=== PATIENT | male | born 1930 | race Caucasian/White ===

== ENCOUNTER 2016-05-29 10:39 | Inpatient (IN) | payer MEDICARE, OTHER ==
[~2016-05-29] VITALS: Ht 167.6 cm; Wt 44.0 kg
[2016-05-29] MEDS ORDERED: SOD CHLORIDE 0.9% 1,000 ML IV STA ×2 (10:52→10:55)
[2016-05-29] MEDS ORDERED: CEFEPIME 2GM/50 ML (PMX) 50 ML IVPB STA (10:52)
[2016-05-29] MEDS ORDERED: VANCOMYCIN 1 GM (PMX) 250 ML IVPB ONE (11:00)
[2016-05-29] MEDS ORDERED: ADV25050 INHALATION (11:04)
[2016-05-29] MEDS ORDERED: AMAN100C65 PO (11:08)
--- NOTE | 2016-05-29 11:25 | RADRPT ---
PROCEDURE: Chest x-ray CLINICAL INDICATION: Sepsis TECHNIQUE: Chest single view COMPARISON: None FINDINGS: There is moderate cardiomegaly and an sclerotic aortic calcification. The pulmonary vessels are nor mal in caliber. There is increased reticular/interstitial markings in the left lower lobe. This ma y represent atelectasis versus developing pneumonia. Continued follow-up is recommended. Lungs oth erwise clear. Costophrenic angles sharp. Bones are osteopenic IMPRESSION: 1. Increased reticular markings left lower lobe may represent atelectasis versus developing pneumon ia. Continued follow-up is recommended. 2. Cardiomegaly and atherosclerotic aortic calcification RPTAT: HH .Luke Bobby MD, Date Time Electronically viewed and signed by .Luke Bobby MD, on 05/29/2016 11:24 .W/
[2016-05-29] MEDS ORDERED: CARAS PO (11:28)
[2016-05-29] MEDS ORDERED: CALC-143 PO (11:28)
[2016-05-29] MEDS ORDERED: SIN25100 PO (11:29)
[2016-05-29] MEDS ORDERED: DILT120C10 PO (11:31)
[2016-05-29 11:32] LABS: ADD SCAN DIFF NO
[2016-05-29] MEDS ORDERED: DOCU-144 PO (11:32)
[2016-05-29] MEDS ORDERED: CRAN425C PO (11:32)
[2016-05-29] MEDS ORDERED: BISA10SU55 RC (11:33)
[2016-05-29] MEDS ORDERED: NA P135E RC (11:34)
[2016-05-29] MEDS ORDERED: [UNRECOGNIZED DRUG - CODE] SL (11:35)
[2016-05-29] MEDS ORDERED: ESCI10TA PO (11:35)
[2016-05-29 11:36] LABS: BASOPHILS % 0.1 % (0.0-2.0); EOSINOPHILS % 0.1 % (0.0-7.0); HEMATOCRIT 35.4 % (42.0-52.0); HEMOGLOBIN 11.5 g/dl (14.0-18.0); LYMPHOCYTES # 0.6 10^3/ul (0.8-2.9); LYMPHOCYTES % 5.3 % (15.0-51.0); MEAN CORPUSCULAR HEMOGLOBIN 30.2 pg (29.0-33.0); MEAN CORPUSCULAR HGB CONC 32.5 g/dl (32.0-37.0); MEAN CORPUSCULAR VOLUME 92.9 fl (82.0-101.0); MEAN PLATELET VOLUME 10.2 fl (7.4-10.4); MONOCYTE # 0.9 10^3/ul (0.3-0.9); MONOCYTES % 7.6 % (0.0-11.0); NEUTROPHIL # 10.2 10^3/ul (1.6-7.5); NEUTROPHILS % 86.1 % (39.0-77.0); PLATELET COUNT 195 10^3/UL (140-415); RED BLOOD COUNT 3.81 10^6/ul (4.70-6.10); RED CELL DISTRIBUTION WIDTH 15.2 % (11.5-14.5); WHITE BLOOD COUNT 11.8 10^3/ul (4.8-10.8)
[2016-05-29] MEDS ORDERED: OMEP40CA6 PO (11:36)
[2016-05-29] MEDS ORDERED: HYDR-906 PO ×2 (11:36→11:37)
[2016-05-29] MEDS ORDERED: MULTI PO (11:37)
[2016-05-29] MEDS ORDERED: MAGN400O4 PO (11:38)
[2016-05-29 11:45] LABS: ALBUMIN 2.8 g/dl (3.3-4.9); CHLORIDE 98 mmol/L (97-110)
[2016-05-29 11:46] LABS: POTASSIUM 4.1 mmol/L (3.5-5.1); SODIUM 135 mmol/L (135-144)
[2016-05-29 11:48] LABS: ALBUMIN/GLOBULIN RATIO 0.93; ANION GAP 13 (8-16); ASPARTATE AMINO TRANSFERASE 18 IU/L (15-46); BILIRUBIN,INDIRECT 0.3 mg/dl (0-1.1); BILIRUBIN,TOTAL 0.3 mg/dl (0.2-1.3); CARBON DIOXIDE 28 mmol/L (21-31); CREATININE 0.73 mg/dl (0.61-1.24); TOTAL PROTEIN 5.8 g/dl (6.1-8.1)
[2016-05-29 11:49] LABS: ALANINE AMINOTRANSFERASE 15 IU/L (13-69); ALKALINE PHOSPHATASE 69 IU/L (42-121); BLOOD UREA NITROGEN 19 mg/dl (7-20); CALCIUM 8.3 mg/dl (8.4-10.2); GLUCOSE 206 mg/dl (70-220)
[2016-05-29 11:58] LABS: INR 1.14; PROTIME 14.6 Sec (12.2-14.2); PT RATIO 1.1
[2016-05-29 12:01] LABS: TROPONIN-I < 0.012 ng/ml (0.00-0.12)
[2016-05-29 12:03] LABS: PARTIAL THROMBOPLASTIN TIME 25.2 Sec (25.0-35.0)
[2016-05-29] MEDS ORDERED: TIOT18CA INHALATION (12:20)
[2016-05-29] MEDS ORDERED: METO25TA7 PO (12:20)
[2016-05-29] MEDS ORDERED: MONT10TA21 PO (12:20)
[2016-05-29] MEDS ORDERED: TRAZ100T15 PO (12:21)
[2016-05-29] MEDS ORDERED: ACET-2047 PO (12:22)
[2016-05-29] MEDS ORDERED: ASCO500C7 PO (12:22)
[2016-05-29] MEDS ORDERED: DICL100G37 TOP (12:24)
[2016-05-29] MEDS ORDERED: GABA100C PO (12:25)
[2016-05-29] MEDS ORDERED: PRED10TA PO (12:26)
--- NOTE | 2016-05-29 12:41 | RADRPT ---
PROCEDURE: CT Abdomen and Pelvis without contrast. CLINICAL INDICATION: Abdominal pain. Evaluate for source of sepsis. TECHNIQUE: Multiple contiguous axial CT images of the abdomen and pelvis were obtained without the administration of intravenous contrast. Coronal and sagittal reconstructions were also performed. CTDIvol (mGy): 6.67; Total Exam DLP (mGy-cm): 324.22. One or more of the following dose reduction techniques were utilized: - Automated exposure control. - Adjustment of the mA and/or kV according to patient size. - Use of iterative reconstruction technique. COMPARISON: 01/21/2016. FINDINGS: Limited imaging of the lower thorax demonstrates scattered few residual clusters of tree in bud nodu les within the lung bases compatible with chronic bronchiolitis. This is slightly improved from jed or examination. The diaphragm is flattened suggesting the presence of hyperinflation. A fat-contai hira hernia of the central portion of the left hemidiaphragm is present. The liver and spleen are homogeneous in density. The gallbladder and right adrenal gland are unrema rkable. The left adrenal gland is not well visualized. Fatty infiltration of the pancreas is presen t. The kidneys are symmetric in size. There are no nephroureteral stones. There is no hydronephrosis o r abnormal perinephric inflammation. The abdominal aorta is normal in caliber. Atherosclerotic calcification is present. There is no per iaortic / retroperitoneal lymphadenopathy. A small moderate hiatal hernia is present and unchanged. The small intestines are unremarkable. Si gmoid diverticulosis is present. The appendix is normal. There are no focal inflammatory changes of the mesentery. There is no mesenteric lymphadenopathy. There is no ascites. There is a small fat containing hernia of the midline upper ventral abdominal wall. The bladder is partially distended and normal in contour. Mild concentric bladder wall thickening i s present. The prostate gland is within the upper limits of normal in size to mildly enlarged. Ther e is no free pelvic fluid. There is no pelvic sidewall or inguinal lymphadenopathy. Bony mineralization is decreased. There is a severe old L1 compression fracture. Body wall soft ti ssues are unremarkable. IMPRESSION: No evidence of abdominopelvic mass, lymphadenopathy or acute inflammatory pathology. Sigmoid diverticulosis. No evidence of diverticulitis. Small fat-containing hernia of the left hemidiaphragm. Small fat-containing hernia of the midline upper ventral abdominal wall, unchanged. Decreased bone density with severe chronic L1 compression fracture. RPTAT: [facility]ST .Chani Barraza MD, Date Time Electronically viewed and signed by .Chani Barraza MD, on 05/29/2016 12:41 .T/
[2016-05-29 14:00] VITALS: TEMP 98.3
[2016-05-29] MEDS ORDERED: ACETAMINOPHEN 325 MG TAB PO PRN ×2 (14:00→15:30)
[2016-05-29] MEDS ORDERED: ONDANSETRON 4 MG INJ IV PRN (14:00)
--- NOTE | 2016-05-29 14:16 | ERA ---
ER Documentation Chief Complaint Date/Time DATE: 05/29/16 TIME: 14:15 Chief Complaint FEVER AND VOMITED 1 TIME FOR 1 DAY, NO DISTRESS. NO COUGH OR CONGESTION HPI Patient is a 85-year-old male with COPD, hypertension, and previous pneumonia with respiratory failure presents with fever. Please note the history and physical exam is limited secondary to the patient's confusion at this time. The patient was brought in by ambulance. He had abdominal pain and fever at the nursing facility. He had a cough as well. He had a fever which started this morning as high as 101. He was given 3 tablets of Tylenol and the temperature came down to 98.8 per the nursing notes. He had one episode of vomiting. He is usually awake alert and oriented 3 but today is only awake alert and oriented 1. Upon review of old medical records the patient one previous visit in 2016. ROS All systems reviewed and are negative except as per history of present illness. Medications Home Meds Reported Medications Prednisone* (Prednisone*) 10 Mg Tab, 15 MG PO DAILY, TAB STARTED 05-22-16 05/29/16 Gabapentin* (Neurontin*) 100 Mg Capsule, 100 MG PO QHS, #90 CAP 05/29/16 Diclofenac Sodium* (Voltaren* Gel) 1% -100 Gm Gel, 2 GM TOP DAILY Y for PAIN, # 1 TUB TO RIGHT LOWER BACK NEED FOR PAIN MGT 05/29/16 Ascorbic Acid* (Vitamin C*) 500 Mg Capsule.sa, 500 MG PO BID, CAP 05/29/16 Acetaminophen* (Acetaminophen*) 650 Mg Tablet, 650 MG PO Q4 Y for MODERATE PAIN LEVEL 4-6, #30 TAB 05/29/16 Trazodone Hcl* (Trazodone Hcl*) 100 Mg Tablet, 100 MG PO QHS, #30 TAB 05/29/16 Metoprolol Succinate* (Toprol XL*) 25 Mg Tab.sr.24h, 25 MG PO DAILY, #30 TAB 05/29/16 Tiotropium [place]* (Spiriva*) 18 Mcg Cap.w.dev, 1 CAP INHALATION DAILY, #30 CAP 05/29/16 Montelukast Sodium* (Singulair*) 10 Mg Tablet, 10 MG PO QHS, #30 TAB 05/29/16 Magnesium Hydroxide* (Milk Of Magnesia*) 400 Mg/5 Ml Oral.susp, 30 ML PO QHS Y for CONSTIPATION, ML 05/29/16 Multivitamins* (Theragran*) 1 Tab Tab, 1 TAB PO DAILY, TAB 05/29/16 Hydrocodone/Acetaminophen (Tamiment 5-325 Tablet) 1 Each Tablet, 1 EACH PO Q6 Y for MODERATE PAIN LEVEL 4-6, TAB 05/29/16 Hydrocodone/Acetaminophen (Tamiment 5-325 Tablet) 1 Each Tablet, 2 EACH PO Q6 Y for SEVERE PAIN LEVEL 7-10, TAB 05/29/16 Omeprazole* (Omeprazole*) 40 Mg Capsule.dr, 40 MG PO DAILY, #30 CAP 05/29/16 Escitalopram Oxalate* (Lexapro*) 10 Mg Tablet, 10 MG PO DAILY, #30 TAB 05/29/16 Hyoscyamine Sulfate* (Levsin* SL) 0.125 Mg Subl, 0.125 MG SL Q6 Y for ABDOMINAL PAIN, TAB 05/29/16 Na Phos,M-B/Na Phos,Di-Ba (ENEMA READY TO USE) 135 Ml Enema, 135 ML RC EVERY 2 DAYS Y for CONSTIPATION, ENEMA 05/29/16 Bisacodyl (Dulcolax) 10 Mg Supp.rect, 10 MG RC DAILY Y for CONSTIPATION, SUPP.RECT 05/29/16 Cranberry Extract (Cranberry) 425 Mg Capsule, 425 MG PO DAILY, CAP 05/29/16 Docusate Sodium* (Colace*) 100 Mg Capsule, 200 MG PO QHS, #60 CAP 05/29/16 Diltiazem Hcl* (Cardizem SR*) 120 Mg Cap.sr.12h, 120 MG PO TID, CAP 05/29/16 Carbidopa-Levodopa* (Sinemet*) 25-100 Mg Tab, 1 TAB PO TID, TAB 05/29/16 Sucralfate* (Carafate*) 1 Gm/10 Ml Susp, 1 GM PO AC MEALS, EA 05/29/16 Calcium Citrate/Vitamin D (Citracal-Vitamin D 200 MG-250) 1 Each Tablet, 1 EACH PO DAILY, TAB 05/29/16 Amantadine Hcl* (Amantadine Hcl*) 100 Mg Capsule, 100 MG PO BID, #60 CAP 05/29/16 Salmeterol Xinaf/Fluticasone* (Advair*) 250-50 Diskus Inhaler, 1 INH INHALATION BID, #1 INHALER 05/29/16 Allergies Allergies: Coded Allergies: No Known Allergy (Unverified , 05/29/16) PMhx/Soc Positive for COPD, hypertension, pneumonia, and respiratory failure History of Surgery: No Anesthesia Reaction: No Hx Neurological Disorder: No Hx Respiratory Disorders: No Hx Cardiac Disorders: No Hx Psychiatric Problems: No Hx Miscellaneous Medical Probl: No Hx Alcohol Use: No Hx Substance Use: No Hx Tobacco Use: No Smoking Status: Never smoker FmHx Unable to obtain Physical Exam Vitals Vital Signs Date Time Temp Pulse Resp B/P Pulse Ox O2 Delivery O2 Flow Rate FiO2 05/29/16 11:56 Nasal Cannula 05/29/16 10:42 98.9 104 18 109/70 98 Physical Exam Const: Mild distress Head: Atraumatic Eyes: Normal Conjunctiva ENT: Normal External Ears, Nose and Mouth. Neck: Full range of motion..~ No meningismus. Resp: Decreased breath sounds bilaterally Cardio: Regular rate and rhythm, no murmurs Abd: Soft, non tender, non distended. Normal bowel sounds Skin: No petechiae or rashes Back: No midline or flank tenderness Ext: No cyanosis, or edema Neur: Awake but confused Result Diagram: 05/29/16 1100 05/29/16 1100 Results 24 hrs Laboratory Tests Test 05/29/16 11:00 White Blood Count 11.810^3/ul Red Blood Count 3.8110^6/ul Hemoglobin 11.5g/dl Hematocrit 35.4% Mean Corpuscular Volume 92.9fl Mean Corpuscular Hemoglobin 30.2pg Mean Corpuscular Hemoglobin Concent 32.5g/dl Red Cell Distribution Width 15.2% Platelet Count 07140^3/UL Mean Platelet Volume 10.2fl Neutrophils % 86.1% Lymphocytes % 5.3% Monocytes % 7.6% Eosinophils % 0.1% Basophils % 0.1% Nucleated Red Blood Cells % 0.0/100WBC Neutrophils # 10.210^3/ul Lymphocytes # 0.610^3/ul Monocytes # 0.910^3/ul Eosinophils # 0.010^3/ul Basophils # 0.010^3/ul Nucleated Red Blood Cells # 0.010^3/ul Prothrombin Time 14.6Sec Prothrombin Time Ratio 1.1 INR International Normalized Ratio 1.14 Activated Partial Thromboplast Time 25.2Sec Sodium Level 135mmol/L Potassium Level 4.1mmol/L Chloride Level 98mmol/L Carbon Dioxide Level 28mmol/L Anion Gap 13 Blood Urea Nitrogen 19mg/dl Creatinine 0.73mg/dl Glucose Level 206mg/dl Lactic Acid Level 1.4mmol/L Calcium Level 8.3mg/dl Total Bilirubin 0.3mg/dl Direct Bilirubin 0.00mg/dl Indirect Bilirubin 0.3mg/dl Aspartate Amino Transf (AST/SGOT) 18IU/L Alanine Aminotransferase (ALT/SGPT) 15IU/L Alkaline Phosphatase 69IU/L Troponin I < 0.012ng/ml Total Protein 5.8g/dl Albumin 2.8g/dl Globulin 3.00g/dl Albumin/Globulin Ratio 0.93 Current Medications Medications (Trade) Dose Ordered Sig/Mundo Route PRN Reason Start Time Stop Time Status Last Admin Dose Admin Cefepime HCl 50 ml @ 100 mls/hr ONCE STAT IVPB 05/29/16 10:52 05/29/16 11:21 DC 05/29/16 12:29 Vancomycin HCl 250 ml @ 125 mls/hr ONCE ONCE IVPB 05/29/16 11:00 05/29/16 12:59 DC 05/29/16 11:00 Sodium Chloride 1,000 ml @ 1,000 mls/hr Q1H STAT IV 05/29/16 10:52 05/29/16 11:51 DC 05/29/16 10:52 Sodium Chloride (NS) 1,000 ml @ 1,000 mls/hr Q1H STAT IV 05/29/16 10:55 05/29/16 11:54 DC 05/29/16 12:30 Ondansetron HCl (Zofran Inj) 4 mg BRIDGE ORDER PRN IV NAUSEA AND/OR VOMITING 05/29/16 14:00 05/30/16 13:59 Acetaminophen (Tylenol Tab) 650 mg ER BRIDGE PRN PO MILD PAIN/FEVER 05/29/16 14:00 05/30/16 13:59 Procedures/MDM EKG read by me: Rate/Rhythm: Regular rate and rhythm at a rate of 92 Intervals: Normal Impression: No evidence of ischemia or arrhythmia Chest x-ray shows pneumonia per radiology. Patient is an 85-year-old male with multiple comorbidities who presents with pneumonia and fever. The patient does not appear to have true sepsis at this time. The patient has anemia with a hemoglobin of 11.4. He does not require transfusion. His primary doctor is Dr. Trotter and the patient will be admitted to the care of Dr. Trotter to a medical surgical bed. He has confusion as well as pneumonia and I do believe that inpatient admission is appropriate. The patient was given broad-spectrum antibiotics with vancomycin and cefepime. Departure Diagnosis: Primary Impression: Altered level of consciousness Additional Impressions: Fever Qualified Code: R50.9 - Fever, unspecified fever cause Pneumonia Qualified Code: J18.9 - Pneumonia due to infectious organism, unspecified laterality, unspecified part of lung Condition: JANET Nathan MD May 29, 2016 14:16
[2016-05-29 14:47] VITALS: BP 112/57; RESP 18
[2016-05-29 14:55] LABS: ADD UMIC YES; URINE BILIRUBIN (Dip) NEGATIVE (NEGATIVE); URINE BLOOD (Dip) NEGATIVE (NEGATIVE); URINE COLOR LT. YELLOW (YELLOW); URINE GLUCOSE (Dip) NEGATIVE (NEGATIVE); URINE KETONES (Dip) TRACE (NEGATIVE); URINE LEUKOCYTE ESTERASE (Dip) TRACE (NEGATIVE); URINE NITRITE (Dip) NEGATIVE (NEGATIVE); URINE TOTAL PROTEIN (Dip) NEGATIVE (NEGATIVE); URINE UROBILINOGEN (Dip) 0.2 E.U./dL (0.1-1.0)
[2016-05-29 15:17] LABS: BACTERIA,URINE FEW; URINE RBCS 0-2 /HPF (0)
[2016-05-29] MEDS ORDERED: BISACODYL 10 MG SUPP PR PRN (15:30)
[2016-05-29] MEDS ORDERED: NA PHOSPHATE/BIPHOS 133 ML ENEMA PR PRN (15:30)
[2016-05-29] MEDS ORDERED: HYOSCYAMINE 0.125 MG SUBL TAB SL PRN (15:30)
[2016-05-29] MEDS ORDERED: DICLOFENAC SODIUM 1% GEL 100 GM TUBE TP PRN (15:30)
[2016-05-29] MEDS ORDERED: HYDROCODONE/APAP (5/325) TAB PO PRN (15:30)
[2016-05-29] MEDS ORDERED: MAGNESIUM HYDROXIDE 30ML CUP PO PRN (15:30)
[2016-05-29 15:45] VITALS: Ht 167.6 cm; Wt 44.0 kg
--- NOTE | 2016-05-29 17:43 | HP ---
DATE OF ADMISSION: 05/29/2016 CHIEF COMPLAINT: Fever, cough. HISTORY OF PRESENT ILLNESS: This is an 85-year-old male with a past medical history of COPD, histor y of asthma, a history of hypertension, history of cognitive decline, dementia, history of AFib, his tory of GERD, history of osteoarthritis, history of gastric cancer status post surgical resection wh o presents to [facility] from skilled nurse facility due to fever and vomiting x1 day. The patient was noted this morning of being febrile with a temperature of greater than 101. H e was also coughing and had 1 episode of emesis. The patient was only alert and oriented x1. As a result, he was brought into [facility] for evaluation. Upon arrival, the patient had a chest x-ray which showed increasing left lower lobe atelectasis versus developing pneumonia. The patient also noted to have abdominal pain on admission. He had a CT scan of the abdomen which s howed no acute pathology, diverticulosis; a small fat-containing hernia; and a chronic L1 compressio n fracture. The patient in the emergency room was diagnosed with sepsis secondary to pneumonia, was started on antibiotic therapy. There were no reports of hemoptysis, hematemesis or hematochezia. PAST MEDICAL HISTORY: History of COPD/asthma, history of cognitive decline, history of depression, history of AFib, history of gastric cancer status post resection, history of hypertension, history o f chronic back pain, previous history of sepsis and pneumonia. PAST SURGICAL HISTORY: Status post gastric surgery, status post EGD. FAMILY HISTORY: Noncontributory. SOCIAL HISTORY: Does not drink, smoke or do drugs. Lives at a skilled nurse facility. MEDICATIONS: Reviewed and reconciled. REVIEW OF SYSTEMS: A 14-point review of systems was conducted. Pertinent positives stated in HPI, otherwise negative. PHYSICAL EXAMINATION: VITAL SIGNS: Blood pressure 112/57, respirations 18, pulse 110, temperature 97.3. HEENT: Head is normocephalic. Pupils are reactive to light. NECK: Supple. HEART: Irregularly irregular. LUNGS: Diminished breath sounds at base. Positive rhonchi. ABDOMEN: Soft. Positive tenderness to palpation. No rebound, guarding. EXTREMITIES: Negative for clubbing, cyanosis. No edema. DERMATOLOGIC: No rashes. MUSCULOSKELETAL: No joint effusion. NEUROLOGIC: No obvious focal deficits. LABORATORY DATA: Sodium 135, potassium 4.1, BUN 19, creatinine 1.73. White count 11.8, hemoglobin 11.5, hematocrit 35.4, platelet count 195. IMAGING STUDIES: Stated in HPI. ASSESSMENT AND PLAN: This is an 85-year-old male who presents with: 1. Sepsis secondary to healthcare-associated pneumonia. The patient's chest x-ray shows evidence o f infiltrate. The patient was noted to be febrile and has leukocytosis on exam. Plan at this point is to continue the patient on antibiotic therapy. Will check blood cultures, urine cultures, check sputum culture. Will check procalcitonin level. Will place ID consult for evaluation, monitor rosy sely. 2. Acute encephalopathy on top of dementia. Etiology is likely toxic metabolic. Will continue cur rent antibiotic regimen, monitor closely. Consider CT scan of the head. 3. Paroxysmal atrial fibrillation. The patient currently in sinus rhythm. Will continue current m edical management. 4. History of chronic obstructive pulmonary disease/asthma. Will continue current medical manageme nt with Spiriva, Advair, prednisone, nebulizers. Monitor closely. 5. Parkinson disease. Will continue Sinemet. 6. Depression. Continue Lexapro. 7. Anemia of chronic disease. Continue to monitor H and H levels. 8. Osteoarthritis with compression fracture. Continue [place]. Continue Voltaren gel. 9. Gastroesophageal reflux disease and gastritis. Continue PPI. 10. History of constipation. Continue current bowel regimen. 11. Previous history of gastric cancer. Dictated By: JEFF GAMEZ/NTS Conf#: [id number] DID#: [id number]
[2016-05-29] MEDS: SUCRALFATE (100 MG/ML) 10ML CUP PO SCH (18:20)
--- NOTE | 2016-05-29 19:46 | CONS ---
DATE OF ADMISSION: 05/29/2016 DATE OF CONSULTATION: 05/29/2016 TYPE OF CONSULTATION: Infectious disease. REASON FOR CONSULTATION: Antibiotic management. HISTORY OF PRESENT ILLNESS: Crow Herbert is an 85-year-old [place] male who comes in with fever an d vomiting of 1 day's duration. His past problems include: 1. COPD. 2. Hypertension. 3. Previous pneumonia with respiratory failure. He was brought in by ambulance. He had abdominal pain and fever at the nursing facility. He has a cough as well. His fever started this morning and mora to 101. He was given 3 Tylenol and had one episode of nausea and vomiting. His past problems include: 1. COPD. 2. Hypertension. 3. Pneumonia. 4. Respiratory failure. The patient is on prednisone 10 mg. He is on gabapentin. He is on a number of different inhalers. On admission, his white count 11.8, H and H 11.5 and 35.4, platelet count of 195,000. BUN and crea tinine 19/0.73. PAST MEDICAL HISTORY: OPERATIONS: None outlined. FAMILY HISTORY: Noncontributory. SOCIAL HISTORY: He does not smoke, drink or abuse drugs, although he may have smoked in the past. We have a history of never having smoked. ALLERGIES: NONE TO PENICILLIN, SULFA OR FOODS. MEDICATIONS: Per chart. REVIEW OF SYSTEMS: As per HPI. PHYSICAL EXAMINATION: GENERAL: The patient is a well-developed, well-nourished elderly male who is alert, responsive, in no acute distress. VITAL SIGNS: Stable. He is afebrile. SKIN: Without generalized rash. HEENT: Within normal limits. NECK: Supple. LYMPH NODES: None palpable. CHEST: Decreased breath sounds at the bases. HEART: Without murmur or gallop. ABDOMEN: Soft, nontender, nondistended, without organosplenomegaly or masses. EXTREMITIES: Without cyanosis, clubbing, or edema. RECTAL AND GENITAL: Deferred. NEUROLOGIC: No focal neurological abnormalities. Chest x-ray shows pneumonia. Patient has multiple comorbidities who presents with pneumonia and fever. He was started on vancomy rizwan and cefepime. He had a CT scan of the abdomen and pelvis, no evidence of abdominopelvic mass, l ymphadenopathy or acute inflammatory process, sigmoid diverticulosis, not diverticulitis and a small fat containing hernia to the left of the diaphragm. He has decreased bone density with severe L1 c ompression fracture. IMAGING: His chest x-ray showed increased reticular markings, left lower lobe, may represent atelec tasis versus developing pneumonia, cardiomegaly and atherosclerotic aortic calcifications were prese nt. HOSPITAL COURSE: The patient comes in with fever, comes in with shortness of breath and leukocytosi s and is being treated for COPD and pneumonitis with vancomycin and cefepime. We will await his cul ture reports. We will make sure that he has sputum for culture. I will dictate my findings to Dr. Trotter. Dictated By: MILADY VERGARA MD, JD/DANIELA Conf#: [id number] DID#: [id number]
[2016-05-29 20:34] VITALS: BP 128/66; RESP 18
[2016-05-29] MEDS: DOCUSATE SODIUM 100 MG CAP PO SCH (21:35)
[2016-05-29] MEDS: SALMETEROL/FLUTICASONE 250/50 INHA INH SCH (21:35)
[2016-05-29] MEDS: ASCORBIC ACID 500 MG TAB PO SCH (21:35)
[2016-05-29] MEDS: MONTELUKAST 10 MG TAB PO SCH (21:35)
[2016-05-29] MEDS: GABAPENTIN 100 MG CAP PO SCH (21:36)
[2016-05-29] MEDS: AMANTADINE 100 MG CAP PO SCH (21:36)
[2016-05-29] MEDS: traZODone 100 MG TAB PO SCH (21:36)
[2016-05-29] MEDS: HYDROCODONE/APAP (5/325) TAB PO PRN (21:47)
[2016-05-29] MEDS: CARBIDOPA/LEVODOPA (25/100) TAB PO SCH (21:48)
[2016-05-29] MEDS: DILTIAZEM (SR) 60 MG CAP PO SCH (21:48)
[2016-05-29] MEDS: SOD CHLORIDE 0.9% 1,000 ML IV SCH (22:48)
[2016-05-30 05:40] LABS: ADD SCAN DIFF NO
[2016-05-30 05:51] LABS: BASOPHILS % 0.2 % (0.0-2.0); EOSINOPHILS # 0.1 10^3/ul (0.0-0.5); HEMATOCRIT 32.7 % (42.0-52.0); HEMOGLOBIN 10.3 g/dl (14.0-18.0); LYMPHOCYTES # 1.5 10^3/ul (0.8-2.9); LYMPHOCYTES % 17.6 % (15.0-51.0); MEAN CORPUSCULAR HEMOGLOBIN 29.3 pg (29.0-33.0); MEAN CORPUSCULAR HGB CONC 31.5 g/dl (32.0-37.0); MEAN CORPUSCULAR VOLUME 92.9 fl (82.0-101.0); MEAN PLATELET VOLUME 10.3 fl (7.4-10.4); MONOCYTE # 0.6 10^3/ul (0.3-0.9); MONOCYTES % 7.8 % (0.0-11.0); NEUTROPHILS % 72.8 % (39.0-77.0); PLATELET COUNT 167 10^3/UL (140-415); RED BLOOD COUNT 3.52 10^6/ul (4.70-6.10); RED CELL DISTRIBUTION WIDTH 15.5 % (11.5-14.5); WHITE BLOOD COUNT 8.2 10^3/ul (4.8-10.8)
[2016-05-30] MEDS ORDERED: PANTOPRAZOLE (EC) 40 MG TAB PO SCH (06:00)
[2016-05-30 06:07] LABS: POTASSIUM 3.9 mmol/L (3.5-5.1)
[2016-05-30 06:09] LABS: CREATININE 0.64 mg/dl (0.61-1.24)
[2016-05-30 06:10] LABS: CALCIUM 7.8 mg/dl (8.4-10.2); MAGNESIUM 1.8 mg/dl (1.7-2.5); PHOSPHORUS 3.6 mg/dl (2.5-4.9)
[2016-05-30] MEDS: SOD CHLORIDE 0.9% 1,000 ML IV SCH (06:38)
[2016-05-30 07:59] VITALS: BP 156/69; RESP 18
[2016-05-30] MEDS: DILTIAZEM (SR) 60 MG CAP PO SCH ×3 (08:35→21:19)
[2016-05-30] MEDS: ASCORBIC ACID 500 MG TAB PO SCH ×2 (08:36→21:18)
[2016-05-30] MEDS: METOPROLOL (XL) 25 MG TAB PO SCH (08:36)
[2016-05-30] MEDS: CARBIDOPA/LEVODOPA (25/100) TAB PO SCH ×3 (08:36→21:19)
[2016-05-30] MEDS: CALCIUM/VITAMIN D (500/200) TAB PO SCH (08:37)
[2016-05-30] MEDS: MULTIVITAMINS THERAPEUTIC TAB PO SCH (08:37)
[2016-05-30] MEDS: ESCITALOPRAM 10 MG TAB PO SCH (08:37)
[2016-05-30] MEDS: TIOTROPIUM 18 MCG CAPSULE INHA DEV INH SCH (08:37)
[2016-05-30] MEDS: predniSONE 5 MG TAB PO SCH (08:37)
[2016-05-30] MEDS: SUCRALFATE (100 MG/ML) 10ML CUP PO SCH ×3 (08:37→16:51)
[2016-05-30] MEDS: AMANTADINE 100 MG CAP PO SCH ×2 (08:37→21:18)
[2016-05-30] MEDS: SALMETEROL/FLUTICASONE 250/50 INHA INH SCH ×2 (08:38→21:18)
[2016-05-30] MEDS: ENOXAPARIN 30 MG/0.3 ML SYG SC SCH (08:43)
[2016-05-30] MEDS: HYDROCODONE/APAP (5/325) TAB PO PRN (08:44)
[2016-05-30] MEDS ORDERED: NON-FORMULARY/PATIENT OWN MED (Cranberry Extract (Cranberry) 425 MG) PO SCH (09:00)
--- NOTE | 2016-05-30 09:19 | PN ---
DATE: 05/30/2016 SUBJECTIVE: The patient is stable. He is complaining about pain in his right upper quadrant and hi s lower back which are chronic, and has been ongoing for an extended period of time. No other acute events noted. No hemoptysis, hematemesis, hematochezia. The patient overnight was noted to be mil dly hypotensive, was placed on IV fluids. OBJECTIVE: VITAL SIGNS: Blood pressure is 156/69, respiration 18, pulse 119, temperature 98.2. HEENT: Head is normocephalic. NECK: Supple. HEART: Tachycardic. LUNGS: Show diminished breath sounds at base. ABDOMEN: Soft, positive tenderness to palpation in right upper quadrant. No rebound or guarding. EXTREMITIES: Negative for clubbing, cyanosis. No edema. DERMATOLOGIC: No rashes. MUSCULOSKELETAL: Positive tenderness to palpation in the lower thoracic region around T12/T11. No spinal tenderness. NEUROLOGIC: No focal deficits. LABORATORY DATA: Shows sodium 137, potassium 3.9, chloride 102, BUN 13, creatinine 0.64, white coun t of 9.2, hemoglobin 10.2, hematocrit 32.7, platelet count 167,000. IMAGING STUDIES: Have been reviewed. ASSESSMENT AND PLAN: 1. Sepsis secondary to healthcare-associated pneumonia. The patient's chest x-ray shows questionab le infiltrate. Blood cultures show gram-positive cocci. Patient also noted to have elevated lactic acid. At this point, continue current treatment plan. Continue IV fluids, continue antibiotic the rapy. We will follow up with Infectious Disease for further recommendations. Check procalcitonin l evel. 2. Abdominal pain. Patient has right upper quadrant pain. The etiology is unclear. CT scan of e abdomen and pelvis does not show any acute findings. We will place an a General Surgery consult w [facility] Dr. Ezekiel Salcido for evaluation. 3. Lower back pain. Underlying etiology is unclear, possible arthritis versus compression fracture . The patient's recent CT scan of the abdomen and pelvis showed an L1 compression fracture. Plan a t this point is to get a CT scan of the T spine and L-spine. Would consider Orthopedic evaluation. Continue pain control, monitor closely. 4. Acute encephalopathy and dementia. Etiology is toxic metabolic. Mental status is improved. We will continue to monitor. 5. Paroxysmal atrial fibrillation, currently in sinus rhythm. Continue medical management. Follow up with Cardiology. 6. History of chronic obstructive pulmonary disease and asthma. The patient is currently stable. Continue medical management, Spiriva, Advair, prednisone, nebulizers. 7. Parkinson disease. Continue Sinemet. 8. Depression. Continue Lexapro. 9. Anemia of chronic disease. Monitor hemoglobin and hematocrit levels. 10. History of severe gastritis/gastroesophageal reflux disease. Continue proton pump inhibitor 40 mg, Protonix b.i.d. 11. History of constipation. Continue current bowel regimen. 12. History of gastric cancer. Please note, I spoke with the patient's daughter up to 25 minutes, discussed code status. The patie nt is FULL CODE. Dictated By: JEFF HAUSER DO NR/NTS Conf#: [id number] DID#: [id number]
[2016-05-30] MEDS ORDERED: VANCOMYCIN IV PER PHARMACY XX SCH (13:00)
--- NOTE | 2016-05-30 13:26 | PN ---
DATE: 05/30/2016 SUBJECTIVE: No acute changes. The patient is lying comfortably in bed. He is awake, in no distres s, still has right upper quadrant abdominal discomfort. VITAL SIGNS: Temperature 98.2. LABORATORY: WBC today 8.2, H and H 10.3 and 32.7, platelets 167, no shift, no bands. BUN 13, creat inine 0.64. Lactic acid 2.9. MICROBIOLOGY: Blood culture growing gram-positive cocci in chains. DIAGNOSTICS: CT of the abdomen revealed no evidence of inflammatory pathology. No evidence of dive rticulitis, chronic compression fracture at L1. Chest x-ray on admission revealed atelectasis versu s pneumonia. ANTIMICROBIALS: Patient is on vancomycin. ALLERGIES: NONE. PHYSICAL EXAMINATION: GENERAL: This is a fragile, elderly man who is awake, in no distress. HEENT: Head atraumatic, normocephalic. Sclerae anicteric. Buccal mucosa dry. NECK: Supple, trachea midline. CHEST: Rise symmetrical. Breath sounds diminished at the bases. HEART: S1, S2. ABDOMEN: Soft, bowel tones present. EXTREMITIES: Without cyanosis. ASSESSMENT: 1. Bacteremia with blood culture growing gram-positive cocci in chains, possibly strep. 2. Acute pneumonia likely strep. 3. COPD exacerbation. 4. Hypertension. 5. Parkinson's disease. PLAN: We are going to continue vancomycin and start him on Rocephin. Repeat blood cultures. Try to obtain sputum cultures, follow on chest x-ray and get 2D echo. Dictated By: JOSEPH PRADO FLIGHT ENGINEER INSPECTOR for MILADY PARK/DANIELA Conf#: [id number] DID#: [id number]
--- NOTE | 2016-05-30 15:08 | CONS ---
DATE OF ADMISSION: 05/29/2016 DATE OF CONSULTATION: 05/30/2016 TYPE OF CONSULTATION: Cardiology REFERRING PHYSICIAN: Jeff Trotter MD REASON FOR CONSULTATION: Arrhythmias. CHIEF COMPLAINT: Fever, cough, not feeling well. HISTORY OF PRESENT ILLNESS: Thank you for this referral. History is obtained from the patient, ext ensive review of the old chart. The patient also known to me from outpatient workup. Discussion wi th Dr. Trotter and staff. This is a pleasant 85-year-old [place] gentleman with history of COPD, asthma, hypertension, cognitive decline, history of paroxysmal atrial fibrillation, who has h ad increasing cough and shortness of breath. The patient admitted with sepsis and pneumonia, also was brought in from [facility] where he was having fever and vomiting there. He denies a ny chest pain or pressure to me. He does have back pain. He does have shortness of breath and coug h. He denies any palpitations to me at this point, although has had intermittently before. PAST MEDICAL HISTORY: History of COPD, asthma, history of cognitive decline, history of depression, paroxysmal atrial fibrillation, gastric ulcer, status post resection, hypertension, chronic back pa in, sepsis, pneumonia. SURGICAL HISTORY: Status post gastric surgery, EGD. SOCIAL HISTORY: Does not smoke or drink at this point. Lives in a [place] [facility]. MEDICATIONS: As per medication reconciliation, personally reviewed. FAMILY HISTORY: No reported coronary artery disease. REVIEW OF SYSTEMS: As above mentioned. PHYSICAL EXAMINATION: VITAL SIGNS: Temperature 98.2, heart rate of 110, blood pressure 156/69, respiratory rate of 18, sa turating 94%. HEENT: Normocephalic, atraumatic. Thin gentleman. Pupils are equal. CARDIOVASCULAR: Tachycardic. Systolic murmur. PULMONARY: With no wheezes anteriorly at this point, with mild rhonchi. GASTROINTESTINAL: Soft, nontender. EXTREMITIES: With no significant lower extremity edema. NEUROLOGIC: Awake, responds appropriately. PSYCHIATRIC: Appears to be calm and pleasant. LABORATORY DATA: Microbiology shows blood culture with gram-positive cocci in chains and clusters, 1 out of 2. Sodium 137, potassium 3.9, BUN of 13, creatinine 0.6, glucose 114. Lactic acid was hig h at 5.1, it has come down to 2.9. Magnesium is 1.9. WBC of 8.2, hemoglobin 10.3, platelets 165. Chest x-ray shows increased reticular markings left lower lobe, may be atelectasis versus deve loping pneumonia. EKG was personally reviewed, which shows sinus rhythm with frequent PACs/atrial t achycardia. ASSESSMENT AND PLAN: 1. History of atrial arrhythmias, currently is stable. 2. Pneumonia. 3. Possible sepsis. 4. Chronic obstructive pulmonary disease. 5. Parkinson's disease. 6. Depression. 7. History of fall risk. 8. History of gastrointestinal bleed as well as gastrointestinal cancer. 9. Anemia. RECOMMENDATIONS: Antibiotic as per ID's recommendations. We will continue with Toprol for now. Th e patient is not anticoagulated due to concern about the bleeding. Pulmonary care will be continued . We will check the echocardiogram as well. Dictated By: CHAVA LOZANO MD AV/DANIELA Conf#: [id number] DID#: [id number] CC: JEFF TROTTER DO;*EndCC*
--- NOTE | 2016-05-30 16:48 | RADRPT ---
Echocardiogram Report Patient Name: MAGALIE HAWLEY Gender: Male Date: 1930 Study Date: 30-May-2016 Billing Checker: Malina Londono AQUILINO Location: 629 Ref. Physician: JOSEPH PRADO Quality: Technically Difficult Study Procedures: Transthoracic echocardiogram with complete 2D, M-Mode, and doppler examination. Indications: r/o vegetations. 2D/M Mode Doppler Measurement Value Normal Ranges Measurement Value Normal Ranges LVIDd 2D 4.2 3.5 - 5.6 cm DALILA Vmax 1.0 cm2 LVIDs 2D 2.2 2.1 - 4.1 cm DALILA VTI 1.0 cm2 LVPWd 2D 1.0 0.6 - 1.1 cm AV Mean Stuart 1.9 m/sec IVSd 2D 1.0 0.6 - 1.1 cm AV Mean PG 17.2 mmHg AoR Diam 2D 2.7 2.0 - 3.7 cm AV Peak Stuart 2.9 m/sec EDV 2D 78.3 cm3 AV Peak PG 34.0 mmHg ESV 2D 10.3 cm3 AV VTI 52.7 cm LA Dimen 2D 3.9 2.3 - 4.0 cm LVOT Mean Stuart 0.8 m/sec LVOT Diam 1.8 cm LVOT Mean PG 2.9 mmHg LVOT Peak Stuart 1.2 m/sec LVOT Peak PG 5.7 mmHg LVOT VTI 22.7 cm TR Peak Stuart 1.9 m/sec TR Peak PG 14.8 mmHg RVSP 18.0 mmHg Findings Left Ventricle: Normal left ventricular systolic function. Normal left ventricular cavity size. Normal left ventricular wall thickness. Ejection fraction is visually estimated at 65 %. Right Ventricle: Normal right ventricular size. Normal right ventricular systolic function. Left Atrium: The left atrium is normal in size. Right Atrium: The right atrium is normal in size. Mitral Valve: Mild mitral leaflet calcification. Moderate mitral annular calcification. No mitral valve regurgitation is seen. Aortic Valve: Aortic valve not well visualized. Mild aortic stenosis. Aortic valve Max velocity 2.92 m/sec. Max PG 34.00 mmHg. Mean PG 17.20 mmHg. Aortic cusps appear moderately calcified. Tricuspid Valve: Normal appearance of the tricuspid valve. Estimated peak PA systolic pressure 18 mmHg. There is trace tricuspid regurgitation. Pulmonic Valve: Normal pulmonic valve appearance. Pericardium: Normal pericardium with no significant pericardial effusion. Aorta: Normal aortic root. IVC: Normal size and normal respiratory collapse consistent with normal right atrial pressure. Conclusions 1.Normal left ventricular systolic function. Normal left ventricular cavity size. Normal left ventricular wall thickness. Ejection fraction is visually estimated at 65 %. 2.Mild mitral leaflet calcification. Moderate mitral annular calcification. No mitral valve regurgitation is seen. 3.Aortic valve not well visualized. Mild aortic stenosis. Aortic valve Max velocity 2.92 m/sec. Max PG 34.00 mmHg. Mean PG 17.20 mmHg. Aortic cusps appear moderately calcified. 4.Normal appearance of the tricuspid valve. Estimated peak PA systolic pressure 18 mmHg. There is trace tricuspid regurgitation. 5.Normal size and normal respiratory collapse consistent with normal right atrial pressure. Electronically Signed By: Jeff Raymundo 30-May-2016 16:47:59 -0700 Patient Name: MAGALIE HAWLEY Study Date: 30-May-2016 [id number]
[2016-05-30] MEDS: CEFTRIAXONE 1 GM/50 ML (PMX) 50 ML IVPB SCH (16:51)
[2016-05-30] MEDS: VANCOMYCIN 500MG/NS (PMX) 100 ML IVPB SCH (16:52)
[2016-05-30] MEDS: PANTOPRAZOLE (EC) 40 MG TAB PO SCH (17:06)
[2016-05-30 21:12] VITALS: BP 136/71; RESP 18
[2016-05-30] MEDS: MONTELUKAST 10 MG TAB PO SCH (21:18)
[2016-05-30] MEDS: GABAPENTIN 100 MG CAP PO SCH (21:18)
[2016-05-30] MEDS: traZODone 100 MG TAB PO SCH (21:18)
[2016-05-30] MEDS: DOCUSATE SODIUM 100 MG CAP PO SCH (21:18)
--- NOTE | 2016-05-31 00:17 | RADRPT ---
PROCEDURE: CT thoracic Spine without contrast. CLINICAL INDICATION: Back pain TECHNIQUE: Multiple axial images through the thoracic spine with coronal and sagittal reformats we re obtained without contrast. The calculated radiation dose measures 348 mGy centimeters. The CTDI m easures 8 mGy COMPARISON: No prior studies are available for comparison. FINDINGS: There is anatomic alignment of the thoracic vertebral bodies. There is a compression deformity at T 8, with 55% height loss. There is compression deformities at T11 and L1, with 50% and near complete height loss respectively. There is retropulsion at the L1 level measuring up to 6 mm, with mild as sociated central canal stenosis. There is minimal retropulsion at T11, less than 2 mm. There is dif fuse bony demineralization. There is mild facet hypertrophy through the mid and lower thoracic spine. There is no significant d isk protrusion or extrusion identified. There is no bony central canal stenosis. There is mild to moderate bilateral bony foraminal stenosis at T10-T11 and L1-L2, related to adjacent vertebral body height loss.. . There is prominent aortic calcification. There is a moderate hiatal hernia. There is scarring in th e lung periphery and scattered emphysematous changes. IMPRESSION: 1. Bony demineralization. 2. Compression deformities at T8 and T11, with 55% and 50% height loss respectively. Compression de formity at L1, with near complete height loss. These findings are of uncertain age. 3. Mild retropulsion at L1, with mild associated central canal stenosis. 4. Mild to moderate bilateral bony foraminal stenosis at T10-T11 and L1-L2, related to adjacent hero tebral body height loss. 5. Prominent aortic calcification. Moderate hiatal hernia. Emphysematous changes. RPTAT: HBST .Odilon Hanson MD, MD Date Time Electronically viewed and signed by .Odilon Hanson MD, MD on 05/31/2016 00:16 .T/
--- NOTE | 2016-05-31 00:30 | RADRPT ---
PROCEDURE: CT Lumbar Spine. CLINICAL INDICATION: Back pain TECHNIQUE: Continuous axial CT images were obtained. Sagittal and coronal reformations were creat ed from the raw axial data. The images were reviewed on a PACS workstation. The calculated radiatio n dose measures 255 mGy centimeters. The CTDI measures 8 mGy COMPARISON: none FINDINGS: There is a normal lumbar lordosis. There is diffuse bony demineralization. There is a severe compr ession deformity of the L1 vertebral body with near complete height loss. There are compression def ormities involving the inferior L2 and L3 vertebral bodies, with 40% and 50% height loss respectivel y. There is retropulsion of the upper L1 vertebral body up to 6 mm into the anterior spinal canal, with associated mild central canal stenosis. There is no subluxation. T12-L1: There is L1 retropulsion and mild central canal stenosis as mentioned above. There is minim al bilateral facet hypertrophy. There is minimal bilateral foraminal stenosis.. L1-L2: There is mild L1 retropulsion. There is minimal bilateral facet hypertrophy. There is no si gnificant central canal stenosis. There is mild to moderate bilateral foraminal stenosis.. L2-L3: There is a minimal diffuse disk bulge. There is moderate bilateral facet hypertrophy. There is ligamentum flavum buckling. There is mild central canal stenosis. There is mild to moderate bi lateral foraminal stenosis. L3-L4: There is a minimal diffuse disk bulge. There is moderate bilateral facet hypertrophy. There is mild central canal stenosis. There is right greater than left lateral recess narrowing. There is mild to moderate bilateral foraminal stenosis.. L4-L5: There is a mild to moderate diffuse disk bulge, 5 mm. There is mild to moderate bilateral fa cet hypertrophy. There is ligamentum flavum buckling. There is moderate central canal stenosis wit h canal diameter measuring 9 x 11 mm. There is bilateral lateral recess stenosis. There is moderat e left and moderate to severe right foraminal stenosis.. L5-S1: There is a minimal diffuse disk bulge. There is mild moderate bilateral facet hypertrophy. There is no bony central canal stenosis. There is minimal bilateral bony foraminal stenosis.. There is no abnormal paravertebral soft tissue mass. There is a moderate hiatal hernia. There is a 2 mm left lower pole renal stone. There is colonic diverticulosis. IMPRESSION: 1. Compression deformity at L1 with near complete height loss. There is mild retropulsion, up to 6 mm, and mild associated central canal stenosis. 2. Inferior endplate compression deformities at L2 and L3, with 40% and 50% height loss respectivel y. 3. Bony demineralization. 4. At L4-5 there is mild to moderate disk bulge, and mild to moderate facet hypertrophy with ligame ntum flavum buckling. There is resulting moderate central canal stenosis and lateral recess narrowi ng. There is moderate left and moderate to severe right foraminal stenosis. 5. Moderate facet hypertrophy and ligamentum flavum buckling at L2-L3 and L3-L4, with minimal disk bulges. Mild associated central canal narrowing. 6. Left lower pole 2 mm renal collecting system stone. RPTAT: HBST .Odilon Hanson MD, Date Time Electronically viewed and signed by .Odilon Hanson MD, on 05/31/2016 00:30 .T/
[2016-05-31] MEDS: PANTOPRAZOLE (EC) 40 MG TAB PO SCH ×2 (06:08→17:27)
[2016-05-31 06:18] LABS: ADD SCAN DIFF NO
[2016-05-31 06:26] LABS: BASOPHILS % 0.1 % (0.0-2.0); EOSINOPHILS # 0.1 10^3/ul (0.0-0.5); EOSINOPHILS % 0.6 % (0.0-7.0); HEMATOCRIT 31.2 % (42.0-52.0); HEMOGLOBIN 9.8 g/dl (14.0-18.0); LYMPHOCYTES # 1.2 10^3/ul (0.8-2.9); MEAN CORPUSCULAR HEMOGLOBIN 29.3 pg (29.0-33.0); MEAN CORPUSCULAR HGB CONC 31.4 g/dl (32.0-37.0); MEAN CORPUSCULAR VOLUME 93.4 fl (82.0-101.0); MEAN PLATELET VOLUME 9.6 fl (7.4-10.4); MONOCYTE # 0.8 10^3/ul (0.3-0.9); MONOCYTES % 8.6 % (0.0-11.0); NEUTROPHIL # 6.9 10^3/ul (1.6-7.5); NEUTROPHILS % 76.8 % (39.0-77.0); PLATELET COUNT 187 10^3/UL (140-415); RED BLOOD COUNT 3.34 10^6/ul (4.70-6.10); RED CELL DISTRIBUTION WIDTH 15.5 % (11.5-14.5); WHITE BLOOD COUNT 8.9 10^3/ul (4.8-10.8)
[2016-05-31 08:03] VITALS: BP 124/71; RESP 18
[2016-05-31] MEDS: SUCRALFATE (100 MG/ML) 10ML CUP PO SCH ×3 (09:15→17:27)
[2016-05-31] MEDS: predniSONE 5 MG TAB PO SCH (09:16)
[2016-05-31] MEDS: CALCIUM/VITAMIN D (500/200) TAB PO SCH (09:16)
[2016-05-31] MEDS: MULTIVITAMINS THERAPEUTIC TAB PO SCH (09:16)
[2016-05-31] MEDS: ESCITALOPRAM 10 MG TAB PO SCH (09:17)
[2016-05-31] MEDS: METOPROLOL (XL) 25 MG TAB PO SCH (09:17)
[2016-05-31] MEDS: AMANTADINE 100 MG CAP PO SCH ×2 (09:18→21:19)
[2016-05-31] MEDS: ASCORBIC ACID 500 MG TAB PO SCH ×2 (09:18→21:14)
[2016-05-31] MEDS: DILTIAZEM (SR) 60 MG CAP PO SCH ×3 (09:18→21:14)
[2016-05-31] MEDS: CARBIDOPA/LEVODOPA (25/100) TAB PO SCH ×3 (09:18→21:13)
[2016-05-31] MEDS: SALMETEROL/FLUTICASONE 250/50 INHA INH SCH ×2 (09:18→21:13)
[2016-05-31] MEDS: TIOTROPIUM 18 MCG CAPSULE INHA DEV INH SCH (09:18)
[2016-05-31] MEDS: ENOXAPARIN 30 MG/0.3 ML SYG SC SCH (09:28)
--- NOTE | 2016-05-31 09:41 | PN ---
DATE: 05/31/2016 CARDIOLOGY FOLLOWUP SUBJECTIVE: The patient complained of back pain. No chest pain or pressure. Denies any palpitatio ns to me. MEDICATIONS: Reviewed. PHYSICAL EXAMINATION: VITAL SIGNS: Temperature 98.7, heart rate of 111, blood pressure 12 /71, respiration rate of 18 , saturating 93%. HEENT: Normocephalic, atraumatic. Pupils are equal. CARDIOVASCULAR: Tachycardic. PULMONARY: With no wheezes heard. GASTROINTESTINAL: Soft, nontender. EXTREMITIES: With trivial lower extremity edema. NEUROLOGIC: Awake, responds appropriately. PSYCHIATRIC: Appears to be calm and pleasant. LABORATORY: WBC of 8.9, hemoglobin 9.8, platelet 187. Sodium 137, potassium 3.9, BUN of 13, creati nine 0.64, glucose of 114. Lactic as of yesterday . ASSESSMENT AND PLAN: 1. History of paroxysmal atrial fibrillation, currently in sinus rhythm. 2. Pneumonia. 3. Possible sepsis. 4. Chronic obstructive pulmonary disease. 5. Parkinson's disease. 6. Back pain. 7. History of falls. 8. History of GI bleed and GI ulcers. 9. Anemia. 10. Hypertension. RECOMMENDATIONS: We will continue metoprolol and Cardizem. Antibiotic as per internal medicine. P ain management as per internal medicine. Dictated By: CHAVA THORNTON/DANIELA Conf#: [id number] DID#: [id number] CC: JEFF HAUSER DO;*EndCC*
--- NOTE | 2016-05-31 09:58 | PN ---
DATE: 05/31/2016 SUBJECTIVE: The patient is stable, continues to complain about pain in his back. No other events n oted. No hemoptysis, hematemesis or hematochezia. OBJECTIVE: VITAL SIGNS: Blood pressure is 124/71, respiration 18, pulse 111, temperature 98.7. HEENT: Head is normocephalic. NECK: Supple. HEART: Regular rate. LUNGS: Show diminished breath sounds at the base. ABDOMEN: Soft, nontender to palpation. No rebound or guarding. EXTREMITIES: Negative for clubbing, cyanosis, no edema. DERMATOLOGIC: No rashes. MUSCULOSKELETAL: Positive tenderness to palpation around the thoracic lumbar region. NEUROLOGIC: No change in exam. LABORATORY DATA: Shows white count 8.9, hemoglobin 9.8, hematocrit 31.2, platelet count is 187. IMAGING STUDIES: The patient's lumbar thoracic spine reviewed showed compression fractures of L1, c omplete endplate abnormalities at L2-L3, a disk bulge at L4-L5 as well as compression fracture of T1 0-T11. ASSESSMENT AND PLAN: 1. Sepsis secondary to healthcare-associated pneumonia. The patient's blood cultures were positive for Staph aureus. The patient is clinically responding to antibiotic therapy. We will continue. 2. Lower back pain. Etiology is secondary to compression fracture, osteoarthritis, possible stenos is and disk herniation. The patient's CT spine was reviewed. A neurosurgical consult was placed [facility] Dr. Stuart. We will order MRI of the thoracic, lumbar spine to see if the compression fractures ar e acute and chronic. We will continue pain control and we will wait for neurosurgery evaluation. 3. Abdominal pain. Etiology may be referred as CT scan shows no acute findings. Continue to monit or. 4. Acute encephalopathy and dementia. Etiology is toxic metabolic. Mental status has improved ret urned to baseline. Continue to monitor. 5. Paroxysmal atrial fibrillation, currently in sinus rhythm. Continue to monitor. Follow up with cardiology. 6. History of chronic obstructive pulmonary disease, asthma. The patient is currently stable. Con tinue medical management with Spiriva, Advair, prednisone. Continue nebulizers. 7. Parkinson's disease. Continue Sinemet. 8. Depression. Continue Lexapro. 9. Anemia, likely of chronic disease. Continue to monitor hemoglobin and hematocrit levels. 10. Constipation. We will continue current bowel regimen. 11. Severe gastritis, GERD. Continue Protonix b.i.d. 12. History of gastric cancer. Dictated By: JEFF GAMEZ/DANIELA Conf#: [id number] DID#: [id number]
[2016-05-31] MEDS: CEFTRIAXONE 1 GM/50 ML (PMX) 50 ML IVPB SCH (12:15)
[2016-05-31 12:20] VITALS: BP 108/68; PULSE 115
[2016-05-31] MEDS: VANCOMYCIN 500MG/NS (PMX) 100 ML IVPB SCH (14:24)
--- NOTE | 2016-05-31 15:07 | CONS ---
Date/Time of Note Date/Time of Note DATE: 05/31/16 TIME: 15:05 Assessment/Plan Assessment/Plan Chief Complaint/Hosp Course SUBJECTIVE: No acute changes. The patient is lying comfortably in bed. C/o acid reflux, no fevers MICROBIOLOGY: Blood culture growing gram-positive cocci in chains, urine c x+ yeast. DIAGNOSTICS: CT of the abdomen revealed no evidence of inflammatory pathology. No evidence of diverticulitis, chronic compression fracture at L1. Chest x- ray on admission revealed atelectasis versus pneumonia. ANTIMICROBIALS: Rocephin, Vancomycin. ALLERGIES: NONE. PHYSICAL EXAMINATION: GENERAL: This is a fragile, elderly man who is awake, in no distress. HEENT: Head atraumatic, normocephalic. Sclerae anicteric. Buccal mucosa dry. NECK: Supple, trachea midline. CHEST: Rise symmetrical. Breath sounds diminished at the bases. HEART: S1, S2. ABDOMEN: Soft, bowel tones present. EXTREMITIES: Without cyanosis. ASSESSMENT: 1. Bacteremia with blood culture growing gram-positive cocci in chains, possibly strep. 2. Acute pneumonia likely strep. 3. COPD exacerbation. 4. Hypertension. 5. Parkinson's disease. 6. UTI==> yeast PLAN: Dc Vanco, start Diflucan, continue Rocephin, f/u repeat bld cx and 2D ECHO. PPI's DW staff Problems: Consultation Date/Type/Reason Admit Date/Time May 29, 2016 at 14:38 Initial Consult Date Type of Consultation: ID Exam/Review of Systems Vital Signs Vitals Vital Signs Date Time Temp Pulse Resp B/P Pulse Ox O2 Delivery O2 Flow Rate FiO2 05/31/16 12:20 115 108/68 05/31/16 08:03 98.7 18 93 05/29/16 14:00 Room Air Intake and Output 05/30/16 05/30/16 05/31/16 14:59 22:59 06:59 Intake Total 1670 ml 720 ml Output Total 500 ml 700 ml Balance 1170 ml 20 ml Results Result Diagram: 05/31/16 0546 05/30/16 0505 Results 24 hrs Laboratory Tests Test 05/31/16 05:46 05/31/16 13:00 White Blood Count 8.9 Red Blood Count 3.34 L Hemoglobin 9.8 L Hematocrit 31.2 L Mean Corpuscular Volume 93.4 Mean Corpuscular Hemoglobin 29.3 Mean Corpuscular Hemoglobin Concent 31.4 L Red Cell Distribution Width 15.5 H Platelet Count 187 Mean Platelet Volume 9.6 Neutrophils % 76.8 Lymphocytes % 13.0 L Monocytes % 8.6 Eosinophils % 0.6 Basophils % 0.1 Nucleated Red Blood Cells % 0.0 Neutrophils # 6.9 Lymphocytes # 1.2 Monocytes # 0.8 Eosinophils # 0.1 Basophils # 0.0 Nucleated Red Blood Cells # 0.0 Lactic Acid Level 3.1 H Medications Medications Current Medications Acetaminophen (Tylenol Tab) 650 mg Q4H PRN PO MODERATE PAIN LEVEL 4-6; Start at 15:30 Amantadine HCl (Symmetrel) 100 mg BID PO Last administered on 05/31/16 09:18; Admin Dose 100 MG; Start 05/29/16 at 21:00 Ascorbic Acid (Vitamin C) 500 mg BID PO Last administered on 05/31/16 09:18; Admin Dose 500 MG; Start 05/29/16 at 21:00 Bisacodyl (Dulcolax Supp) 10 mg DAILY PRN IN CONSTIPATION; Start 05/29/16 at 15: 30 Carbidopa/Levodopa (Sinemet (25/ 100)) 1 tab TID PO Last administered on 12:15; Admin Dose 1 TAB; Start 05/29/16 at 21:00 Diclofenac Sodium (Voltaren 1% Gel) 2 gm DAILY PRN TP PAIN; Start 05/29/16 at 15 :30 Diltiazem HCl (Cardizem Sr) 120 mg TID PO Last administered on 05/31/16 12:15; Admin Dose 120 MG; Start 05/29/16 at 21:00 Docusate Sodium (Colace) 200 mg QHS PO Last administered on 05/30/16 21:18; Admin Dose 200 MG; Start 05/29/16 at 21:00 Escitalopram Oxalate (Lexapro) 10 mg DAILY PO Last administered on 05/31/16 09: 17; Admin Dose 10 MG; Start 05/30/16 at 09:00 Gabapentin (Neurontin) 100 mg QHS PO Last administered on 05/30/16 21:18; Admin Dose 100 MG; Start 05/29/16 at 21:00 Acetaminophen/ Hydrocodone Bitart ([place] (5/325)) 1 tab Q6H PRN PO MODERATE PAIN LEVEL 4-6 Last administered on 05/30/16 08:44; Admin Dose 1 TAB; Start 05/29 at 15:30 Acetaminophen/ Hydrocodone Bitart ([place] (5/325)) 1 tab Q6H PRN PO SEVERE PAIN LEVEL 7-10; Start 05/29/16 at 15:30 Hyoscyamine (Levsin (Sl)) 0.125 mg Q6H PRN SL ABDOMINAL PAIN Last administered on 05/30/16 08:33; Admin Dose 0.125 MG; Start 05/29/16 at 15:30 Magnesium Hydroxide (Milk Of Mag) 30 ml QHS PRN PO CONSTIPATION; Start 05/29/16 at 15:30 Metoprolol Succinate (Toprol Xl) 25 mg DAILY PO Last administered on 05/31/16 09:17; Admin Dose 25 MG; Start 05/30/16 at 09:00 Montelukast Sodium (Singulair) 10 mg QHS PO Last administered on 05/30/16 21:18 ; Admin Dose 10 MG; Start 05/29/16 at 21:00 Multivitamins Therapeutic (Theragran) 1 tab DAILY PO Last administered on 09:16; Admin Dose 1 TAB; Start 05/30/16 at 09:00 Sodium Biphosphate/ Sodium Phosphate (Fleet Enema) 135 ml DAILY PRN IN CONSTIPATION; Start 05/29/16 at 15:30 Prednisone (Prednisone) 15 mg DAILY PO Last administered on 05/31/16 09:16; Admin Dose 15 MG; Start 05/30/16 at 09:00 Salmeterol Xinafoate/ Fluticasone (Advair 250/50 Diskus) 1 inh BID INH Last administered on 05/31/16 09:18; Admin Dose 1 INH; Start 05/29/16 at 21:00 Trazodone HCl (Desyrel) 100 mg QHS PO Last administered on 05/30/16 21:18; Admin Dose 100 MG; Start 05/29/16 at 21:00 Calcium/Vitamin D (Oyster Shell/ Vit-D (500/200)) 1 tab DAILY PO Last administered on 05/31/16 09:16; Admin Dose 1 TAB; Start 05/30/16 at 09:00 Tiotropium [place] (Spiriva) 1 inh DAILY INH Last administered on 05/31/16 09: 18; Admin Dose 1 INH; Start 05/30/16 at 09:00 Enoxaparin Sodium (Lovenox) 30 mg DAILY SC Last administered on 05/31/16 09:28 ; Admin Dose 30 MG; Start 05/30/16 at 09:00 Pantoprazole 40 mg 40 mg BID@06,18 PO Last administered on 05/31/16 06:08; Admin Dose 40 MG; Start 05/30/16 at 18:00 Ceftriaxone Sodium 50 ml @ 100 mls/hr Q24H IVPB Last administered on 05/31/16 12:15; Admin Dose 100 MLS/HR; Start 05/30/16 at 13:00 Vancomycin HCl (Vancocin) 100 ml @ 100 mls/hr Q24H IVPB Last administered on 14:24; Admin Dose 100 MLS/HR; Start 05/30/16 at 14:30 JOSEPH PRADO NP May 31, 2016 15:07
--- NOTE | 2016-05-31 16:55 | CONS ---
DATE OF ADMISSION: 05/29/2016 DATE OF CONSULTATION: 05/31/2016 REASON FOR CONSULTATION: Shortness of breath. Thank you, Dr. Trotter, for this consultation. HISTORY OF PRESENT ILLNESS: This is a pleasant 85-year-old gentleman with multiple medical problems including COPD, hypertension, hyperlipidemia, dementia, admitted with several-day history of increa sing cough, congestion, and vomiting x1. On admission he was febrile 101, has a productive cough, b ut no hemoptysis, hematemesis. No nausea, no vomiting. PAST MEDICAL HISTORY: As above, mild dementia, COPD, hypertension, hyperlipidemia, atrial fibrillat ion, history of gastric cancer status post resection, hypertension, chronic back pain. MEDICATIONS: Per chart. ALLERGIES: NONE. SOCIAL HISTORY: Nonsmoker, no alcohol, no history of drug use. FAMILY HISTORY: Noncontributory. PHYSICAL EXAMINATION: GENERAL: Elderly-appearing gentleman, appears comfortable at rest, no acute distress. VITAL SIGNS: Currently afebrile, pulse is 115, blood pressure 124/71, O2 saturation 98% on 2 L nasa l cannula. NECK: Supple. No JVD or lymphadenopathy. CARDIAC: S1, S2, no added sounds or murmurs. CHEST: Diminished air entry bilaterally. ABDOMEN: Soft, nontender. No guarding or rebound. EXTREMITIES: No cyanosis, clubbing, 1+ edema. NEUROLOGIC: Generalized weakness. LABORATORY DATA: White count 8.9, hemoglobin 9.8, platelets 187, BUN 13, creatinine 0.56. Lactic acid initially 5.1 now 3.1. INR 1.14. Urinalysis unremarkable. Chest x-ray was reviewed, shows increased reticular markings left lower lobe. IMPRESSION AND PLAN: 1. Likely healthcare-associated pneumonia. 2. Mild hypoxemia. 3. Mild dementia. 4. History of gastric cancer. 5. Differential does include aspiration pneumonia, but this appears less likely upon my examination at bedside today. PLAN: 1. Aspiration precautions. 2. Continue current antibiotics. 3. Consider decreasing prednisone. 4. Bronchodilators. 5. DVT and GI prophylaxis. Dictated By: NICOLE KLEIN/DANIELA Conf#: [id number] DID#: [id number]
[2016-05-31] MEDS: FLUCONAZOLE 100 MG TAB PO SCH (17:27)
[2016-05-31 19:23] VITALS: BP 108/61; RESP 20
[2016-05-31] MEDS: GABAPENTIN 100 MG CAP PO SCH (21:13)
[2016-05-31] MEDS: DOCUSATE SODIUM 100 MG CAP PO SCH (21:13)
[2016-05-31] MEDS: traZODone 100 MG TAB PO SCH (21:14)
[2016-05-31] MEDS: MONTELUKAST 10 MG TAB PO SCH (21:19)
[2016-05-31] MEDS: HYDROCODONE/APAP (5/325) TAB PO PRN (21:28)
--- NOTE | 2016-05-31 23:56 | CONS ---
Date/Time of Note Date/Time of Note DATE: 05/31/16 TIME: 23:56 Assessment/Plan Assessment/Plan Chief Complaint/Hosp Course 1. Abdominal pain of unknown etiology. History of gastric cancer status post resection. No surgical issues identified as of yet. -Will monitor closely 2. Vomiting of unknown etiology -GI evaluation and workup. May need EGD 3. Sepsis secondary to healthcare-associated pneumonia -Antibiotic -Pulmonary toilet 4. Acute encephalopathy secondary to probably infectious disease plus Dementia. -Antibiotic -Correct lytes -Medical optimization 3. Paroxysmal atrial fibrillation. The patient currently in sinus rhythm. Will continue current medical management. 4. History of chronic obstructive pulmonary disease/asthma. -Medical management with Spiriva, Advair, prednisone, nebulizers. 5. Parkinson disease. -Continue Sinemet. 6. Depression. -Continue Lexapro. 7. Anemia of chronic disease. Stable -Monitor 8. Osteoarthritis with compression fracture. -Continue Voltaren gel and painkillers 9. Gastroesophageal reflux disease and gastritis. -PPI -Diet and lifestyle optimization -GI for EGD (inpatient versus outpatient) 10. Constipation. -Bowel regimen. Thank you very much for consulting me in this patient's care, Problems: Consultation Date/Type/Reason Admit Date/Time May 29, 2016 at 14:38 Date of Consultation: May 31, 2016 Type of Consultation: General surgical Reason for Consultation Abdominal pain History of gastric cancer Referring Provider: JEFF HAUSER DO Hx of Present Illness Crow Herbert is an 85yo male with significant comorbidities who presents to [facility] from skilled nurse facility due to fever and vomiting nonbloody nonbilious x1 day. He is also had episodes of coughing with confusion. On evaluation is found to have a possible pneumonia and abdominal pain. CT scan of the abdomen which showed no acute pathology, diverticulosis; a small fat-containing hernia; and a chronic L1 compression fracture. The patient in the emergency room was diagnosed with sepsis secondary to pneumonia, was started on antibiotic therapy. There were no reports of hemoptysis, hematemesis or hematochezia. He was admitted and surgical consult was obtained for further evaluation and treatment. Constitutional: febrile, No chills, No diaphoresis Eyes: No redness ENT: No bleeding, No dysphagia, No pain Respiratory: cough, No pleuritic pain, No shortness of breath Cardiovascular: No chest pain, No lightheadedness, No orthopenea Gastrointestinal: flatus, pain, passing stool, vomiting, No blood, No diarrhea Genitourinary: No dysuria, No flank pain, No hematuria Musculoskeletal: No back pain, No neck pain Skin: No bruising, No erythema, No pruritis Neurologic: confusion, No dizziness, No headache, No syncope Endocrine: No polydypsia, No polyuria Lymphatic: No adenopathy, No lymphadema, No tender nodes Psychological: anxiety Immunologic: No pruritis, No rhinitis Past Medical History COPD Asthma Cognitive decline Depression AFib Hx gastric cance Hypertension Chronic back pain History of sepsis Hx of PNA Small umbilical hernia L1 compression fracture Abdominal pain Constipation Parkinson's GERD Osteoarthritis Past Surgical History Partial gastrectomy EGD Family History Significant Family History: no pertinent family hx Social History Alcohol Use: none Smoking Status: Former smoker Drug Use: none Exam/Review of Systems Vital Signs Vitals Vital Signs Date Time Temp Pulse Resp B/P Pulse Ox O2 Delivery O2 Flow Rate FiO2 05/31/16 19:23 99.0 108 20 108/61 96 05/29/16 14:00 Room Air Intake and Output 05/30/16 05/30/16 05/31/16 15:00 23:00 07:00 Intake Total 1670 ml 720 ml Output Total 500 ml 700 ml Balance 1170 ml 20 ml Exam Constitutional: other (Awake and responsive), No distress Psych: anxiety, confusion Head: atraumatic, normocephalic, No hematomas, No lacerations Eyes: EOMI, PERRL, nl conjunctiva, nl sclera, No icteric ENMT: mucosa pink and moist, nl external ears & nose, nl lips & teeth Neck: non-tender, supple, No jvd Respiratory: normal air movement, No congested cough, No labored breathing Cardiovascular: regular rate and rhythm, No edema Gastrointestinal: non-tender, soft, No firm, No rebound or guarding Genitourinary - Male: nl penis Musculoskeletal: nl extremities to inspection, No joint tenderness Extremities: No calf tenderness, No cyanosis Neurological: nl speech, No nl mental status Skin: nl turgor, No diaphoresis, No rash or lesions Lymph: nl lymph nodes Results Result Diagram: 05/31/16 0546 05/30/16 0505 Results 24 hrs Laboratory Tests Test 05/31/16 05:46 05/31/16 13:00 White Blood Count 8.9 Red Blood Count 3.34 L Hemoglobin 9.8 L Hematocrit 31.2 L Mean Corpuscular Volume 93.4 Mean Corpuscular Hemoglobin 29.3 Mean Corpuscular Hemoglobin Concent 31.4 L Red Cell Distribution Width 15.5 H Platelet Count 187 Mean Platelet Volume 9.6 Neutrophils % 76.8 Lymphocytes % 13.0 L Monocytes % 8.6 Eosinophils % 0.6 Basophils % 0.1 Nucleated Red Blood Cells % 0.0 Neutrophils # 6.9 Lymphocytes # 1.2 Monocytes # 0.8 Eosinophils # 0.1 Basophils # 0.0 Nucleated Red Blood Cells # 0.0 Lactic Acid Level 3.1 H Medications Medications Current Medications Acetaminophen (Tylenol Tab) 650 mg Q4H PRN PO MODERATE PAIN LEVEL 4-6; Start at 15:30 Amantadine HCl (Symmetrel) 100 mg BID PO Last administered on 05/31/16 21:19; Admin Dose 100 MG; Start 05/29/16 at 21:00 Ascorbic Acid (Vitamin C) 500 mg BID PO Last administered on 05/31/16 21:14; Admin Dose 500 MG; Start 05/29/16 at 21:00 Bisacodyl (Dulcolax Supp) 10 mg DAILY PRN [place] CONSTIPATION; Start 05/29/16 at 15: 30 Carbidopa/Levodopa (Sinemet (25/ 100)) 1 tab TID PO Last administered on 21:13; Admin Dose 1 TAB; Start 05/29/16 at 21:00 Diclofenac Sodium (Voltaren 1% Gel) 2 gm DAILY PRN TP PAIN; Start 05/29/16 at 15 :30 Diltiazem HCl (Cardizem Sr) 120 mg TID PO Last administered on 05/31/16 21:14; Admin Dose 120 MG; Start 05/29/16 at 21:00 Docusate Sodium (Colace) 200 mg QHS PO Last administered on 05/31/16 21:13; Admin Dose 200 MG; Start 05/29/16 at 21:00 Escitalopram Oxalate (Lexapro) 10 mg DAILY PO Last administered on 05/31/16 09: 17; Admin Dose 10 MG; Start 05/30/16 at 09:00 Gabapentin (Neurontin) 100 mg QHS PO Last administered on 05/31/16 21:13; Admin Dose 100 MG; Start 05/29/16 at 21:00 Acetaminophen/ Hydrocodone Bitart ([place] (5/325)) 1 tab Q6H PRN PO MODERATE PAIN LEVEL 4-6 Last administered on 05/31/16 21:28; Admin Dose 1 TAB; Start 05/29 at 15:30 Acetaminophen/ Hydrocodone Bitart ([place] (5/325)) 1 tab Q6H PRN PO SEVERE PAIN LEVEL 7-10; Start 05/29/16 at 15:30 Hyoscyamine (Levsin (Sl)) 0.125 mg Q6H PRN SL ABDOMINAL PAIN Last administered on 05/30/16 08:33; Admin Dose 0.125 MG; Start 05/29/16 at 15:30 Magnesium Hydroxide (Milk Of Mag) 30 ml QHS PRN PO CONSTIPATION; Start 05/29/16 at 15:30 Metoprolol Succinate (Toprol Xl) 25 mg DAILY PO Last administered on 05/31/16 09:17; Admin Dose 25 MG; Start 05/30/16 at 09:00 Montelukast Sodium (Singulair) 10 mg QHS PO Last administered on 05/31/16 21:19 ; Admin Dose 10 MG; Start 05/29/16 at 21:00 Multivitamins Therapeutic (Theragran) 1 tab DAILY PO Last administered on 09:16; Admin Dose 1 TAB; Start 05/30/16 at 09:00 Sodium Biphosphate/ Sodium Phosphate (Fleet Enema) 135 ml DAILY PRN [place] CONSTIPATION; Start 05/29/16 at 15:30 Prednisone (Prednisone) 15 mg DAILY PO Last administered on 05/31/16 09:16; Admin Dose 15 MG; Start 05/30/16 at 09:00 Salmeterol Xinafoate/ Fluticasone (Advair 250/50 Diskus) 1 inh BID INH Last administered on 05/31/16 21:13; Admin Dose 1 INH; Start 05/29/16 at 21:00 Trazodone HCl (Desyrel) 100 mg QHS PO Last administered on 05/31/16 21:14; Admin Dose 100 MG; Start 05/29/16 at 21:00 Calcium/Vitamin D (Oyster Shell/ Vit-D (500/200)) 1 tab DAILY PO Last administered on 05/31/16 09:16; Admin Dose 1 TAB; Start 05/30/16 at 09:00 Tiotropium [place] (Spiriva) 1 inh DAILY INH Last administered on 05/31/16 09: 18; Admin Dose 1 INH; Start 05/30/16 at 09:00 Enoxaparin Sodium (Lovenox) 30 mg DAILY SC Last administered on 05/31/16 09:28 ; Admin Dose 30 MG; Start 05/30/16 at 09:00 Pantoprazole 40 mg 40 mg BID@06,18 PO Last administered on 05/31/16 17:27; Admin Dose 40 MG; Start 05/30/16 at 18:00 Ceftriaxone Sodium (Rocephin) 50 ml @ 100 mls/hr Q24H IVPB Last administered on 05/31/16 12:15; Admin Dose 100 MLS/HR; Start 05/30/16 at 13:00 Fluconazole (Diflucan) 100 mg DAILY PO Last administered on 05/31/16 17:27; Admin Dose 100 MG; Start 05/31/16 at 15:30 ALFONSO NORTH MD May 31, 2016 23:56
[2016-06-01 05:37] LABS: ADD SCAN DIFF NO
[2016-06-01 05:49] LABS: BASOPHILS % 0.1 % (0.0-2.0); EOSINOPHILS # 0.1 10^3/ul (0.0-0.5); EOSINOPHILS % 0.9 % (0.0-7.0); HEMATOCRIT 32.4 % (42.0-52.0); HEMOGLOBIN 10.3 g/dl (14.0-18.0); LYMPHOCYTES # 1.4 10^3/ul (0.8-2.9); LYMPHOCYTES % 17.6 % (15.0-51.0); MEAN CORPUSCULAR HEMOGLOBIN 29.6 pg (29.0-33.0); MEAN CORPUSCULAR HGB CONC 31.8 g/dl (32.0-37.0); MEAN CORPUSCULAR VOLUME 93.1 fl (82.0-101.0); MEAN PLATELET VOLUME 9.3 fl (7.4-10.4); MONOCYTE # 0.8 10^3/ul (0.3-0.9); MONOCYTES % 9.9 % (0.0-11.0); NEUTROPHIL # 5.5 10^3/ul (1.6-7.5); NEUTROPHILS % 70.5 % (39.0-77.0); PLATELET COUNT 192 10^3/UL (140-415); RED BLOOD COUNT 3.48 10^6/ul (4.70-6.10); RED CELL DISTRIBUTION WIDTH 15.6 % (11.5-14.5); WHITE BLOOD COUNT 7.8 10^3/ul (4.8-10.8)
[2016-06-01 05:59] LABS: POTASSIUM 3.7 mmol/L (3.5-5.1)
[2016-06-01] MEDS: PANTOPRAZOLE (EC) 40 MG TAB PO SCH ×2 (06:00→17:37)
[2016-06-01 06:02] LABS: CREATININE 0.73 mg/dl (0.61-1.24); PHOSPHORUS 3.9 mg/dl (2.5-4.9)
[2016-06-01 06:03] LABS: CALCIUM 8.2 mg/dl (8.4-10.2); MAGNESIUM 1.8 mg/dl (1.7-2.5)
--- NOTE | 2016-06-01 07:32 | RADRPT ---
PROCEDURE: MR Lumbar Spine without contrast. CLINICAL INDICATION: Back pain. TECHNIQUE: Multiplanar multisequence MRI of the lumbar spine was performed. COMPARISON: Noncontrast CT of the lumbar spine from May 30, 2016. FINDINGS: There is a normal lumbar lordosis. There is a chronic severe L1 vertebral body compression fracture with minimal retropulsion. There i s a chronic mild superior endplate infraction (fracture) with a large inferior L2 endplate Schmorl's node. There is chronic mild superior L3 endplate infraction (fracture) with a large inferior endpla te Schmorl's node. There is no destructive osseous lesion. There is no abnormal bone marrow edema. There is disk desiccation from L1-L2 to L5-S1. The conus medullaris is at the T12-L1 level. The cauda equina is unremarkable. T12-L1 : There is a 1 mm broad-based disk bulge with mild retropulsion causing mild spinal canal rosy nosis. There is mild bilateral facet arthropathy and ligamentum flavum infolding with mild to moder ate left and mild right foraminal stenosis. L1-L2 : There is a 1 mm broad-based disk bulge mildly effacing the left lateral recess with mild dianne ateral facet arthropathy without spinal canal stenosis. There is moderate bilateral foraminal steno sis. L2-L3 : There is a 3 mm left asymmetric broad-based disk bulge with moderate bilateral facet arthrop athy and ligamentum flavum infolding causing moderate spinal canal stenosis. There is mild to moder ate right with severe left foraminal stenosis impinging the exiting left L2 nerve root. L3-L4 : There is a 1 mm broad-based disk bulge with moderate bilateral facet arthropathy and ligamen jones flavum infolding causing mild spinal canal stenosis. There is moderate right with mild to moder ate left foraminal stenosis. L4-L5 : There is mild disk space narrowing. There is 1 mm retrolisthesis with a 3 mm circumferentia l disk bulge with moderate bilateral facet arthropathy and ligamentum flavum infolding causing moder ate spinal canal stenosis. There is severe right with moderate left foraminal stenosis impinging th e exiting right L4 nerve root. L5-S1 : There is a 2 mm circumferential disk bulge with moderate bilateral facet arthropathy without spinal canal stenosis. There is mild to moderate bilateral foraminal stenosis. The paraspinal musculature are within normal limits. IMPRESSION: 1. Chronic severe L1 vertebral body compression fracture with minimal retropulsion causing mild spi nal canal stenosis. There is a chronic mild superior endplate infraction (fracture) with a large in ferior L2 endplate Schmorl's node. There is chronic mild superior L3 endplate infraction (fracture) with a large inferior endplate Schmorl's node. 2. L2-L3 left asymmetric broad-based disk bulge with moderate spinal canal stenosis. There is bren re left foraminal stenosis impinging the exiting left L2 nerve root. 3. L4-L5 minimal retrolisthesis with a 3 mm circumferential disk bulge with moderate spinal canal s tenosis. There is severe right foraminal stenosis impinging the exiting right L4 nerve root. 4. No acute compression fracture or abnormal bone marrow edema. Further findings as detailed above. RPTAT: PP .Reggie Herr MD, MD Date Time Electronically viewed and signed by .Reggie Herr MD, on 06/01/2016 07:32 .F/
--- NOTE | 2016-06-01 07:51 | RADRPT ---
PROCEDURE: MR Thoracic Spine noncontrast. CLINICAL INDICATION: Back pain. TECHNIQUE: Multiplanar multisequence noncontrast MRI of the thoracic spine performed. COMPARISON: Noncontrast CT of the thoracic spine from May 30, 2016. FINDINGS: There is preservation of the normal thoracic kyphosis. There is a chronic moderate T8 vertebral body compression fracture. There is a chronic mild to mode rate T11 vertebral body compression fracture. There is no retropulsion. Otherwise vertebral body hei ghts are maintained. There is normal alignment. There is no destructive osseous lesion.There is no abnormal bone marrow edema. There is multilevel disk desiccation with mild disk space narrowing within the upper to mid-thoracic spine. The spinal cord is normal is signal. T1-T2: There is no disk herniation, spinal canal, or bilateral foraminal stenosis. T2-T3: There is no disk herniation, spinal canal, or bilateral foraminal stenosis. T3-T4: There is no disk herniation, spinal canal, or bilateral foraminal stenosis. T4-T5: There is no disk herniation, spinal canal, or bilateral foraminal stenosis. T5-T6: There is no disk herniation, spinal canal, or bilateral foraminal stenosis. T6-T7: There is no disk herniation, spinal canal, or bilateral foraminal stenosis. T7-T8: There is no disk herniation, spinal canal, or bilateral foraminal stenosis. T8-T9: There is a 1 mm broad-based disk bulge without spinal canal or bilateral foraminal stenosis. T9-T10: There is no disk herniation, spinal canal, or bilateral foraminal stenosis. T10-T11: There is a 1 mm broad-based disk bulge without spinal canal or bilateral foraminal stenosis . T11-T12: There is no disk herniation, spinal canal, or bilateral foraminal stenosis. There is mild b ilateral facet arthropathy and ligamentum flavum infolding. T12-L1: There is no disk herniation, spinal canal, or bilateral foraminal stenosis. There is mild bi lateral facet arthropathy and ligamentum flavum infolding. The paraspinal musculature are within normal limits. IMPRESSION: 1. Chronic moderate T8 and mild to moderate T11 vertebral body compression fractures. 2. No acute compression fracture or abnormal bone marrow edema. 3. Mild degenerative changes. Further findings as detailed above. RPTAT: PP .Reggie Herr MD, MD Date Time Electronically viewed and signed by .Reggie Herr MD, MD on 06/01/2016 07:50 .F/
[2016-06-01 08:42] VITALS: BP 139/70; RESP 18
[2016-06-01] MEDS: SUCRALFATE (100 MG/ML) 10ML CUP PO SCH ×3 (08:55→17:37)
[2016-06-01] MEDS: AMANTADINE 100 MG CAP PO SCH ×2 (08:56→20:59)
[2016-06-01] MEDS: CARBIDOPA/LEVODOPA (25/100) TAB PO SCH ×3 (08:56→20:59)
[2016-06-01] MEDS: MULTIVITAMINS THERAPEUTIC TAB PO SCH (08:56)
[2016-06-01] MEDS: TIOTROPIUM 18 MCG CAPSULE INHA DEV INH SCH (08:56)
[2016-06-01] MEDS: ASCORBIC ACID 500 MG TAB PO SCH ×2 (08:57→20:59)
[2016-06-01] MEDS: ESCITALOPRAM 10 MG TAB PO SCH (08:57)
[2016-06-01] MEDS: FLUCONAZOLE 100 MG TAB PO SCH (08:57)
[2016-06-01] MEDS: predniSONE 5 MG TAB PO SCH (08:57)
[2016-06-01] MEDS: METOPROLOL (XL) 25 MG TAB PO SCH (08:58)
[2016-06-01] MEDS: DILTIAZEM (SR) 60 MG CAP PO SCH ×3 (08:58→21:00)
[2016-06-01] MEDS: CALCIUM/VITAMIN D (500/200) TAB PO SCH (08:58)
[2016-06-01] MEDS: SALMETEROL/FLUTICASONE 250/50 INHA INH SCH ×2 (08:59→21:01)
[2016-06-01] MEDS: ENOXAPARIN 30 MG/0.3 ML SYG SC SCH (09:07)
--- NOTE | 2016-06-01 12:38 | CONS ---
Date/Time of Note Date/Time of Note DATE: 06/01/16 TIME: 12:36 Consult Date/Type/Reason Admit Date/Time May 29, 2016 at 14:38 Initial Consult Date Type of Consultation: pulmonary Subjective Comfortable as morning appears less confused Objective Vital Signs Date Time Temp Pulse Resp B/P Pulse Ox O2 Delivery O2 Flow Rate FiO2 06/01/16 08:42 98.4 107 18 139/70 95 05/29/16 14:00 Room Air Intake and Output 05/31/16 05/31/16 06/01/16 15:00 23:00 07:00 Intake Total 1250 ml 220 ml Balance 1250 ml 220 ml Exam GENERAL: Elderly gentleman comfortable at rest no acute distress VITAL SIGNS: per chart NECK: Supple. No JVD or lymphadenopathy. CARDIAC EXAM: S1, S2. No added sounds or murmurs. CHEST: clear bilaterally, No added sounds, rales or wheezes ABDOMEN: Soft, nontender. No guarding or rebound. EXTREMITIES: No cyanosis, clubbing or edema. NEUROLOGIC: Generalized weakness. No focal deficits. Results/Medications Result Diagram: 06/01/16 0515 06/01/16 0515 Results 24 hrs Laboratory Tests Test 05/31/16 13:00 06/01/16 05:15 Lactic Acid Level 3.1 H White Blood Count 7.8 Red Blood Count 3.48 L Hemoglobin 10.3 L Hematocrit 32.4 L Mean Corpuscular Volume 93.1 Mean Corpuscular Hemoglobin 29.6 Mean Corpuscular Hemoglobin Concent 31.8 L Red Cell Distribution Width 15.6 H Platelet Count 192 Mean Platelet Volume 9.3 Neutrophils % 70.5 Lymphocytes % 17.6 Monocytes % 9.9 Eosinophils % 0.9 Basophils % 0.1 Nucleated Red Blood Cells % 0.0 Neutrophils # 5.5 Lymphocytes # 1.4 Monocytes # 0.8 Eosinophils # 0.1 Basophils # 0.0 Nucleated Red Blood Cells # 0.0 Sodium Level 138 Potassium Level 3.7 Chloride Level 101 Carbon Dioxide Level 29 Anion Gap 12 Blood Urea Nitrogen 14 Creatinine 0.73 Glucose Level 103 Calcium Level 8.2 L Phosphorus Level 3.9 Magnesium Level 1.8 Medications Current Medications Acetaminophen (Tylenol Tab) 650 mg Q4H PRN PO MODERATE PAIN LEVEL 4-6; Start at 15:30 Amantadine HCl (Symmetrel) 100 mg BID PO Last administered on 06/01/16 08:56; Admin Dose 100 MG; Start 05/29/16 at 21:00 Ascorbic Acid (Vitamin C) 500 mg BID PO Last administered on 06/01/16 08:57; Admin Dose 500 MG; Start 05/29/16 at 21:00 Bisacodyl (Dulcolax Supp) 10 mg DAILY PRN [place] CONSTIPATION; Start 05/29/16 at 15: 30 Carbidopa/Levodopa (Sinemet (25/ 100)) 1 tab TID PO Last administered on 08:56; Admin Dose 1 TAB; Start 05/29/16 at 21:00 Diclofenac Sodium (Voltaren 1% Gel) 2 gm DAILY PRN TP PAIN; Start 05/29/16 at 15 :30 Diltiazem HCl (Cardizem Sr) 120 mg TID PO Last administered on 06/01/16 08:58; Admin Dose 120 MG; Start 05/29/16 at 21:00 Docusate Sodium (Colace) 200 mg QHS PO Last administered on 05/31/16 21:13; Admin Dose 200 MG; Start 05/29/16 at 21:00 Escitalopram Oxalate (Lexapro) 10 mg DAILY PO Last administered on 06/01/16 08: 57; Admin Dose 10 MG; Start 05/30/16 at 09:00 Gabapentin (Neurontin) 100 mg QHS PO Last administered on 05/31/16 21:13; Admin Dose 100 MG; Start 05/29/16 at 21:00 Acetaminophen/ Hydrocodone Bitart ([place] (5/325)) 1 tab Q6H PRN PO MODERATE PAIN LEVEL 4-6 Last administered on 05/31/16 21:28; Admin Dose 1 TAB; Start 05/29 at 15:30 Acetaminophen/ Hydrocodone Bitart ([place] (5/325)) 1 tab Q6H PRN PO SEVERE PAIN LEVEL 7-10; Start 05/29/16 at 15:30 Hyoscyamine (Levsin (Sl)) 0.125 mg Q6H PRN [place] ABDOMINAL PAIN Last administered on 05/30/16 08:33; Admin Dose 0.125 MG; Start 05/29/16 at 15:30 Magnesium Hydroxide (Milk Of Mag) 30 ml QHS PRN PO CONSTIPATION; Start 05/29/16 at 15:30 Metoprolol Succinate (Toprol Xl) 25 mg DAILY PO Last administered on 06/01/16 08:58; Admin Dose 25 MG; Start 05/30/16 at 09:00 Montelukast Sodium (Singulair) 10 mg QHS PO Last administered on 05/31/16 21:19 ; Admin Dose 10 MG; Start 05/29/16 at 21:00 Multivitamins Therapeutic (Theragran) 1 tab DAILY PO Last administered on 08:56; Admin Dose 1 TAB; Start 05/30/16 at 09:00 Sodium Biphosphate/ Sodium Phosphate (Fleet Enema) 135 ml DAILY PRN [place] CONSTIPATION; Start 05/29/16 at 15:30 Prednisone (Prednisone) 15 mg DAILY PO Last administered on 06/01/16 08:57; Admin Dose 15 MG; Start 05/30/16 at 09:00 Salmeterol Xinafoate/ Fluticasone (Advair 250/50 Diskus) 1 inh BID INH Last administered on 06/01/16 08:59; Admin Dose 1 INH; Start 05/29/16 at 21:00 Trazodone HCl (Desyrel) 100 mg QHS PO Last administered on 05/31/16 21:14; Admin Dose 100 MG; Start 05/29/16 at 21:00 Calcium/Vitamin D ([place]/ Vit-D (500/200)) 1 tab DAILY PO Last administered on 06/01/16 08:58; Admin Dose 1 TAB; Start 05/30/16 at 09:00 Tiotropium [place] (Spiriva) 1 inh DAILY INH Last administered on 06/01/16 08: 56; Admin Dose 1 INH; Start 05/30/16 at 09:00 Enoxaparin Sodium (Lovenox) 30 mg DAILY SC Last administered on 06/01/16 09:07 ; Admin Dose 30 MG; Start 05/30/16 at 09:00 Pantoprazole 40 mg 40 mg BID@06,18 PO Last administered on 05/31/16 17:27; Admin Dose 40 MG; Start 05/30/16 at 18:00 Ceftriaxone Sodium (Rocephin) 50 ml @ 100 mls/hr Q24H IVPB Last administered on 05/31/16 12:15; Admin Dose 100 MLS/HR; Start 05/30/16 at 13:00 Fluconazole (Diflucan) 100 mg DAILY PO Last administered on 06/01/16 08:57; Admin Dose 100 MG; Start 05/31/16 at 15:30 Assessment/Plan Chief Complaint/Hosp Course Assessment 1. Healthcare associated pneumonia blood cultures positive for staph aureus 2. Possible aspiration component 3. History of Parkinson's disease 4. Back pain with evidence of compression fractures pending neurosurgical evaluation Plan 1. Continue antibiotics per ID 2. Aspiration precautions 3. Neurosurgical evaluation pending 4. Physical therapy Problems: NICOLE CHASE MD, [facility] Jun 01, 2016 12:38
[2016-06-01] MEDS: CEFTRIAXONE 1 GM/50 ML (PMX) 50 ML IVPB SCH (12:43)
--- NOTE | 2016-06-01 14:33 | CONS ---
Date/Time of Note Date/Time of Note DATE: 06/01/16 TIME: 14:23 Consult Date/Type/Reason Admit Date/Time May 29, 2016 at 14:38 Initial Consult Date Type of Consultation: med Subjective The patient is stable, continues to complain about pain in his back. No other events noted. No hemoptysis, hematemesis or hematochezia. OBJECTIVE: HEENT: Head is normocephalic. NECK: Supple. HEART: Regular rate. LUNGS: Show diminished breath sounds at the base. ABDOMEN: Soft, nontender to palpation. No rebound or guarding. EXTREMITIES: Negative for clubbing, cyanosis, no edema. DERMATOLOGIC: No rashes. MUSCULOSKELETAL: Positive tenderness to palpation around the thoracic lumbar region. NEUROLOGIC: No change in exam. Objective Vital Signs Date Time Temp Pulse Resp B/P Pulse Ox O2 Delivery O2 Flow Rate FiO2 06/01/16 08:42 98.4 107 18 139/70 95 05/29/16 14:00 Room Air Intake and Output 05/31/16 05/31/16 06/01/16 15:00 23:00 07:00 Intake Total 1250 ml 220 ml Balance 1250 ml 220 ml Results/Medications Result Diagram: 06/01/16 0515 06/01/16 0515 Results 24 hrs Laboratory Tests Test 06/01/16 05:15 White Blood Count 7.8 Red Blood Count 3.48 L Hemoglobin 10.3 L Hematocrit 32.4 L Mean Corpuscular Volume 93.1 Mean Corpuscular Hemoglobin 29.6 Mean Corpuscular Hemoglobin Concent 31.8 L Red Cell Distribution Width 15.6 H Platelet Count 192 Mean Platelet Volume 9.3 Neutrophils % 70.5 Lymphocytes % 17.6 Monocytes % 9.9 Eosinophils % 0.9 Basophils % 0.1 Nucleated Red Blood Cells % 0.0 Neutrophils # 5.5 Lymphocytes # 1.4 Monocytes # 0.8 Eosinophils # 0.1 Basophils # 0.0 Nucleated Red Blood Cells # 0.0 Sodium Level 138 Potassium Level 3.7 Chloride Level 101 Carbon Dioxide Level 29 Anion Gap 12 Blood Urea Nitrogen 14 Creatinine 0.73 Glucose Level 103 Calcium Level 8.2 L Phosphorus Level 3.9 Magnesium Level 1.8 Medications Current Medications Acetaminophen (Tylenol Tab) 650 mg Q4H PRN PO MODERATE PAIN LEVEL 4-6; Start at 15:30 Amantadine HCl (Symmetrel) 100 mg BID PO Last administered on 06/01/16 08:56; Admin Dose 100 MG; Start 05/29/16 at 21:00 Ascorbic Acid (Vitamin C) 500 mg BID PO Last administered on 06/01/16 08:57; Admin Dose 500 MG; Start 05/29/16 at 21:00 Bisacodyl (Dulcolax Supp) 10 mg DAILY PRN [place] CONSTIPATION; Start 05/29/16 at 15: 30 Carbidopa/Levodopa (Sinemet (25/ 100)) 1 tab TID PO Last administered on 12:42; Admin Dose 1 TAB; Start 05/29/16 at 21:00 Diclofenac Sodium (Voltaren 1% Gel) 2 gm DAILY PRN TP PAIN; Start 05/29/16 at 15 :30 Diltiazem HCl (Cardizem Sr) 120 mg TID PO Last administered on 06/01/16 12:44; Admin Dose 120 MG; Start 05/29/16 at 21:00 Docusate Sodium (Colace) 200 mg QHS PO Last administered on 05/31/16 21:13; Admin Dose 200 MG; Start 05/29/16 at 21:00 Escitalopram Oxalate (Lexapro) 10 mg DAILY PO Last administered on 06/01/16 08: 57; Admin Dose 10 MG; Start 05/30/16 at 09:00 Gabapentin (Neurontin) 100 mg QHS PO Last administered on 05/31/16 21:13; Admin Dose 100 MG; Start 05/29/16 at 21:00 Acetaminophen/ Hydrocodone Bitart ([place] (5/325)) 1 tab Q6H PRN PO MODERATE PAIN LEVEL 4-6 Last administered on 05/31/16 21:28; Admin Dose 1 TAB; Start 05/29 at 15:30 Acetaminophen/ Hydrocodone Bitart ([place] (5/325)) 1 tab Q6H PRN PO SEVERE PAIN LEVEL 7-10; Start 05/29/16 at 15:30 Hyoscyamine (Levsin (Sl)) 0.125 mg Q6H PRN SL ABDOMINAL PAIN Last administered on 05/30/16 08:33; Admin Dose 0.125 MG; Start 05/29/16 at 15:30 Magnesium Hydroxide (Milk Of Mag) 30 ml QHS PRN PO CONSTIPATION; Start 05/29/16 at 15:30 Metoprolol Succinate (Toprol Xl) 25 mg DAILY PO Last administered on 06/01/16 08:58; Admin Dose 25 MG; Start 05/30/16 at 09:00 Montelukast Sodium (Singulair) 10 mg QHS PO Last administered on 05/31/16 21:19 ; Admin Dose 10 MG; Start 05/29/16 at 21:00 Multivitamins Therapeutic (Theragran) 1 tab DAILY PO Last administered on 08:56; Admin Dose 1 TAB; Start 05/30/16 at 09:00 Sodium Biphosphate/ Sodium Phosphate (Fleet Enema) 135 ml DAILY PRN [place] CONSTIPATION; Start 05/29/16 at 15:30 Prednisone (Prednisone) 15 mg DAILY PO Last administered on 06/01/16 08:57; Admin Dose 15 MG; Start 05/30/16 at 09:00 Salmeterol Xinafoate/ Fluticasone (Advair 250/50 Diskus) 1 inh BID INH Last administered on 06/01/16 08:59; Admin Dose 1 INH; Start 05/29/16 at 21:00 Trazodone HCl (Desyrel) 100 mg QHS PO Last administered on 05/31/16 21:14; Admin Dose 100 MG; Start 05/29/16 at 21:00 Calcium/Vitamin D (Oyster Shell/ Vit-D (500/200)) 1 tab DAILY PO Last administered on 06/01/16 08:58; Admin Dose 1 TAB; Start 05/30/16 at 09:00 Tiotropium [place] (Spiriva) 1 inh DAILY INH Last administered on 06/01/16 08: 56; Admin Dose 1 INH; Start 05/30/16 at 09:00 Enoxaparin Sodium (Lovenox) 30 mg DAILY SC Last administered on 06/01/16 09:07 ; Admin Dose 30 MG; Start 05/30/16 at 09:00 Pantoprazole 40 mg 40 mg BID@06,18 PO Last administered on 05/31/16 17:27; Admin Dose 40 MG; Start 05/30/16 at 18:00 Ceftriaxone Sodium (Rocephin) 50 ml @ 100 mls/hr Q24H IVPB Last administered on 06/01/16 12:43; Admin Dose 100 MLS/HR; Start 05/30/16 at 13:00 Fluconazole (Diflucan) 100 mg DAILY PO Last administered on 06/01/16 08:57; Admin Dose 100 MG; Start 05/31/16 at 15:30 Assessment/Plan Chief Complaint/Hosp Course IMAGING STUDIES: The patient's lumbar thoracic spine reviewed showed compression fractures of L1, complete endplate abnormalities at L2-L3, a disk bulge at L4-L5 as well as compression fracture of T10-T11. ASSESSMENT AND PLAN: 1. Sepsis secondary to healthcare-associated pneumonia. The patient's blood cultures were positive for Staph aureus. The patient is clinically responding to antibiotic therapy. We will continue. 2. Lower back pain. Etiology is secondary to compression fracture, osteoarthritis, possible stenosis and disk herniation. The patient's CT spine was reviewed. A neurosurgical consult was placed with Dr. Stuart. We will order MRI of the thoracic, lumbar spine to see if the compression fractures are acute and chronic. We will continue pain control and we will wait for neurosurgery evaluation. 3. Abdominal pain. Etiology may be referred as CT scan shows no acute findings. Continue to monitor. 4. Acute encephalopathy and dementia. Etiology is toxic metabolic. Mental status has improved returned to baseline. Continue to monitor. 5. Paroxysmal atrial fibrillation, currently in sinus rhythm. Continue to monitor. Follow up with cardiology. 6. History of chronic obstructive pulmonary disease, asthma. The patient is currently stable. Continue medical management with Spiriva, Advair, prednisone. Continue nebulizers. 7. Parkinson's disease. Continue Sinemet. 8. Depression. Continue Lexapro. 9. Anemia, likely of chronic disease. Continue to monitor hemoglobin and hematocrit levels. 10. Constipation. We will continue current bowel regimen. 11. Severe gastritis, GERD. Continue Protonix b.i.d. 12. History of gastric cancer. Problems: HALEY BURTON MD Jun 01, 2016 14:33
--- NOTE | 2016-06-01 15:15 | PN ---
DATE: 06/01/2016 INFECTIOUS DISEASE PROGRESS NOTE SUBJECTIVE: No acute changes. The patient is lying comfortably in bed. No fevers. WBC 7.8. No s hift, no bands. BUN 14, creatinine 0.73. MICROBIOLOGY: Blood culture on admission grew Strep viridans and coagulase-negative staph species. Urine culture grew Tori albicans, only 10,000 to 20,000. Repeat blood cultures negative. DIAGNOSTICS: MRI of the lumbar spine revealed severe foraminal stenosis with nerve impingement at t he L4 nerve root. No acute compression fracture or abnormal bone marrow edema. Thoracic spine MRI revealed no evidence of osteomyelitis or acute compression fracture. ANTIMICROBIALS: The patient is on: 1. IV Rocephin. 2. Oral Diflucan. PHYSICAL EXAMINATION: GENERAL: This is a fragile well-developed, elderly man, who is in no distress. HEENT: Head atraumatic, normocephalic. Sclerae anicteric. Buccal mucosa dry. NECK: Supple. CHEST: Chest rise is symmetrical. Breath sounds diminished to the bases. HEART: S1, S2. ABDOMEN: Soft, bowel tones present. EXTREMITIES: Without cyanosis or edema. ASSESSMENT: 1. Strep pneumonia with bacteremia. 2. Mild Tori albicans urinary tract infection. 3. Status post chronic obstructive pulmonary disease exacerbation. 4. Parkinson's disease. 5. Hypertension. 6. Lower back pain. PLAN: The patient remains stable, on appropriate antimicrobials. Repeat blood cultures negative. We will continue him on the current regimen. Anticipate treating with 2 weeks of IV Rocephin. Dictated By: JOSEPH PRADO [employer] for [employer]/DANIELA Conf#: [id number] DID#: [id number]
--- NOTE | 2016-06-01 17:52 | PN ---
DATE: 06/01/2016 CARDIOLOGY FOLLOWUP SUBJECTIVE: Discussed with the staff. The patient denies any chest pain or pressure, ____ palpitat ion. The patient complains of back pain. MEDICATIONS: Reviewed. PHYSICAL EXAMINATION: VITAL SIGNS: Temperature 99, heart rate of 108, blood pressure 108/61, respiratory rate of 20. HEENT: Normocephalic, atraumatic. No acute distress. Pupils equal and round. CARDIOVASCULAR: Tachycardic, systolic murmur. PULMONARY: With no wheezes heard, no rhonchi. GASTROINTESTINAL: Soft, nontender. EXTREMITIES: Trivial edema. NEUROLOGIC: Awake, responds appropriately. PSYCHIATRIC: Appears to be calm and pleasant. LABORATORY: WBC of 7.8, hemoglobin 10.3, platelets of 192, sodium 138, potassium 3.7, BUN of 14, cr eatinine 0.73, glucose of 103, mag is 1.8. MRI of the lumbar spine shows chronic ____ L1 vertebral body compression fracture with minimal repul kiet. ASSESSMENT AND PLAN: 1. History of arrhythmia, paroxysmal atrial fibrillation, currently remains in sinus rhythm. 2. Pneumonia. RECOMMENDATIONS: 1. Follow up with ID and pulmonary. 2. Lower back pain with compression fracture. Follow up with neurosurgery. 3. Dementia, currently appears to be stable. 4. History of chronic obstructive pulmonary disease, asthma. Follow up with pulmonary. 5. Hypertension, under good control. RECOMMENDATIONS: We will continue with the current cardiac care. Follow up with the is consultant rec ommendation. Beta deisy will be continued as tolerated. Cardizem will be continued as tolerated. I will repeat the EKG. Dictated By: CHAVA THORNTON/DANIELA Conf#: [id number] DID#: [id number] CC: JEFF HAUSER DO;*EndCC*
[2016-06-01] MEDS: HYDROCODONE/APAP (5/325) TAB PO PRN (18:13)
[2016-06-01 20:04] VITALS: BP 137/86; RESP 16
[2016-06-01] MEDS: DOCUSATE SODIUM 100 MG CAP PO SCH (20:59)
[2016-06-01] MEDS: MONTELUKAST 10 MG TAB PO SCH (20:59)
[2016-06-01] MEDS: traZODone 100 MG TAB PO SCH (20:59)
[2016-06-01] MEDS: GABAPENTIN 100 MG CAP PO SCH (20:59)
[2016-06-02] MEDS: PANTOPRAZOLE (EC) 40 MG TAB PO SCH ×2 (05:39→18:05)
[2016-06-02 07:50] VITALS: BP 127/70; RESP 18
[2016-06-02] MEDS: predniSONE 5 MG TAB PO SCH (08:39)
[2016-06-02] MEDS: ASCORBIC ACID 500 MG TAB PO SCH ×2 (08:39→21:50)
[2016-06-02] MEDS: SUCRALFATE (100 MG/ML) 10ML CUP PO SCH ×3 (08:39→18:05)
[2016-06-02] MEDS: ESCITALOPRAM 10 MG TAB PO SCH (08:39)
[2016-06-02] MEDS: FLUCONAZOLE 100 MG TAB PO SCH (08:39)
[2016-06-02] MEDS: CALCIUM/VITAMIN D (500/200) TAB PO SCH (08:39)
[2016-06-02] MEDS: MULTIVITAMINS THERAPEUTIC TAB PO SCH (08:39)
[2016-06-02] MEDS: CARBIDOPA/LEVODOPA (25/100) TAB PO SCH ×3 (08:39→21:49)
[2016-06-02] MEDS: METOPROLOL (XL) 25 MG TAB PO SCH (08:40)
[2016-06-02] MEDS: TIOTROPIUM 18 MCG CAPSULE INHA DEV INH SCH (08:40)
[2016-06-02] MEDS: AMANTADINE 100 MG CAP PO SCH ×2 (08:40→21:50)
[2016-06-02] MEDS: SALMETEROL/FLUTICASONE 250/50 INHA INH SCH ×2 (08:41→21:51)
[2016-06-02] MEDS: HYDROCODONE/APAP (5/325) TAB PO PRN (08:41)
[2016-06-02] MEDS: DILTIAZEM (SR) 60 MG CAP PO SCH ×3 (08:41→21:51)
[2016-06-02] MEDS: ENOXAPARIN 30 MG/0.3 ML SYG SC SCH (08:55)
[2016-06-02] MEDS: CEFTRIAXONE 1 GM/50 ML (PMX) 50 ML IVPB SCH (12:57)
--- NOTE | 2016-06-02 13:49 | CONS ---
Date/Time of Note Date/Time of Note DATE: 06/02/16 TIME: 13:47 Consult Date/Type/Reason Admit Date/Time May 29, 2016 at 14:38 Type of Consultation: pulmonary Subjective Patient comfortable this morning no evidence of respiratory distress Objective Vital Signs Date Time Temp Pulse Resp B/P Pulse Ox O2 Delivery O2 Flow Rate FiO2 06/02/16 07:50 98.0 103 18 127/70 95 05/29/16 14:00 Room Air Intake and Output 06/01/16 06/01/16 06/02/16 15:00 23:00 07:00 Intake Total 770 ml 200 ml Balance 770 ml 200 ml Exam GENERAL: Elderly gentleman comfortable at rest no acute distress VITAL SIGNS: per chart NECK: Supple. No JVD or lymphadenopathy. CARDIAC EXAM: S1, S2. No added sounds or murmurs. CHEST: clear bilaterally, No added sounds, rales or wheezes ABDOMEN: Soft, nontender. No guarding or rebound. EXTREMITIES: No cyanosis, clubbing or edema. NEUROLOGIC: Generalized weakness. No focal deficits. Results/Medications Result Diagram: 06/01/16 0515 06/01/16 0515 Medications Current Medications Acetaminophen (Tylenol Tab) 650 mg Q4H PRN PO MODERATE PAIN LEVEL 4-6; Start at 15:30 Amantadine HCl (Symmetrel) 100 mg BID PO Last administered on 06/02/16 08:40; Admin Dose 100 MG; Start 05/29/16 at 21:00 Ascorbic Acid (Vitamin C) 500 mg BID PO Last administered on 06/02/16 08:39; Admin Dose 500 MG; Start 05/29/16 at 21:00 Bisacodyl (Dulcolax Supp) 10 mg DAILY PRN [place]STIP[place]; Start 05/29/16 at 15: 30 Carbidopa/Levodopa (Sinemet (25/ 100)) 1 tab TID PO Last administered on 12:57; Admin Dose 1 TAB; Start 05/29/16 at 21:00 Diclofenac Sodium (Voltaren 1% Gel) 2 gm DAILY PRN TP PAIN; Start 05/29/16 at 15 :30 Diltiazem HCl (Cardizem Sr) 120 mg TID PO Last administered on 06/02/16 08:41; Admin Dose 120 MG; Start 05/29/16 at 21:00 Docusate Sodium (Colace) 200 mg QHS PO Last administered on 06/01/16 20:59; Admin Dose 200 MG; Start 05/29/16 at 21:00 Escitalopram Oxalate (Lexapro) 10 mg DAILY PO Last administered on 06/02/16 08: 39; Admin Dose 10 MG; Start 05/30/16 at 09:00 Gabapentin (Neurontin) 100 mg QHS PO Last administered on 06/01/16 20:59; Admin Dose 100 MG; Start 05/29/16 at 21:00 Acetaminophen/ Hydrocodone Bitart ([place] (5/325)) 1 tab Q6H PRN PO MODERATE PAIN LEVEL 4-6 Last administered on 06/02/16 08:41; Admin Dose 1 TAB; Start 05/29 at 15:30 Acetaminophen/ Hydrocodone Bitart ([place] (5/325)) 1 tab Q6H PRN PO SEVERE PAIN LEVEL 7-10; Start 05/29/16 at 15:30 Hyoscyamine (Levsin (Sl)) 0.125 mg Q6H PRN SL ABDOMINAL PAIN Last administered on 05/30/16 08:33; Admin Dose 0.125 MG; Start 05/29/16 at 15:30 Magnesium Hydroxide (Milk Of Mag) 30 ml QHS PRN PO CONSTIPATION; Start 05/29/16 at 15:30 Metoprolol Succinate (Toprol Xl) 25 mg DAILY PO Last administered on 06/02/16 08:40; Admin Dose 25 MG; Start 05/30/16 at 09:00 Montelukast Sodium (Singulair) 10 mg QHS PO Last administered on 06/01/16 20:59 ; Admin Dose 10 MG; Start 05/29/16 at 21:00 Multivitamins Therapeutic (Theragran) 1 tab DAILY PO Last administered on 08:39; Admin Dose 1 TAB; Start 05/30/16 at 09:00 Sodium Biphosphate/ Sodium Phosphate (Fleet Enema) 135 ml DAILY PRN [place] CONSTIPATION; Start 05/29/16 at 15:30 Prednisone (Prednisone) 15 mg DAILY PO Last administered on 06/02/16 08:39; Admin Dose 15 MG; Start 05/30/16 at 09:00 Salmeterol Xinafoate/ Fluticasone (Advair 250/50 Diskus) 1 inh BID INH Last administered on 06/02/16 08:41; Admin Dose 1 INH; Start 05/29/16 at 21:00 Trazodone HCl (Desyrel) 100 mg QHS PO Last administered on 06/01/16 20:59; Admin Dose 100 MG; Start 05/29/16 at 21:00 Calcium/Vitamin D ([place]yster Shell/ Vit-D (500/200)) 1 tab DAILY PO Last administered on 06/02/16 08:39; Admin Dose 1 TAB; Start 05/30/16 at 09:00 Tiotropium [place] (Spiriva) 1 inh DAILY INH Last administered on 06/02/16 08: 40; Admin Dose 1 INH; Start 05/30/16 at 09:00 Enoxaparin Sodium (Lovenox) 30 mg DAILY SC Last administered on 06/02/16 08:55 ; Admin Dose 30 MG; Start 05/30/16 at 09:00 Pantoprazole 40 mg 40 mg BID@06,18 PO Last administered on 06/02/16 05:39; Admin Dose 40 MG; Start 05/30/16 at 18:00 Ceftriaxone Sodium (Rocephin) 50 ml @ 100 mls/hr Q24H IVPB Last administered on 06/02/16 12:57; Admin Dose 100 MLS/HR; Start 05/30/16 at 13:00 Fluconazole (Diflucan) 100 mg DAILY PO Last administered on 06/02/16 08:39; Admin Dose 100 MG; Start 05/31/16 at 15:30 Assessment/Plan Chief Complaint/Hosp Course Assessment 1. Healthcare associated pneumonia blood cultures positive for staph aureus 2. Possible aspiration component 3. History of Parkinson's disease 4. Back pain with evidence of compression fractures pending neurosurgical evaluation Plan 1. Continue antibiotics per ID 2. Aspiration precautions 3. Neurosurgical evaluation pending 4. Physical therapy Disposition Consider discharge planning Problems: NICOLE CHASE MD[facility] Jun 02, 2016 13:48
--- NOTE | 2016-06-02 14:11 | PN ---
Date/Time of Note Date/Time of Note DATE: 06/02/16 TIME: 14:09 Assessment/Plan VTE Prophylaxis VTE Prophylaxis Intervention: other Lines/Catheters IV C[facility]ter [facility] (from [facility] Saline Lock Assessment/Plan Assessment/Plan 1. Sepsis secondary to healthcare-associated pneumonia. The patient's blood cultures were positive for Staph aureus. The patient is clinically responding to antibiotic therapy. We will continue. 2. Lower back pain. Etiology is secondary to compression fracture, osteoarthritis, possible stenosis and disk herniation. The patient's CT spine was reviewed. A neurosurgical consult was placed with Dr. Stuart. We will order MRI of the thoracic, lumbar spine to see if the compression fractures are acute and chronic. We will continue pain control and we will wait for neurosurgery evaluation. 3. Abdominal pain. Etiology may be referred as CT scan shows no acute findings. Continue to monitor. 4. Acute encephalopathy and dementia. Etiology is toxic metabolic. Mental status has improved returned to baseline. Continue to monitor. 5. Paroxysmal atrial fibrillation, currently in sinus rhythm. Continue to monitor. Follow up with cardiology. 6. History of chronic obstructive pulmonary disease, asthma. The patient is currently stable. Continue medical management with Spiriva, Advair, prednisone. Continue nebulizers. 7. Parkinson's disease. Continue Sinemet. 8. Depression. Continue Lexapro. 9. Anemia, likely of chronic disease. Continue to monitor hemoglobin and hematocrit levels. 10. Constipation. We will continue current bowel regimen. 11. Severe gastritis, GERD. Continue Protonix b.i.d. 12. History of gastric cancer. Subjective 24 Hr Interval Summary Free Text/Dictation The patient is stable, continues to complain about pain in his back. No other events noted. No hemoptysis, hematemesis or hematochezia. OBJECTIVE: HEENT: Head is normocephalic. NECK: Supple. HEART: Regular rate. LUNGS: Show diminished breath sounds at the base. ABDOMEN: Soft, nontender to palpation. No rebound or guarding. EXTREMITIES: Negative for clubbing, cyanosis, no edema. DERMATOLOGIC: No rashes. MUSCULOSKELETAL: Positive tenderness to palpation around the thoracic lumbar region. NEUROLOGIC: No change in exam. Exam/Review of Systems Vital Signs Vitals Vital Signs Date Time Temp Pulse Resp B/P Pulse Ox O2 Delivery O2 Flow Rate FiO2 06/02/16 07:50 98.0 103 18 127/70 95 4/3/17 14:00 Room Air Intake and Output 06/01/16 06/01/16 06/02/16 15:00 23:00 07:00 Intake Total 770 ml 200 ml Balance 770 ml 200 ml Results Result Diagram: 06/01/16 0515 06/01/16 0515 Medications Medications Current Medications Acetaminophen (Tylenol Tab) 650 mg Q4H PRN PO MODERATE PAIN LEVEL 4-6; Start at 15:30 Amantadine HCl (Symmetrel) 100 mg BID PO Last administered on 06/02/16 08:40; Admin Dose 100 MG; Start 05/29/16 at 21:00 Ascorbic Acid (Vitamin C) 500 mg BID PO Last administered on 06/02/16 08:39; Admin Dose 500 MG; Start 05/29/16 at 21:00 Bisacodyl (Dulcolax Supp) 10 mg DAILY PRN [place] CONSTIPATION; Start 05/29/16 at 15: 30 Carbidopa/Levodopa (Sinemet (25/ 100)) 1 tab TID PO Last administered on 12:57; Admin Dose 1 TAB; Start 05/29/16 at 21:00 Diclofenac Sodium (Voltaren 1% Gel) 2 gm DAILY PRN TP PAIN; Start 05/29/16 at 15 :30 Diltiazem HCl (Cardizem Sr) 120 mg TID PO Last administered on 06/02/16 08:41; Admin Dose 120 MG; Start 05/29/16 at 21:00 Docusate Sodium (Colace) 200 mg QHS PO Last administered on 06/01/16 20:59; Admin Dose 200 MG; Start 05/29/16 at 21:00 Escitalopram Oxalate (Lexapro) 10 mg DAILY PO Last administered on 06/02/16 08: 39; Admin Dose 10 MG; Start 05/30/16 at 09:00 Gabapentin (Neurontin) 100 mg QHS PO Last administered on 06/01/16 20:59; Admin Dose 100 MG; Start 05/29/16 at 21:00 Acetaminophen/ Hydrocodone Bitart ([place] (5/325)) 1 tab Q6H PRN PO MODERATE PAIN LEVEL 4-6 Last administered on 06/02/16 08:41; Admin Dose 1 TAB; Start 05/29 at 15:30 Acetaminophen/ Hydrocodone Bitart ([place] (5/325)) 1 tab Q6H PRN PO SEVERE PAIN LEVEL 7-10; Start 05/29/16 at 15:30 Hyoscyamine (Levsin (Sl)) 0.125 mg Q6H PRN SL ABDOMINAL PAIN Last administered on 05/30/16 08:33; Admin Dose 0.125 MG; Start 05/29/16 at 15:30 Magnesium Hydroxide (Milk Of Mag) 30 ml QHS PRN PO CONSTIPATION; Start 05/29/16 at 15:30 Metoprolol Succinate (Toprol Xl) 25 mg DAILY PO Last administered on 06/02/16 08:40; Admin Dose 25 MG; Start 05/30/16 at 09:00 Montelukast Sodium (Singulair) 10 mg QHS PO Last administered on 06/01/16 20:59 ; Admin Dose 10 MG; Start 05/29/16 at 21:00 Multivitamins Therapeutic (Theragran) 1 tab DAILY PO Last administered on 08:39; Admin Dose 1 TAB; Start 05/30/16 at 09:00 Sodium Biphosphate/ Sodium Phosphate (Fleet Enema) 135 ml DAILY PRN [place] CONSTIPATION; Start 05/29/16 at 15:30 Prednisone (Prednisone) 15 mg DAILY PO Last administered on 06/02/16 08:39; Admin Dose 15 MG; Start 05/30/16 at 09:00 Salmeterol Xinafoate/ Fluticasone (Advair 250/50 Diskus) 1 inh BID INH Last administered on 06/02/16 08:41; Admin Dose 1 INH; Start 05/29/16 at 21:00 Trazodone HCl (Desyrel) 100 mg QHS PO Last administered on 06/01/16 20:59; Admin Dose 100 MG; Start 05/29/16 at 21:00 Calcium/Vitamin D ([place]/ Vit-D (500/200)) 1 tab DAILY PO Last administered on 06/02/16 08:39; Admin Dose 1 TAB; Start 05/30/16 at 09:00 Tiotropium [place] (Spiriva) 1 inh DAILY INH Last administered on 06/02/16 08: 40; Admin Dose 1 INH; Start 05/30/16 at 09:00 Enoxaparin Sodium (Lovenox) 30 mg DAILY SC Last administered on 06/02/16 08:55 ; Admin Dose 30 MG; Start 05/30/16 at 09:00 Pantoprazole 40 mg 40 mg BID@06,18 PO Last administered on 06/02/16 05:39; Admin Dose 40 MG; Start 05/30/16 at 18:00 Ceftriaxone Sodium (Rocephin) 50 ml @ 100 mls/hr Q24H IVPB Last administered on 06/02/16 12:57; Admin Dose 100 MLS/HR; Start 05/30/16 at 13:00 Fluconazole (Diflucan) 100 mg DAILY PO Last administered on 06/02/16 08:39; Admin Dose 100 MG; Start 05/31/16 at 15:30 ROCIO NOTRH DO Jun 02, 2016 14:11
--- NOTE | 2016-06-02 14:25 | PN ---
Date/Time of Note Date/Time of Note DATE: 06/01/16 TIME: 23:24 Assessment/Plan Lines/Catheters IV [facility] (from [facility] Saline Lock Assessment/Plan Chief Complaint/Hosp Course 1. Abdominal pain of unknown etiology. History of gastric cancer status post resection. No surgical issues identified as of yet. -Will monitor closely 2. Vomiting of unknown etiology. Improved -GI evaluation and workup. May need EGD 3. Sepsis secondary to healthcare-associated pneumonia -Antibiotic -Pulmonary toilet 4. Acute encephalopathy secondary to probably infectious disease plus Dementia. -Antibiotic -Correct lytes -Medical optimization 3. Paroxysmal atrial fibrillation. The patient currently in sinus rhythm. Will continue current medical management. 4. History of chronic obstructive pulmonary disease/asthma. -Medical management with Spiriva, Advair, prednisone, nebulizers. 5. Parkinson disease. -Continue Sinemet. 6. Depression. -Continue Lexapro. 7. Anemia of chronic disease. Stable -Monitor 8. Osteoarthritis with compression fracture. -Continue Voltaren gel and painkillers 9. Gastroesophageal reflux disease and gastritis. -PPI -Diet and lifestyle optimization -GI for EGD (inpatient versus outpatient) 10. Constipation. -Bowel regimen. Thank you, Late entry 06/01 Problems: Subjective 24 Hr Interval Summary Abdominal pain improved. No nausea vomiting. Minimal cough. No chest pain or shortness of breath. Positive back pain. No seizure. No rashes. No dysuria. Constipated. Exam/Review of Systems Vital Signs Vitals Vital Signs Date Time Temp Pulse Resp B/P Pulse Ox O2 Delivery O2 Flow Rate FiO2 06/02/16 07:50 98.0 103 18 127/70 95 05/29/16 14:00 Room Air Intake and Output 06/01/16 06/01/16 06/02/16 14:59 22:59 06:59 Intake Total 770 ml 200 ml Balance 770 ml 200 ml Exam Free Text/Dictation Constitutional: other (Awake and responsive), No distress Psych: anxiety, confusion Head: atraumatic, normocephalic, No hematomas, No lacerations Eyes: EOMI, PERRL, nl conjunctiva, nl sclera, No icteric ENMT: mucosa pink and moist, nl external ears & nose, nl lips & teeth Neck: non-tender, supple, No jvd Respiratory: normal air movement, No congested cough, No labored breathing Cardiovascular: regular rate and rhythm, No edema Gastrointestinal: non-tender, soft, No firm, No rebound or guarding Genitourinary - Male: nl penis Musculoskeletal: nl extremities to inspection, No joint tenderness Extremities: No calf tenderness, No cyanosis Neurological: nl speech, No nl mental status Skin: nl turgor, No diaphoresis, No rash or lesions Lymph: nl lymph nodes Results Result Diagram: 06/01/16 0515 06/01/16 0515 ALFONSO NORTH MD Jun 02, 2016 14:25
--- NOTE | 2016-06-02 14:26 | PN ---
Date/Time of Note Date/Time of Note DATE: 06/02/16 TIME: 14:25 Assessment/Plan Lines/Catheters IV Catheter Type (from [facility]): Saline Lock Assessment/Plan Chief Complaint/Hosp Course 1. Abdominal pain of unknown etiology. History of gastric cancer status post resection. No surgical issues identified as of yet. -Will monitor closely 2. Vomiting of unknown etiology. Improved -GI evaluation and workup. May need EGD 3. Sepsis secondary to healthcare-associated pneumonia -Antibiotic -Pulmonary toilet 4. Acute encephalopathy secondary to probably infectious disease plus Dementia. -Antibiotic -Correct lytes -Medical optimization 3. Paroxysmal atrial fibrillation. The patient currently in sinus rhythm. Will continue current medical management. 4. History of chronic obstructive pulmonary disease/asthma. -Medical management with Spiriva, Advair, prednisone, nebulizers. 5. Parkinson disease. -Continue Sinemet. 6. Depression. -Continue Lexapro. 7. Anemia of chronic disease. Stable -Monitor 8. Osteoarthritis with compression fracture. -Continue Voltaren gel and painkillers 9. Gastroesophageal reflux disease and gastritis. -PPI -Diet and lifestyle optimization -GI for EGD (inpatient versus outpatient) 10. Constipation. -Bowel regimen. Thank you, Problems: Subjective 24 Hr Interval Summary Abdominal pain improved. No nausea vomiting. Minimal cough. No chest pain or shortness of breath. Positive back pain. No seizure. No rashes. No dysuria. Constipated. Exam/Review of Systems Vital Signs Vitals Vital Signs Date Time Temp Pulse Resp B/P Pulse Ox O2 Delivery O2 Flow Rate FiO2 06/02/16 07:50 98.0 103 18 127/70 95 05/29/16 14:00 Room Air Intake and Output 06/01/16 06/01/16 06/02/16 14:59 22:59 06:59 Intake Total 770 ml 200 ml Balance 770 ml 200 ml Exam Free Text/Dictation Constitutional: other (Awake and responsive), No distress Psych: anxiety, confusion Head: atraumatic, normocephalic, No hematomas, No lacerations Eyes: EOMI, PERRL, nl conjunctiva, nl sclera, No icteric ENMT: mucosa pink and moist, nl external ears & nose, nl lips & teeth Neck: non-tender, supple, No jvd Respiratory: normal air movement, No congested cough, No labored breathing Cardiovascular: regular rate and rhythm, No edema Gastrointestinal: non-tender, soft, No firm, No rebound or guarding Genitourinary - Male: nl penis Musculoskeletal: nl extremities to inspection, No joint tenderness Extremities: No calf tenderness, No cyanosis Neurological: nl speech, No nl mental status Skin: nl turgor, No diaphoresis, No rash or lesions Lymph: nl lymph nodes Results Result Diagram: 06/01/16 0515 06/01/16 0515 ALFONSO NORTH MD Jun 02, 2016 14:26
--- NOTE | 2016-06-02 14:54 | PN ---
DATE: 06/02/2016 CARDIOLOGY FOLLOWUP SUBJECTIVE: Patient with no chest pain or pressure. No palpitation. ____back pain. MEDICATIONS: Reviewed. PHYSICAL EXAMINATION: VITAL SIGNS: Temperature 98, heart rate of 103, blood pressure 127/70, respiration rate of 18. HEENT: Normocephalic, atraumatic. Pupils are equal. CARDIOVASCULAR: Regular rate and rhythm. PULMONARY: No wheezes heard. GASTROINTESTINAL: Soft, nontender. EXTREMITIES: ____. NEUROLOGIC: Awake, responds appropriately. PSYCHIATRIC: Appears to be calm. LABORATORY: Shows sodium 138, potassium 3.7, BUN of 14, creatinine 0.73, magnesium 1.9. EKG was pe rsonally reviewed, shows sinus tachycardia. ASSESSMENT AND PLAN: 1. Paroxysmal atrial fibrillation, currently in sinus rhythm. 2. Severe back pain with compression fracture. 3. Chronic obstructive pulmonary disease. 4. ____. 5. Hypertension. RECOMMENDATIONS: We will continue with the current cardiac are. We will ____on Cardizem. Pain man agement as per internal medicine. Awaiting neurosurgical consultation. Dictated By: CHAVA THORNTON/DANIELA Conf#: [id number] DID#: [id number]
--- NOTE | 2016-06-02 15:08 | CONS ---
Date/Time of Note Date/Time of Note DATE: 06/02/16 TIME: 15:07 Assessment/Plan Assessment/Plan Chief Complaint/Hosp Course SUBJECTIVE: No acute changes. The patient is lying comfortably in bed. No fevers. MICROBIOLOGY: Blood culture on admission grew Strep viridans and coagulase- negative staph species. Urine culture grew Tori albicans, only 10,000 to 20, 000. Repeat blood cultures negative. DIAGNOSTICS: MRI of the lumbar spine revealed severe foraminal stenosis with nerve impingement at the L4 nerve root. No acute compression fracture or abnormal bone marrow edema. Thoracic spine MRI revealed no evidence of osteomyelitis or acute compression fracture. ANTIMICROBIALS: The patient is on: 1. IV Rocephin. 2. Oral Diflucan. PHYSICAL EXAMINATION: GENERAL: This is a fragile well-developed, elderly man, who is in no distress. HEENT: Head atraumatic, normocephalic. Sclerae anicteric. Buccal mucosa dry. NECK: Supple. CHEST: Chest rise is symmetrical. Breath sounds diminished to the bases. HEART: S1, S2. ABDOMEN: Soft, bowel tones present. EXTREMITIES: Without cyanosis or edema. ASSESSMENT: 1. Strep pneumonia with bacteremia. 2. Mild Tori albicans urinary tract infection. 3. Status post chronic obstructive pulmonary disease exacerbation. 4. Parkinson's disease. 5. Hypertension. 6. Lower back pain. PLAN: The patient remains stable, on appropriate antimicrobials. Repeat blood cultures negative. Anticipate treating with IV Rocephin for 10 more days dw staff Problems: Consultation Date/Type/Reason Admit Date/Time May 29, 2016 at 14:38 Type of Consultation: id Referring Provider: JEFF HAUSER DO Exam/Review of Systems Vital Signs Vitals Vital Signs Date Time Temp Pulse Resp B/P Pulse Ox O2 Delivery O2 Flow Rate FiO2 06/02/16 07:50 98.0 103 18 127/70 95 05/29/16 14:00 Room Air Intake and Output 06/01/16 06/01/16 06/02/16 15:00 23:00 07:00 Intake Total 770 ml 200 ml Balance 770 ml 200 ml Results Result Diagram: 06/01/16 0515 06/01/16 0515 Medications Medications Current Medications Acetaminophen (Tylenol Tab) 650 mg Q4H PRN PO MODERATE PAIN LEVEL 4-6; Start at 15:30 Amantadine HCl (Symmetrel) 100 mg BID PO Last administered on 06/02/16 08:40; Admin Dose 100 MG; Start 05/29/16 at 21:00 Ascorbic Acid (Vitamin C) 500 mg BID PO Last administered on 06/02/16 08:39; Admin Dose 500 MG; Start 05/29/16 at 21:00 Bisacodyl (Dulcolax Supp) 10 mg DAILY PRN [place] CONSTIPATION; Start 05/29/16 at 15: 30 Carbidopa/Levodopa (Sinemet (25/ 100)) 1 tab TID PO Last administered on 12:57; Admin Dose 1 TAB; Start 05/29/16 at 21:00 Diclofenac Sodium (Voltaren 1% Gel) 2 gm DAILY PRN TP PAIN; Start 05/29/16 at 15 :30 Diltiazem HCl (Cardizem Sr) 120 mg TID PO Last administered on 06/02/16 08:41; Admin Dose 120 MG; Start 05/29/16 at 21:00 Docusate Sodium (Colace) 200 mg QHS PO Last administered on 06/01/16 20:59; Admin Dose 200 MG; Start 05/29/16 at 21:00 Escitalopram Oxalate (Lexapro) 10 mg DAILY PO Last administered on 06/02/16 08: 39; Admin Dose 10 MG; Start 05/30/16 at 09:00 Gabapentin (Neurontin) 100 mg QHS PO Last administered on 06/01/16 20:59; Admin Dose 100 MG; Start 05/29/16 at 21:00 Acetaminophen/ Hydrocodone Bitart ([place] (5/325)) 1 tab Q6H PRN PO MODERATE PAIN LEVEL 4-6 Last administered on 06/02/16 08:41; Admin Dose 1 TAB; Start 05/29 at 15:30 Acetaminophen/ Hydrocodone Bitart ([place] (5/325)) 1 tab Q6H PRN PO SEVERE PAIN LEVEL 7-10; Start 05/29/16 at 15:30 Hyoscyamine (Levsin (Sl)) 0.125 mg Q6H PRN [place] ABDOMINAL PAIN Last administered on 05/30/16 08:33; Admin Dose 0.125 MG; Start 05/29/16 at 15:30 Magnesium Hydroxide (Milk Of Mag) 30 ml QHS PRN PO CONSTIPATION; Start 05/29/16 at 15:30 Metoprolol Succinate (Toprol Xl) 25 mg DAILY PO Last administered on 06/02/16 08:40; Admin Dose 25 MG; Start 05/30/16 at 09:00 Montelukast Sodium (Singulair) 10 mg QHS PO Last administered on 06/01/16 20:59 ; Admin Dose 10 MG; Start 05/29/16 at 21:00 Multivitamins Therapeutic (Theragran) 1 tab DAILY PO Last administered on 08:39; Admin Dose 1 TAB; Start 05/30/16 at 09:00 Sodium Biphosphate/ Sodium Phosphate (Fleet Enema) 135 ml DAILY PRN [place] CONSTIPATION; Start 05/29/16 at 15:30 Prednisone (Prednisone) 15 mg DAILY PO Last administered on 06/02/16 08:39; Admin Dose 15 MG; Start 05/30/16 at 09:00 Salmeterol Xinafoate/ Fluticasone (Advair 250/50 Diskus) 1 inh BID INH Last administered on 06/02/16 08:41; Admin Dose 1 INH; Start 05/29/16 at 21:00 Trazodone HCl (Desyrel) 100 mg QHS PO Last administered on 06/01/16 20:59; Admin Dose 100 MG; Start 05/29/16 at 21:00 Calcium/Vitamin D (Oyster Shell/ Vit-D (500/200)) 1 tab DAILY PO Last administered on 06/02/16 08:39; Admin Dose 1 TAB; Start 05/30/16 at 09:00 Tiotropium [place] (Spiriva) 1 inh DAILY INH Last administered on 06/02/16 08: 40; Admin Dose 1 INH; Start 05/30/16 at 09:00 Enoxaparin Sodium (Lovenox) 30 mg DAILY SC Last administered on 06/02/16 08:55 ; Admin Dose 30 MG; Start 05/30/16 at 09:00 Pantoprazole 40 mg 40 mg BID@06,18 PO Last administered on 06/02/16 05:39; Admin Dose 40 MG; Start 05/30/16 at 18:00 Ceftriaxone Sodium (Rocephin) 50 ml @ 100 mls/hr Q24H IVPB Last administered on 06/02/16 12:57; Admin Dose 100 MLS/HR; Start 05/30/16 at 13:00 Fluconazole (Diflucan) 100 mg DAILY PO Last administered on 06/02/16 08:39; Admin Dose 100 MG; Start 05/31/16 at 15:30 JOSEPH PRADO NP Jun 02, 2016 15:08
--- NOTE | 2016-06-02 15:41 | RADRPT ---
Vent Rate: 103 bpm RR Interval: 0 msec DC Interval: 190 msec QRS Duration: 84 msec QT Interval: 360 msec QTC Interval: 471 msec P-R-T [place]: 0 - 33 - 76 degrees Sinus tachycardia Otherwise normal ECG Electronically Signed By: Haroon Ireland [id number]
[2016-06-02 19:18] VITALS: BP 104/60; RESP 18
[2016-06-02 21:50] VITALS: BP 114/62; PULSE 100
[2016-06-02] MEDS: MONTELUKAST 10 MG TAB PO SCH (21:50)
[2016-06-02] MEDS: GABAPENTIN 100 MG CAP PO SCH (21:50)
[2016-06-02] MEDS: traZODone 100 MG TAB PO SCH (21:50)
[2016-06-02] MEDS: DOCUSATE SODIUM 100 MG CAP PO SCH (21:50)
[2016-06-03] MEDS: PANTOPRAZOLE (EC) 40 MG TAB PO SCH ×3 (05:25→17:18)
[2016-06-03] MEDS: HYDROCODONE/APAP (5/325) TAB PO PRN ×3 (05:36→21:30)
[2016-06-03 07:55] VITALS: BP 118/63; RESP 18
[2016-06-03] MEDS: ESCITALOPRAM 10 MG TAB PO SCH (09:49)
[2016-06-03] MEDS: SUCRALFATE (100 MG/ML) 10ML CUP PO SCH ×3 (09:50→17:18)
[2016-06-03] MEDS: FLUCONAZOLE 100 MG TAB PO SCH (09:50)
[2016-06-03] MEDS: METOPROLOL (XL) 25 MG TAB PO SCH (09:50)
[2016-06-03] MEDS: CALCIUM/VITAMIN D (500/200) TAB PO SCH (09:50)
[2016-06-03] MEDS: ASCORBIC ACID 500 MG TAB PO SCH ×2 (09:50→21:15)
[2016-06-03] MEDS: CARBIDOPA/LEVODOPA (25/100) TAB PO SCH ×3 (09:51→21:15)
[2016-06-03] MEDS: predniSONE 5 MG TAB PO SCH (09:51)
[2016-06-03] MEDS: MULTIVITAMINS THERAPEUTIC TAB PO SCH (09:51)
[2016-06-03] MEDS: DILTIAZEM (SR) 60 MG CAP PO SCH ×3 (09:51→21:20)
[2016-06-03] MEDS: SALMETEROL/FLUTICASONE 250/50 INHA INH SCH ×2 (09:52→21:14)
[2016-06-03] MEDS: AMANTADINE 100 MG CAP PO SCH ×2 (09:52→21:15)
[2016-06-03] MEDS: ENOXAPARIN 30 MG/0.3 ML SYG SC SCH (10:04)
[2016-06-03] MEDS: TIOTROPIUM 18 MCG CAPSULE INHA DEV INH SCH (10:05)
--- NOTE | 2016-06-03 10:28 | CONS ---
Date/Time of Note Date/Time of Note DATE: 06/03/16 TIME: 10:24 Consult Date/Type/Reason Admit Date/Time May 29, 2016 at 14:38 Type of Consultation: med Ordering Provider: JEFF HAUSER The patient is stable, continues to complain about pain in his back. No other events noted. No hemoptysis, hematemesis or hematochezia. OBJECTIVE: HEENT: Head is normocephalic. NECK: Supple. HEART: Regular rate. LUNGS: Show diminished breath sounds at the base. ABDOMEN: Soft, nontender to palpation. No rebound or guarding. EXTREMITIES: Negative for clubbing, cyanosis, no edema. DERMATOLOGIC: No rashes. MUSCULOSKELETAL: Positive tenderness to palpation around the thoracic lumbar region. NEUROLOGIC: No change in exam. Objective Vital Signs Date Time Temp Pulse Resp B/P Pulse Ox O2 Delivery O2 Flow Rate FiO2 06/03/16 07:55 98.0 104 18 118/63 95 Intake and Output 06/02/16 06/02/16 06/03/16 15:00 23:00 07:00 Intake Total 650 ml 220 ml Balance 650 ml 220 ml Results/Medications Result Diagram: 06/01/16 0515 06/01/16 0515 Medications Current Medications Acetaminophen (Tylenol Tab) 650 mg Q4H PRN PO MODERATE PAIN LEVEL 4-6; Start at 15:30 Amantadine HCl (Symmetrel) 100 mg BID PO Last administered on 06/03/16 09:52; Admin Dose 100 MG; Start 05/29/16 at 21:00 Ascorbic Acid (Vitamin C) 500 mg BID PO Last administered on 06/03/16 09:50; Admin Dose 500 MG; Start 05/29/16 at 21:00 Bisacodyl (Dulcolax Supp) 10 mg DAILY PRN [place] CONSTIPATION; Start 05/29/16 at 15: 30 Carbidopa/Levodopa (Sinemet (25/ 100)) 1 tab TID PO Last administered on 09:51; Admin Dose 1 TAB; Start 05/29/16 at 21:00 Diclofenac Sodium (Voltaren 1% Gel) 2 gm DAILY PRN TP PAIN; Start 05/29/16 at 15 :30 Diltiazem HCl (Cardizem Sr) 120 mg TID PO Last administered on 06/03/16 09:51; Admin Dose 120 MG; Start 05/29/16 at 21:00 Docusate Sodium (Colace) 200 mg QHS PO Last administered on 06/02/16 21:50; Admin Dose 200 MG; Start 05/29/16 at 21:00 Escitalopram Oxalate (Lexapro) 10 mg DAILY PO Last administered on 06/03/16 09: 49; Admin Dose 10 MG; Start 05/30/16 at 09:00 Gabapentin (Neurontin) 100 mg QHS PO Last administered on 06/02/16 21:50; Admin Dose 100 MG; Start 05/29/16 at 21:00 Acetaminophen/ Hydrocodone Bitart ([place] (5/325)) 1 tab Q6H PRN PO MODERATE PAIN LEVEL 4-6 Last administered on 06/03/16 05:36; Admin Dose 1 TAB; Start 05/29 at 15:30 Acetaminophen/ Hydrocodone Bitart ([place] (5/325)) 1 tab Q6H PRN PO SEVERE PAIN LEVEL 7-10; Start 05/29/16 at 15:30 Hyoscyamine (Levsin (Sl)) 0.125 mg Q6H PRN SL ABDOMINAL PAIN Last administered on 05/30/16 08:33; Admin Dose 0.125 MG; Start 05/29/16 at 15:30 Magnesium Hydroxide (Milk Of Mag) 30 ml QHS PRN PO CONSTIPATION; Start 05/29/16 at 15:30 Metoprolol Succinate (Toprol Xl) 25 mg DAILY PO Last administered on 06/03/16 09:50; Admin Dose 25 MG; Start 05/30/16 at 09:00 Montelukast Sodium (Singulair) 10 mg QHS PO Last administered on 06/02/16 21:50 ; Admin Dose 10 MG; Start 05/29/16 at 21:00 Multivitamins Therapeutic (Theragran) 1 tab DAILY PO Last administered on 09:51; Admin Dose 1 TAB; Start 05/30/16 at 09:00 Sodium Biphosphate/ Sodium Phosphate (Fleet Enema) 135 ml DAILY PRN [place] CONSTIPATION; Start 05/29/16 at 15:30 Prednisone (Prednisone) 15 mg DAILY PO Last administered on 06/03/16 09:51; Admin Dose 15 MG; Start 05/30/16 at 09:00 Salmeterol Xinafoate/ Fluticasone (Advair 250/50 Diskus) 1 inh BID INH Last administered on 06/03/16 09:52; Admin Dose 1 INH; Start 05/29/16 at 21:00 Trazodone HCl (Desyrel) 100 mg QHS PO Last administered on 06/02/16 21:50; Admin Dose 100 MG; Start 05/29/16 at 21:00 Calcium/Vitamin D (Oyster Shell/ Vit-D (500/200)) 1 tab DAILY PO Last administered on 06/03/16 09:50; Admin Dose 1 TAB; Start 05/30/16 at 09:00 Tiotropium [place] (Spiriva) 1 inh DAILY INH Last administered on 06/03/16 10: 05; Admin Dose 1 INH; Start 05/30/16 at 09:00 Enoxaparin Sodium (Lovenox) 30 mg DAILY SC Last administered on 06/03/16 10:04 ; Admin Dose 30 MG; Start 05/30/16 at 09:00 Pantoprazole 40 mg 40 mg BID@06,18 PO Last administered on 06/03/16 09:52; Admin Dose 40 MG; Start 05/30/16 at 18:00 Ceftriaxone Sodium (Rocephin) 50 ml @ 100 mls/hr Q24H IVPB Last administered on 06/02/16 12:57; Admin Dose 100 MLS/HR; Start 05/30/16 at 13:00 Fluconazole (Diflucan) 100 mg DAILY PO Last administered on 06/03/16 09:50; Admin Dose 100 MG; Start 05/31/16 at 15:30 Assessment/Plan Chief Complaint/Hosp Course IMAGING STUDIES: The patient's lumbar thoracic spine reviewed showed compression fractures of L1, complete endplate abnormalities at L2-L3, a disk bulge at L4-L5 as well as compression fracture of T10-T11. ASSESSMENT AND PLAN: 1. Sepsis secondary to healthcare-associated pneumonia. The patient's blood cultures were positive for Staph aureus. The patient is clinically responding to antibiotic therapy. We will continue. 2. Lower back pain. Etiology is secondary to compression fracture, osteoarthritis, possible stenosis and disk herniation. The patient's CT spine was reviewed. A neurosurgical consult was placed with Dr. Stuart. MRI showed l4 impingement and other djd, compression fx findings. 3. Abdominal pain. Etiology may be referred as CT scan shows no acute findings. Continue to monitor. 4. Acute encephalopathy and dementia. Etiology is toxic metabolic. Mental status has improved returned to baseline. Continue to monitor. 5. Paroxysmal atrial fibrillation, currently in sinus rhythm. Continue to monitor. Follow up with cardiology. 6. History of chronic obstructive pulmonary disease, asthma. The patient is currently stable. Continue medical management with Spiriva, Advair, prednisone. Continue nebulizers. 7. Parkinson's disease. Continue Sinemet. 8. Depression. Continue Lexapro. 9. Anemia, likely of chronic disease. Continue to monitor hemoglobin and hematocrit levels. 10. Constipation. We will continue current bowel regimen. 11. Severe gastritis, GERD. Continue Protonix b.i.d. 12. History of gastric cancer. Problems: HALEY BURTON MD Jun 03, 2016 10:28
--- NOTE | 2016-06-03 11:47 | CONS ---
Date/Time of Note Date/Time of Note DATE: 06/03/16 TIME: 11:31 Assessment/Plan Assessment/Plan Chief Complaint/Hosp Course ID PROGRESS NOTE CURRENT ABX=> Ceftriaxone, Diflucan 24H INTERVAL SUMMARY * Resting comfortably, afebrile, nad * MICROBIOLOGY: Blood culture on admission grew Strep viridans and coagulase- negative staph species. Urine culture grew Tori albicans, only 10,000 to 20, 000. Repeat blood cultures negative. BLOOD CULTURE Final (continued) S VIRIDANS COAG NEG Zone Size RX Zone Size RX --------- --- --------- --- * CEFAZOLIN S S * CEFOTAXIME S CEFOXITIN SCREEN S * CIPROFLOXACIN S R * CLINDAMYCIN S S * DOXYCYCLINE S * ERYTHROMYCIN S S * OXACILLIN S S * PENICILLIN R R * RIFAMPIN S * VANCOMYCIN S S * TRIMETHOPRIM/SULFAMETHOXAZOLE S PHYSICAL EXAMINATION: GENERAL: VSS, NAD, Afebrile cachetic elder M HEENT: Unremarkable NECK: Supple, trachea midline. CHEST: Rise symmetrical, without dyspnea on observation HEART: Pulse RRR ABDOMEN: Soft EXTREMITIES: Warm ID ASSESSMENT 85 yo M admit with: 1. Strep pneumonia with bacteremia. * Repeat BCx (-) 2. Mild Tori albicans urinary tract infection. 3. Status post chronic obstructive pulmonary disease exacerbation. 4. Parkinson's disease. 5. Hypertension. 6. Lower back pain. * MRI of the lumbar spine revealed severe foraminal stenosis with nerve impingement at the L4 nerve root. No acute compression fracture or abnormal bone marrow edema INVASIVES: PIV ABX ALLERGY: NKDA CURRENT ABX: Ceftriaxone DAY # 5/14 days, Diflucan ID RECOMMENDATIONS 1. Continue current Ceftriaxone DAY # 5/14 days total + Diflucan 2. May DC home vs SNF on current ABX when cleared by primary . Problems: Consultation Date/Type/Reason Admit Date/Time May 29, 2016 at 14:38 Initial Consult Date 05/31/16 Type of Consultation: ID Referring Provider: JEFF HAUSER DO Exam/Review of Systems Vital Signs Vitals Vital Signs Date Time Temp Pulse Resp B/P Pulse Ox O2 Delivery O2 Flow Rate FiO2 06/03/16 07:55 98.0 104 18 118/63 95 Intake and Output 06/02/16 06/02/16 06/03/16 15:00 23:00 07:00 Intake Total 650 ml 220 ml Balance 650 ml 220 ml Results Result Diagram: 06/01/1615 06/01/1615 Medications Medications Current Medications Acetaminophen (Tylenol Tab) 650 mg Q4H PRN PO MODERATE PAIN LEVEL 4-6; Start at 15:30 Amantadine HCl (Symmetrel) 100 mg BID PO Last administered on 06/03/16 09:52; Admin Dose 100 MG; Start 05/29/16 at 21:00 Ascorbic Acid (Vitamin C) 500 mg BID PO Last administered on 06/03/16 09:50; Admin Dose 500 MG; Start 05/29/16 at 21:00 Bisacodyl (Dulcolax Supp) 10 mg DAILY PRN [place] CONSTIPATION; Start 05/29/16 at 15: 30 Carbidopa/Levodopa (Sinemet (25/ 100)) 1 tab TID PO Last administered on 09:51; Admin Dose 1 TAB; Start 05/29/16 at 21:00 Diclofenac Sodium (Voltaren 1% Gel) 2 gm DAILY PRN TP PAIN; Start 05/29/16 at 15 :30 Diltiazem HCl (Cardizem Sr) 120 mg TID PO Last administered on 06/03/16 09:51; Admin Dose 120 MG; Start 05/29/16 at 21:00 Docusate Sodium (Colace) 200 mg QHS PO Last administered on 06/02/16 21:50; Admin Dose 200 MG; Start 05/29/16 at 21:00 Escitalopram Oxalate (Lexapro) 10 mg DAILY PO Last administered on 06/03/16 09: 49; Admin Dose 10 MG; Start 05/30/16 at 09:00 Gabapentin (Neurontin) 100 mg QHS PO Last administered on 06/02/16 21:50; Admin Dose 100 MG; Start 05/29/16 at 21:00 Acetaminophen/ Hydrocodone Bitart ([place] (5/325)) 1 tab Q6H PRN PO MODERATE PAIN LEVEL 4-6 Last administered on 06/03/16 05:36; Admin Dose 1 TAB; Start 05/29 at 15:30 Acetaminophen/ Hydrocodone Bitart ([place] (5/325)) 1 tab Q6H PRN PO SEVERE PAIN LEVEL 7-10; Start 05/29/16 at 15:30 Hyoscyamine (Levsin (Sl)) 0.125 mg Q6H PRN SL ABDOMINAL PAIN Last administered on 05/30/16 08:33; Admin Dose 0.125 MG; Start 05/29/16 at 15:30 Magnesium Hydroxide (Milk Of Mag) 30 ml QHS PRN PO CONSTIPATION; Start 05/29/16 at 15:30 Metoprolol Succinate (Toprol Xl) 25 mg DAILY PO Last administered on 06/03/16 09:50; Admin Dose 25 MG; Start 05/30/16 at 09:00 Montelukast Sodium (Singulair) 10 mg QHS PO Last administered on 06/02/16 21:50 ; Admin Dose 10 MG; Start 05/29/16 at 21:00 Multivitamins Therapeutic (Theragran) 1 tab DAILY PO Last administered on 09:51; Admin Dose 1 TAB; Start 05/30/16 at 09:00 Sodium Biphosphate/ Sodium Phosphate (Fleet Enema) 135 ml DAILY PRN [place] CONSTIPATION; Start 05/29/16 at 15:30 Prednisone (Prednisone) 15 mg DAILY PO Last administered on 06/03/16 09:51; Admin Dose 15 MG; Start 05/30/16 at 09:00 Salmeterol Xinafoate/ Fluticasone (Advair 250/50 Diskus) 1 inh BID INH Last administered on 06/03/16 09:52; Admin Dose 1 INH; Start 05/29/16 at 21:00 Trazodone HCl (Desyrel) 100 mg QHS PO Last administered on 06/02/16 21:50; Admin Dose 100 MG; Start 05/29/16 at 21:00 Calcium/Vitamin D ([place]/ Vit-D (500/200)) 1 tab DAILY PO Last administered on 06/03/16 09:50; Admin Dose 1 TAB; Start 05/30/16 at 09:00 Tiotropium [place] (Spiriva) 1 inh DAILY INH Last administered on 06/03/16 10: 05; Admin Dose 1 INH; Start 05/30/16 at 09:00 Enoxaparin Sodium (Lovenox) 30 mg DAILY SC Last administered on 06/03/16 10:04 ; Admin Dose 30 MG; Start 05/30/16 at 09:00 Pantoprazole 40 mg 40 mg BID@06,18 PO Last administered on 06/03/16 09:52; Admin Dose 40 MG; Start 05/30/16 at 18:00 Ceftriaxone Sodium (Rocephin) 50 ml @ 100 mls/hr Q24H IVPB Last administered on 06/02/16 12:57; Admin Dose 100 MLS/HR; Start 05/30/16 at 13:00 Fluconazole (Diflucan) 100 mg DAILY PO Last administered on 06/03/16 09:50; Admin Dose 100 MG; Start 05/31/16 at 15:30 JAQUELIN GONZALEZ COTTON SE[employer] C[employer]ER Jun 03, 2016 11:41
[2016-06-03] MEDS: CEFTRIAXONE 1 GM/50 ML (PMX) 50 ML IVPB SCH (12:36)
--- NOTE | 2016-06-03 14:50 | PN ---
DATE: 06/03/2016 CARDIOLOGY FOLLOWUP SUBJECTIVE: Discussed with the staff. The patient denies any chest pain or pressure to me. He sti ll complains of pain in his back. No bleeding, no dysuria. MEDICATIONS: Reviewed. PHYSICAL EXAMINATION: VITAL SIGNS: Temperature 98, heart rate of 104, blood pressure 118/63, respiratory rate of 18, satu rating 95%. HEENT: Normocephalic, atraumatic. No acute distress. CARDIOVASCULAR: Regular rate and rhythm. PULMONARY: With no wheezes. GASTROINTESTINAL: Soft, nontender. EXTREMITIES: With trivial edema. NEUROLOGIC: Awake, responds appropriately. PSYCHIATRIC: Appears to be calm and pleasant. LABORATORY: Blood culture from the 05/29/2016 showed Staph viridans, coagulase-negative staph. Rep eat blood culture on 05/30/2016 is so far negative. ASSESSMENT AND PLAN: 1. Paroxysmal atrial fibrillation, slight sinus tachycardia, currently remains stable. 2. Hypertension, under good control. 3. Severe back pain and compression fracture. Followup with internal medicine recommendations. Aw aiting neurosurgery recommendation. 4. History of chronic obstructive pulmonary disease, currently stable. 5. Bacteremia, possible contaminant. Followup ID recommendations. RECOMMENDATIONS: We will continue with the current cardiac care. Antibiotic as per ID recommendati ons. Beta deisy will be continued as tolerated. Pulmonary care will be continued. Awaiting neur osurgical evaluation and possible intervention. Dictated By: CHAVA LOZANO MD AV/DANIELA Conf#: [id number] DID#: [id number] CC: HALEY BURTON MD;*EndCC*
--- NOTE | 2016-06-03 19:12 | CONS ---
Date/Time of Note Date/Time of Note DATE: 06/03/16 TIME: 19:09 Consult Date/Type/Reason Admit Date/Time May 29, 2016 at 14:38 Initial Consult Date 05/31/16 Type of Consultation: Pulm Ordering Provider: JEFF HAUSER DO Subjective c/o back pain. Objective Vital Signs Date Time Temp Pulse Resp B/P Pulse Ox O2 Delivery O2 Flow Rate FiO2 06/03/16 07:55 98.0 104 18 118/63 95 Intake and Output 06/02/16 06/02/16 06/03/16 15:00 23:00 07:00 Intake Total 650 ml 220 ml Balance 650 ml 220 ml Exam HEENT: Neck supple; no JVD; no LAD CVS: irreg, S1 and S2 CHEST: Coarse b/l ABD: Soft, NT, + BS EXT: No c/c/e Results/Medications Result Diagram: 06/01/16 0515 06/01/16 0515 Medications Current Medications Acetaminophen (Tylenol Tab) 650 mg Q4H PRN PO MODERATE PAIN LEVEL 4-6; Start at 15:30 Amantadine HCl (Symmetrel) 100 mg BID PO Last administered on 06/03/16 09:52; Admin Dose 100 MG; Start 05/29/16 at 21:00 Ascorbic Acid (Vitamin C) 500 mg BID PO Last administered on 06/03/16 09:50; Admin Dose 500 MG; Start 05/29/16 at 21:00 Bisacodyl (Dulcolax Supp) 10 mg DAILY PRN [place] CONSTIPATION; Start 05/29/16 at 15: 30 Carbidopa/Levodopa (Sinemet (25/ 100)) 1 tab TID PO Last administered on 14:55; Admin Dose 1 TAB; Start 05/29/16 at 21:00 Diclofenac Sodium (Voltaren 1% Gel) 2 gm DAILY PRN TP PAIN; Start 05/29/16 at 15 :30 Diltiazem HCl (Cardizem Sr) 120 mg TID PO Last administered on 06/03/16 14:55; Admin Dose 120 MG; Start 05/29/16 at 21:00 Docusate Sodium (Colace) 200 mg QHS PO Last administered on 06/02/16 21:50; Admin Dose 200 MG; Start 05/29/16 at 21:00 Escitalopram Oxalate (Lexapro) 10 mg DAILY PO Last administered on 06/03/16 09: 49; Admin Dose 10 MG; Start 05/30/16 at 09:00 Gabapentin (Neurontin) 100 mg QHS PO Last administered on 06/02/16 21:50; Admin Dose 100 MG; Start 05/29/16 at 21:00 Acetaminophen/ Hydrocodone Bitart ([place] (5/325)) 1 tab Q6H PRN PO MODERATE PAIN LEVEL 4-6 Last administered on 06/03/16 12:36; Admin Dose 1 TAB; Start 05/29 at 15:30 Acetaminophen/ Hydrocodone Bitart ([place] (5/325)) 1 tab Q6H PRN PO SEVERE PAIN LEVEL 7-10; Start 05/29/16 at 15:30 Hyoscyamine (Levsin (Sl)) 0.125 mg Q6H PRN [place] ABDOMINAL PAIN Last administered on 05/30/16 08:33; Admin Dose 0.125 MG; Start 05/29/16 at 15:30 Magnesium Hydroxide (Milk Of Mag) 30 ml QHS PRN [place] CONSTIPATION; Start 05/29/16 at 15:30 Metoprolol Succinate (Toprol Xl) 25 mg DAILY PO Last administered on 06/03/16 09:50; Admin Dose 25 MG; Start 05/30/16 at 09:00 Montelukast Sodium (Singulair) 10 mg QHS PO Last administered on 06/02/16 21:50 ; Admin Dose 10 MG; Start 05/29/16 at 21:00 Multivitamins Therapeutic (Theragran) 1 tab DAILY PO Last administered on 09:51; Admin Dose 1 TAB; Start 05/30/16 at 09:00 Sodium Biphosphate/ Sodium Phosphate (Fleet Enema) 135 ml DAILY PRN [place] CONSTIPATION; Start 05/29/16 at 15:30 Prednisone (Prednisone) 15 mg DAILY PO Last administered on 06/03/16 09:51; Admin Dose 15 MG; Start 05/30/16 at 09:00 Salmeterol Xinafoate/ Fluticasone (Advair 250/50 Diskus) 1 inh BID INH Last administered on 06/03/16 09:52; Admin Dose 1 INH; Start 05/29/16 at 21:00 Trazodone HCl (Desyrel) 100 mg QHS PO Last administered on 06/02/16 21:50; Admin Dose 100 MG; Start 05/29/16 at 21:00 Calcium/Vitamin D (Oyster Shell/ Vit-D (500/200)) 1 tab DAILY PO Last administered on 06/03/16 09:50; Admin Dose 1 TAB; Start 05/30/16 at 09:00 Tiotropium [place] (Spiriva) 1 inh DAILY INH Last administered on 06/03/16 10: 05; Admin Dose 1 INH; Start 05/30/16 at 09:00 Enoxaparin Sodium (Lovenox) 30 mg DAILY SC Last administered on 06/03/16 10:04 ; Admin Dose 30 MG; Start 05/30/16 at 09:00 Pantoprazole 40 mg 40 mg BID@06,18 PO Last administered on 06/03/16 17:18; Admin Dose 40 MG; Start 05/30/16 at 18:00 Ceftriaxone Sodium (Rocephin) 50 ml @ 100 mls/hr Q24H IVPB Last administered on 06/03/16 12:36; Admin Dose 100 MLS/HR; Start 05/30/16 at 13:00 Fluconazole (Diflucan) 100 mg DAILY PO Last administered on 06/03/16 09:50; Admin Dose 100 MG; Start 05/31/16 at 15:30 Assessment/Plan Additional Assessment/Plan IMP: 1. Healthcare associated pneumonia blood cultures positive for staph aureus 2. Possible aspiration component 3. History of Parkinson's disease 4. Back pain with evidence of compression fractures pending neurosurgical evaluation RECS: 1. Continue antibiotics per ID 2. Aspiration precautions 3. PT/OT/Mobilize OOB 4. KAMALA Sharma MD Jun 03, 2016 19:11
[2016-06-03 19:42] VITALS: BP 107/58; RESP 16
[2016-06-03] MEDS: DOCUSATE SODIUM 100 MG CAP PO SCH (21:15)
[2016-06-03] MEDS: MONTELUKAST 10 MG TAB PO SCH (21:15)
[2016-06-03] MEDS: traZODone 100 MG TAB PO SCH (21:16)
[2016-06-03] MEDS: GABAPENTIN 100 MG CAP PO SCH (21:16)
[2016-06-03 22:00] VITALS: PULSE 98
[2016-06-04 08:07] VITALS: BP 123/72; RESP 18
[2016-06-04] MEDS: SUCRALFATE (100 MG/ML) 10ML CUP PO SCH ×3 (08:20→17:44)
[2016-06-04] MEDS: AMANTADINE 100 MG CAP PO SCH ×2 (09:11→23:04)
[2016-06-04] MEDS: ESCITALOPRAM 10 MG TAB PO SCH (09:11)
[2016-06-04] MEDS: ASCORBIC ACID 500 MG TAB PO SCH ×2 (09:11→23:04)
[2016-06-04] MEDS: TIOTROPIUM 18 MCG CAPSULE INHA DEV INH SCH (09:11)
[2016-06-04] MEDS: predniSONE 5 MG TAB PO SCH (09:11)
[2016-06-04] MEDS: CALCIUM/VITAMIN D (500/200) TAB PO SCH (09:11)
[2016-06-04] MEDS: CARBIDOPA/LEVODOPA (25/100) TAB PO SCH ×3 (09:11→23:04)
[2016-06-04] MEDS: MULTIVITAMINS THERAPEUTIC TAB PO SCH (09:11)
[2016-06-04] MEDS: FLUCONAZOLE 100 MG TAB PO SCH (09:11)
[2016-06-04] MEDS: DILTIAZEM (SR) 60 MG CAP PO SCH ×3 (09:12→23:04)
[2016-06-04] MEDS: METOPROLOL (XL) 25 MG TAB PO SCH (09:12)
[2016-06-04] MEDS: ENOXAPARIN 30 MG/0.3 ML SYG SC SCH (09:15)
[2016-06-04] MEDS: SALMETEROL/FLUTICASONE 250/50 INHA INH SCH ×2 (09:18→23:02)
[2016-06-04] MEDS: HYDROCODONE/APAP (5/325) TAB PO PRN (10:55)
--- NOTE | 2016-06-04 11:48 | CONS ---
Date/Time of Note Date/Time of Note DATE: 06/04/16 TIME: 11:47 Consult Date/Type/Reason Admit Date/Time May 29, 2016 at 14:38 Type of Consultation: med Ordering Provider: JEFF HAUSER The patient is stable, continues to complain about pain in his back. No other events noted. No hemoptysis, hematemesis or hematochezia. OBJECTIVE: HEENT: Head is normocephalic. NECK: Supple. HEART: Regular rate. LUNGS: Show diminished breath sounds at the base. ABDOMEN: Soft, nontender to palpation. No rebound or guarding. EXTREMITIES: Negative for clubbing, cyanosis, no edema. DERMATOLOGIC: No rashes. MUSCULOSKELETAL: Positive tenderness to palpation around the thoracic lumbar region. NEUROLOGIC: No change in exam. Objective Vital Signs Date Time Temp Pulse Resp B/P Pulse Ox O2 Delivery O2 Flow Rate FiO2 06/04/16 08:07 98.2 102 18 123/72 93 Intake and Output 06/03/16 06/03/16 06/04/16 15:00 23:00 07:00 Intake Total 50 ml 1320 ml 220 ml Balance 50 ml 1320 ml 220 ml Results/Medications Result Diagram: 06/01/16 0515 06/01/16 0515 Medications Current Medications Acetaminophen (Tylenol Tab) 650 mg Q4H PRN PO MODERATE PAIN LEVEL 4-6; Start at 15:30 Amantadine HCl (Symmetrel) 100 mg BID PO Last administered on 06/04/16 09:11; Admin Dose 100 MG; Start 05/29/16 at 21:00 Ascorbic Acid (Vitamin C) 500 mg BID PO Last administered on 06/04/16 09:11; Admin Dose 500 MG; Start 05/29/16 at 21:00 Bisacodyl (Dulcolax Supp) 10 mg DAILY PRN [place] CONSTIPATION; Start 05/29/16 at 15: 30 Carbidopa/Levodopa (Sinemet (25/ 100)) 1 tab TID PO Last administered on 09:11; Admin Dose 1 TAB; Start 05/29/16 at 21:00 Diclofenac Sodium (Voltaren 1% Gel) 2 gm DAILY PRN TP PAIN; Start 05/29/16 at 15 :30 Diltiazem HCl (Cardizem Sr) 120 mg TID PO Last administered on 06/04/16 09:12; Admin Dose 120 MG; Start 05/29/16 at 21:00 Docusate Sodium (Colace) 200 mg QHS PO Last administered on 06/03/16 21:15; Admin Dose 200 MG; Start 05/29/16 at 21:00 Escitalopram Oxalate (Lexapro) 10 mg DAILY PO Last administered on 06/04/16 09: 11; Admin Dose 10 MG; Start 05/30/16 at 09:00 Gabapentin (Neurontin) 100 mg QHS PO Last administered on 06/03/16 21:16; Admin Dose 100 MG; Start 05/29/16 at 21:00 Acetaminophen/ Hydrocodone Bitart ([place] (5/325)) 1 tab Q6H PRN PO MODERATE PAIN LEVEL 4-6 Last administered on 06/04/16 10:55; Admin Dose 1 TAB; Start 05/29 at 15:30 Acetaminophen/ Hydrocodone Bitart ([place] (5/325)) 1 tab Q6H PRN PO SEVERE PAIN LEVEL 7-10; Start 05/29/16 at 15:30 Hyoscyamine (Levsin (Sl)) 0.125 mg Q6H PRN SL ABDOMINAL PAIN Last administered on 05/30/16 08:33; Admin Dose 0.125 MG; Start 05/29/16 at 15:30 Magnesium Hydroxide (Milk Of Mag) 30 ml QHS PRN PO CONSTIPATION; Start 05/29/16 at 15:30 Metoprolol Succinate (Toprol Xl) 25 mg DAILY PO Last administered on 06/04/16 09:12; Admin Dose 25 MG; Start 05/30/16 at 09:00 Montelukast Sodium (Singulair) 10 mg QHS PO Last administered on 06/03/16 21:15 ; Admin Dose 10 MG; Start 05/29/16 at 21:00 Multivitamins Therapeutic (Theragran) 1 tab DAILY PO Last administered on 09:11; Admin Dose 1 TAB; Start 05/30/16 at 09:00 Sodium Biphosphate/ Sodium Phosphate (Fleet Enema) 135 ml DAILY PRN [place] CONSTIPATION; Start 05/29/16 at 15:30 Prednisone (Prednisone) 15 mg DAILY PO Last administered on 06/04/16 09:11; Admin Dose 15 MG; Start 05/30/16 at 09:00 Salmeterol Xinafoate/ Fluticasone (Advair 250/50 Diskus) 1 inh BID INH Last administered on 06/04/16 09:18; Admin Dose 1 INH; Start 05/29/16 at 21:00 Trazodone HCl (Desyrel) 100 mg QHS PO Last administered on 06/03/16 21:16; Admin Dose 100 MG; Start 05/29/16 at 21:00 Calcium/Vitamin D (Oyster Shell/ Vit-D (500/200)) 1 tab DAILY PO Last administered on 06/04/16 09:11; Admin Dose 1 TAB; Start 05/30/16 at 09:00 Tiotropium [place] (Spiriva) 1 inh DAILY INH Last administered on 06/04/16 09: 11; Admin Dose 1 INH; Start 05/30/16 at 09:00 Enoxaparin Sodium (Lovenox) 30 mg DAILY SC Last administered on 06/04/16 09:15 ; Admin Dose 30 MG; Start 05/30/16 at 09:00 Pantoprazole 40 mg 40 mg BID@06,18 PO Last administered on 06/03/16 17:18; Admin Dose 40 MG; Start 05/30/16 at 18:00 Ceftriaxone Sodium (Rocephin) 50 ml @ 100 mls/hr Q24H IVPB Last administered on 06/03/16 12:36; Admin Dose 100 MLS/HR; Start 05/30/16 at 13:00 Fluconazole (Diflucan) 100 mg DAILY PO Last administered on 06/04/16 09:11; Admin Dose 100 MG; Start 05/31/16 at 15:30 Assessment/Plan Chief Complaint/Hosp Course IMAGING STUDIES: The patient's lumbar thoracic spine reviewed showed compression fractures of L1, complete endplate abnormalities at L2-L3, a disk bulge at L4-L5 as well as compression fracture of T10-T11. ASSESSMENT AND PLAN: 1. Sepsis secondary to healthcare-associated pneumonia. The patient's blood cultures were positive for Staph aureus. The patient is clinically responding to antibiotic therapy. We will continue. 2. Lower back pain. Etiology is secondary to compression fracture, osteoarthritis, possible stenosis and disk herniation. The patient's CT spine was reviewed. A neurosurgical consult was placed with Dr. Stevenson. MRI showed l4 impingement and other djd, compression fx findings. recontacted dr. stevenson again with no response. will look for other available spine surgeons. 3. Abdominal pain. Etiology may be referred as CT scan shows no acute findings. Continue to monitor. 4. Acute encephalopathy and dementia. Etiology is toxic metabolic. Mental status has improved returned to baseline. Continue to monitor. 5. Paroxysmal atrial fibrillation, currently in sinus rhythm. Continue to monitor. Follow up with cardiology. 6. History of chronic obstructive pulmonary disease, asthma. The patient is currently stable. Continue medical management with Spiriva, Advair, prednisone. Continue nebulizers. 7. Parkinson's disease. Continue Sinemet. 8. Depression. Continue Lexapro. 9. Anemia, likely of chronic disease. Continue to monitor hemoglobin and hematocrit levels. 10. Constipation. We will continue current bowel regimen. 11. Severe gastritis, GERD. Continue Protonix b.i.d. 12. History of gastric cancer. Problems: HALEY BURTON MD Jun 04, 2016 11:48
[2016-06-04] MEDS: CEFTRIAXONE 1 GM/50 ML (PMX) 50 ML IVPB SCH (13:51)
[2016-06-04] MEDS ORDERED: HYDROCODONE/APAP (5/325) TAB PO PRN (15:30)
--- NOTE | 2016-06-04 15:48 | CONS ---
Date/Time of Note Date/Time of Note DATE: 06/04/16 TIME: 15:47 Consult Date/Type/Reason Admit Date/Time May 29, 2016 at 14:38 Initial Consult Date 05/31/16 Type of Consultation: Pulm Ordering Provider: JEFF HAUSER DO Subjective No events. No sob. Objective Vital Signs Date Time Temp Pulse Resp B/P Pulse Ox O2 Delivery O2 Flow Rate FiO2 06/04/16 08:07 98.2 102 18 123/72 93 Intake and Output 06/03/16 06/03/16 06/04/16 15:00 23:00 07:00 Intake Total 50 ml 1320 ml 220 ml Balance 50 ml 1320 ml 220 ml Exam HEENT: Neck supple; no JVD; no LAD CVS: irreg, S1 and S2 CHEST: Coarse b/l ABD: Soft, NT, + BS EXT: No c/c/e Results/Medications Result Diagram: 06/01/1615 06/01/16 0515 Medications Current Medications Acetaminophen (Tylenol Tab) 650 mg Q4H PRN PO MODERATE PAIN LEVEL 4-6; Start at 15:30 Amantadine HCl (Symmetrel) 100 mg BID PO Last administered on 06/04/16 09:11; Admin Dose 100 MG; Start 05/29/16 at 21:00 Ascorbic Acid (Vitamin C) 500 mg BID PO Last administered on 06/04/16 09:11; Admin Dose 500 MG; Start 05/29/16 at 21:00 Bisacodyl (Dulcolax Supp) 10 mg DAILY PRN [place] CONSTIPATION; Start 05/29/16 at 15: 30 Carbidopa/Levodopa (Sinemet (25/ 100)) 1 tab TID PO Last administered on 13:51; Admin Dose 1 TAB; Start 05/29/16 at 21:00 Diclofenac Sodium (Voltaren 1% Gel) 2 gm DAILY PRN TP PAIN; Start 05/29/16 at 15 :30 Diltiazem HCl (Cardizem Sr) 120 mg TID PO Last administered on 06/04/16 09:12; Admin Dose 120 MG; Start 05/29/16 at 21:00 Docusate Sodium (Colace) 200 mg QHS PO Last administered on 06/03/16 21:15; Admin Dose 200 MG; Start 05/29/16 at 21:00 Escitalopram Oxalate (Lexapro) 10 mg DAILY PO Last administered on 06/04/16 09: 11; Admin Dose 10 MG; Start 05/30/16 at 09:00 Gabapentin (Neurontin) 100 mg QHS PO Last administered on 06/03/16 21:16; Admin Dose 100 MG; Start 05/29/16 at 21:00 Acetaminophen/ Hydrocodone Bitart ([place] (5/325)) 1 tab Q6H PRN PO MODERATE PAIN LEVEL 4-6 Last administered on 06/04/16 10:55; Admin Dose 1 TAB; Start 05/29 at 15:30 Hyoscyamine (Levsin (Sl)) 0.125 mg Q6H PRN [place] ABDOMINAL PAIN Last administered on 05/30/16 08:33; Admin Dose 0.125 MG; Start 05/29/16 at 15:30 Magnesium Hydroxide (Milk Of Mag) 30 ml QHS PRN PO CONSTIPATION; Start 05/29/16 at 15:30 Metoprolol Succinate (Toprol Xl) 25 mg DAILY PO Last administered on 06/04/16 09:12; Admin Dose 25 MG; Start 05/30/16 at 09:00 Montelukast Sodium (Singulair) 10 mg QHS PO Last administered on 06/03/16 21:15 ; Admin Dose 10 MG; Start 05/29/16 at 21:00 Multivitamins Therapeutic (Theragran) 1 tab DAILY PO Last administered on 09:11; Admin Dose 1 TAB; Start 05/30/16 at 09:00 Sodium Biphosphate/ Sodium Phosphate (Fleet Enema) 135 ml DAILY PRN [place] CONSTIPATION; Start 05/29/16 at 15:30 Prednisone (Prednisone) 15 mg DAILY PO Last administered on 06/04/16 09:11; Admin Dose 15 MG; Start 05/30/16 at 09:00 Salmeterol Xinafoate/ Fluticasone (Advair 250/50 Diskus) 1 inh BID INH Last administered on 06/04/16 09:18; Admin Dose 1 INH; Start 05/29/16 at 21:00 Trazodone HCl (Desyrel) 100 mg QHS PO Last administered on 06/03/16 21:16; Admin Dose 100 MG; Start 05/29/16 at 21:00 Calcium/Vitamin D (Oyster Shell/ Vit-D (500/200)) 1 tab DAILY PO Last administered on 06/04/16 09:11; Admin Dose 1 TAB; Start 05/30/16 at 09:00 Tiotropium [place] (Spiriva) 1 inh DAILY INH Last administered on 06/04/16 09: 11; Admin Dose 1 INH; Start 05/30/16 at 09:00 Enoxaparin Sodium (Lovenox) 30 mg DAILY SC Last administered on 06/04/16 09:15 ; Admin Dose 30 MG; Start 05/30/16 at 09:00 Pantoprazole 40 mg 40 mg BID@06,18 PO Last administered on 06/03/16 17:18; Admin Dose 40 MG; Start 05/30/16 at 18:00 Ceftriaxone Sodium (Rocephin) 50 ml @ 100 mls/hr Q24H IVPB Last administered on 06/04/16 13:51; Admin Dose 100 MLS/HR; Start 05/30/16 at 13:00 Fluconazole (Diflucan) 100 mg DAILY PO Last administered on 06/04/16 09:11; Admin Dose 100 MG; Start 05/31/16 at 15:30 Acetaminophen/ Hydrocodone Bitart ([place] (5/325)) 2 tab Q6H PRN PO SEVERE PAIN LEVEL 7-10; Start 06/04/16 at 15:30 Assessment/Plan Additional Assessment/Plan IMP: 1. Healthcare associated pneumonia blood cultures positive for staph aureus 2. Possible aspiration component 3. History of Parkinson's disease 4. Back pain with evidence of compression fractures pending neurosurgical evaluation RECS: 1. Continue antibiotics per ID 2. Aspiration precautions; HOB > 40 3. PT/OT/Mobilize OOB 4. KAMALA Sharma MD Jun 04, 2016 15:48
--- NOTE | 2016-06-04 17:38 | CONS ---
Date/Time of Note Date/Time of Note DATE: 06/04/16 TIME: 17:37 Assessment/Plan Assessment/Plan Chief Complaint/Hosp Course ID PROGRESS NOTE CURRENT ABX=> Ceftriaxone, Diflucan 24H INTERVAL SUMMARY * Awake, alert, OOB-> Chair eating dinner, afebrile, VSS nad * MICROBIOLOGY: Blood culture on admission grew Strep viridans and coagulase- negative staph species. Urine culture grew Tori albicans, only 10,000 to 20, 000. Repeat blood cultures negative. BLOOD CULTURE Final (continued) S VIRIDANS COAG NEG Zone Size RX Zone Size RX --------- --- --------- --- * CEFAZOLIN S S * CEFOTAXIME S CEFOXITIN SCREEN S * CIPROFLOXACIN S R * CLINDAMYCIN S S * DOXYCYCLINE S * ERYTHROMYCIN S S * OXACILLIN S S * PENICILLIN R R * RIFAMPIN S * VANCOMYCIN S S * TRIMETHOPRIM/SULFAMETHOXAZOLE S PHYSICAL EXAMINATION: GENERAL: VSS, NAD, Afebrile cachetic elder M HEENT: Unremarkable NECK: Supple, trachea midline. CHEST: Rise symmetrical, without dyspnea on observation HEART: Pulse RRR ABDOMEN: Soft EXTREMITIES: Warm ID ASSESSMENT 85 yo M admit with: 1. Strep pneumonia with bacteremia. * Repeat BCx (-) 2. Mild Tori albicans urinary tract infection. 3. Status post chronic obstructive pulmonary disease exacerbation. 4. Parkinson's disease. 5. Hypertension. 6. Lower back pain. * MRI of the lumbar spine revealed severe foraminal stenosis with nerve impingement at the L4 nerve root. No acute compression fracture or abnormal bone marrow edema INVASIVES: PIV ABX ALLERGY: NKDA CURRENT ABX: Ceftriaxone DAY # 6/14 days, Diflucan ID RECOMMENDATIONS 1. Continue current Ceftriaxone DAY # 6/14 days total + Diflucan 2. May DC home vs SNF on current ABX when cleared by primary . Problems: Consultation Date/Type/Reason Admit Date/Time May 29, 2016 at 14:38 Initial Consult Date 05/31/16 Type of Consultation: ID Referring Provider: JEFF HAUSER DO Exam/Review of Systems Vital Signs Vitals Vital Signs Date Time Temp Pulse Resp B/P Pulse Ox O2 Delivery O2 Flow Rate FiO2 06/04/16 08:07 98.2 102 18 123/72 93 Intake and Output 06/03/16 06/03/16 06/04/16 15:00 23:00 07:00 Intake Total 50 ml 1320 ml 220 ml Balance 50 ml 1320 ml 220 ml Results Result Diagram: 06/01/1615 06/01/16 0515 Medications Medications Current Medications Acetaminophen (Tylenol Tab) 650 mg Q4H PRN PO MODERATE PAIN LEVEL 4-6; Start at 15:30 Amantadine HCl (Symmetrel) 100 mg BID PO Last administered on 06/04/16 09:11; Admin Dose 100 MG; Start 05/29/16 at 21:00 Ascorbic Acid (Vitamin C) 500 mg BID PO Last administered on 06/04/16 09:11; Admin Dose 500 MG; Start 05/29/16 at 21:00 Bisacodyl (Dulcolax Supp) 10 mg DAILY PRN [place] CONSTIPATION; Start 05/29/16 at 15: 30 Carbidopa/Levodopa (Sinemet (25/ 100)) 1 tab TID PO Last administered on 13:51; Admin Dose 1 TAB; Start 05/29/16 at 21:00 Diclofenac Sodium (Voltaren 1% Gel) 2 gm DAILY PRN TP PAIN; Start 05/29/16 at 15 :30 Diltiazem HCl (Cardizem Sr) 120 mg TID PO Last administered on 06/04/16 09:12; Admin Dose 120 MG; Start 05/29/16 at 21:00 Docusate Sodium (Colace) 200 mg QHS PO Last administered on 06/03/16 21:15; Admin Dose 200 MG; Start 05/29/16 at 21:00 Escitalopram Oxalate (Lexapro) 10 mg DAILY PO Last administered on 06/04/16 09: 11; Admin Dose 10 MG; Start 05/30/16 at 09:00 Gabapentin (Neurontin) 100 mg QHS PO Last administered on 06/03/16 21:16; Admin Dose 100 MG; Start 05/29/16 at 21:00 Acetaminophen/ Hydrocodone Bitart ([place] (5/325)) 1 tab Q6H PRN PO MODERATE PAIN LEVEL 4-6 Last administered on 06/04/16 10:55; Admin Dose 1 TAB; Start 05/29 at 15:30 Hyoscyamine (Levsin (Sl)) 0.125 mg Q6H PRN [place] ABDOMINAL PAIN Last administered on 05/30/16 08:33; Admin Dose 0.125 MG; Start 05/29/16 at 15:30 Magnesium Hydroxide (Milk Of Mag) 30 ml QHS PRN PO CONSTIPATION; Start 05/29/16 at 15:30 Metoprolol Succinate (Toprol Xl) 25 mg DAILY PO Last administered on 06/04/16 09:12; Admin Dose 25 MG; Start 05/30/16 at 09:00 Montelukast Sodium (Singulair) 10 mg QHS PO Last administered on 06/03/16 21:15 ; Admin Dose 10 MG; Start 05/29/16 at 21:00 Multivitamins Therapeutic (Theragran) 1 tab DAILY PO Last administered on 09:11; Admin Dose 1 TAB; Start 05/30/16 at 09:00 Sodium Biphosphate/ Sodium Phosphate (Fleet Enema) 135 ml DAILY PRN [place] CONSTIPATION; Start 05/29/16 at 15:30 Prednisone (Prednisone) 15 mg DAILY PO Last administered on 06/04/16 09:11; Admin Dose 15 MG; Start 05/30/16 at 09:00 Salmeterol Xinafoate/ Fluticasone (Advair 250/50 Diskus) 1 inh BID INH Last administered on 06/04/16 09:18; Admin Dose 1 INH; Start 05/29/16 at 21:00 Trazodone HCl (Desyrel) 100 mg QHS PO Last administered on 06/03/16 21:16; Admin Dose 100 MG; Start 05/29/16 at 21:00 Calcium/Vitamin D ([place]/ Vit-D (500/200)) 1 tab DAILY PO Last administered on 06/04/16 09:11; Admin Dose 1 TAB; Start 05/30/16 at 09:00 Tiotropium [place] (Spiriva) 1 inh DAILY INH Last administered on 06/04/16 09: 11; Admin Dose 1 INH; Start 05/30/16 at 09:00 Enoxaparin Sodium (Lovenox) 30 mg DAILY SC Last administered on 06/04/16 09:15 ; Admin Dose 30 MG; Start 05/30/16 at 09:00 Pantoprazole 40 mg 40 mg BID@06,18 PO Last administered on 06/03/16 17:18; Admin Dose 40 MG; Start 05/30/16 at 18:00 Ceftriaxone Sodium (Rocephin) 50 ml @ 100 mls/hr Q24H IVPB Last administered on 06/04/16 13:51; Admin Dose 100 MLS/HR; Start 05/30/16 at 13:00 Fluconazole (Diflucan) 100 mg DAILY PO Last administered on 06/04/16 09:11; Admin Dose 100 MG; Start 05/31/16 at 15:30 Acetaminophen/ Hydrocodone Bitart ([place] (5/325)) 2 tab Q6H PRN PO SEVERE PAIN LEVEL 7-10; Start 06/04/16 at 15:30 JAQUELIN GONZALEZ IN [employer] Jun 04, 2016 17:38
[2016-06-04] MEDS: PANTOPRAZOLE (EC) 40 MG TAB PO SCH (17:44)
[2016-06-04 19:00] VITALS: BP 128/65; RESP 20
--- NOTE | 2016-06-04 20:27 | PN ---
Date/Time of Note Date/Time of Note DATE: 06/03/16 TIME: 20:26 Assessment/Plan Lines/Catheters IV Catheter Type (from [facility]): Saline Lock [place] in Place (from [facility]): No Assessment/Plan Chief Complaint/Hosp Course 1. Abdominal pain of unknown etiology. History of gastric cancer status post resection. No surgical issues identified as of yet. -Will monitor closely 2. Vomiting of unknown etiology. Improved -GI evaluation and workup. May need EGD 3. Sepsis secondary to healthcare-associated pneumonia -Antibiotic -Pulmonary toilet 4. Acute encephalopathy secondary to probably infectious disease plus Dementia. -Antibiotic -Correct lytes -Medical optimization 3. Paroxysmal atrial fibrillation. The patient currently in sinus rhythm. Will continue current medical management. 4. History of chronic obstructive pulmonary disease/asthma. -Medical management with Spiriva, Advair, prednisone, nebulizers. 5. Parkinson disease. -Continue Sinemet. 6. Depression. -Continue Lexapro. 7. Anemia of chronic disease. Stable -Monitor 8. Osteoarthritis with compression fracture. -Continue Voltaren gel and painkillers 9. Gastroesophageal reflux disease and gastritis. -PPI -Diet and lifestyle optimization -GI for EGD (inpatient versus outpatient) 10. Constipation. Improved -Bowel regimen. Thank you, Late entry 06/03 Problems: Subjective 24 Hr Interval Summary Abdominal pain improved. No nausea vomiting. Minimal cough. No chest pain or shortness of breath. Back pain. No seizure. No rashes. No dysuria. Constipation resolved. Exam/Review of Systems Vital Signs Vitals Vital Signs Date Time Temp Pulse Resp B/P Pulse Ox O2 Delivery O2 Flow Rate FiO2 06/04/16 08:07 98.2 102 18 123/72 93 Intake and Output 06/03/16 06/03/16 06/04/16 15:00 23:00 07:00 Intake Total 50 ml 1320 ml 220 ml Balance 50 ml 1320 ml 220 ml Exam Free Text/Dictation Constitutional: other (Awake and responsive), No distress Psych: anxiety, confusion Head: atraumatic, normocephalic, No hematomas, No lacerations Eyes: EOMI, PERRL, nl conjunctiva, nl sclera, No icteric ENMT: mucosa pink and moist, nl external ears & nose, nl lips & teeth Neck: non-tender, supple, No jvd Respiratory: normal air movement, No congested cough, No labored breathing Cardiovascular: regular rate and rhythm, No edema Gastrointestinal: non-tender, soft, No firm, No rebound or guarding Genitourinary - Male: nl penis Musculoskeletal: nl extremities to inspection, No joint tenderness Extremities: No calf tenderness, No cyanosis Neurological: nl speech, No nl mental status Skin: nl turgor, No diaphoresis, No rash or lesions Lymph: nl lymph nodes Results Result Diagram: 06/01/16 0515 06/01/16 0515 ALFONSO NORTH MD Jun 04, 2016 20:27
--- NOTE | 2016-06-04 20:28 | PN ---
Date/Time of Note Date/Time of Note DATE: 06/04/16 TIME: 20:27 Assessment/Plan Lines/Catheters IV Catheter Type (from [facility]): Saline Lock [place] in Place (from [facility]): No Assessment/Plan Chief Complaint/Hosp Course 1. Abdominal pain of unknown etiology. History of gastric cancer status post resection. No surgical issues identified as of yet. -Will monitor closely 2. Vomiting of unknown etiology. Improved -GI evaluation and workup. May need EGD 3. Sepsis secondary to healthcare-associated pneumonia -Antibiotic -Pulmonary toilet 4. Acute encephalopathy secondary to probably infectious disease plus Dementia. -Antibiotic -Correct lytes -Medical optimization 3. Paroxysmal atrial fibrillation. The patient currently in sinus rhythm. Will continue current medical management. 4. History of chronic obstructive pulmonary disease/asthma. -Medical management with Spiriva, Advair, prednisone, nebulizers. 5. Parkinson disease. -Continue Sinemet. 6. Depression. -Continue Lexapro. 7. Anemia of chronic disease. Stable -Monitor 8. Osteoarthritis with compression fracture. -Continue Voltaren gel and painkillers 9. Gastroesophageal reflux disease and gastritis. -PPI -Diet and lifestyle optimization -GI for EGD (inpatient versus outpatient) 10. Constipation. Improved -Bowel regimen. Thank you, Problems: Subjective 24 Hr Interval Summary Abdominal pain improved. No nausea vomiting. Minimal cough. No chest pain or shortness of breath. Back pain. No seizure. No rashes. No dysuria. Bowel function. Exam/Review of Systems Vital Signs Vitals Vital Signs Date Time Temp Pulse Resp B/P Pulse Ox O2 Delivery O2 Flow Rate FiO2 06/04/16 08:07 98.2 102 18 123/72 93 Intake and Output 06/03/16 06/03/16 06/04/16 15:00 23:00 07:00 Intake Total 50 ml 1320 ml 220 ml Balance 50 ml 1320 ml 220 ml Exam Free Text/Dictation Constitutional: other (Awake and responsive), No distress Psych: anxiety, confusion Head: atraumatic, normocephalic, No hematomas, No lacerations Eyes: EOMI, PERRL, nl conjunctiva, nl sclera, No icteric ENMT: mucosa pink and moist, nl external ears & nose, nl lips & teeth Neck: non-tender, supple, No jvd Respiratory: normal air movement, No congested cough, No labored breathing Cardiovascular: regular rate and rhythm, No edema Gastrointestinal: non-tender, soft, No firm, No rebound or guarding Genitourinary - Male: nl penis Musculoskeletal: nl extremities to inspection, No joint tenderness Extremities: No calf tenderness, No cyanosis Neurological: nl speech, No nl mental status Skin: nl turgor, No diaphoresis, No rash or lesions Lymph: nl lymph nodes Results Result Diagram: 06/01/16 0515 06/01/16 0515 ALFONSO NORTH MD Jun 04, 2016 20:28
[2016-06-04] MEDS: DOCUSATE SODIUM 100 MG CAP PO SCH (23:02)
[2016-06-04] MEDS: traZODone 100 MG TAB PO SCH (23:03)
[2016-06-04] MEDS: GABAPENTIN 100 MG CAP PO SCH (23:04)
[2016-06-04] MEDS: MONTELUKAST 10 MG TAB PO SCH (23:04)
--- NOTE | 2016-06-05 05:46 | PN ---
DATE: 06/04/2016 CARDIOLOGY FOLLOWUP SUBJECTIVE: Discussed with the staff. The patient has no chest pain or pressure. Complains of aci d reflux. Complains of back pain. MEDICATIONS: Reviewed. OBJECTIVE: VITAL SIGNS: Temperature 97.4, heart rate 102, blood pressure 128/65, respiratory rate 20. HEENT: Normocephalic, atraumatic. Pupils are equal. CARDIOVASCULAR: Regular rate and rhythm. PULMONARY: With no wheezes. GASTROINTESTINAL: Soft. No rebound or guarding. EXTREMITIES: No significant edema. NEUROLOGIC: Awake, responds appropriately. PSYCHIATRIC: Appears to be calm and very pleasant. LABORATORY: Blood cultures from 05/30/2016 are negative so far, 5 days. ASSESSMENT AND PLAN: 1. Status post sepsis and pneumonia. 2. Lower back pain, compression fracture. 3. History of paroxysmal atrial fibrillation, currently in sinus rhythm, sinus tachycardia. 4. Dementia. 5. Chronic obstructive pulmonary disease. 6. Parkinson. 7. Possibility of gastric cancer, gastritis on Protonix. RECOMMENDATIONS: Continue with ____. Pain management as per internal medicine. Beta deisy will be continued as tolerated. Dictated By: CHAVA THORNTON/DANIELA Conf#: [id number] DID#: [id number] CC: JEFF HAUSER DO;*EndCC*
[2016-06-05] MEDS: PANTOPRAZOLE (EC) 40 MG TAB PO SCH (06:40)
[2016-06-05] MEDS: HYDROCODONE/APAP (5/325) TAB PO PRN (06:43)
--- NOTE | 2016-06-05 07:45 | PN ---
DATE: 06/04/2016 CARDIOLOGY FOLLOWUP SUBJECTIVE: The patient complained of back pain. No chest pain or pressure. No palpitations. MEDICATIONS: Reviewed as per medication reconciliation, personally reviewed. PHYSICAL EXAMINATION: VITAL SIGNS: Temperature is 98.2, heart rate of 100, blood pressure 122/72, respiratory rate of 18. HEENT: Normocephalic, atraumatic. Pupils are equal. CARDIOVASCULAR: Regular rate and rhythm. PULMONARY: With no wheezes. GASTROINTESTINAL: Soft. EXTREMITIES: With trivial edema. NEUROLOGIC: Awake and alert. PSYCHIATRIC: Calm, pleasant. ASSESSMENT AND PLAN: 1. History of paroxysmal atrial fibrillation, currently in sinus rhythm. 2. Chronic obstructive pulmonary disease, currently stable. 3. Compression fracture of back pain. 4. History of hypertension, currently stable. 5. Status post bacteremia, possible contaminant versus others. RECOMMENDATIONS: Antibiotic as per ID's recommendations. We will continue with the current cardiac care. Awaiting neurosurgical evaluation. Dictated By: CHAVA LOZANO MD AV/DANIELA Conf#: [id number] DID#: [id number] CC: JEFF HAUSER DO;*EndCC*
[2016-06-05 08:26] VITALS: BP 110/73; RESP 20
[2016-06-05] MEDS: ASCORBIC ACID 500 MG TAB PO SCH (09:20)
[2016-06-05] MEDS: SUCRALFATE (100 MG/ML) 10ML CUP PO SCH ×2 (09:20→12:54)
[2016-06-05] MEDS: CALCIUM/VITAMIN D (500/200) TAB PO SCH (09:20)
[2016-06-05] MEDS: ESCITALOPRAM 10 MG TAB PO SCH (09:21)
[2016-06-05] MEDS: predniSONE 5 MG TAB PO SCH (09:21)
[2016-06-05] MEDS: CARBIDOPA/LEVODOPA (25/100) TAB PO SCH ×2 (09:22→13:04)
[2016-06-05] MEDS: MULTIVITAMINS THERAPEUTIC TAB PO SCH (09:22)
[2016-06-05] MEDS: AMANTADINE 100 MG CAP PO SCH (09:22)
[2016-06-05] MEDS: DILTIAZEM (SR) 60 MG CAP PO SCH ×2 (09:22→12:56)
[2016-06-05] MEDS: FLUCONAZOLE 100 MG TAB PO SCH (09:22)
[2016-06-05] MEDS: SALMETEROL/FLUTICASONE 250/50 INHA INH SCH (09:23)
[2016-06-05] MEDS: METOPROLOL (XL) 25 MG TAB PO SCH (09:23)
[2016-06-05] MEDS: TIOTROPIUM 18 MCG CAPSULE INHA DEV INH SCH (09:23)
[2016-06-05] MEDS: ENOXAPARIN 30 MG/0.3 ML SYG SC SCH (09:25)
--- NOTE | 2016-06-05 10:15 | DS ---
DATE OF ADMISSION: 05/29/2016 DATE OF DISCHARGE: HOSPITAL COURSE: This is an 85-year-old male with a past medical history of COPD, history of asthma , hypertension, cognitive decline, dementia, AFib, Parkinson disease, GERD, osteoarthritis, history of gastric cancer status post resection who presented to [facility] with a fever x 1 day. The patient in the emergency room had a CT scan of the chest which showed possibility of pne umonia. The patient was subsequently admitted for evaluation. During the hospital course, the erika ent was seen by infectious disease doctor, Dr. Ackerman. The patient's blood cultures were positive f or Strep viridans. His urine culture was also positive. He was placed on antibiotic therapy and bass d appropriate clinical response. During the hospital course, the patient was also seen by cardiolog ist, Dr. Raymundo and has been clinically stable, as he has a history of paroxysmal AFib. The patient was also seen by meter tester polyphase, Dr. Sepulveda and has been clinically stable during the hospital cour se. The patient has chronic back pain, was seen by neurosurgeon, Dr. Stuart and MRI, CT scan of the s pine were performed which showed evidence of chronic compression fractures and osteoporosis. No eliane rological surgical intervention needed. The recommendation was made for the patient to be on bispho sphonates and to follow up with Dr. Stuart, neurosurgeon in outpatient setting. The patient's other medical problems and hospital course included an episode of encephalopathy which improved, which was toxic metabolic. The patient also has chronic abdominal pain, was seen by general surgeon, Dr. Wilmer wynn. No intervention was needed. Patient previously has had outpatient EGD which showed evidence of gastritis. The patient is on high dose PPI. Currently, at this time, the patient is stable, in no acute distress. [facility], with continued care, phy sical therapy. FINAL DIAGNOSES: 1. Sepsis secondary to healthcare-associated pneumonia. 2. Chronic lower back pain due to compression fractures, osteoarthritis. The patient has been eval uated by Dr. Stuart and will be followed up in outpatient setting. 3. Abdominal pain, chronic, possibly from gastritis. 4. Acute encephalopathy and dementia. Etiology is toxic metabolic, improved. 5. Paroxysmal atrial fibrillation, currently sinus rhythm. 6. History of chronic obstructive pulmonary disease, asthma. 7. disease. 8. Depression. 9. Anemia. 10. Constipation. 11. Severe gastritis disease, GERD. 12. History of gastric cancer. Dictated By: JEFF GAMEZ/DANIELA Conf#: [id number] DID#: [id number]
[2016-06-05] MEDS: CEFTRIAXONE 1 GM/50 ML (PMX) 50 ML IVPB SCH (12:54)
[2016-06-05 13:46] VITALS: BP 105/56; PULSE 105; RESP 20
--- NOTE | 2016-06-05 16:18 | PN ---
DATE: 06/05/2016 SUBJECTIVE: No events overnight. The patient is alert, looks comfortable. Denies pain, no fevers. Vital signs stable. No labs this morning. PHYSICAL EXAMINATION: GENERAL: Fragile, elderly man who is awake, in no distress. HEENT: Head atraumatic, normocephalic. Sclerae anicteric. Buccal mucosa pink. NECK: Supple. CHEST: Rise symmetrical. Breath sounds clear. HEART: S1, S2. ABDOMEN: Soft, bowel tones present. EXTREMITIES: Without cyanosis or edema. ASSESSMENT: 1. Strep pneumonia with bacteremia. Repeat blood cultures negative. 2. Coagulase-negative staph bacteremia consistent with contaminant. 3. Tori albicans urinary tract infection. 4. Parkinson disease. 5. Hypertension. PLAN: The patient remains stable. Continue present care. Complete 2 weeks IV antibiotics with Abhinav ephin. Dictated By: JOSEPH PRADO CHILD AND YOUTH PROGRAM ASSISTANT for [facility]/DANIELA Conf#: [id number] DID#: [id number]
--- NOTE | 2016-06-05 18:15 | PN ---
Date/Time of Note Date/Time of Note DATE: 06/05/16 TIME: 18:15 Assessment/Plan Lines/Catheters IV Catheter Type (from [facility]): Saline Lock Dor[place] in Place (from [facility]): No Assessment/Plan Chief Complaint/Hosp Course 1. Abdominal pain of unknown etiology. History of gastric cancer status post resection. No surgical issues identified as of yet. -Will monitor closely 2. Vomiting of unknown etiology. Improved -GI evaluation and workup. May need EGD 3. Sepsis secondary to healthcare-associated pneumonia -Antibiotic -Pulmonary toilet 4. Acute encephalopathy secondary to probably infectious disease plus Dementia. -Antibiotic -Correct lytes -Medical optimization 3. Paroxysmal atrial fibrillation. The patient currently in sinus rhythm. Will continue current medical management. 4. History of chronic obstructive pulmonary disease/asthma. -Medical management with Spiriva, Advair, prednisone, nebulizers. 5. Parkinson disease. -Continue Sinemet. 6. Depression. -Continue Lexapro. 7. Anemia of chronic disease. Stable -Monitor 8. Osteoarthritis with compression fracture. -Continue Voltaren gel and painkillers 9. Gastroesophageal reflux disease and gastritis. -PPI -Diet and lifestyle optimization -GI for EGD (inpatient versus outpatient) 10. Constipation. Improved -Bowel regimen. Thank you, Problems: Subjective 24 Hr Interval Summary Abdominal pain improved. No nausea vomiting. Minimal cough. No chest pain or shortness of breath. Back pain. No seizure. No rashes. No dysuria. Bowel function. Exam/Review of Systems Vital Signs Vitals Vital Signs Date Time Temp Pulse Resp B/P Pulse Ox O2 Delivery O2 Flow Rate FiO2 06/05/16 13:46 98.6 105 20 105/56 94 Room Air Intake and Output 06/04/16 06/04/16 06/05/16 15:00 23:00 07:00 Intake Total 50 ml 940 ml 120 ml Output Total 440 ml Balance 50 ml 940 ml -320 ml Exam Free Text/Dictation Constitutional: other (Awake and responsive), No distress Psych: anxiety, confusion Head: atraumatic, normocephalic, No hematomas, No lacerations Eyes: EOMI, PERRL, nl conjunctiva, nl sclera, No icteric ENMT: mucosa pink and moist, nl external ears & nose, nl lips & teeth Neck: non-tender, supple, No jvd Respiratory: normal air movement, No congested cough, No labored breathing Cardiovascular: regular rate and rhythm, No edema Gastrointestinal: non-tender, soft, No firm, No rebound or guarding Genitourinary - Male: nl penis Musculoskeletal: nl extremities to inspection, No joint tenderness Extremities: No calf tenderness, No cyanosis Neurological: nl speech, No nl mental status Skin: nl turgor, No diaphoresis, No rash or lesions Lymph: nl lymph nodes Results Result Diagram: 06/01/16 0515 06/01/16 0515 ALFONSO NORTH MD Jun 05, 2016 18:15
== END 2016-06-05 14:05 | DRG 871 ==
LOC: E/R 10:39 → MS2 14:38
PROVIDERS: ADMIT Internal Medicine; ATTEND Internal Medicine
DX: A40.8 Other streptococcal sepsis (principal); J15.4 Pneumonia due to other streptococci; G92 Toxic encephalopathy; G20 Parkinson's disease; M48.56XA Collapsed vertebra, not elsewhere classified, lumbar region, initial encounter for fracture; I48.0 Paroxysmal atrial fibrillation; J44.1 Chronic obstructive pulmonary disease with (acute) exacerbation; B37.49 Other urogenital candidiasis; I10 Essential (primary) hypertension; K21.9 Gastro-esophageal reflux disease without esophagitis; F02.80 Dementia in other diseases classified elsewhere, unspecified severity, without behavioral disturbance, psychotic disturbance, mood disturbance, and anxiety; F32.9 Major depressive disorder, single episode, unspecified; D63.8 Anemia in other chronic diseases classified elsewhere; K29.70 Gastritis, unspecified, without bleeding; M19.90 Unspecified osteoarthritis, unspecified site; M48.06 Spinal stenosis, lumbar region; K59.00 Constipation, unspecified; Z85.028 Personal history of other malignant neoplasm of stomach; Z91.81 History of falling
CPT/HCPCS: 36415; 71010; 72128; 72131; 72146; 72148; 74176; 80048; 80053; 81001; 81003; 83605; 83735; 84100; 84145; 84484; 85025; 85610; 85730; 87040; 87086; 93005; 93306; 96374; 96375; 97116; 97162; 97530; J0692; J0696; J1650; J3370; J7030; J7512

== ENCOUNTER 2016-08-12 05:55 | Inpatient (IN) | payer MEDICARE, OTHER ==
[~2016-08-12] VITALS: Ht 167.6 cm; Wt 41.0 kg
[~2016-08-12 05:55] MED LIST: ACET-2047 PO; ADV25050 INHALATION; AMAN100C65 PO; ASCO500C7 PO; BISA10SU55 RC; CALC-143 PO; CARAS PO; CRAN425C PO; DICL100G37 TOP; DILT120C10 PO; DOCU-144 PO; ESCI10TA PO; GABA100C PO; HYDR-906 PO; MAGN400O4 PO; METO25TA7 PO; MONT10TA21 PO; MULTI PO; NA P135E RC; OMEP40CA6 PO; SIN25100 PO; TIOT18CA INHALATION; TRAZ100T15 PO; [UNRECOGNIZED DRUG - CODE] SL
[2016-08-12] MEDS ORDERED: SODIUM CHLORIDE 0.9% 1L BAG IV* STA (06:01)
[2016-08-12] MEDS ORDERED: LEVOFLOXACIN 750MG/D5W (PMX) 150 ML IVPB STA (06:01)
[2016-08-12] MEDS ORDERED: ACETAMINOPHEN 325 MG TAB PO STA (06:01)
[2016-08-12] MEDS ORDERED: ETOMIDATE 20 MG INJ IV ONE (06:30)
[2016-08-12] MEDS ORDERED: SUCCINYLCHOLINE CHLORIDE 100 MG/5 ML SYG IV ONE (06:30)
--- NOTE | 2016-08-12 06:30 | ERA ---
ER Documentation Chief Complaint Date/Time DATE: 08/12/16 TIME: 06:26 Chief Complaint ARGELIA [id number] from [facility] SOB, ALOC HPI History from patient is limited secondary to language barrier and altered mental status. History is taken from EMS and medical records. This is an 85- year-old male with a past medical history of COPD, asthma, hypertension, dementia, AFib, GERD, osteoarthritis, gastric cancer status post surgical resection who presents to [facility] from skilled nurse facility due to fever, shortness of breath, and altered mental status. The only thing patient can tell me on exam is that his abdomen hurts ROS Limited review of systems secondary to language barrier and altered mental status Medications Home Meds Reported Medications Gabapentin* (Gabapentin*) 100 Mg Capsule, 100 MG PO BID, #90 CAP 08/12/16 Diclofenac Sodium* (Voltaren* Gel) 1% -100 Gm Gel, 2 GM TOP DAILY Y for PAIN, # 1 TUB TO RIGHT LOWER BACK NEED FOR PAIN MGT 05/29/16 Ascorbic Acid* (Vitamin C*) 500 Mg Capsule.sa, 500 MG PO BID, CAP 05/29/16 Acetaminophen* (Acetaminophen*) 650 Mg Tablet, 650 MG PO Q4 Y for MODERATE PAIN LEVEL 4-6, #30 TAB 05/29/16 Trazodone Hcl* (Trazodone Hcl*) 100 Mg Tablet, 100 MG PO QHS, #30 TAB 05/29/16 Metoprolol Succinate* (Toprol XL*) 25 Mg Tab.sr.24h, 25 MG PO DAILY, #30 TAB 05/29/16 Tiotropium [place]* (Spiriva*) 18 Mcg Cap.w.dev, 1 CAP INHALATION DAILY, #30 CAP 05/29/16 Montelukast Sodium* (Singulair*) 10 Mg Tablet, 10 MG PO QHS, #30 TAB 17 Magnesium Hydroxide* (Milk Of Magnesia*) 400 Mg/5 Ml Oral.susp, 30 ML PO QHS Y for CONSTIPATION, ML 05/29/16 Multivitamins* (Theragran*) 1 Tab Tab, 1 TAB PO DAILY, TAB 05/29/16 Hydrocodone/Acetaminophen ([place] 5-325 Tablet) 1 Each Tablet, 1 EACH PO Q6 Y for MODERATE PAIN LEVEL 4-6, TAB 05/29/16 Hydrocodone/Acetaminophen ([place] 5-325 Tablet) 1 Each Tablet, 2 EACH PO Q6 Y for SEVERE PAIN LEVEL 7-10, TAB 05/29/16 Omeprazole* (Omeprazole*) 40 Mg Capsule.dr, 40 MG PO DAILY, #30 CAP 05/29/16 Escitalopram Oxalate* (Lexapro*) 10 Mg Tablet, 10 MG PO DAILY, #30 TAB 05/29/16 Hyoscyamine Sulfate* (Levsin* SL) 0.125 Mg Subl, 0.125 MG SL Q6 Y for ABDOMINAL PAIN, TAB 05/29/16 Na Phos,M-B/Na Phos,Di-Ba (ENEMA READY TO USE) 135 Ml Enema, 135 ML RC EVERY 2 DAYS Y for CONSTIPATION, ENEMA 05/29/16 Bisacodyl (Dulcolax) 10 Mg Supp.rect, 10 MG RC DAILY Y for CONSTIPATION, SUPP.RECT 05/29/16 Cranberry Extract (Cranberry) 425 Mg Capsule, 425 MG PO DAILY, CAP 05/29/16 Docusate Sodium* (Colace*) 100 Mg Capsule, 200 MG PO QHS, #60 CAP 05/29/16 Diltiazem Hcl* (Cardizem SR*) 120 Mg Cap.sr.12h, 120 MG PO TID, CAP 05/29/16 Carbidopa-Levodopa* (Sinemet*) 25-100 Mg Tab, 1 TAB PO TID, TAB 05/29/16 Sucralfate* (Carafate*) 1 Gm/10 Ml Susp, 1 GM PO AC MEALS, EA 05/29/16 Calcium Citrate/Vitamin D (Citracal-Vitamin D 200 MG-250) 1 Each Tablet, 1 EACH PO DAILY, TAB 05/29/16 Amantadine Hcl* (Amantadine Hcl*) 100 Mg Capsule, 100 MG PO BID, #60 CAP 05/29/16 Salmeterol Xinaf/Fluticasone* (Advair*) 250-50 Diskus Inhaler, 1 INH INHALATION BID, #1 INHALER 05/29/16 Discontinued Reported Medications Gabapentin* (Neurontin*) 100 Mg Capsule, 100 MG PO QHS, #90 CAP 05/29/16 Allergies Allergies: Coded Allergies: No Known Allergy (Unverified , 05/29/16) PMhx/Soc History of Surgery: Yes Anesthesia Reaction: No Hx Neurological Disorder: Yes (encephalopathy) Hx Respiratory Disorders: Yes (pneumonia,COPD,asthma,acute resp failure, emphysema) Hx Cardiac Disorders: Yes (essential HTN,A-fib,tachycardia) Hx Psychiatric Problems: Yes (ALOC,dementia) Hx Miscellaneous Medical Probl: Yes (sepsis,UTI,gastritis,muscle weakness,low back pain,osteoporosis,colon CA,) Hx Alcohol Use: Yes (hx ETOH use) Hx Substance Use: No Hx Tobacco Use: No Smoking Status: Unknown if ever smoked FmHx Family History: other (Unable to obtain) Physical Exam Vitals Vital Signs Date Time Temp Pulse Resp B/P Pulse Ox O2 Delivery O2 Flow Rate FiO2 08/12/16 10:52 95 96 100 08/12/16 09:44 96 20 100 08/12/16 09:00 98 138/69 100 BIPAP 08/12/16 08:49 98 100 100 08/12/16 08:00 97.8 98 28 108/68 100 BIPAP 08/12/16 07:10 101 100 100 08/12/16 06:30 Non Rebreather 15 08/12/16 05:58 103.6 134 22 137/80 98 Physical Exam Const: Thin body habitus, ill-appearing, in respiratory distress Head: Atraumatic Eyes: Normal Conjunctiva ENT: Dry oral mucosa Neck: Full range of motion. No JVD. No meningismus. Resp: Right-sided Rales present, no wheezing Cardio: Tachycardic with regular rhythm, no murmurs Abd: Soft, minimally tender in the lower abdomen, non distended. Normal bowel sounds Skin: No petechiae or rashes Back: No midline or flank tenderness Ext: No cyanosis, or edema Neur: Awake and alert, moving all extremities spontaneously Psych: Normal Mood and Affect Result Diagram: 08/12/1660408/12/16604 Results 24 hrs Laboratory Tests Test 08/12/16 06:05 08/12/16 06:48 08/12/16 09:40 White Blood Count 8.710^3/ul Red Blood Count 4.2710^6/ul Hemoglobin 12.3g/dl Hematocrit 39.0% Mean Corpuscular Volume 91.3fl Mean Corpuscular Hemoglobin 28.8pg Mean Corpuscular Hemoglobin Concent 31.5g/dl Red Cell Distribution Width 16.2% Platelet Count 68421^3/UL Mean Platelet Volume 10.3fl Neutrophils % 82.3% Lymphocytes % 14.8% Monocytes % 2.3% Eosinophils % 0.2% Basophils % 0.1% Nucleated Red Blood Cells % 0.0/100WBC Neutrophils # 7.110^3/ul Lymphocytes # 1.310^3/ul Monocytes # 0.210^3/ul Eosinophils # 0.010^3/ul Basophils # 0.010^3/ul Nucleated Red Blood Cells # 0.010^3/ul Prothrombin Time 15.9Sec Prothrombin Time Ratio 1.2 INR International Normalized Ratio 1.26 Activated Partial Thromboplast Time 27.3Sec Sodium Level 139mmol/L Potassium Level 3.9mmol/L Chloride Level 106mmol/L Carbon Dioxide Level 21mmol/L Anion Gap 16 Blood Urea Nitrogen 17mg/dl Creatinine 0.76mg/dl Glucose Level 192mg/dl Lactic Acid Level 3.4mmol/L 2.4mmol/L Calcium Level 8.6mg/dl Total Bilirubin 0.5mg/dl Direct Bilirubin 0.00mg/dl Indirect Bilirubin 0.5mg/dl Aspartate Amino Transf (AST/SGOT) 18IU/L Alanine Aminotransferase (ALT/SGPT) 19IU/L Alkaline Phosphatase 134IU/L Troponin I 0.038ng/ml Total Protein 6.3g/dl Albumin 3.4g/dl Globulin 2.90g/dl Albumin/Globulin Ratio 1.17 Urine Color LT. YELLOW Urine Clarity CLEAR Urine pH 5.0 Urine Specific [place] >=1.030 Urine Ketones NEGATIVE Urine Nitrite NEGATIVE Urine Bilirubin NEGATIVE Urine Urobilinogen 0.2 E.U./dL Urine Leukocyte Esterase TRACE Urine Microscopic RBC 2-5/HPF Urine Microscopic WBC 25-50/HPF Urine Bacteria MANY Urine Yeast FEW Urine Hemoglobin TRACE Urine Glucose NEGATIVE% Urine Total Protein TRACE Current Medications Medications (Trade) Dose Ordered Sig/Mundo Route PRN Reason Start Time Stop Time Status Last Admin Dose Admin Sodium Chloride (NS) 2,020 ml BOLUS OVER 2 HOURS STAT IV* 08/12/16 06:01 08/12/16 06:04 DC 08/12/16 06:52 Acetaminophen 650 mg 650 mg ONCE STAT PO 08/12/16 06:01 08/12/16 06:04 DC 08/12/16 06:48 Levofloxacin/ Dextrose (Levaquin 750 Mg/ D5W 150 ml (Pmx)) 150 ml @ 100 mls/hr ONCE STAT IVPB 08/12/16 06:01 08/12/16 07:30 DC 08/12/16 06:52 Etomidate (Amidate) 20 mg ONCE ONCE IV 08/12/16 06:30 08/12/16 06:31 DC Succinylcholine Chloride 120 mg 120 mg ONCE ONCE IV 08/12/16 06:30 08/12/16 06:31 DC Sodium Chloride (NS) 1,000 ml @ 100 mls/hr Q10H IV 08/12/16 08:50 08/12/16 11:10 Ondansetron HCl (Zofran Inj) 4 mg Q6H PRN IV NAUSEA AND/OR VOMITING 08/12/16 09:00 Albuterol/ Ipratropium (Duoneb) 3 ml Q4H RESP THERAPY NEB 08/12/16 09:00 08/12/16 09:42 Methylprednisolone Sodium Succinate (Solu-Medrol) 60 mg Q6 IV 08/12/16 12:00 Pantoprazole (Protonix Iv) 40 mg DAILY@06 IV 08/13/16 06:00 Enoxaparin Sodium (Lovenox) 40 mg DAILY SC 08/12/16 09:00 08/12/16 09:55 Vancomycin HCl (Vanco Iv Per Pharmacy) VANCOMYCIN PER PHARMACY PER PROTOCOL XX 08/12/16 09:00 Acetaminophen (Tylenol Tab) 650 mg Q4 PRN PO MODERATE PAIN LEVEL 4-6 08/12/16 09:00 Amantadine HCl (Symmetrel) 100 mg BID PO 08/12/16 09:00 Ascorbic Acid (Vitamin C) 500 mg BID PO 08/12/16 09:00 Bisacodyl (Dulcolax Supp) 10 mg DAILY PRN AR CONSTIPATION 08/12/16 09:00 Carbidopa/Levodopa (Sinemet (25/ 100)) 1 tab TID PO 08/12/16 09:00 Diclofenac Sodium (Voltaren 1% Gel) 2 gm DAILY PRN TP PAIN 08/12/16 09:00 Diltiazem HCl (Cardizem Sr) 120 mg TID PO 08/12/16 09:00 Docusate Sodium (Colace) 200 mg QHS PO 08/12/16 21:00 Escitalopram Oxalate (Lexapro) 10 mg DAILY PO 08/12/16 09:00 Gabapentin (Neurontin) 100 mg BID PO 08/12/16 09:00 Acetaminophen/ Hydrocodone Bitart ([place] (5/325)) 1 tab Q6 PRN PO MODERATE PAIN LEVEL 4-6 08/12/16 09:00 Acetaminophen/ Hydrocodone Bitart ([place] (5/325)) 2 tab Q6 PRN PO SEVERE PAIN LEVEL 7-10 08/12/16 09:00 Hyoscyamine (Levsin (Sl)) 0.125 mg Q6 PRN SL ABDOMINAL PAIN 08/12/16 09:00 Magnesium Hydroxide (Milk Of Mag) 30 ml QHS PRN PO CONSTIPATION 08/12/16 09:00 Metoprolol Succinate (Toprol Xl) 25 mg DAILY PO 08/12/16 09:00 Montelukast Sodium (Singulair) 10 mg QHS PO 08/12/16 21:00 Multivitamins Therapeutic (Theragran) 1 tab DAILY PO 08/12/16 09:00 Sodium Biphosphate/ Sodium Phosphate (Fleet Enema) 135 ml DAILY PRN AR CONSTIPATION 08/12/16 09:00 Salmeterol Xinafoate/ Fluticasone (Advair 250/50 Diskus) 1 inh BID INH 08/12/16 09:00 08/12/16 10:30 Sucralfate (Carafate Susp) 1 gm AC MEALS PO 08/12/16 11:30 Tiotropium [place] (Spiriva) 1 inh DAILY INH 08/12/16 09:00 08/12/16 10:30 Trazodone HCl 100 mg 100 mg QHS PO 08/12/16 21:00 Vancomycin HCl 250 ml @ 125 mls/hr ONCE IVPB 08/12/16 11:00 08/12/16 12:59 Cefepime HCl (Maxipime 1gm/50 ml (Pmx)) 50 ml @ 100 mls/hr ONCE ONCE IVPB 08/12/16 10:30 08/12/16 10:59 DC 08/12/16 11:07 Procedures/MDM EKG: Rate/Rhythm: Sinus tachycardia at 139 bpm QRS, ST, T-waves: Left axis deviation , no changes consistent w/ acute ischemia Impression: No evidence of ischemia or arrhythmia Labs: CBC without significant abnormalities BMP within normal limits Lactate is elevated Troponin within normal limits Urinalysis shows evidence of UTI Chest x-ray: Right-sided patchy infiltrates CT abdomen and pelvis: IMPRESSION: Scattered patchy airspace opacities bilaterally, new compared with the prior study. Bilateral small pleural effusions, new compared with the prior study. Small hiatal hernia. Descending and sigmoid diverticulosis without evidence of diverticulitis. Mild bladder wall thickening could suggest cystitis. Clinical correlation is needed. Vascular calcifications reflective of atherosclerosis. Mild to moderate compression deformities of L1, L2 and L4 vertebral bodies likely related to osteoporosis and increased compared with 05/29/2016. Moderate to severe compression deformities of the L1 and L3 vertebral bodies likely related to osteoporosis, stable compared with the prior study. MDM Patient is presenting with shortness of breath, fever, and cough, consistent with pneumonia. He is tachycardic and tachypneic. Patient was placed on BiPAP with improvement of symptoms. ABG off of BiPAP shows hypoxia. There is no evidence of COPD exacerbation. Urinalysis also shows evidence of UTI. Patient was started on Levaquin IV and IV fluids. Patient's infectious symptoms and respiratory failure have not completely stabilized and the patient is at risk of rapid decompensation. The patient will be admitted for careful hydration, antibiotic therapy, and infectious source control. Severe Sepsis Assessment: Infectious Source: Healthcare associated pneumonia/UTI End organ damage indicated by: Lactate > 2.0 mmol/L Acute Resp Failure (sat < 92% w/o oxygen) Severe Sepsis Managment: Blood Cultures X 2 before broad spectrum antibiotics initiated within 3 hours of recognition. 30 ml/kg NS bolus Completed Initial Lactate: 3.4 Repeat Lactate pending Critical Care: Time: 40 minutes Treatments/Evaluations: Emergent fluid management, while maintaining close respiratory support. Immediate broad spectrum antibiotic therapy. Simultaneous assessment for possible sources in order to direct therapy. Consideration for invasive and chemical support to prevent respiratory or cardiac collapse. Septic Shock Assessment (1 hour post 30 ml/kg fluid bolus): Hypotension (SBP < 90 or 40 mmHg drop, MAP < 65): No Lactic acid > 4.0 No Accepting Care Team: Current data and ongoing care discussed. Time: Time of admission Primary Provider: Veronica Consulting: none Outstanding Data: Lactate, cultures I reviewed the patient's advanced directive and states that he does not want any treatment that would be prolonging his life if he had an incurable or irreversible condition or became unconsciousness and had the risk of not regaining consciousness. Departure Diagnosis: Primary Impression: Acute respiratory failure with hypoxia Additional Impressions: Sepsis Qualified Code: A41.9 - Sepsis, due to unspecified organism Healthcare-associated pneumonia Acute encephalopathy Urinary tract infection Qualified Code: N30.00 - Acute cystitis without hematuria Condition: Critical EKHOLLY JOHNSON MD Aug 12, 2016 06:30
[2016-08-12 06:31] LABS: ADD SCAN DIFF NO
[2016-08-12 07:00] LABS: ABNORMAL IP MESSAGE 1; BASOPHILS % 0.1 % (0.0-2.0); EOSINOPHILS % 0.2 % (0.0-7.0); HEMOGLOBIN 12.3 g/dl (14.0-18.0); LYMPHOCYTES # 1.3 10^3/ul (0.8-2.9); LYMPHOCYTES % 14.8 % (15.0-51.0); MEAN CORPUSCULAR HEMOGLOBIN 28.8 pg (29.0-33.0); MEAN CORPUSCULAR HGB CONC 31.5 g/dl (32.0-37.0); MEAN CORPUSCULAR VOLUME 91.3 fl (82.0-101.0); MEAN PLATELET VOLUME 10.3 fl (7.4-10.4); MONOCYTE # 0.2 10^3/ul (0.3-0.9); MONOCYTES % 2.3 % (0.0-11.0); NEUTROPHIL # 7.1 10^3/ul (1.6-7.5); NEUTROPHILS % 82.3 % (39.0-77.0); PLATELET COUNT 294 10^3/UL (140-415); RED BLOOD COUNT 4.27 10^6/ul (4.70-6.10); RED CELL DISTRIBUTION WIDTH 16.2 % (11.5-14.5); WHITE BLOOD COUNT 8.7 10^3/ul (4.8-10.8)
[2016-08-12 07:02] LABS: INR 1.26; PROTIME 15.9 Sec (12.2-14.2); PT RATIO 1.2
[2016-08-12 07:03] LABS: PARTIAL THROMBOPLASTIN TIME 27.3 Sec (25.0-35.0)
[2016-08-12 07:08] LABS: ALBUMIN 3.4 g/dl (3.3-4.9); ALBUMIN/GLOBULIN RATIO 1.17; BILIRUBIN,INDIRECT 0.5 mg/dl (0-1.1); BILIRUBIN,TOTAL 0.5 mg/dl (0.2-1.3); CALCIUM 8.6 mg/dl (8.4-10.2); CREATININE 0.76 mg/dl (0.61-1.24); POTASSIUM 3.9 mmol/L (3.5-5.1); TOTAL PROTEIN 6.3 g/dl (6.1-8.1)
[2016-08-12 07:19] LABS: TROPONIN-I 0.038 ng/ml (0.00-0.12)
--- NOTE | 2016-08-12 07:21 | RADRPT ---
PROCEDURE: XR Chest 1 View. CLINICAL INDICATION: Shortness of breath. TECHNIQUE: AP view of the chest was obtained. COMPARISON: May 29, 2016 FINDINGS: The heart size is within normal limits. Calcified atherosclerosis is noted in the aorta. The lungs are hyperexpanded. Chronic interstitial prominence is seen in both lungs. Patchy infiltrates are s een throughout the right lung. Atelectasis is noted in the left lower lobe. Calcified granulomas d isease is noted in the left upper lobe. Osseous structures are intact. IMPRESSION: Calcified atherosclerosis in the aorta. Patchy infiltrates throughout the right lung. Scattered atelectasis in the left lower lobe. Hyperexpanded lungs with chronic mild interstitial prominence in both lungs. Findings could reflect COPD. RPTAT: AA .Rogers Dumont MD, Date Time Electronically viewed and signed by .Rogers Dumont MD, on 08/12/2016 07:21 .P/
--- NOTE | 2016-08-12 07:35 | RADRPT ---
PROCEDURE: CT Abdomen and pelvis without contrast. CLINICAL INDICATION: Abdominal pain. TECHNIQUE: CT scan of the abdomen and pelvis was performed on a multi-detector high-resolution CT scanner. Contiguous axial images were obtained from the lung bases to the ischial tuberosities wit hout intravenous contrast. Coronal and sagittal reformatted images were also obtained. Images were reviewed on the PACS workstation. One or more of the following dose reduction techniques were used: - Automated exposure control. - Adjustment of the mA and/or kV according to patient size. - Use of iterative reconstruction technique. Exam CTD/vol = 4.46 mGy. Total exam DLP = 236.05 mGy-cm. COMPARISON: 05/29/2016. FINDINGS: Evaluation of the lung bases demonstrates scattered patchy airspace opacities bilaterally. There ar e bilateral small pleural effusions. There is a small hiatal hernia. Abdomen: The liver is normal in size. There is no focal mass or dilatation of the biliary tree. T he gallbladder is mildly distended. The spleen, pancreas and bilateral adrenal glands are within no rmal limits. Bilateral kidneys are normal in size with no contour deforming mass identified. There is no radiopaque renal or ureteral calculus identified. There is no hydronephrosis or hydroureter. There is no retroperitoneal adenopathy. The abdominal aorta is of normal caliber with scattered a therosclerotic calcifications. There is no abnormal bowel wall thickening or distension. There is no bowel obstruction or free air . A normal appendix is identified. There is descending and sigmoid diverticulosis without evidence of diverticulitis. There is no ascites. Pelvis: The bladder demonstrates mild wall thickening. The prostate and seminal vesicles are withi n normal limits. There is no significant pelvic adenopathy or free fluid. Evaluation of the osseous structures demonstrates no suspicious lytic or blastic lesion. There is sc rotal soft tissue swelling and hydroceles. There is a severe compression deformity of the L1 verteb ral body with over 90% loss in vertebral body height. There is a moderate compression deformity of the L3 vertebral body with up to 70% loss in vertebral body height. There are mild to moderate compr ession deformities of the T12, L2 and L4 vertebral bodies which are increased compared with the prio r study. There is minimal bony retropulsion at L1. There is diffuse demineralization. IMPRESSION: Scattered patchy airspace opacities bilaterally, new compared with the prior study. Bilateral small pleural effusions, new compared with the prior study. Small hiatal hernia. Descending and sigmoid diverticulosis without evidence of diverticulitis. Mild bladder wall thickening could suggest cystitis. Clinical correlation is needed. Vascular calcifications reflective of atherosclerosis. Mild to moderate compression deformities of L1, L2 and L4 vertebral bodies likely related to osteopo rosis and increased compared with 05/29/2016. Moderate to severe compression deformities of the L1 and L3 vertebral bodies likely related to osteo porosis, stable compared with the prior study. .Francisco House MD, Date Time Electronically viewed and signed by .Francisco House MD, on 08/12/2016 07:34 .T/
[2016-08-12 07:43] LABS: ADD UMIC YES; UR BLOOD (Dip) TRACE (NEGATIVE); UR CLARITY CLEAR (CLEAR); UR COLOR LT. YELLOW (YELLOW); UR GLUCOSE (Dip) NEGATIVE (NEGATIVE); UR KETONES (Dip) NEGATIVE (NEGATIVE); UR LEUKOCYTE ESTERASE (Dip) TRACE (NEGATIVE); UR NITRITE (Dip) NEGATIVE (NEGATIVE); UR TOTAL PROTEIN (Dip) TRACE (NEGATIVE); UR UROBILINOGEN (Dip) 0.2 E.U./dL (0.1-1.0)
[2016-08-12 07:46] LABS: UR BILIRUBIN (Dip) NEGATIVE (NEGATIVE)
[2016-08-12 07:58] LABS: UR BACTERIA MANY
[2016-08-12] MEDS ORDERED: GABA100C14 PO (08:43)
[2016-08-12] MEDS ORDERED: HYOSCYAMINE 0.125 MG SUBL TAB SL PRN (09:00)
[2016-08-12] MEDS ORDERED: ACETAMINOPHEN 325 MG TAB PO PRN (09:00)
[2016-08-12] MEDS ORDERED: NA PHOSPHATE/BIPHOS 133 ML ENEMA PR PRN (09:00)
[2016-08-12] MEDS ORDERED: VANCOMYCIN IV PER PHARMACY XX SCH (09:00)
[2016-08-12] MEDS ORDERED: ONDANSETRON 4 MG INJ IV PRN (09:00)
[2016-08-12] MEDS ORDERED: DICLOFENAC SODIUM 1% GEL 100 GM TUBE TP PRN (09:00)
[2016-08-12] MEDS ORDERED: BISACODYL 10 MG SUPP PR PRN (09:00)
--- NOTE | 2016-08-12 09:22 | HP ---
DATE OF ADMISSION: 08/12/2016 HISTORY OF PRESENT ILLNESS: The patient is an 85-year-old gentleman with past medical history of [place] PD, asthma, hypertension, dementia, AFib, GERD, osteoarthritis, gastric cancer, transferred from [facility] after noticing hypoxic respiratory failure, fever, shortness of breath, altere d mental status. The patient was noted to be tachypneic, febrile to 103.6, septic. Blood pressure has been stable requiring BiPAP intermittently. The patient was tachycardic on presentation. PAST MEDICAL HISTORY: As above. MEDICATIONS: From home include: 1. Gabapentin. 2. Diclofenac. 3. Ascorbic acid. 4. Tylenol. 5. Trazodone. 6. Metoprolol. 7. Spiriva. 8. Singulair. 9. Milk of magnesia. 10. Multivitamin. 11. [place]. 12. Omeprazole. 13. Lexapro. 14. Fleet enema. 15. Cranberry extract. 16. Colace. 17. Carafate. 18. Sinemet. 19. Amantadine. 20. Advair. ALLERGIES: THE PATIENT HAS NO KNOWN ALLERGIES. SOCIAL HISTORY: Does not smoke, drink or do drugs. FAMILY HISTORY: History of kidney disease. REVIEW OF SYSTEMS: A 14-point review of systems is attempted and negative unless stated on exam. PHYSICAL EXAMINATION: VITAL SIGNS: Temperature of 103.6, blood pressure 137/80. HEENT: Normocephalic, atraumatic. Pupils equal, round, reactive to light. Oropharynx shows moist m ucous membranes. NECK: Supple. HEART: Regular rate and rhythm. LUNGS: Clear to auscultation. ABDOMEN: Soft, nontender, nondistended. Bowel sounds present. LABORATORY EVALUATION: Shows white count 8.7, hemoglobin 12, hematocrit 39. UA shows 25 to 50 WBCs . Sodium is 139, potassium 3.9, BUN 17, creatinine 0.7. UA is reviewed under microscopy. Chest x- ray showed patchy infiltrates throughout the right lung, scattered atelectasis at the left lobe, hyp erexpanded left shows chronic ____ prominence in both lungs. IMPRESSION: 1. Hypoxic respiratory failure with likely pneumonia. The patient with borderline respiratory stat us will be admitted to the intensive care unit on BiPAP. Pulmonary and Infectious Disease consultat ion. We will start broad spectrum antibiotics from prison acquired pneumonia. Continue nebul izer treatments. 2. Urinary tract infection. Begin broad spectrum antibiotics to cover healthcare-acquired infectio ns. 3. Sepsis with lactic acidosis. Volume resuscitate aggressively. 4. Acute encephalopathy, underlying dementia. Etiology toxic metabolic. 5. History of chronic obstructive pulmonary disease, asthma. Continue hand-held nebulizers, antibi otics, give dose of steroids. 6. Parkinson disease. Continue regular medications. 7. Depression. Continue Lexapro. 8. History of severe gastritis and gastric cancer. Continue Protonix. 9. Prophylaxis. Continue Lovenox. 10. Back pain secondary to lumbar thoracic spine compression fracture. Continue physical therapy. Dictated By: HALEY OH/DANIELA Conf#: [id number] DID#: [id number]
[2016-08-12] MEDS: ALBUTEROL/IPRATROPIUM (NEB) 3 ML AMP NEB SCH ×4 (09:42→19:13)
[2016-08-12] MEDS: ENOXAPARIN 40 MG/0.4 ML SYG SC SCH (09:55)
[2016-08-12] MEDS: DILTIAZEM (SR) 60 MG CAP PO SCH ×3 (10:00→21:51)
[2016-08-12] MEDS: AMANTADINE 100 MG CAP PO SCH ×2 (10:00→21:52)
[2016-08-12] MEDS: GABAPENTIN 100 MG CAP PO SCH ×2 (10:00→21:51)
[2016-08-12] MEDS: METOPROLOL (XL) 25 MG TAB PO SCH (10:00)
[2016-08-12] MEDS: ASCORBIC ACID 500 MG TAB PO SCH ×2 (10:00→21:52)
[2016-08-12] MEDS: MULTIVITAMINS THERAPEUTIC TAB PO SCH (10:00)
[2016-08-12] MEDS: CARBIDOPA/LEVODOPA (25/100) TAB PO SCH ×3 (10:00→21:51)
[2016-08-12] MEDS: ESCITALOPRAM 10 MG TAB PO SCH (10:00)
--- NOTE | 2016-08-12 10:28 | CONS ---
Date/Time of Note Date/Time of Note DATE: 08/12/16 TIME: 10:25 Assessment/Plan Assessment/Plan Additional Assessment/Plan Chest x-ray was reviewed from today which is showing extensive right-sided pneumonia. Assessment recommendations; 1. Patient admitted for severe pneumonia currently on appropriate antibiotic regimen however I would recommend adding cefepime as well. 2. Dementia. 3. History of hypertension, Parkinson's disease and COPD. Continue current treatment. Obtain follow-up chest x-ray in 24 hours. Consultation Date/Type/Reason Admit Date/Time Date of Consultation: Aug 12, 2016 Type of Consultation: Pulmonary Reason for Consultation Pulmonary consultations requested for evaluation of pneumonia. History of presenting any; patient is an 85-year-old white male who has been transferred over to ICU from the senior living with complaints of being short of breath. Upon evaluation a chest x-ray was done which is showing extensive right -sided pneumonia. Patient has been started on BiPAP with improvement in symptoms. Patient has dementia history was obtained from medical records. Past medical history; 1. History of COPD. 2. Parkinson's disease. 3. Dementia. 4. History of gastric cancer. 5. Atrial fibrillation. 6. Hypertension. Medications; reviewed. Allergies; none. Family history; not available. Occupational history; not available. Review of systems; currently unable to be obtained. General exam; elderly male, on BiPAP, currently in no distress. Social History Smoking Status: Unknown if ever smoked Exam/Review of Systems Vital Signs Vitals Vital Signs Date Time Temp Pulse Resp B/P Pulse Ox O2 Delivery O2 Flow Rate FiO2 08/12/16 09:44 96 20 100 08/12/16 09:00 138/69 BIPAP 08/12/16 08:49 100 08/12/16 08:00 97.8 08/12/16 06:30 15 Exam HEENT examination; supple neck, no JVD. No lymphadenopathy. Midline trachea. No thyromegaly. Patient is edentulous. Has bilateral intraocular lens implants. Chest examination; diminished breath sounds bilaterally. No added sound. S1- S2 audible, no murmurs. Irregular rhythm. Abdomen examination; soft, scaphoid. No organomegaly. Bowel sounds audible. Extremity exam is; no peripheral edema. Patient multiple ecchymosis involving all 4 extremities. 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 Results Result Diagram: 08/12/16 0605 08/12/16 0605 Results 24 hrs Laboratory Tests Test 08/12/16 06:05 08/12/16 06:48 White Blood Count 8.7 Red Blood Count 4.27 #L Hemoglobin 12.3 L Hematocrit 39.0 #L Mean Corpuscular Volume 91.3 Mean Corpuscular Hemoglobin 28.8 L Mean Corpuscular Hemoglobin Concent 31.5 L Red Cell Distribution Width 16.2 H Platelet Count 294 # Mean Platelet Volume 10.3 Neutrophils % 82.3 H Lymphocytes % 14.8 L Monocytes % 2.3 Eosinophils % 0.2 Basophils % 0.1 Nucleated Red Blood Cells % 0.0 Neutrophils # 7.1 Lymphocytes # 1.3 Monocytes # 0.2 L Eosinophils # 0.0 Basophils # 0.0 Nucleated Red Blood Cells # 0.0 Prothrombin Time 15.9 H Prothrombin Time Ratio 1.2 INR International Normalized Ratio 1.26 Activated Partial Thromboplast Time 27.3 Sodium Level 139 Potassium Level 3.9 Chloride Level 106 Carbon Dioxide Level 21 Anion Gap 16 Blood Urea Nitrogen 17 Creatinine 0.76 Glucose Level 192 Lactic Acid Level 3.4 H Calcium Level 8.6 Total Bilirubin 0.5 Direct Bilirubin 0.00 Indirect Bilirubin 0.5 Aspartate Amino Transf (AST/SGOT) 18 Alanine Aminotransferase (ALT/SGPT) 19 Alkaline Phosphatase 134 H Troponin I 0.038 Total Protein 6.3 Albumin 3.4 Globulin 2.90 Albumin/Globulin Ratio 1.17 Urine Color LT. YELLOW Urine Clarity CLEAR Urine pH 5.0 Urine Specific [place] >=1.030 H Urine Ketones NEGATIVE Urine Nitrite NEGATIVE Urine Bilirubin NEGATIVE Urine Urobilinogen 0.2 E.U./dL Urine Leukocyte Esterase TRACE H Urine Microscopic RBC 2-5 Urine Microscopic WBC 25-50 Urine Bacteria MANY Urine Yeast FEW Urine Hemoglobin TRACE Urine Glucose NEGATIVE Urine Total Protein TRACE Medications Medications Current Medications Sodium Chloride (NS) 1,000 ml @ 100 mls/hr Q10H IV ; Start 08/12/16 at 08:50 Ondansetron HCl (Zofran Inj) 4 mg Q6H PRN IV NAUSEA AND/OR VOMITING; Start at 09:00 Methylprednisolone Sodium Succinate (Solu-Medrol) 60 mg Q6 IV ; Start 08/12/16 at 12:00 Pantoprazole (Protonix Iv) 40 mg DAILY@06 IV ; Start 08/13/16 at 06:00 Enoxaparin Sodium (Lovenox) 40 mg DAILY SC Last administered on 08/12/16t 09:55 ; Admin Dose 40 MG; Start 08/12/16 at 09:00 Acetaminophen (Tylenol Tab) 650 mg Q4 PRN PO MODERATE PAIN LEVEL 4-6; Start at 09:00 Amantadine HCl (Symmetrel) 100 mg BID PO ; Start 08/12/16 at 09:00 Ascorbic Acid (Vitamin C) 500 mg BID PO ; Start 08/12/16 at 09:00 Bisacodyl (Dulcolax Supp) 10 mg DAILY PRN [place] CONSTIPATION; Start 08/12/16 at 09 :00 Carbidopa/Levodopa (Sinemet (25/ 100)) 1 tab TID PO ; Start 08/12/16 at 09:00 Diclofenac Sodium (Voltaren 1% Gel) 2 gm DAILY PRN TP PAIN; Start 08/12/16 at 09:00 Diltiazem HCl (Cardizem Sr) 120 mg TID PO ; Start 08/12/16 at 09:00 Docusate Sodium (Colace) 200 mg QHS PO ; Start 08/12/16 at 21:00 Escitalopram Oxalate (Lexapro) 10 mg DAILY PO ; Start 08/12/16 at 09:00 Gabapentin (Neurontin) 100 mg BID PO ; Start 08/12/16 at 09:00 Acetaminophen/ Hydrocodone Bitart ([place] (5/325)) 1 tab Q6 PRN PO MODERATE PAIN LEVEL 4-6; Start 08/12/16 at 09:00 Acetaminophen/ Hydrocodone Bitart ([place] (5/325)) 2 tab Q6 PRN PO SEVERE PAIN LEVEL 7-10; Start 08/12/16 at 09:00 Hyoscyamine (Levsin (Sl)) 0.125 mg Q6 PRN SL ABDOMINAL PAIN; Start 08/12/16 at 09:00 Magnesium Hydroxide (Milk Of Mag) 30 ml QHS PRN PO CONSTIPATION; Start at 09:00 Metoprolol Succinate (Toprol Xl) 25 mg DAILY PO ; Start 08/12/16 at 09:00 Montelukast Sodium (Singulair) 10 mg QHS PO ; Start 08/12/16 at 21:00 Multivitamins Therapeutic (Theragran) 1 tab DAILY PO ; Start 08/12/16 at 09:00 Sodium Biphosphate/ Sodium Phosphate (Fleet Enema) 135 ml DAILY PRN [place] CONSTIPATION; Start 08/12/16 at 09:00 Salmeterol Xinafoate/ Fluticasone (Advair 250/50 Diskus) 1 inh BID INH ; Start 08/12/16 at 09:00 Tiotropium [place] (Spiriva) 1 inh DAILY INH ; Start 08/12/16 at 09:00 Trazodone HCl 100 mg 100 mg QHS PO ; Start 08/12/16 at 21:00 Vancomycin HCl 250 ml @ 125 mls/hr ONCE IVPB ; Start 08/12/16 at 11:00; Stop at 12:59 Cefepime HCl (Maxipime 1gm/50 ml (Pmx)) 50 ml @ 100 mls/hr ONCE ONCE IVPB ; Start 08/12/16 at 10:30; Stop 08/12/16 at 10:59 MICHELLE HEALY Aug 12, 2016 10:28
[2016-08-12] MEDS: SALMETEROL/FLUTICASONE 250/50 INHA INH SCH ×2 (10:30→21:49)
[2016-08-12] MEDS: TIOTROPIUM 18 MCG CAPSULE INHA DEV INH SCH (10:30)
[2016-08-12] MEDS ORDERED: CEFEPIME 1GM/50 ML (PMX) 50 ML IVPB ONE (10:30)
[2016-08-12] MEDS ORDERED: VANCOMYCIN 1 GM in NS 250 ML IVPB SCH (11:00)
[2016-08-12] MEDS: SOD CHLORIDE 0.9% 1,000 ML IV SCH ×2 (11:10→18:50)
[2016-08-12] MEDS: METHYLPREDNISOLONE 125 MG INJ IV SCH ×2 (12:48→19:09)
[2016-08-12] MEDS: SUCRALFATE (100 MG/ML) 10ML CUP PO SCH ×2 (13:32→17:30)
[2016-08-12 14:05] LABS: AADO2 Arterial 625.6 mmHg (7.0-24.0); Allen Test ACCEPTAB; Arterial Base Excess -5.3 mmol/L (-3.0-3); Arterial COHb 0.8 % (0.0-3.0); Arterial Fraction of Oxyhgb 86.9 % (93.0-99.0); Arterial HCO3 18.7 mmol/L (22.0-26.0); Arterial MetHb 0.3 % (0.0-1.5); MODE MASK - NRB
[2016-08-12] MEDS: HYDROCODONE/APAP (5/325) TAB PO PRN (19:10)
[2016-08-12] MEDS: MONTELUKAST 10 MG TAB PO SCH (21:00)
[2016-08-12] MEDS: DOCUSATE SODIUM 100 MG CAP PO SCH (21:00)
[2016-08-12] MEDS: traZODone 100 MG TAB PO SCH (21:00)
[2016-08-13] VITALS (8 sets, daily range): BP systolic 108–140; BP diastolic 66–76; PULSE 103–104; RESP 16–20; TEMP 98.1; Ht 167.6 cm; Wt 41.0 kg
[2016-08-13] MEDS: METHYLPREDNISOLONE 125 MG INJ IV SCH ×4 (00:32→18:41)
[2016-08-13] MEDS: ALBUTEROL/IPRATROPIUM (NEB) 3 ML AMP NEB SCH ×6 (00:48→20:02)
--- NOTE | 2016-08-13 02:06 | RADRPT ---
PROCEDURE: Portable chest x-ray. CLINICAL INDICATION: Cough. TECHNIQUE: Portable AP view of the chest. COMPARISON: 05/29/2016 FINDINGS: There are patchy airspace opacities throughout the right lung. The left lung is clear. The cardiac silhouette is magnified. There are aortic calcifications. No definite pleural effusion is seen. T here is no pneumothorax. IMPRESSION: 1. Patchy airspace opacities throughout the right lung, for pneumonia. 2. Aortic atherosclerosis RPTAT: HTAR .Olvin Manning MD, MD Date Time Electronically viewed and signed by .Olvin Manning MD, on 08/13/2016 02:06 .R/
[2016-08-13] MEDS: HYDROCODONE/APAP (5/325) TAB PO PRN (03:43)
[2016-08-13] MEDS: SOD CHLORIDE 0.9% 1,000 ML IV SCH ×2 (04:28→14:35)
[2016-08-13] MEDS: PANTOPRAZOLE 40 MG INJ IV SCH (05:24)
[2016-08-13] MEDS: SUCRALFATE (100 MG/ML) 10ML CUP PO SCH ×2 (08:14→17:25)
--- NOTE | 2016-08-13 08:14 | CONS ---
Date/Time of Note Date/Time of Note DATE: 08/13/16 TIME: 08:06 Consult Date/Type/Reason Admit Date/Time Initial Consult Date 08/12/16 Type of Consultation: med Subjective The patient is an 85-year-old gentleman with past medical history of COPD, asthma, hypertension, dementia, AFib, GERD, osteoarthritis, gastric cancer, [facility] after noticing hypoxic respiratory failure, fever, shortness of breath, altered mental status. The patient was noted to be tachypneic, febrile to 103.6, septic. Blood pressure has been stable requiring BiPAP intermittently. The patient was tachycardic on presentation. still in ed. seen by pulm. plan of care reviewed with dr. price. REVIEW OF SYSTEMS: A 14-point review of systems is attempted and negative unless stated on exam. PHYSICAL EXAMINATION: VITAL SIGNS: Temperature of 103.6, blood pressure 137/80. HEENT: Normocephalic, atraumatic. Pupils equal, round, reactive to light. Oropharynx shows moist mucous membranes. NECK: Supple. HEART: Regular rate and rhythm. LUNGS: Clear to auscultation. ABDOMEN: Soft, nontender, nondistended. Bowel sounds present. Objective Vital Signs Date Time Temp Pulse Resp B/P Pulse Ox O2 Delivery O2 Flow Rate FiO2 08/13/16 07:09 102 15 122/58 95 Room Air 08/13/16 03:00 97.9 08/13/16 00:48 21 08/12/16 06:30 15 Intake and Output 08/12/16 08/12/16 08/13/16 15:00 23:00 07:00 Output Total 800 ml Balance -800 ml Results/Medications Result Diagram: 08/12/1660408/12/16604 Results 24 hrs Laboratory Tests Test 08/12/16 09:40 08/12/16 11:40 Lactic Acid Level 2.4 H 2.4 H Medications Current Medications Sodium Chloride (NS) 1,000 ml @ 100 mls/hr Q10H IV Last administered on t 04:28; Admin Dose 100 MLS/HR; Start 08/12/16 at 08:50 Ondansetron HCl (Zofran Inj) 4 mg Q6H PRN IV NAUSEA AND/OR VOMITING; Start at 09:00 Methylprednisolone Sodium Succinate (Solu-Medrol) 60 mg Q6 IV Last administered on 08/13/16 05:25; Admin Dose 60 MG; Start 08/12/16 at 12:00 Pantoprazole (Protonix Iv) 40 mg DAILY@06 IV Last administered on 08/13/16 05: 24; Admin Dose 40 MG; Start 08/13/16 at 06:00 Enoxaparin Sodium (Lovenox) 40 mg DAILY SC Last administered on 08/12/16 09:55 ; Admin Dose 40 MG; Start 08/12/16 at 09:00 Acetaminophen (Tylenol Tab) 650 mg Q4 PRN PO MODERATE PAIN LEVEL 4-6; Start at 09:00 Amantadine HCl (Symmetrel) 100 mg BID PO Last administered on 08/12/16 21:52; Admin Dose 100 MG; Start 08/12/16 at 09:00 Ascorbic Acid (Vitamin C) 500 mg BID PO Last administered on 08/12/16 21:52; Admin Dose 500 MG; Start 08/12/16 at 09:00 Bisacodyl (Dulcolax Supp) 10 mg DAILY PRN [place] CONSTIPATION; Start 08/12/16 at 09 :00 Carbidopa/Levodopa (Sinemet (25/ 100)) 1 tab TID PO Last administered on 21:51; Admin Dose 1 TAB; Start 08/12/16 at 09:00 Diclofenac Sodium (Voltaren 1% Gel) 2 gm DAILY PRN TP PAIN; Start 08/12/16 at 09:00 Diltiazem HCl (Cardizem Sr) 120 mg TID PO Last administered on 08/12/16 21:51 ; Admin Dose 120 MG; Start 08/12/16 at 09:00 Docusate Sodium (Colace) 200 mg QHS PO ; Start 08/12/16 at 21:00 Escitalopram Oxalate (Lexapro) 10 mg DAILY PO ; Start 08/12/16 at 09:00 Gabapentin (Neurontin) 100 mg BID PO Last administered on 08/12/16 21:51; Admin Dose 100 MG; Start 08/12/16 at 09:00 Acetaminophen/ Hydrocodone Bitart ([place] (5/325)) 1 tab Q6 PRN PO MODERATE PAIN LEVEL 4-6 Last administered on 08/12/16 19:10; Admin Dose 1 TAB; Start at 09:00 Acetaminophen/ Hydrocodone Bitart ([place] (5/325)) 2 tab Q6 PRN PO SEVERE PAIN LEVEL 7-10 Last administered on 08/13/16 03:43; Admin Dose 2 TAB; Start at 09:00 Hyoscyamine (Levsin (Sl)) 0.125 mg Q6 PRN SL ABDOMINAL PAIN; Start 08/12/16 at 09:00 Magnesium Hydroxide (Milk Of Mag) 30 ml QHS PRN PO CONSTIPATION; Start at 09:00 Metoprolol Succinate (Toprol Xl) 25 mg DAILY PO ; Start 08/12/16 at 09:00 Montelukast Sodium (Singulair) 10 mg QHS PO ; Start 08/12/16 at 21:00 Multivitamins Therapeutic (Theragran) 1 tab DAILY PO ; Start 08/12/16 at 09:00 Sodium Biphosphate/ Sodium Phosphate (Fleet Enema) 135 ml DAILY PRN [place] CONSTIPATION; Start 08/12/16 at 09:00 Salmeterol Xinafoate/ Fluticasone (Advair 250/50 Diskus) 1 inh BID INH Last administered on 08/12/16 21:49; Admin Dose 1 INH; Start 08/12/16 at 09:00 Tiotropium [place] (Spiriva) 1 inh DAILY INH Last administered on 08/12/16 10: 30; Admin Dose 1 INH; Start 08/12/16 at 09:00 Trazodone HCl 100 mg 100 mg QHS PO ; Start 08/12/16 at 21:00 Vancomycin HCl (Vancocin) 100 ml @ 100 mls/hr Q24H IVPB ; Start 08/13/16 at 13: 30; Stop 08/13/16 at 14:29 Assessment/Plan Chief Complaint/Hosp Course 1. Hypoxic respiratory failure with likely pneumonia. The patient with borderline respiratory status will be admitted to the intensive care unit on BiPAP. Pulmonary and Infectious Disease consultation. We will start broad spectrum antibiotics from residential acquired pneumonia. Continue nebulizer treatments. 2. Urinary tract infection. Begin broad spectrum antibiotics to cover healthcare-acquired infections. 3. Sepsis with lactic acidosis. Volume resuscitate aggressively. 4. Acute encephalopathy, underlying dementia. Etiology toxic metabolic. 5. History of chronic obstructive pulmonary disease, asthma. Continue hand- held nebulizers, antibiotics, give dose of steroids. 6. Parkinson disease. Continue regular medications. 7. Depression. Continue Lexapro. 8. History of severe gastritis and gastric cancer. Continue Protonix. 9. Prophylaxis. Continue Lovenox. 10. Back pain secondary to lumbar thoracic spine compression fracture. Continue physical therapy. Problems: HALEY BURTON MD Aug 13, 2016 08:14
[2016-08-13] MEDS: SALMETEROL/FLUTICASONE 250/50 INHA INH SCH ×2 (09:22→21:13)
[2016-08-13] MEDS: METOPROLOL (XL) 25 MG TAB PO SCH (09:24)
[2016-08-13] MEDS: AMANTADINE 100 MG CAP PO SCH (09:24)
[2016-08-13] MEDS: MULTIVITAMINS THERAPEUTIC TAB PO SCH (09:24)
[2016-08-13] MEDS: DILTIAZEM (SR) 60 MG CAP PO SCH ×3 (09:24→21:15)
[2016-08-13] MEDS: CARBIDOPA/LEVODOPA (25/100) TAB PO SCH ×3 (09:25→21:16)
[2016-08-13] MEDS: GABAPENTIN 100 MG CAP PO SCH ×2 (09:25→21:15)
[2016-08-13] MEDS: ASCORBIC ACID 500 MG TAB PO SCH ×2 (09:25→21:15)
[2016-08-13] MEDS: ESCITALOPRAM 10 MG TAB PO SCH (09:26)
[2016-08-13] MEDS: TIOTROPIUM 18 MCG CAPSULE INHA DEV INH SCH (09:34)
[2016-08-13] MEDS: ENOXAPARIN 40 MG/0.4 ML SYG SC SCH (09:40)
[2016-08-13] MEDS: CEFEPIME 1GM/50 ML (PMX) 50 ML IVPB SCH (09:41)
[2016-08-13] MEDS ORDERED: VANCOMYCIN 500MG/NS (PMX) 100 ML IVPB SCH (13:30)
--- NOTE | 2016-08-13 14:11 | CONS ---
Date/Time of Note Date/Time of Note DATE: 08/13/16 TIME: 14:09 Assessment/Plan Assessment/Plan Additional Assessment/Plan Chest x-ray was reviewed from today which is again showing extensive right- sided pneumonia. Assessment recommendations; 1. Patient admitted with pneumonia currently on appropriate antibiotic regimen with significant clinical improvement. 2. Parkinson's disease. 3. Underlying COPD. 4. Hypertension. Continue current treatment. Consultation Date/Type/Reason Admit Date/Time Aug 13, 2016 at 09:16 Initial Consult Date 08/12/16 Type of Consultation: Pulmonary 24 HR Interval Summary Free Text/Dictation Patient condition is markedly improved. Patient now completely awake and alert. Shortness of breath also is improving. Patient has been off BiPAP now. General exam; elderly male, awake alert currently in no distress. Exam/Review of Systems Vital Signs Vitals Vital Signs Date Time Temp Pulse Resp B/P Pulse Ox O2 Delivery O2 Flow Rate FiO2 08/13/16 12:17 101 20 85 21 08/13/16 12:17 2.0 08/13/16 11:48 97.7 134/66 08/13/16 10:33 Room Air Intake and Output 08/12/16 08/12/16 08/13/16 15:00 23:00 07:00 Output Total 800 ml Balance -800 ml Exam HEENT examination; supple neck, no JVD. No lymphadenopathy. Midline trachea. No thyromegaly. Patient is edentulous and wears dentures. Has bilateral intraocular lens implants. Chest examination; diminished but clear vessel. S1-S2 audible, no murmurs. Regular rhythm. Abdomen examination; soft, nondistended. Scaphoid. No organomegaly. Bowel sounds audible. Extremity examination; no peripheral edema. No clubbing. Pulses 1+ bilaterally. 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 Patient is awake alert. Able to talk. Results Result Diagram: 08/12/1660408/12/16604 Medications Medications Current Medications Sodium Chloride (NS) 1,000 ml @ 100 mls/hr Q10H IV Last administered on t 04:28; Admin Dose 100 MLS/HR; Start 08/12/16 at 08:50 Ondansetron HCl (Zofran Inj) 4 mg Q6H PRN IV NAUSEA AND/OR VOMITING; Start at 09:00 Methylprednisolone Sodium Succinate (Solu-Medrol) 60 mg Q6 IV Last administered on 08/13/16 05:25; Admin Dose 60 MG; Start 08/12/16 at 12:00 Pantoprazole (Protonix Iv) 40 mg DAILY@06 IV Last administered on 08/13/16 05: 24; Admin Dose 40 MG; Start 08/13/16 at 06:00 Enoxaparin Sodium (Lovenox) 40 mg DAILY SC Last administered on 08/13/16 09:40 ; Admin Dose 40 MG; Start 08/12/16 at 09:00 Acetaminophen (Tylenol Tab) 650 mg Q4 PRN PO MODERATE PAIN LEVEL 4-6; Start at 09:00 Amantadine HCl (Symmetrel) 100 mg BID PO Last administered on 08/13/16 09:24; Admin Dose 100 MG; Start 08/12/16 at 09:00 Ascorbic Acid (Vitamin C) 500 mg BID PO Last administered on 08/13/16 09:25; Admin Dose 500 MG; Start 08/12/16 at 09:00 Bisacodyl (Dulcolax Supp) 10 mg DAILY PRN [place] CONSTIPATION; Start 08/12/16 at 09 :00 Carbidopa/Levodopa (Sinemet (25/ 100)) 1 tab TID PO Last administered on 09:25; Admin Dose 1 TAB; Start 08/12/16 at 09:00 Diclofenac Sodium (Voltaren 1% Gel) 2 gm DAILY PRN TP PAIN; Start 08/12/16 at 09:00 Diltiazem HCl (Cardizem Sr) 120 mg TID PO Last administered on 08/13/16 09:24 ; Admin Dose 120 MG; Start 08/12/16 at 09:00 Docusate Sodium (Colace) 200 mg QHS PO ; Start 08/12/16 at 21:00 Escitalopram Oxalate (Lexapro) 10 mg DAILY PO Last administered on 08/13/16 09 :26; Admin Dose 10 MG; Start 08/12/16 at 09:00 Gabapentin (Neurontin) 100 mg BID PO Last administered on 08/13/16 09:25; Admin Dose 100 MG; Start 08/12/16 at 09:00 Acetaminophen/ Hydrocodone Bitart ([place] (5/325)) 1 tab Q6 PRN PO MODERATE PAIN LEVEL 4-6 Last administered on 08/12/16 19:10; Admin Dose 1 TAB; Start at 09:00 Acetaminophen/ Hydrocodone Bitart ([place] (5/325)) 2 tab Q6 PRN PO SEVERE PAIN LEVEL 7-10 Last administered on 08/13/16 03:43; Admin Dose 2 TAB; Start at 09:00 Hyoscyamine (Levsin (Sl)) 0.125 mg Q6 PRN SL ABDOMINAL PAIN; Start 08/12/16 at 09:00 Magnesium Hydroxide (Milk Of Mag) 30 ml QHS PRN PO CONSTIPATION; Start at 09:00 Metoprolol Succinate (Toprol Xl) 25 mg DAILY PO Last administered on 08/13/16 09:24; Admin Dose 25 MG; Start 08/12/16 at 09:00 Montelukast Sodium (Singulair) 10 mg QHS PO ; Start 08/12/16 at 21:00 Multivitamins Therapeutic (Theragran) 1 tab DAILY PO Last administered on 09:24; Admin Dose 1 TAB; Start 08/12/16 at 09:00 Sodium Biphosphate/ Sodium Phosphate (Fleet Enema) 135 ml DAILY PRN [place] CONSTIPATION; Start 08/12/16 at 09:00 Salmeterol Xinafoate/ Fluticasone (Advair 250/50 Diskus) 1 inh BID INH Last administered on 08/13/16 09:22; Admin Dose 1 INH; Start 08/12/16 at 09:00 Tiotropium [place] (Spiriva) 1 inh DAILY INH Last administered on 08/13/16 09: 34; Admin Dose 1 INH; Start 08/12/16 at 09:00 Trazodone HCl 100 mg 100 mg QHS PO ; Start 08/12/16 at 21:00 Cefepime HCl 50 ml @ 100 mls/hr DAILY IVPB Last administered on 08/13/16 09: 41; Admin Dose 100 MLS/HR; Start 08/13/16 at 09:00 Vancomycin HCl (Vancocin) 100 ml @ 100 mls/hr Q24H IVPB ; Start 08/13/16 at 11: 00 MICHELLE HEALY Aug 13, 2016 14:11
[2016-08-13] MEDS: VANCOMYCIN 500MG/NS (PMX) 100 ML IVPB SCH (14:32)
[2016-08-13] MEDS: DOCUSATE SODIUM 100 MG CAP PO SCH (21:15)
[2016-08-13] MEDS: traZODone 100 MG TAB PO SCH (21:15)
[2016-08-13] MEDS: MONTELUKAST 10 MG TAB PO SCH (21:16)
[2016-08-14] VITALS (11 sets, daily range): BP systolic 110–119; BP diastolic 59–72; PULSE 99–110; RESP 17–20
[2016-08-14] MEDS: ALBUTEROL/IPRATROPIUM (NEB) 3 ML AMP NEB SCH ×6 (00:23→21:19)
[2016-08-14] MEDS: AMANTADINE 100 MG CAP PO SCH ×3 (00:26→20:58)
[2016-08-14] MEDS: METHYLPREDNISOLONE 125 MG INJ IV SCH ×2 (00:27→05:41)
[2016-08-14] MEDS: SOD CHLORIDE 0.9% 1,000 ML IV SCH ×2 (00:50→11:39)
[2016-08-14] MEDS: SUCRALFATE (100 MG/ML) 10ML CUP PO SCH ×3 (05:41→18:08)
[2016-08-14] MEDS: PANTOPRAZOLE 40 MG INJ IV SCH (05:41)
[2016-08-14 05:55] LABS: ADD SCAN DIFF NO
[2016-08-14 06:46] LABS: CALCIUM 8.3 mg/dl (8.4-10.2); CREATININE 0.56 mg/dl (0.61-1.24); PHOSPHORUS 2.3 mg/dl (2.5-4.9); POTASSIUM 3.3 mmol/L (3.5-5.1)
[2016-08-14 06:47] LABS: ABNORMAL IP MESSAGE 1; HEMATOCRIT 26.2 % (42.0-52.0); HEMOGLOBIN 8.4 g/dl (14.0-18.0); LYMPHOCYTES # 0.2 10^3/ul (0.8-2.9); LYMPHOCYTES % 2.2 % (15.0-51.0); MEAN CORPUSCULAR HEMOGLOBIN 28.7 pg (29.0-33.0); MEAN CORPUSCULAR HGB CONC 32.1 g/dl (32.0-37.0); MEAN CORPUSCULAR VOLUME 89.4 fl (82.0-101.0); MEAN PLATELET VOLUME 9.9 fl (7.4-10.4); MONOCYTE # 0.4 10^3/ul (0.3-0.9); MONOCYTES % 3.6 % (0.0-11.0); NEUTROPHIL # 9.5 10^3/ul (1.6-7.5); PLATELET COUNT 185 10^3/UL (140-415); RED BLOOD COUNT 2.93 10^6/ul (4.70-6.10); RED CELL DISTRIBUTION WIDTH 16.6 % (11.5-14.5); WHITE BLOOD COUNT 10.3 10^3/ul (4.8-10.8)
[2016-08-14 07:00] LABS: NEUTROPHILS % 92.2 % (39.0-77.0)
[2016-08-14] MEDS ORDERED: POTASSIUM CHLORIDE (SR) 20 MEQ TAB PO STA (08:25)
[2016-08-14] MEDS ORDERED: NEUTRA-PHOS 250 MG PACKET PO ONE (08:30)
[2016-08-14] MEDS: ESCITALOPRAM 10 MG TAB PO SCH (09:09)
[2016-08-14] MEDS: ASCORBIC ACID 500 MG TAB PO SCH ×2 (09:09→21:00)
[2016-08-14] MEDS: DILTIAZEM (SR) 60 MG CAP PO SCH ×3 (09:09→20:59)
[2016-08-14] MEDS: MULTIVITAMINS THERAPEUTIC TAB PO SCH (09:09)
[2016-08-14] MEDS: GABAPENTIN 100 MG CAP PO SCH ×2 (09:10→20:59)
[2016-08-14] MEDS: METOPROLOL (XL) 25 MG TAB PO SCH (09:10)
[2016-08-14] MEDS: CARBIDOPA/LEVODOPA (25/100) TAB PO SCH ×3 (09:10→20:57)
[2016-08-14] MEDS: CEFEPIME 1GM/50 ML (PMX) 50 ML IVPB SCH (09:12)
[2016-08-14] MEDS: SALMETEROL/FLUTICASONE 250/50 INHA INH SCH ×2 (09:13→20:59)
[2016-08-14] MEDS: TIOTROPIUM 18 MCG CAPSULE INHA DEV INH SCH (09:13)
[2016-08-14] MEDS: METHYLPREDNISOLONE 40 MG INJ IV SCH ×2 (09:17→20:59)
[2016-08-14] MEDS: ENOXAPARIN 40 MG/0.4 ML SYG SC SCH (09:29)
--- NOTE | 2016-08-14 12:40 | PN ---
DATE: 08/14/2016 SUBJECTIVE: The patient is stable, no acute events overnight. No fevers, chills, nausea, vomiting. OBJECTIVE: VITAL SIGNS: Blood pressure is 112/65, respiration 18, pulse 102, temperature 97.6. HEENT: Head is normocephalic. NECK: Supple. HEART: Regular rate. LUNGS: Show diminished breath sounds at base. ABDOMEN: Soft, mild tenderness to palpation. No rebound or guarding. EXTREMITIES: Negative for clubbing, cyanosis, edema. DERMATOLOGIC: No rashes. MUSCULOSKELETAL: No joint effusions. NEUROLOGIC: No change in exam. MEDICATIONS: The patient's medications have been reviewed. LABORATORY DATA: Sodium 137, potassium 3.3, chloride 110, BUN 16, creatinine 0.56 phosphorus 2.3. White count 10.3, hemoglobin 8.4, hematocrit 26.2, platelet count is 185. The patient's blood cultu res growing out gram-negative rods. ASSESSMENT AND PLAN: 1. Sepsis secondary to pneumonia and bacteremia. The patient is currently on broad spectrum antibi otics. Continue current treatment plan. Cultures have been reviewed. Follow up with [facility] nort[facility]. 2. Acute hypoxemic respiratory failure secondary to pneumonia. The patient is clinically improving . Continue medical management. Continue supplemental oxygen and nebulizer. We will taper down rosy roids. Follow up with Pulmonary. 3. Lactic acidosis secondary to sepsis. Continue current medical management. Will repeat lactic a braden levels. 4. Acute encephalopathy with underlying dementia. Etiology is toxic metabolic. Mental status is i mproving. Continue to monitor. 5. History of chronic obstructive pulmonary disease, . Continue current medical management as stated above. 6. Parkinson disease. Continue current medical management. 7. Abdominal pain, chronic. Etiology secondary to esophagitis. Will continue proton pump inhibito r, monitor. 8. History of paroxysmal atrial fibrillation, currently in sinus rhythm. Continue to monitor. 9. Depression. Continue Lexapro. 10. Anemia. Continue to monitor hemoglobin and hematocrit levels. 11. Gastritis, GERD. Continue Protonix b.i.d. 12. History of gastric cancer. 13. Osteoporosis. Continue bisphosphonate. 14. Hypokalemia, hypophosphatemia. Will replete. 15. Debility. Will place a PT consult for evaluation. 16. Gastrointestinal and deep venous thrombosis prophylaxis. Continue proton pump inhibitor and Lo venox. Dictated By: JEFF GAMEZ/DANIELA Conf#: [id number] DID#: [id number]
[2016-08-14] MEDS: VANCOMYCIN 500MG/NS (PMX) 100 ML IVPB SCH (12:42)
--- NOTE | 2016-08-14 15:10 | CONS ---
Date/Time of Note Date/Time of Note DATE: 08/14/16 TIME: 15:08 Assessment/Plan Assessment/Plan Additional Assessment/Plan Recommendations; 1. Patient admitted with extensive right-sided pneumonia with clinical improvement. However radiological changes are still persistent. 2. History of Parkinson's disease. 3. Possibly underlying mild dementia. 4. Underlying COPD. 5. Possibly pulmonary fibrosis involving the right lung. Continue current treatment. Obtain follow-up chest x-ray in 48 hours. Consultation Date/Type/Reason Admit Date/Time Aug 13, 2016 at 09:16 Initial Consult Date 08/12/16 Type of Consultation: Pulmonary 24 HR Interval Summary Free Text/Dictation Patient condition remains stable. Remains awake alert. Denies any significant shortness of breath. Denies any coughing, chest pain or sputum production. General exam; elderly male, awake alert currently in no distress. Exam/Review of Systems Vital Signs Vitals Vital Signs Date Time Temp Pulse Resp B/P Pulse Ox O2 Delivery O2 Flow Rate FiO2 08/14/16 13:57 101 18 98 Nasal Cannula 4.0 08/14/16 11:10 98.9 117/65 08/13/16 12:17 21 Intake and Output 08/13/16 08/13/16 08/14/16 15:00 23:00 07:00 Intake Total 470 ml 800 ml Output Total 150 ml 200 ml Balance 320 ml 600 ml Exam HEENT examination; supple neck, no JVD. No lymphadenopathy. Midline trachea. No thyromegaly. Pharynx is clear. Chest examined; left lung is clear to auscultation with scattered crackles involving the right lung. S1-S2 audible, no murmurs. Regular rhythm. Abdomen examination; soft, nondistended. No organomegaly. Bowel sounds audible. Extremity examination; no peripheral edema. REFRIGERATION LEAD examination; no focal deficit. Results Result Diagram: 08/14/16 0550 08/14/16 0550 Results 24 hrs Laboratory Tests Test 08/14/16 05:50 White Blood Count 10.3 Red Blood Count 2.93 #L Hemoglobin 8.4 #L Hematocrit 26.2 #L Mean Corpuscular Volume 89.4 Mean Corpuscular Hemoglobin 28.7 L Mean Corpuscular Hemoglobin Concent 32.1 Red Cell Distribution Width 16.6 H Platelet Count 185 # Mean Platelet Volume 9.9 Neutrophils % 92.2 H Lymphocytes % 2.2 L Monocytes % 3.6 Eosinophils % 0.0 Basophils % 0.0 Nucleated Red Blood Cells % 0.0 Neutrophils # 9.5 H Lymphocytes # 0.2 L Monocytes # 0.4 Eosinophils # 0.0 Basophils # 0.0 Nucleated Red Blood Cells # 0.0 Sodium Level 137 Potassium Level 3.3 L Chloride Level 110 Carbon Dioxide Level 22 Anion Gap 8 # Blood Urea Nitrogen 16 Creatinine 0.56 L Glucose Level 212 Calcium Level 8.3 L Phosphorus Level 2.3 L Magnesium Level 2.0 Medications Medications Current Medications Sodium Chloride (NS) 1,000 ml @ 100 mls/hr Q10H IV Last administered on 11:39; Admin Dose 100 MLS/HR; Start 08/12/16 at 08:50 Ondansetron HCl (Zofran Inj) 4 mg Q6H PRN IV NAUSEA AND/OR VOMITING; Start at 09:00 Pantoprazole (Protonix Iv) 40 mg DAILY@06 IV Last administered on 08/14/16 05: 41; Admin Dose 40 MG; Start 08/13/16 at 06:00 Enoxaparin Sodium (Lovenox) 40 mg DAILY SC Last administered on 08/14/16 09:29 ; Admin Dose 40 MG; Start 08/12/16 at 09:00 Acetaminophen (Tylenol Tab) 650 mg Q4 PRN PO MODERATE PAIN LEVEL 4-6; Start at 09:00 Amantadine HCl (Symmetrel) 100 mg BID PO Last administered on 08/14/16 09:08; Admin Dose 100 MG; Start 08/12/16 at 09:00 Ascorbic Acid (Vitamin C) 500 mg BID PO Last administered on 08/14/16 09:09; Admin Dose 500 MG; Start 08/12/16 at 09:00 Bisacodyl (Dulcolax Supp) 10 mg DAILY PRN [place] CONSTIPATION; Start 08/12/16 at 09 :00 Carbidopa/Levodopa (Sinemet (25/ 100)) 1 tab TID PO Last administered on 12:42; Admin Dose 1 TAB; Start 08/12/16 at 09:00 Diclofenac Sodium (Voltaren 1% Gel) 2 gm DAILY PRN TP PAIN; Start 08/12/16 at 09:00 Diltiazem HCl (Cardizem Sr) 120 mg TID PO Last administered on 08/14/16 12:43 ; Admin Dose 120 MG; Start 08/12/16 at 09:00 Docusate Sodium (Colace) 200 mg QHS PO Last administered on 08/13/16 21:15; Admin Dose 200 MG; Start 08/12/16 at 21:00 Escitalopram Oxalate (Lexapro) 10 mg DAILY PO Last administered on 08/14/16 09 :09; Admin Dose 10 MG; Start 08/12/16 at 09:00 Gabapentin (Neurontin) 100 mg BID PO Last administered on 08/14/16 09:10; Admin Dose 100 MG; Start 08/12/16 at 09:00 Acetaminophen/ Hydrocodone Bitart ([place] (5/325)) 1 tab Q6 PRN PO MODERATE PAIN LEVEL 4-6 Last administered on 08/12/16 19:10; Admin Dose 1 TAB; Start at 09:00 Acetaminophen/ Hydrocodone Bitart ([place] (5/325)) 2 tab Q6 PRN PO SEVERE PAIN LEVEL 7-10 Last administered on 08/13/16 03:43; Admin Dose 2 TAB; Start at 09:00 Hyoscyamine (Levsin (Sl)) 0.125 mg Q6 PRN [place] ABDOMINAL PAIN; Start 08/12/16 at 09:00 Magnesium Hydroxide (Milk Of Mag) 30 ml QHS PRN PO CONSTIPATION; Start at 09:00 Metoprolol Succinate (Toprol Xl) 25 mg DAILY PO Last administered on 08/14/16 09:10; Admin Dose 25 MG; Start 08/12/16 at 09:00 Montelukast Sodium (Singulair) 10 mg QHS PO Last administered on 08/13/16 21: 16; Admin Dose 10 MG; Start 08/12/16 at 21:00 Multivitamins Therapeutic (Theragran) 1 tab DAILY PO Last administered on 09:09; Admin Dose 1 TAB; Start 08/12/16 at 09:00 Sodium Biphosphate/ Sodium Phosphate (Fleet Enema) 135 ml DAILY PRN [place] CONSTIPATION; Start 08/12/16 at 09:00 Salmeterol Xinafoate/ Fluticasone (Advair 250/50 Diskus) 1 inh BID INH Last administered on 08/14/16 09:13; Admin Dose 1 INH; Start 08/12/16 at 09:00 Tiotropium [place] (Spiriva) 1 inh DAILY INH Last administered on 08/14/16 09: 13; Admin Dose 1 INH; Start 08/12/16 at 09:00 Trazodone HCl 100 mg 100 mg QHS PO Last administered on 08/13/16 21:15; Admin Dose 100 MG; Start 08/12/16 at 21:00 Cefepime HCl (Maxipime 1gm/50 ml (Pmx)) 50 ml @ 100 mls/hr DAILY IVPB Last administered on 08/14/16 09:12; Admin Dose 100 MLS/HR; Start 08/13/16 at 09:00 Methylprednisolone Sodium Succinate 40 mg 40 mg BID IV Last administered on 09:17; Admin Dose 40 MG; Start 08/14/16 at 09:00 Vancomycin HCl (Vancocin) 100 ml @ 100 mls/hr Q24H IVPB ; Start 08/15/16 at 13: 00 Miscellaneous Information (*Rx Drug Level Order Reminder*) 1 ONCE ONCE XX ; Start 08/15/16 at 12:00; Stop 08/15/16 at 12:01 MICHELLE HEALY Aug 14, 2016 15:10
--- NOTE | 2016-08-14 17:35 | CONS ---
DATE OF ADMISSION: 08/13/2016 DATE OF CONSULTATION: 08/14/2016 TYPE OF CONSULTATION: Infectious Disease. REASON FOR CONSULTATION: Antibiotic management. HISTORY OF PRESENT ILLNESS: Crow Herbert is an 85-year-old Indonesian Ethiopian male with a number of problems who was admitted on 08/12/2016 with shortness of breath and altered mental status. His pas t problems include: 1. COPD. 2. Asthma. 3. Hypertension. 4. Dementia. 5. Atrial fibrillation. 6. GERD. 7. Osteoarthritis. 8. Gastric cancer. Acutely, the patient was transferred from alf facility with respiratory failure, fever t o 103.6 shortness of breath, altered mental status. Blood pressure stable requiring repeat BiPAP in termittently. He was tachycardic on admission. On admission, his white count was 8.7, hemoglobin 1 2.3, hematocrit 39, platelet count of 294. Today his white count is 10.3. BUN and creatinine 16/0. 56. Urine shows trace leukocyte esterase, 25 to 50 white cells per high-power field. Microbiology: Blood cultures are growing gram-positive rods, 1 out of 2 and the Tori species, not albicans an d is growing from her urine culture. A CT scan of the abdomen and pelvis from the showed scatt ered patchy airspace opacities bilaterally, I guess in the lungs, new compared with prior study. Bi lateral small pleural effusions, new compared with the prior study. Small hiatal hernia, descending and sigmoid diverticulosis without diverticulitis, mild bladder wall thickening suggesting cystitis , vascular calcifications, mild to moderate compression deformity of L1, L2 and L4 vertebral bodies, likely related to osteoporosis, increased compared to 05/29/2016. Moderate to severe compression d eformities of L1 through L3 vertebral bodies. Chest x-ray on the shows patchy air space opacit ies throughout the right lung for pneumonia. The patient was started on vancomycin and cefepime. PAST MEDICAL HISTORY: Operations as outlined. FAMILY HISTORY: Noncontributory. SOCIAL HISTORY: Does not smoke, drink or abuse drugs. ALLERGIES: NONE TO PENICILLIN, SULFA OR FOODS. MEDICATIONS: Per chart. REVIEW OF SYSTEMS: As per HPI. PHYSICAL EXAMINATION: GENERAL: The patient is an elderly appearing male who is awake, noncommunicative, in no acute distr ess. VITAL SIGNS: Stable. He is afebrile. T-max on admission was 103.6, currently 98.4. SKIN: Without generalized rash. HEENT: Within normal limits. NECK: Supple. LYMPH NODES: None palpable. CHEST: Decreased breath sounds at the bases with occasional rhonchi. HEART: Without murmur or gallop. ABDOMEN: Soft, nontender, without organosplenomegaly or masses. EXTREMITIES: Without cyanosis, clubbing, or edema. RECTAL AND GENITAL: Deferred. NEUROLOGIC: No focal neurologic abnormalities. The patient has senile dementia, in conclusion. IMPRESSION AND PLAN: The patient has hypoxic respiratory failure with pneumonia. He was started on vancomycin and cefepime. Gram-positive cocci, gram-positive rods. Blood is probably a contaminant . It should be repeated so we will repeat that and I guess we should get a culture of the sputum. I will dictate my findings to Dr. Martin and Dr. Harris. Dictated By: MILADY VERGARA MD, JD/DANIELA Conf#: [id number] DID#: [id number]
[2016-08-14] MEDS: traZODone 100 MG TAB PO SCH (20:57)
[2016-08-14] MEDS: MONTELUKAST 10 MG TAB PO SCH (20:57)
[2016-08-14] MEDS: DOCUSATE SODIUM 100 MG CAP PO SCH (20:57)
[2016-08-15] VITALS (13 sets, daily range): BP systolic 111–144; BP diastolic 63–87; PULSE 96–110; RESP 18–20
[2016-08-15] MEDS: ALBUTEROL/IPRATROPIUM (NEB) 3 ML AMP NEB SCH ×6 (01:09→20:36)
[2016-08-15] MEDS: SOD CHLORIDE 0.9% 1,000 ML IV SCH ×2 (01:20→06:12)
[2016-08-15] MEDS: PANTOPRAZOLE (EC) 40 MG TAB PO SCH (06:11)
[2016-08-15 06:16] LABS: ADD SCAN DIFF NO
[2016-08-15 06:30] LABS: ABNORMAL IP MESSAGE 1; BASOPHILS % 0.1 % (0.0-2.0); HEMATOCRIT 28.6 % (42.0-52.0); HEMOGLOBIN 9.2 g/dl (14.0-18.0); LYMPHOCYTES # 0.3 10^3/ul (0.8-2.9); LYMPHOCYTES % 2.2 % (15.0-51.0); MEAN CORPUSCULAR HGB CONC 32.2 g/dl (32.0-37.0); MEAN CORPUSCULAR VOLUME 90.2 fl (82.0-101.0); MONOCYTE # 0.3 10^3/ul (0.3-0.9); MONOCYTES % 2.1 % (0.0-11.0); NEUTROPHIL # 11.4 10^3/ul (1.6-7.5); NUCLEATED RED BLOOD CELLS% 0.2 /100WBC (0.0-0.0); PLATELET COUNT 212 10^3/UL (140-415); RED BLOOD COUNT 3.17 10^6/ul (4.70-6.10); RED CELL DISTRIBUTION WIDTH 17.1 % (11.5-14.5)
[2016-08-15 06:56] LABS: NEUTROPHILS % 94.8 % (39.0-77.0)
[2016-08-15 06:57] LABS: CALCIUM 8.8 mg/dl (8.4-10.2); CREATININE 0.62 mg/dl (0.61-1.24); MAGNESIUM 2.1 mg/dl (1.7-2.5); PHOSPHORUS 2.3 mg/dl (2.5-4.9); POTASSIUM 3.8 mmol/L (3.5-5.1)
[2016-08-15] MEDS: SUCRALFATE (100 MG/ML) 10ML CUP PO SCH ×3 (08:07→17:57)
[2016-08-15] MEDS: DILTIAZEM (SR) 60 MG CAP PO SCH ×3 (08:08→20:25)
[2016-08-15] MEDS: ESCITALOPRAM 10 MG TAB PO SCH (08:09)
[2016-08-15] MEDS: ASCORBIC ACID 500 MG TAB PO SCH ×2 (08:09→20:25)
[2016-08-15] MEDS: CARBIDOPA/LEVODOPA (25/100) TAB PO SCH ×3 (08:09→20:25)
[2016-08-15] MEDS: CEFEPIME 1GM/50 ML (PMX) 50 ML IVPB SCH (08:09)
[2016-08-15] MEDS: GABAPENTIN 100 MG CAP PO SCH ×2 (08:09→20:25)
[2016-08-15] MEDS: METOPROLOL (XL) 25 MG TAB PO SCH (08:09)
[2016-08-15] MEDS: METHYLPREDNISOLONE 40 MG INJ IV SCH (08:09)
[2016-08-15] MEDS: MULTIVITAMINS THERAPEUTIC TAB PO SCH (08:09)
[2016-08-15] MEDS: AMANTADINE 100 MG CAP PO SCH ×2 (08:09→20:25)
[2016-08-15] MEDS: SALMETEROL/FLUTICASONE 250/50 INHA INH SCH ×2 (08:10→20:24)
[2016-08-15] MEDS: TIOTROPIUM 18 MCG CAPSULE INHA DEV INH SCH (08:10)
[2016-08-15] MEDS: ENOXAPARIN 40 MG/0.4 ML SYG SC SCH (08:11)
--- NOTE | 2016-08-15 10:23 | RADRPT ---
PROCEDURE: XR Chest 1 View. CLINICAL INDICATION: Shortness of breath, congestive heart failure. TECHNIQUE: AP view of the chest was obtained. COMPARISON: August 13, 2016 FINDINGS: The heart size is within normal limits. Calcified atherosclerosis is noted in the aorta. Central pu lmonary vascular congestion and interstitial prominence is seen in both lungs. Patchy infiltrates a re identified throughout the right lung and may be combined with small pleural effusion. Calcified granulomas are identified in the left upper lobe. 9 mm nodular density is noted over the left upper lobe. The osseous structures are osteopenic, but appear grossly intact. IMPRESSION: Calcified atherosclerosis in the aorta. Stable central pulmonary vascular congestion and interstitial prominence in both lungs. Stable patchy infiltrates throughout the right lung, combined with small pleural effusion. 9 mm nodular density over the left upper lobe. This is not visualized on the prior exam. A lung no dule is not excluded. Continued follow-up to assess for persistence of this finding or further sam acterization with CT should be considered. Calcified granulomatous disease in the left lung. RPTAT: AA .Rogers Dumont MD, Date Time Electronically viewed and signed by .Rogers Dumont MD, on 08/15/2016 10:22 .P/
[2016-08-15] MEDS ORDERED: NEUTRA-PHOS 250 MG PACKET PO ONE (11:00)
--- NOTE | 2016-08-15 11:10 | PN ---
DATE: 08/15/2016 SUBJECTIVE: The patient is stable. Continues to have a cough, no other events noted. OBJECTIVE: VITAL SIGNS: Blood pressure is 144/81, respirations 18, pulse 107, temperature 97.7. HEENT: Head is normocephalic. NECK: Supple. HEART: Regular rate. LUNGS: Show diminished breath sounds at the base. Positive rhonchi. ABDOMEN: Soft, nontender to palpation. No rebound or guarding. EXTREMITIES: Negative for clubbing, cyanosis, no edema. DERMATOLOGIC: No rashes. MUSCULOSKELETAL: No joint effusions. NEUROLOGIC: No change in exam. MEDICATIONS: The patient's medications have been reviewed. LABORATORY DATA: Shows a white count 12.0, hemoglobin 9.2, hematocrit 28.7, platelet count is 212. Sodium 142, potassium 3.9, chloride 112, BUN 18, creatinine 0.62, phosphorus is 2.3. ASSESSMENT AND PLAN: 1. Sepsis secondary to pneumonia and bacteremia. The patient remains on broad-spectrum antibiotics . Will follow up with ID for long-term recommendations. Continue current antibiotic regimen. 2. Acute hypoxemic respiratory failure secondary to pneumonia. The patient is clinically improving , remains on supplemental oxygen. Will continue. Follow up with pulmonary. Continue to taper down steroids. 3. Acute encephalopathy with underlying dementia. Etiology is toxic metabolic. Continue to monito r. 4. History of chronic obstructive pulmonary disease, pulmonary fibrosis. Continue medical manageme nt. 5. Parkinson's disease. Continue current treatment plan. 6. Abdominal pain, chronic. Etiology is likely secondary to esophagitis. The patient remains on P PI, continue to monitor. 7. History of paroxysmal atrial fibrillation, currently in sinus rhythm. Continue to monitor. 8. Depression. Continue Lexapro. 9. Anemia. Continue to monitor hemoglobin and hematocrit levels. 10. Gastritis. Continue Protonix b.i.d. 11. History of gastric cancer. 12. Osteoporosis. Continue bisphosphonate. 13. Hypophosphatemia, replete with sodium phosphate. 14. Debility. Continue PT, OT. 15. Gastrointestinal and deep venous thrombosis prophylaxis. Continue PPI and Lovenox. Dictated By: JEFF HAUSER DO NR/NTS Conf#: [id number] DID#: [id number]
--- NOTE | 2016-08-15 12:17 | CONS ---
Date/Time of Note Date/Time of Note DATE: 08/15/16 TIME: 12:14 Assessment/Plan Assessment/Plan Additional Assessment/Plan Assessment recommendations; 1. P atient admitted with pneumonia currently on appropriate antibiotic regimen. 2. Dementia. 3. Parkinson's disease. 4. Underlying COPD. 5. Possibly right lung fibrosis. Continue current treatment. Obtain follow-up chest x-ray in 24 hours. 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 Consultation Date/Type/Reason Admit Date/Time Aug 13, 2016 at 09:16 Initial Consult Date 08/12/16 Type of Consultation: Pulmonary 24 HR Interval Summary Free Text/Dictation Patient's condition is stable. Remains awake and alert. General examination; elderly male, currently no distress. Exam/Review of Systems Vital Signs Vitals Vital Signs Date Time Temp Pulse Resp B/P Pulse Ox O2 Delivery O2 Flow Rate FiO2 08/15/16 12:04 97.8 18 127/72 08/15/16 08:49 107 08/15/16 08:46 3.0 08/15/16 08:44 94 Nasal Cannula 08/13/16 12:17 21 Intake and Output 08/14/16 08/14/16 08/15/16 15:00 23:00 07:00 Intake Total 1250 ml 350 ml Balance 1250 ml 350 ml Exam HEENT examination; supple neck, no JVD. No lymphadenopathy. Midline trachea. No thyromegaly. Chest examined; diminished but clear vessel. S1-S2 audible, no murmurs. Regular rhythm. Abdomen examination; soft, nontender. No organomegaly. Bowel sounds audible. Extremity exam; no peripheral edema. 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 Results Result Diagram: 08/15/16 0600 08/15/16 0600 Results 24 hrs Laboratory Tests Test 08/14/16 16:00 08/15/16 06:00 Lactic Acid Level 2.2 White Blood Count 12.0 H Red Blood Count 3.17 L Hemoglobin 9.2 L Hematocrit 28.6 L Mean Corpuscular Volume 90.2 Mean Corpuscular Hemoglobin 29.0 Mean Corpuscular Hemoglobin Concent 32.2 Red Cell Distribution Width 17.1 H Platelet Count 212 Mean Platelet Volume 10.0 Neutrophils % 94.8 H Lymphocytes % 2.2 L Monocytes % 2.1 Eosinophils % 0.0 Basophils % 0.1 Nucleated Red Blood Cells % 0.2 H Neutrophils # 11.4 H Lymphocytes # 0.3 L Monocytes # 0.3 Eosinophils # 0.0 Basophils # 0.0 Nucleated Red Blood Cells # 0.0 Sodium Level 142 Potassium Level 3.8 Chloride Level 112 H Carbon Dioxide Level 23 Anion Gap 11 Blood Urea Nitrogen 18 Creatinine 0.62 Glucose Level 174 Calcium Level 8.8 Phosphorus Level 2.3 L Magnesium Level 2.1 Medications Medications Current Medications Ondansetron HCl (Zofran Inj) 4 mg Q6H PRN IV NAUSEA AND/OR VOMITING; Start at 09:00 Enoxaparin Sodium (Lovenox) 40 mg DAILY SC Last administered on 08/15/16 08:11 ; Admin Dose 40 MG; Start 08/12/16 at 09:00 Acetaminophen (Tylenol Tab) 650 mg Q4 PRN PO MODERATE PAIN LEVEL 4-6; Start at 09:00 Amantadine HCl (Symmetrel) 100 mg BID PO Last administered on 08/15/16 08:09; Admin Dose 100 MG; Start 08/12/16 at 09:00 Ascorbic Acid (Vitamin C) 500 mg BID PO Last administered on 08/15/16 08:09; Admin Dose 500 MG; Start 08/12/16 at 09:00 Bisacodyl (Dulcolax Supp) 10 mg DAILY PRN [place] CONSTIPATION; Start 08/12/16 at 09 :00 Carbidopa/Levodopa (Sinemet (25/ 100)) 1 tab TID PO Last administered on 08:09; Admin Dose 1 TAB; Start 08/12/16 at 09:00 Diclofenac Sodium (Voltaren 1% Gel) 2 gm DAILY PRN TP PAIN; Start 08/12/16 at 09:00 Diltiazem HCl (Cardizem Sr) 120 mg TID PO Last administered on 08/15/16 08:08 ; Admin Dose 120 MG; Start 08/12/16 at 09:00 Docusate Sodium (Colace) 200 mg QHS PO Last administered on 08/14/16 20:57; Admin Dose 200 MG; Start 08/12/16 at 21:00 Escitalopram Oxalate (Lexapro) 10 mg DAILY PO Last administered on 08/15/16 08 :09; Admin Dose 10 MG; Start 08/12/16 at 09:00 Gabapentin (Neurontin) 100 mg BID PO Last administered on 08/15/16 08:09; Admin Dose 100 MG; Start 08/12/16 at 09:00 Acetaminophen/ Hydrocodone Bitart ([place] (5/325)) 1 tab Q6 PRN PO MODERATE PAIN LEVEL 4-6 Last administered on 08/12/16 19:10; Admin Dose 1 TAB; Start at 09:00 Acetaminophen/ Hydrocodone Bitart ([place] (5/325)) 2 tab Q6 PRN PO SEVERE PAIN LEVEL 7-10 Last administered on 08/13/16 03:43; Admin Dose 2 TAB; Start at 09:00 Hyoscyamine (Levsin (Sl)) 0.125 mg Q6 PRN [place] ABDOMINAL PAIN; Start 08/12/16 at 09:00 Magnesium Hydroxide (Milk Of Mag) 30 ml QHS PRN PO CONSTIPATION; Start at 09:00 Metoprolol Succinate (Toprol Xl) 25 mg DAILY PO Last administered on 08/15/16 08:09; Admin Dose 25 MG; Start 08/12/16 at 09:00 Montelukast Sodium (Singulair) 10 mg QHS PO Last administered on 08/14/16 20: 57; Admin Dose 10 MG; Start 08/12/16 at 21:00 Multivitamins Therapeutic (Theragran) 1 tab DAILY PO Last administered on 08:09; Admin Dose 1 TAB; Start 08/12/16 at 09:00 Sodium Biphosphate/ Sodium Phosphate (Fleet Enema) 135 ml DAILY PRN [place] CONSTIPATION; Start 08/12/16 at 09:00 Salmeterol Xinafoate/ Fluticasone (Advair 250/50 Diskus) 1 inh BID INH Last administered on 08/15/16 08:10; Admin Dose 1 INH; Start 08/12/16 at 09:00 Tiotropium [place] (Spiriva) 1 inh DAILY INH Last administered on 08/15/16 08: 10; Admin Dose 1 INH; Start 08/12/16 at 09:00 Trazodone HCl 100 mg 100 mg QHS PO Last administered on 08/14/16 20:57; Admin Dose 100 MG; Start 08/12/16 at 21:00 Cefepime HCl 50 ml @ 100 mls/hr DAILY IVPB Last administered on 08/15/16 08: 09; Admin Dose 100 MLS/HR; Start 08/13/16 at 09:00 Vancomycin HCl (Vancocin) 100 ml @ 100 mls/hr Q24H IVPB ; Start 08/15/16 at 13: 00 Pantoprazole (Protonix Tab) 40 mg DAILY@06 PO Last administered on 08/15/16 06 :11; Admin Dose 40 MG; Start 08/15/16 at 06:00 Methylprednisolone Sodium Succinate (Solu-Medrol) 20 mg BID IV ; Start 08/15/16 at 21:00 MICHELLE HEALY Aug 15, 2016 12:17
--- NOTE | 2016-08-15 12:52 | PN ---
DATE: 08/15/2016 SUBJECTIVE: The patient is awake, looks comfortable, no fevers. LABORATORY DATA: WBC 12, platelets 212, neutrophils 94.8. BUN 18, creatinine 0.62. MICROBIOLOGY: Urine culture growing Tori species, not albicans, but less than 10,000 colonies. Blood culture on admission grew gram-positive rods, 1 out of 2 sets. DIAGNOSTICS: Chest x-ray revealed stable patchy infiltrates throughout the right lung combined with small pleural effusion. ANTIMICROBIALS: The patient is on: 1. IV vancomycin. 2. Cefepime. 3. He is also getting steroids. PHYSICAL EXAMINATION: GENERAL: Fragile, elderly man who is alert, in no distress. HEENT: Head atraumatic, normocephalic. Sclerae anicteric. Buccal mucosa dry. NECK: Supple, trachea midline. CHEST: Rise symmetrical. Breath sounds with scattered crackles. HEART: S1, S2. ABDOMEN: Soft, bowel sounds present. EXTREMITIES: Without cyanosis. ASSESSMENT: 1. Sepsis with fever of 103, tachycardia and hypoxemia. 2. Pneumonia. 3. Gram-positive aletha bacteremia consistent with contaminant. 4. Chronic obstructive pulmonary disease. 5. Parkinson's dementia. 6. Atrial fibrillation. 7. History of gastric cancer. PLAN: The patient remains stable on appropriate regimen. We will give him a dose of voriconazole. Continue management as per primary team and consultants. Dictated By: JOSEPH PRADO WORKER'S COMPENSATION CLAIMS EXAMINER for MILADY VERGARA MD NI/NTS Conf#: [id number] DID#: [id number]
[2016-08-15] MEDS ORDERED: VANCOMYCIN 500MG/NS (PMX) 100 ML IVPB SCH (13:00)
[2016-08-15] MEDS ORDERED: VORICONAZOLE 200 MG TAB PO SCH (20:00)
[2016-08-15] MEDS: DOCUSATE SODIUM 100 MG CAP PO SCH (20:25)
[2016-08-15] MEDS: MONTELUKAST 10 MG TAB PO SCH (20:25)
[2016-08-15] MEDS: traZODone 100 MG TAB PO SCH (20:25)
[2016-08-15] MEDS ORDERED: METHYLPREDNISOLONE 40 MG INJ IV SCH (21:00)
[2016-08-16] VITALS (11 sets, daily range): BP systolic 100–136; BP diastolic 60–76; PULSE 88–101; RESP 18
[2016-08-16] MEDS: VANCOMYCIN 500MG/NS (PMX) 100 ML IVPB SCH ×2 (01:11→13:39)
[2016-08-16] MEDS: ALBUTEROL/IPRATROPIUM (NEB) 3 ML AMP NEB SCH ×6 (01:33→20:38)
[2016-08-16] MEDS: PANTOPRAZOLE (EC) 40 MG TAB PO SCH (06:26)
[2016-08-16 07:41] LABS: ADD SCAN DIFF NO
[2016-08-16 07:55] LABS: ABNORMAL IP MESSAGE 1; BASOPHILS % 0.1 % (0.0-2.0); HEMATOCRIT 27.2 % (42.0-52.0); HEMOGLOBIN 9.1 g/dl (14.0-18.0); LYMPHOCYTES # 0.4 10^3/ul (0.8-2.9); MEAN CORPUSCULAR HEMOGLOBIN 29.9 pg (29.0-33.0); MEAN CORPUSCULAR HGB CONC 33.5 g/dl (32.0-37.0); MEAN CORPUSCULAR VOLUME 89.5 fl (82.0-101.0); MEAN PLATELET VOLUME 10.4 fl (7.4-10.4); MONOCYTE # 0.3 10^3/ul (0.3-0.9); MONOCYTES % 3.4 % (0.0-11.0); NEUTROPHIL # 7.8 10^3/ul (1.6-7.5); NEUTROPHILS % 89.8 % (39.0-77.0); NUCLEATED RED BLOOD CELLS% 0.2 /100WBC (0.0-0.0); PLATELET COUNT 212 10^3/UL (140-415); RED BLOOD COUNT 3.04 10^6/ul (4.70-6.10); RED CELL DISTRIBUTION WIDTH 17.2 % (11.5-14.5); WHITE BLOOD COUNT 8.7 10^3/ul (4.8-10.8)
[2016-08-16] MEDS: SUCRALFATE (100 MG/ML) 10ML CUP PO SCH ×3 (07:56→18:17)
[2016-08-16 08:19] LABS: CALCIUM 8.2 mg/dl (8.4-10.2); CREATININE 0.68 mg/dl (0.61-1.24); PHOSPHORUS 2.5 mg/dl (2.5-4.9); POTASSIUM 3.4 mmol/L (3.5-5.1)
[2016-08-16] MEDS ORDERED: POTASSIUM CHLORIDE (SR) 20 MEQ TAB PO STA (08:30)
[2016-08-16] MEDS: MAGNESIUM HYDROXIDE 30ML CUP PO PRN (09:01)
[2016-08-16] MEDS: ESCITALOPRAM 10 MG TAB PO SCH (09:02)
[2016-08-16] MEDS: ASCORBIC ACID 500 MG TAB PO SCH ×2 (09:02→21:24)
[2016-08-16] MEDS: DILTIAZEM (SR) 60 MG CAP PO SCH ×3 (09:02→21:24)
[2016-08-16] MEDS: MULTIVITAMINS THERAPEUTIC TAB PO SCH (09:03)
[2016-08-16] MEDS: CARBIDOPA/LEVODOPA (25/100) TAB PO SCH ×3 (09:03→21:22)
[2016-08-16] MEDS: SALMETEROL/FLUTICASONE 250/50 INHA INH SCH ×2 (09:03→21:21)
[2016-08-16] MEDS: GABAPENTIN 100 MG CAP PO SCH ×2 (09:03→21:21)
[2016-08-16] MEDS: AMANTADINE 100 MG CAP PO SCH ×2 (09:03→21:22)
[2016-08-16] MEDS: METOPROLOL (XL) 25 MG TAB PO SCH (09:03)
[2016-08-16] MEDS: TIOTROPIUM 18 MCG CAPSULE INHA DEV INH SCH (09:04)
[2016-08-16] MEDS: predniSONE 20 MG TAB PO SCH (09:11)
--- NOTE | 2016-08-16 09:50 | PN ---
DATE: 08/16/2016 SUBJECTIVE: The patient is stable. He is complaining of some mild abdominal pain. No other acute events noted. Patient's cough is improving. The patient has been afebrile. No other events noted. OBJECTIVE: VITAL SIGNS: Blood pressure 136/76, respiration is 18, pulse 96, temperature 98.0. HEENT: Head is normocephalic. NECK: Supple. HEART: Regular rate. LUNGS: Show diminished breath sounds at base. ABDOMEN: Soft, nontender to palpation without rebound or guarding. EXTREMITIES: Negative for clubbing, cyanosis, no edema. DERMATOLOGIC: No rashes. MUSCULOSKELETAL: No joint effusions. NEUROLOGIC: No change in exam. MEDICATIONS: The patient's medications have been reviewed. LABORATORY DATA: Shows repeat blood cultures have been negative, a sodium 138, potassium 3.4, BUN 1 6, creatinine 0.68. White count 8.7, hemoglobin 9.1, hematocrit 37.2, platelet count is 212. ASSESSMENT AND PLAN: 1. Sepsis secondary to pneumonia and bacteremia. The patient remains on broad spectrum antibiotics . Repeat cultures have been negative. Continue current antibiotic regimen. Follow up infectious d isease. 2. Acute hypoxemic respiratory failure secondary to pneumonia. The patient is clinically improving . Repeat x-rays have been reviewed. Continue current treatment plan. Continue nebulizers and supp lemental oxygen. Continue to taper off prednisone. 3. Acute encephalopathy with underlying dementia. Etiology is toxic metabolic. Continue to monito r. 4. History of chronic obstructive pulmonary disease, pulmonary fibrosis. Continue to monitor. 5. Gastroesophageal reflux disease. Continue Sinemet. 6. Abdominal pain, chronic, likely secondary to esophagitis. The patient remains on PPI. Continue to monitor. 7. History of paroxysmal atrial fibrillation, currently in sinus rhythm. Continue to monitor. 8. Depression. Continue Lexapro. 9. Anemia. Continue to monitor H and H levels. 10. Gastritis. Continue Protonix b.i.d. 11. History of gastric cancer. 12. Osteoporosis. Continue bisphosphonate. 13. Hypokalemia. Replete potassium chloride. 14. Debility. Continue PT, OT. 15. Gastrointestinal and deep venous thrombosis prophylaxis. Continue proton pump inhibitor and Lo venox. Dictated By: JEFF GAMEZ/DANIELA Conf#: [id number] DID#: [id number]
[2016-08-16] MEDS: ENOXAPARIN 40 MG/0.4 ML SYG SC SCH (10:02)
--- NOTE | 2016-08-16 10:02 | RADRPT ---
PROCEDURE: XR Chest 1 View. CLINICAL INDICATION: Shortness of breath. TECHNIQUE: AP view of the chest was obtained. COMPARISON: Yesterday. FINDINGS: The heart size is within normal limits. Calcified atherosclerosis is noted in the aorta. Patchy inf iltrates throughout the right lung have mildly increased and/or combined with small pleural effusion . Eventration right hemidiaphragm is observed. Atelectasis is identified at the left lung base. Preet cified granulomas in the left lung are stable. Osseous structures are unchanged. IMPRESSION: Calcified atherosclerosis in the aorta. Mild interval increase in patchy infiltrates throughout the right lung, combined with small pleural effusion. Eventration of the left hemidiaphragm with atelectasis at the left lung base. Stable calcified granulomatous disease in the left lung. RPTAT: AA .Rogers Dumont MD, Date Time Electronically viewed and signed by .Rogers Dumont MD, on 08/16/2016 10:02 .P/
[2016-08-16] MEDS: CEFEPIME 1GM/50 ML (PMX) 50 ML IVPB SCH (11:54)
[2016-08-16] MEDS ORDERED: FUROSEMIDE 20 MG INJ IV ONE (13:30)
--- NOTE | 2016-08-16 13:32 | PN ---
DATE: 08/16/2016 SUBJECTIVE: No acute changes. The patient is alert, feels better. Looks comfortable, no fevers. LABORATORY DATA: WBC 8.7, neutrophils 79.8. BUN 16, creatinine 0.68. MICROBIOLOGY: Repeat blood cultures negative. Sputum culture growing gram-negative rods. ANTIMICROBIALS: The patient is on: 1. Vancomycin. 2. Cefepime. 3. Status post voriconazole dose. 4. He is also on steroid taper, now on prednisone p.o. PHYSICAL EXAMINATION: GENERAL: Fragile, elderly man who is alert, in no distress. HEENT: Head atraumatic, normocephalic. Sclerae anicteric. Buccal mucosa pink, dry. NECK: Supple. CHEST: Rise symmetrical. Breath sounds diminished to bases. HEART: S1, S2. ABDOMEN: Soft, bowel sounds present. EXTREMITIES: Without cyanosis. ASSESSMENT: 1. Status post sepsis with fevers, hypoxemia and tachycardia. 2. Pneumonia. 3. Corynebacterium species bacteremia consistent with contaminant. 4. Parkinson's dementia. 5. Chronic obstructive pulmonary disease. 6. Atrial fibrillation. 7. History of gastric carcinoma. PLAN: The patient remains stable on appropriate antimicrobials, pending sputum cultures. Follow pu lmonary and cardiology recommendations. Dictated By: JOSEPH PRADO CREW CHIEF for [employer]/DANIELA Conf#: [id number] DID#: [id number]
--- NOTE | 2016-08-16 13:48 | CONS ---
Date/Time of Note Date/Time of Note DATE: 08/16/16 TIME: 13:46 Assessment/Plan Assessment/Plan Additional Assessment/Plan Chest x-ray was reviewed from today which is again showing extensive infiltrative changes in right lung likely from underlying fibrosis. Assessment recommendations; 1. P patient admitted with shortness of breath due to pneumonia. However chest x-ray findings are indicative of underlying pulmonary fibrosis. 2. Mild dementia. 3. COPD. 4. Parkinson's disease. Continue current treatment. Will obtain CT chest without contrast. Consultation Date/Type/Reason Admit Date/Time Aug 13, 2016 at 09:16 Initial Consult Date 08/12/16 Type of Consultation: Pulmonary 24 HR Interval Summary Free Text/Dictation Patient condition stable. Denies any shortness of breath. Patient much more awake and alert. Able to answer questions appropriately. Denies any chest pain. Kianna; elderly male, awake alert currently in no distress. Exam/Review of Systems Vital Signs Vitals Vital Signs Date Time Temp Pulse Resp B/P Pulse Ox O2 Delivery O2 Flow Rate FiO2 08/16/16 12:59 2.0 08/16/16 12:57 76 22 96 Nasal Cannula 28 08/16/16 11:55 97.5 103/60 Intake and Output 08/15/16 08/15/16 08/16/16 15:00 23:00 07:00 Intake Total 1000 ml 900 ml Output Total 600 ml 650 ml Balance 400 ml 250 ml Exam HEENT exam; supple neck, no JVD. No lymphadenopathy. Midline trachea. No thyromegaly. Patient is edentulous and wears dentures. Has bilateral intraocular lens implants. Chest exam; diminished breath sound bilaterally. S1-S2 audible, no murmurs. Regular rhythm. Abdomen examination; scaphoid, nontender. No organomegaly. Bowel sounds audible. Extremity exam is; no peripheral edema. CROP RANCH HAND examination; patient awake alert follows simple commands and moves all 4 extremities. Results Result Diagram: 08/16/16 0615 08/16/16 0615 Results 24 hrs Laboratory Tests Test 08/16/16 06:15 White Blood Count 8.7 # Red Blood Count 3.04 L Hemoglobin 9.1 L Hematocrit 27.2 L Mean Corpuscular Volume 89.5 Mean Corpuscular Hemoglobin 29.9 Mean Corpuscular Hemoglobin Concent 33.5 Red Cell Distribution Width 17.2 H Platelet Count 212 Mean Platelet Volume 10.4 Neutrophils % 89.8 H Lymphocytes % 4.0 L Monocytes % 3.4 Eosinophils % 0.0 Basophils % 0.1 Nucleated Red Blood Cells % 0.2 H Neutrophils # 7.8 H Lymphocytes # 0.4 L Monocytes # 0.3 Eosinophils # 0.0 Basophils # 0.0 Nucleated Red Blood Cells # 0.0 Sodium Level 138 Potassium Level 3.4 L Chloride Level 104 Carbon Dioxide Level 29 Anion Gap 8 Blood Urea Nitrogen 16 Creatinine 0.68 Glucose Level 130 # Calcium Level 8.2 L Phosphorus Level 2.5 Magnesium Level 2.0 Medications Medications Current Medications Ondansetron HCl (Zofran Inj) 4 mg Q6H PRN IV NAUSEA AND/OR VOMITING; Start at 09:00 Enoxaparin Sodium (Lovenox) 40 mg DAILY SC Last administered on 08/16/16 10:02 ; Admin Dose 40 MG; Start 08/12/16 at 09:00 Acetaminophen (Tylenol Tab) 650 mg Q4 PRN PO MODERATE PAIN LEVEL 4-6; Start at 09:00 Amantadine HCl (Symmetrel) 100 mg BID PO Last administered on 08/16/16 09:03; Admin Dose 100 MG; Start 08/12/16 at 09:00 Ascorbic Acid (Vitamin C) 500 mg BID PO Last administered on 08/16/16 09:02; Admin Dose 500 MG; Start 08/12/16 at 09:00 Bisacodyl (Dulcolax Supp) 10 mg DAILY PRN [place] CONSTIPATION; Start 08/12/16 at 09 :00 Carbidopa/Levodopa (Sinemet (25/ 100)) 1 tab TID PO Last administered on 13:41; Admin Dose 1 TAB; Start 08/12/16 at 09:00 Diclofenac Sodium (Voltaren 1% Gel) 2 gm DAILY PRN TP PAIN; Start 08/12/16 at 09:00 Diltiazem HCl (Cardizem Sr) 120 mg TID PO Last administered on 08/16/16 13:41 ; Admin Dose 120 MG; Start 08/12/16 at 09:00 Docusate Sodium (Colace) 200 mg QHS PO Last administered on 08/15/16 20:25; Admin Dose 200 MG; Start 08/12/16 at 21:00 Escitalopram Oxalate (Lexapro) 10 mg DAILY PO Last administered on 08/16/16 09 :02; Admin Dose 10 MG; Start 08/12/16 at 09:00 Gabapentin (Neurontin) 100 mg BID PO Last administered on 08/16/16 09:03; Admin Dose 100 MG; Start 08/12/16 at 09:00 Acetaminophen/ Hydrocodone Bitart ([place] (5/325)) 1 tab Q6 PRN PO MODERATE PAIN LEVEL 4-6 Last administered on 08/12/16 19:10; Admin Dose 1 TAB; Start at 09:00 Acetaminophen/ Hydrocodone Bitart ([place] (5/325)) 2 tab Q6 PRN PO SEVERE PAIN LEVEL 7-10 Last administered on 08/13/16 03:43; Admin Dose 2 TAB; Start at 09:00 Hyoscyamine (Levsin (Sl)) 0.125 mg Q6 PRN SL ABDOMINAL PAIN; Start 08/12/16 at 09:00 Magnesium Hydroxide (Milk Of Mag) 30 ml QHS PRN PO CONSTIPATION Last administered on 08/16/16 09:01; Admin Dose 30 ML; Start 08/12/16 at 09:00 Metoprolol Succinate (Toprol Xl) 25 mg DAILY PO Last administered on 08/16/16 09:03; Admin Dose 25 MG; Start 08/12/16 at 09:00 Montelukast Sodium (Singulair) 10 mg QHS PO Last administered on 08/15/16 20: 25; Admin Dose 10 MG; Start 08/12/16 at 21:00 Multivitamins Therapeutic (Theragran) 1 tab DAILY PO Last administered on 09:03; Admin Dose 1 TAB; Start 08/12/16 at 09:00 Sodium Biphosphate/ Sodium Phosphate (Fleet Enema) 135 ml DAILY PRN [place] CONSTIPATION; Start 08/12/16 at 09:00 Salmeterol Xinafoate/ Fluticasone (Advair 250/50 Diskus) 1 inh BID INH Last administered on 08/16/16 09:03; Admin Dose 1 INH; Start 08/12/16 at 09:00 Tiotropium [place] (Spiriva) 1 inh DAILY INH Last administered on 08/16/16 09: 04; Admin Dose 1 INH; Start 08/12/16 at 09:00 Trazodone HCl 100 mg 100 mg QHS PO Last administered on 08/15/16 20:25; Admin Dose 100 MG; Start 08/12/16 at 21:00 Cefepime HCl (Maxipime 1gm/50 ml (Pmx)) 50 ml @ 100 mls/hr DAILY IVPB Last administered on 08/16/16 11:54; Admin Dose 100 MLS/HR; Start 08/13/16 at 09:00 Pantoprazole 40 mg 40 mg DAILY@06 PO Last administered on 08/16/16 06:26; Admin Dose 40 MG; Start 08/15/16 at 06:00 Vancomycin HCl (Vancocin) 100 ml @ 100 mls/hr Q12H IVPB Last administered on 13:39; Admin Dose 100 MLS/HR; Start 08/16/16 at 01:00 Prednisone (Prednisone) 20 mg DAILY PO Last administered on 08/16/16 09:11; Admin Dose 20 MG; Start 08/16/16 at 09:00 MICHELLE HEALY Aug 16, 2016 13:48
--- NOTE | 2016-08-16 18:07 | RADRPT ---
PROCEDURE: CT Chest without contrast. CLINICAL INDICATION: Cough. Evaluate for pneumonia versus fibrosis. TECHNIQUE: Multiple contiguous helical CT images of the chest were obtained without the administra tion of intravenous contrast. Coronal and sagittal reformatted images were obtained from the source images. CTDIvol (mGy): 7.12; Total Exam DLP (mGy-cm): 293.49. One or more of the following dose reduction techniques were utilized: - Automated exposure control. - Adjustment of the mA and/or kV according to patient size. - Use of iterative reconstruction technique. COMPARISON: Chest x-ray 08/16/2016. CTA chest 05/20/2015. FINDINGS: Limited imaging of the lower neck is unremarkable. The heart is mildly enlarged. There is no pericardial effusion. There is no mediastinal, hilar or axillary lymphadenopathy. The thoracic aorta is normal in caliber. Extensive thoracic aortic and co ronary artery atherosclerotic calcification is present. The pulmonary arteries are not enlarged. Small layering bilateral pleural effusions are present. Hyperinflation is present. Mild diffuse bro nchial wall thickening is observed. Scattered mucus plugging is seen within the lung bases. Emphys ematous changes are seen within the upper lungs. There is no subpleural cystic change / honeycombin g. There is no substantial interstitial thickening. Patchy mild ground-glass opacification and int erstitial thickening is seen posteriorly within the right upper lobe and to a lesser degree within t he right middle lobe and lingula. Bibasilar atelectatic changes are also observed. Limited imaging of the upper abdomen demonstrates bariatric surgical changes. A hiatal hernia is pr esent and unchanged. Bone density is decreased. Varying degrees of compression are seen within T8 and T11 - L2. The T11 and L1 compression fractures are unchanged. The remaining compression fractures are new since prev ious examination. Multiple healing nondisplaced fractures are seen within the right side of the maci st. Chest wall soft tissues are unremarkable. IMPRESSION: Mild patchy ground-glass opacification and interstitial thickening within the posterior aspect of th e right upper lobe and to a slightly lesser degree within the right middle lobe and lingula. Correl ate clinically for signs and symptoms of pneumonia. Hyperinflation with emphysematous changes and diffuse bronchial wall thickening most compatible with sequelae of COPD. Scattered mucus plugging is seen within the lung bases. No evidence of interstitial fibrosis. Low bone density with multilevel compression fractures, as described above. RPTAT: HLST .Chani Barraza MD, Date Time Electronically viewed and signed by .Chani Barraza MD, on 08/16/2016 18:07 .T/
[2016-08-16] MEDS: DOCUSATE SODIUM 100 MG CAP PO SCH (21:21)
[2016-08-16] MEDS: MONTELUKAST 10 MG TAB PO SCH (21:22)
[2016-08-16] MEDS: traZODone 100 MG TAB PO SCH (21:22)
[2016-08-17] VITALS (13 sets, daily range): BP systolic 120–148; BP diastolic 64–84; PULSE 92–105; RESP 19–21
[2016-08-17] MEDS: VANCOMYCIN 500MG/NS (PMX) 100 ML IVPB SCH (01:07)
[2016-08-17] MEDS: ALBUTEROL/IPRATROPIUM (NEB) 3 ML AMP NEB SCH ×5 (02:39→21:01)
[2016-08-17] MEDS: PANTOPRAZOLE (EC) 40 MG TAB PO SCH (06:00)
[2016-08-17 07:13] LABS: CALCIUM 8.4 mg/dl (8.4-10.2); CREATININE 0.55 mg/dl (0.61-1.24); MAGNESIUM 2.1 mg/dl (1.7-2.5); PHOSPHORUS 2.2 mg/dl (2.5-4.9); POTASSIUM 3.9 mmol/L (3.5-5.1)
[2016-08-17] MEDS: METOPROLOL (XL) 25 MG TAB PO SCH (09:01)
[2016-08-17] MEDS: ASCORBIC ACID 500 MG TAB PO SCH ×2 (09:01→21:18)
[2016-08-17] MEDS: ESCITALOPRAM 10 MG TAB PO SCH (09:02)
[2016-08-17] MEDS: predniSONE 20 MG TAB PO SCH (09:02)
[2016-08-17] MEDS: DILTIAZEM (SR) 60 MG CAP PO SCH ×3 (09:02→21:19)
[2016-08-17] MEDS: MULTIVITAMINS THERAPEUTIC TAB PO SCH (09:02)
[2016-08-17] MEDS: AMANTADINE 100 MG CAP PO SCH ×2 (09:02→21:19)
[2016-08-17] MEDS: CEFEPIME 1GM/50 ML (PMX) 50 ML IVPB SCH (09:03)
[2016-08-17] MEDS: CARBIDOPA/LEVODOPA (25/100) TAB PO SCH ×3 (09:03→21:19)
[2016-08-17] MEDS: SALMETEROL/FLUTICASONE 250/50 INHA INH SCH ×2 (09:04→21:00)
[2016-08-17] MEDS: GABAPENTIN 100 MG CAP PO SCH ×2 (09:06→21:18)
[2016-08-17] MEDS: SUCRALFATE (100 MG/ML) 10ML CUP PO SCH ×3 (09:07→18:15)
[2016-08-17] MEDS: ENOXAPARIN 40 MG/0.4 ML SYG SC SCH (09:15)
[2016-08-17] MEDS: TIOTROPIUM 18 MCG CAPSULE INHA DEV INH SCH (09:16)
--- NOTE | 2016-08-17 09:32 | CONS ---
DATE OF ADMISSION: 08/13/2016 DATE OF CONSULTATION: 08/17/2016 CARDIOLOGY CONSULTATION REFERRING PHYSICIAN: Dr. Trotter. REASON FOR CONSULTATION: Arrhythmias, rule out congestive heart failure. CHIEF COMPLAINT: Shortness of breath, cough. HISTORY OF PRESENT ILLNESS: Thank you for this referral. History obtained from the patient who is a very poor historian, discussion with Dr. Trotter and extensive review of the old chart. The patie nt also known to me from previous admission to the hospital. This is a very pleasant 85-year-old ge ntleman with multiple complicated medical history who was admitted a few days ago with tachycardia a nd fever of 103.6. The patient has been hypoxemic. The patient required to be on BiPAP intermitten tly. Currently, has been taken off of BiPAP; however, last night has become more short of breath. He was felt to possibly have also a component of congestive heart failure as well. A diuretic was g iven. Currently, breathing has improved now. He is also on multiple antibiotics. PAST MEDICAL HISTORY: History of memory impairment/dementia, history of paroxysmal atrial fibrillat ion, history of COPD, history of hypertension, history of chronic back pain and compression fracture s, history of gastric ulcers and possibly cancer status post resection, history of previous pneumoni a, sepsis, and asthma. SURGICAL HISTORY: Status post gastric surgery and EGD. SOCIAL HISTORY: The patient does not smoke or drink at this point, has been a longstanding smoker i n the past. He is in a halfway. MEDICATIONS: As per medication reconciliation, personally reviewed. FAMILY HISTORY: No reported coronary artery disease. ALLERGIES: NO REPORTED ALLERGIES. REVIEW OF SYSTEMS: He denies all other except for above-mentioned. His back pain is actually impro ving since 2 months ago when I saw him in the hospital. PHYSICAL EXAMINATION: VITAL SIGNS: Temperature is currently 97.7, on admission was 103.6, heart rate of 94, blood pressur e of 139/74, respiratory rate of 20, saturating 94%. HEENT: Normocephalic, atraumatic. Cachectic-looking thin gentleman in no acute distress. Pupils a re equal. CARDIOVASCULAR: Regular rate and rhythm, systolic murmur. PULMONARY: With mild rhonchi, diffuse. GASTROINTESTINAL: Soft, thin, nontender. EXTREMITIES: No significant edema. NEUROLOGIC: Awake and alert, oriented to person and place. PSYCHIATRIC: Appears to be calm and very pleasant. LABORATORY: WBC of 8.7, hemoglobin 9.1, platelets of 212. Sodium 140, potassium 3.9, BUN of 15, cr eatinine 0.55, glucose of 97. Mag is 2.1. Chest CT done yesterday shows mild patchy ground glass o pacification, interstitial thickening within the posterior aspect of the right upper lobe and a slig htly lesser degree within the right middle lobe and lingula, hyperventilation emphysematous changes, diffuse bronchial thickening compatible with history of chronic obstructive pulmonary disease. Sca ttered mucus plugging seen as well. No evidence of interstitial fibrosis. Low density with multipl e compression fractures. EKG on admission shows atrial tachycardia, probably an ectopic atrial tachycardia. DIAGNOSTIC DATA: Echocardiogram done on May 30 showed normal ejection fraction of 65%, mild aort ic stenosis with a mean gradient of 17. Left atrium was normal size. ASSESSMENT AND PLAN: 1. Pneumonia. 2. Question of congestive heart failure, does not appear to be fluid overloaded at this point. 3. Chronic obstructive pulmonary disease. 4. History of paroxysmal atrial fibrillation, currently appears to be in sinus rhythm so far. 5. Dementia. 6. History of gastroesophageal reflux disease and gastritis. 7. Anemia. 8. History of gastric cancer. 9. Electrolyte abnormalities. 10. Debility. 11. Dementia. 12. Bacteremia. RECOMMENDATIONS: Continue with the pulmonary care and respiratory care. ____ will be managed as pe r pulmonary. Diuresis will be given on as needed basis only. Antibiotic is being managed as per in ternal medicine and ID recommendations. Blood pressure currently remains stable. We will continue with the Cardizem and adjust it accordingly. Will avoid any beta deisy given his severe pulmonary disease. We will continue to monitor on telemetry. Thank you for this referral. We will continue to follow along with you. Dictated By: CHAVA THORNTON/DANIELA Conf#: [id number] DID#: [id number] CC: JEFF TROTTER DO;*EndCC*
--- NOTE | 2016-08-17 10:05 | PN ---
DATE: 08/17/2016 SUBJECTIVE: The patient is stable. The patient has been noted to be more confused in the last 1 to 2 days. The patient denies any active chest pain. OBJECTIVE: VITAL SIGNS: Blood pressure 139/74, respirations 20, pulse 94, temperature 97.7. HEENT: Head is normocephalic. NECK: Supple. HEART: Regular rate. LUNGS: Show diminished breath sounds at the bases. ABDOMEN: Soft, nontender. Mild tenderness to palpation, no change. No rebound or guarding. EXTREMITIES: Negative for clubbing, cyanosis. No edema. DERMATOLOGIC: No rashes. MUSCULOSKELETAL: No joint effusions. NEUROLOGIC: No change in exam. MEDICATIONS: The patient's medications have been reviewed. LABORATORY DATA: Shows sodium 140, potassium 3.9, phosphorus 2.2. The patient's sputum culture is positive for gram-negative rods. IMAGING: CT scan of the chest shows ground-glass opacification in the right upper lobe and middle l obe suggestive of pneumonia, emphysematous changes, mucus plugging, no evidence of interstitial fibr osis. ASSESSMENT AND PLAN: 1. Sepsis secondary to pneumonia and bacteremia. The patient is currently on antibiotic therapy, c ontinue. Repeat cultures were negative. Follow up with infectious disease. 2. Acute hypoxemic respiratory failure secondary to pneumonia. The patient's CT scan has been revi ewed. Continue current medical management. Continue nebulizer, supplemental oxygen. Continue to t aper off prednisone. 3. Acute encephalopathy with underlying dementia. Etiology is toxic metabolic. Continue to monito r. 4. History of chronic obstructive pulmonary disease. 5. Parkinson's disease. Continue Sinemet. 6. Abdominal pain, chronic with underlying esophagitis. Continue proton pump inhibitor. 7. History of paroxysmal atrial fibrillation, currently in sinus rhythm. Continue to monitor. Fol low up with cardiology. 8. Depression. Continue Lexapro. 9. Anemia. Continue to monitor hemoglobin and hematocrit levels. 10. Osteoporosis. We will continue sodium phosphate. 11. Debility. Continue PT, OT. 12. Gastrointestinal and deep venous thrombosis prophylaxis. Continue proton pump inhibitor and Lo venox. 13. History of gastric cancer. Dictated By: JEFF GAMEZ/DANIELA Conf#: [id number] DID#: [id number]
[2016-08-17] MEDS ORDERED: NEUTRA-PHOS 250 MG PACKET PO SCH (10:30)
--- NOTE | 2016-08-17 14:13 | CONS ---
Date/Time of Note Date/Time of Note DATE: 08/17/16 TIME: 14:11 Assessment/Plan Assessment/Plan Additional Assessment/Plan CT chest was reviewed from yesterday which is showing small bilateral pleural effusions with fibrotic changes involving the right lung. Assessment recommendations; 1. Patient admitted with respiratory failure doing fairly well now. 2. Pulmonary fibrosis. 3. CHF. 4. Parkinson disease. 5. History of gastric cancer. 6. COPD. Continue current supportive care. Consider stopping antibiotics. Consider transfer to [facility]. Consultation Date/Type/Reason Admit Date/Time Aug 13, 2016 at 09:16 Initial Consult Date 08/12/16 Type of Consultation: Pulmonary 24 HR Interval Summary Free Text/Dictation Patient condition remains stable. Remains awake alert. Has remained hemodynamically stable. On exam; elderly male, awake currently in no distress. Exam/Review of Systems Vital Signs Vitals Vital Signs Date Time Temp Pulse Resp B/P Pulse Ox O2 Delivery O2 Flow Rate FiO2 08/17/16 12:56 105 08/17/16 12:23 16 96 Nasal Cannula 4.0 08/17/16 11:27 97.7 130/84 08/17/16 02:42 28 Intake and Output 08/16/16 08/16/16 08/17/16 15:00 23:00 07:00 Intake Total 1200 ml 450 ml Output Total 1300 ml Balance -100 ml 450 ml Exam HEENT exam; supple neck, no JVD. No lymphadenopathy. Midline trachea. No thyromegaly. Chest examination of Chuck diminished breath on lung bases bilaterally. Upper lobes are fairly clear. S1-S2 audible, no murmurs. Regular rhythm. Abdomen examination; soft, scaphoid. No or organomegaly. Bowel sounds audible. Extremity exam; no peripheral edema. SEAM STEAMER examination; patient is awake and follows simple commands. Results Result Diagram: 08/16/16 0615 08/17/16 0604 Results 24 hrs Laboratory Tests Test 08/17/16 06:04 08/17/16 12:06 Sodium Level 140 Potassium Level 3.9 Chloride Level 106 Carbon Dioxide Level 29 Anion Gap 9 Blood Urea Nitrogen 15 Creatinine 0.55 L Glucose Level 97 Calcium Level 8.4 Phosphorus Level 2.2 L Magnesium Level 2.1 Vancomycin Level Trough 7.6 L Medications Medications Current Medications Ondansetron HCl (Zofran Inj) 4 mg Q6H PRN IV NAUSEA AND/OR VOMITING; Start at 09:00 Enoxaparin Sodium (Lovenox) 40 mg DAILY SC Last administered on 08/17/16 09:15 ; Admin Dose 40 MG; Start 08/12/16 at 09:00 Acetaminophen (Tylenol Tab) 650 mg Q4 PRN PO MODERATE PAIN LEVEL 4-6; Start at 09:00 Amantadine HCl (Symmetrel) 100 mg BID PO Last administered on 08/17/16 09:02; Admin Dose 100 MG; Start 08/12/16 at 09:00 Ascorbic Acid (Vitamin C) 500 mg BID PO Last administered on 08/17/16 09:01; Admin Dose 500 MG; Start 08/12/16 at 09:00 Bisacodyl (Dulcolax Supp) 10 mg DAILY PRN [place] CONSTIPATION; Start 08/12/16 at 09 :00 Carbidopa/Levodopa (Sinemet (25/ 100)) 1 tab TID PO Last administered on 13:20; Admin Dose 1 TAB; Start 08/12/16 at 09:00 Diclofenac Sodium (Voltaren 1% Gel) 2 gm DAILY PRN TP PAIN; Start 08/12/16 at 09:00 Diltiazem HCl (Cardizem Sr) 120 mg TID PO Last administered on 08/17/16 13:21 ; Admin Dose 120 MG; Start 08/12/16 at 09:00 Docusate Sodium (Colace) 200 mg QHS PO Last administered on 08/16/16 21:21; Admin Dose 200 MG; Start 08/12/16 at 21:00 Escitalopram Oxalate (Lexapro) 10 mg DAILY PO Last administered on 08/17/16 09 :02; Admin Dose 10 MG; Start 08/12/16 at 09:00 Gabapentin (Neurontin) 100 mg BID PO Last administered on 08/17/16 09:06; Admin Dose 100 MG; Start 08/12/16 at 09:00 Acetaminophen/ Hydrocodone Bitart ([place] (5/325)) 1 tab Q6 PRN PO MODERATE PAIN LEVEL 4-6 Last administered on 08/12/16 19:10; Admin Dose 1 TAB; Start at 09:00 Acetaminophen/ Hydrocodone Bitart ([place] (5/325)) 2 tab Q6 PRN PO SEVERE PAIN LEVEL 7-10 Last administered on 08/13/16 03:43; Admin Dose 2 TAB; Start at 09:00 Hyoscyamine (Levsin (Sl)) 0.125 mg Q6 PRN SL ABDOMINAL PAIN; Start 08/12/16 at 09:00 Magnesium Hydroxide (Milk Of Mag) 30 ml QHS PRN PO CONSTIPATION Last administered on 08/16/16 09:01; Admin Dose 30 ML; Start 08/12/16 at 09:00 Metoprolol Succinate (Toprol Xl) 25 mg DAILY PO Last administered on 08/17/16 09:01; Admin Dose 25 MG; Start 08/12/16 at 09:00 Montelukast Sodium (Singulair) 10 mg QHS PO Last administered on 08/16/16 21: 22; Admin Dose 10 MG; Start 08/12/16 at 21:00 Multivitamins Therapeutic (Theragran) 1 tab DAILY PO Last administered on 09:02; Admin Dose 1 TAB; Start 08/12/16 at 09:00 Sodium Biphosphate/ Sodium Phosphate (Fleet Enema) 135 ml DAILY PRN [place] CONSTIPATION; Start 08/12/16 at 09:00 Salmeterol Xinafoate/ Fluticasone (Advair 250/50 Diskus) 1 inh BID INH Last administered on 08/17/16 09:04; Admin Dose 1 INH; Start 08/12/16 at 09:00 Tiotropium [place] (Spiriva) 1 inh DAILY INH Last administered on 08/17/16 09: 16; Admin Dose 1 INH; Start 08/12/16 at 09:00 Trazodone HCl (Desyrel) 100 mg QHS PO Last administered on 08/16/16 21:22; Admin Dose 100 MG; Start 08/12/16 at 21:00 Pantoprazole 40 mg 40 mg DAILY@06 PO Last administered on 08/17/16 06:00; Admin Dose 40 MG; Start 08/15/16 at 06:00 Vancomycin HCl (Vancocin) 100 ml @ 100 mls/hr Q12H IVPB Last administered on 01:07; Admin Dose 100 MLS/HR; Start 08/16/16 at 01:00 Prednisone (Prednisone) 20 mg DAILY PO Last administered on 08/17/16 09:02; Admin Dose 20 MG; Start 08/16/16 at 09:00 Sodium Phosphate 500 mg 500 mg ONCE PO Last administered on 08/17/16 11:36; Admin Dose 500 MG; Start 08/17/16 at 10:30; Stop 08/17/16 at 23:00 Cefepime HCl (Maxipime 2gm/50 ml (Pmx)) 50 ml @ 100 mls/hr Q24H IVPB ; Start at 09:00 MICHELLE HEALY Aug 17, 2016 14:13
--- NOTE | 2016-08-17 14:52 | CONS ---
Date/Time of Note Date/Time of Note DATE: 08/17/16 TIME: 14:50 Assessment/Plan Assessment/Plan Chief Complaint/Hosp Course SUBJECTIVE: No acute changes. The patient is alert, feels better. Looks comfortable, no fevers. MICROBIOLOGY: Repeat blood cultures negative. Sputum culture growing E coli ESBL. ANTIMICROBIALS: The patient is on: 1. Vancomycin. 2. Cefepime. 3. Status post voriconazole dose. PHYSICAL EXAMINATION: GENERAL: Fragile, elderly man who is alert, in no distress. HEENT: Head atraumatic, normocephalic. Sclerae anicteric. Buccal mucosa pink , dry. NECK: Supple. CHEST: Rise symmetrical. Breath sounds diminished to bases. HEART: S1, S2. ABDOMEN: Soft, bowel sounds present. EXTREMITIES: Without cyanosis. ASSESSMENT: 1. Status post sepsis with fevers, hypoxemia and tachycardia. 2. Pneumonia. 3. Corynebacterium species bacteremia consistent with contaminant. 4. Parkinson's dementia. 5. Chronic obstructive pulmonary disease. 6. Atrial fibrillation. 7. History of gastric carcinoma. PLAN: The patient remains stable, will dc Vanco, continue Cefepime. Follow pulmonary and cardiology recommendations. DW staff Problems: Consultation Date/Type/Reason Admit Date/Time Aug 13, 2016 at 09:16 Initial Consult Date 08/12/16 Type of Consultation: id Exam/Review of Systems Vital Signs Vitals Vital Signs Date Time Temp Pulse Resp B/P Pulse Ox O2 Delivery O2 Flow Rate FiO2 08/17/16 12:56 105 08/17/16 12:23 16 96 Nasal Cannula 4.0 08/17/16 11:27 97.7 130/84 08/17/16 02:42 28 Intake and Output 08/16/16 08/16/16 08/17/16 15:00 23:00 07:00 Intake Total 1200 ml 450 ml Output Total 1300 ml Balance -100 ml 450 ml Results Result Diagram: 08/16/16 0615 08/17/16 0604 Results 24 hrs Laboratory Tests Test 08/17/16 06:04 08/17/16 12:06 Sodium Level 140 Potassium Level 3.9 Chloride Level 106 Carbon Dioxide Level 29 Anion Gap 9 Blood Urea Nitrogen 15 Creatinine 0.55 L Glucose Level 97 Calcium Level 8.4 Phosphorus Level 2.2 L Magnesium Level 2.1 Vancomycin Level Trough 7.6 L Medications Medications Current Medications Ondansetron HCl (Zofran Inj) 4 mg Q6H PRN IV NAUSEA AND/OR VOMITING; Start at 09:00 Enoxaparin Sodium (Lovenox) 40 mg DAILY SC Last administered on 08/17/16 09:15 ; Admin Dose 40 MG; Start 08/12/16 at 09:00 Acetaminophen (Tylenol Tab) 650 mg Q4 PRN PO MODERATE PAIN LEVEL 4-6; Start at 09:00 Amantadine HCl (Symmetrel) 100 mg BID PO Last administered on 08/17/16 09:02; Admin Dose 100 MG; Start 08/12/16 at 09:00 Ascorbic Acid (Vitamin C) 500 mg BID PO Last administered on 08/17/16 09:01; Admin Dose 500 MG; Start 08/12/16 at 09:00 Bisacodyl (Dulcolax Supp) 10 mg DAILY PRN [place] CONSTIPATION; Start 08/12/16 at 09 :00 Carbidopa/Levodopa (Sinemet (25/ 100)) 1 tab TID PO Last administered on 13:20; Admin Dose 1 TAB; Start 08/12/16 at 09:00 Diclofenac Sodium (Voltaren 1% Gel) 2 gm DAILY PRN TP PAIN; Start 08/12/16 at 09:00 Diltiazem HCl (Cardizem Sr) 120 mg TID PO Last administered on 08/17/16 13:21 ; Admin Dose 120 MG; Start 08/12/16 at 09:00 Docusate Sodium (Colace) 200 mg QHS PO Last administered on 08/16/16 21:21; Admin Dose 200 MG; Start 08/12/16 at 21:00 Escitalopram Oxalate (Lexapro) 10 mg DAILY PO Last administered on 08/17/16 09 :02; Admin Dose 10 MG; Start 08/12/16 at 09:00 Gabapentin (Neurontin) 100 mg BID PO Last administered on 08/17/16 09:06; Admin Dose 100 MG; Start 08/12/16 at 09:00 Acetaminophen/ Hydrocodone Bitart ([place] (5/325)) 1 tab Q6 PRN PO MODERATE PAIN LEVEL 4-6 Last administered on 08/12/16 19:10; Admin Dose 1 TAB; Start at 09:00 Acetaminophen/ Hydrocodone Bitart ([place] (5/325)) 2 tab Q6 PRN PO SEVERE PAIN LEVEL 7-10 Last administered on 08/13/16 03:43; Admin Dose 2 TAB; Start at 09:00 Hyoscyamine (Levsin (Sl)) 0.125 mg Q6 PRN [place] ABDOMINAL PAIN; Start 08/12/16 at 09:00 Magnesium Hydroxide (Milk Of Mag) 30 ml QHS PRN PO CONSTIPATION Last administered on 08/16/16 09:01; Admin Dose 30 ML; Start 08/12/16 at 09:00 Metoprolol Succinate (Toprol Xl) 25 mg DAILY PO Last administered on 08/17/16 09:01; Admin Dose 25 MG; Start 08/12/16 at 09:00 Montelukast Sodium (Singulair) 10 mg QHS PO Last administered on 08/16/16 21: 22; Admin Dose 10 MG; Start 08/12/16 at 21:00 Multivitamins Therapeutic (Theragran) 1 tab DAILY PO Last administered on 09:02; Admin Dose 1 TAB; Start 08/12/16 at 09:00 Sodium Biphosphate/ Sodium Phosphate (Fleet Enema) 135 ml DAILY PRN [place] CONSTIPATION; Start 08/12/16 at 09:00 Salmeterol Xinafoate/ Fluticasone (Advair 250/50 Diskus) 1 inh BID INH Last administered on 08/17/16 09:04; Admin Dose 1 INH; Start 08/12/16 at 09:00 Tiotropium [place] (Spiriva) 1 inh DAILY INH Last administered on 08/17/16 09: 16; Admin Dose 1 INH; Start 08/12/16 at 09:00 Trazodone HCl (Desyrel) 100 mg QHS PO Last administered on 08/16/16 21:22; Admin Dose 100 MG; Start 08/12/16 at 21:00 Pantoprazole 40 mg 40 mg DAILY@06 PO Last administered on 08/17/16 06:00; Admin Dose 40 MG; Start 08/15/16 at 06:00 Vancomycin HCl (Vancocin) 100 ml @ 100 mls/hr Q12H IVPB Last administered on 01:07; Admin Dose 100 MLS/HR; Start 08/16/16 at 01:00 Prednisone (Prednisone) 20 mg DAILY PO Last administered on 08/17/16 09:02; Admin Dose 20 MG; Start 08/16/16 at 09:00 Sodium Phosphate 500 mg 500 mg ONCE PO Last administered on 08/17/16 11:36; Admin Dose 500 MG; Start 08/17/16 at 10:30; Stop 08/17/16 at 23:00 Cefepime HCl (Maxipime 2gm/50 ml (Pmx)) 50 ml @ 100 mls/hr Q24H IVPB ; Start at 09:00 JOSEPH PRADO NP Aug 17, 2016 14:51
[2016-08-17] MEDS: DOCUSATE SODIUM 100 MG CAP PO SCH (21:18)
[2016-08-17] MEDS: MONTELUKAST 10 MG TAB PO SCH (21:19)
[2016-08-17] MEDS: traZODone 100 MG TAB PO SCH (21:19)
[2016-08-18] VITALS (11 sets, daily range): BP systolic 105–134; BP diastolic 57–76; PULSE 98–109; RESP 19–21
[2016-08-18] MEDS: ALBUTEROL/IPRATROPIUM (NEB) 3 ML AMP NEB SCH ×6 (00:44→21:37)
[2016-08-18] MEDS: PANTOPRAZOLE (EC) 40 MG TAB PO SCH (05:28)
[2016-08-18] MEDS: TIOTROPIUM 18 MCG CAPSULE INHA DEV INH SCH (08:25)
[2016-08-18] MEDS: SALMETEROL/FLUTICASONE 250/50 INHA INH SCH ×2 (08:25→20:53)
[2016-08-18] MEDS: SUCRALFATE (100 MG/ML) 10ML CUP PO SCH ×3 (08:25→17:49)
[2016-08-18] MEDS: predniSONE 20 MG TAB PO SCH (08:26)
[2016-08-18] MEDS: CARBIDOPA/LEVODOPA (25/100) TAB PO SCH ×3 (08:26→20:55)
[2016-08-18] MEDS: DILTIAZEM (SR) 60 MG CAP PO SCH ×3 (08:26→20:55)
[2016-08-18] MEDS: AMANTADINE 100 MG CAP PO SCH ×2 (08:26→20:55)
[2016-08-18] MEDS: GABAPENTIN 100 MG CAP PO SCH ×2 (08:27→20:54)
[2016-08-18] MEDS: MULTIVITAMINS THERAPEUTIC TAB PO SCH (08:27)
[2016-08-18] MEDS: ASCORBIC ACID 500 MG TAB PO SCH ×2 (08:27→20:54)
[2016-08-18] MEDS: METOPROLOL (XL) 25 MG TAB PO SCH (08:27)
[2016-08-18] MEDS: ENOXAPARIN 40 MG/0.4 ML SYG SC SCH (08:44)
--- NOTE | 2016-08-18 09:16 | PN ---
DATE: 08/18/2016 SUBJECTIVE: The patient this morning was noted to be more tachypneic. The patient was also noted t o be more confused and tachycardic. No other acute events noted. OBJECTIVE: VITAL SIGNS: Blood pressure 134/76, respirations 19, pulse 108, temperature 98.1. HEENT: Head is normocephalic. NECK: Supple. HEART: Tachycardic. LUNGS: Showed diminished breath sounds at the base. ABDOMEN: Soft, nontender to palpation. No rebound or guarding. EXTREMITIES: Negative for clubbing or cyanosis. No edema. DERMATOLOGIC: No rashes. MUSCULOSKELETAL: Have no joint effusion. NEUROLOGIC: No change in exam. MEDICATIONS: The patient's medications have been reviewed. LABORATORY DATA: Is currently pending. ASSESSMENT AND PLAN: 1. Sepsis secondary to pneumonia and bacteremia. The patient is currently on antibiotic therapy. Will continue. Repeat cultures have been negative. Follow up with infectious disease. 2. Acute hypoxemic respiratory failure secondary to pneumonia. The patient's CT scan was reviewed. The patient this morning appears to be more tachypneic. The plan is to get an ABG. Will continue supplemental oxygen and nebulizers. Will continue prednisone at the current dose and will follow u p with pulmonary for any further recommendations. 3. Tachycardia, likely secondary to hypoxemia. Will continue to monitor. Will followup with cardi ology for recommendations. 4. Acute encephalopathy with underlying dementia. Etiology is felt to be toxic metabolic hypoxemia . Will, however, get a CT scan of the brain to rule out any acute pathology. 5. History of chronic obstructive pulmonary disease/asthma. Will continue the current medical cortez gement, as stated above. 6. Parkinson's disease. Continue Sinemet. 7. Abdominal pain. Etiology is chronic with underlying esophagitis. Continue to monitor. Continu e PPI. 8. Paroxysmal atrial fibrillation. Currently in sinus rhythm. Continue to monitor. 9. Depression. Continue Lexapro. 10. Anemia. Continue to monitor H and H levels. 11. Continue proton pump inhibitor and Lovenox. 12. History of gastric cancer. Dictated By: JEFF GAMEZ/NTS Conf#: [id number] DID#: [id number]
[2016-08-18] MEDS: ESCITALOPRAM 10 MG TAB PO SCH (10:07)
[2016-08-18] MEDS: CEFEPIME 2GM/50 ML (PMX) 50 ML IVPB SCH (10:07)
[2016-08-18 10:08] LABS: AADO2 Arterial 118.2 mmHg (7.0-24.0); Allen Test ACCEPTAB; Arterial Base Excess 6.1 mmol/L (-3.0-3); Arterial COHb 0.3 % (0.0-3.0); Arterial Fraction of Oxyhgb 93.4 % (93.0-99.0); Arterial HCO3 29.5 mmol/L (22.0-26.0); Arterial MetHb 0.3 % (0.0-1.5); Arterial Total Hemglobin 10.8 g/dl (12.0-18.0); MODE NASAL CANNULA
--- NOTE | 2016-08-18 12:21 | CONS ---
Date/Time of Note Date/Time of Note DATE: 08/18/16 TIME: 12:19 Assessment/Plan Assessment/Plan Additional Assessment/Plan Assessment recommendations; 1. Patient admitted for COPD exacerbation and pneumonia however the findings on CT imaging of the chest as well as multiple chest x-rays are indicative of underlying pulmonary fibrosis, mostly involving the right lower lobe. 2. History of gastric cancer. 3. Dementia. 4. Generalized deconditioning. 5. Hypoxemia. Continue current treatment. Consultation Date/Type/Reason Admit Date/Time Aug 13, 2016 at 09:16 Initial Consult Date 08/12/16 Type of Consultation: Pulmonary 24 HR Interval Summary Free Text/Dictation Patient condition is stable. He is awake alert. Denies any significant shortness of breath. General exam; elderly male, awake alert currently in no distress. Exam/Review of Systems Vital Signs Vitals Vital Signs Date Time Temp Pulse Resp B/P Pulse Ox O2 Delivery O2 Flow Rate FiO2 08/18/16 11:07 97.8 102 19 105/62 94 08/18/16 08:57 Nasal Cannula 4.0 08/17/16 02:42 28 Intake and Output 08/17/16 08/17/16 08/18/16 15:00 23:00 07:00 Intake Total 720 ml 450 ml Output Total 800 ml Balance -80 ml 450 ml Exam HEENT exam is; supple neck, no JVD. No lymphadenopathy. Midline trachea. No thyromegaly. Pharynx is clear. Patient has bilateral intraocular lens implants. Patient is edentulous and wears dentures. Chest examined; diminished but clear breath sound. S1-S2 audible, no murmurs. Regular rhythm. Abdomen examination; soft, nondistended. No organomegaly. Bowel sounds audible. Extremity exam is; no peripheral edema. No clubbing. [employer] examination; no focal deficit. Patient is awake alert able to talk. Results Result Diagram: 08/16/16 0615 08/17/16 0604 Results 24 hrs Laboratory Tests Test 08/18/16 08:48 Blood Gas Specimen Source Blood arterial Arterial Blood Date Drawn 08/18/2016 9:40:55 AM Arterial Blood pH (Temp corrected) 7.508 H Arterial Blood pCO2 (Temp correct) 38.0 Arterial Blood pO2 (Temp corrected) 72.7 L Arterial Blood HCO3 29.5 H Arterial Blood Base Excess 6.1 H Arterial Blood Oxygen Saturation 94.0 L [place] Test ACCEPTAB Arterial Blood Gas Puncture Site Left Radial Arterial Blood Carboxyhemoglobin 0.3 Arterial Blood Methemoglobin 0.3 Blood Gas A-a O2 Differential 118.2 H Oxyhemoglobin Percent 93.4 Total Hemoglobin 10.8 L Blood Gas Temperature 37.0 Blood Gas Modality NASAL CANNULA FiO2 33.0 Blood Gas Notified Whom JLD Blood Gas Notified Time 08/18/2016 10:08:34 AM Medications Medications Current Medications Ondansetron HCl (Zofran Inj) 4 mg Q6H PRN IV NAUSEA AND/OR VOMITING; Start at 09:00 Enoxaparin Sodium (Lovenox) 40 mg DAILY SC Last administered on 08/18/16 08:44 ; Admin Dose 40 MG; Start 08/12/16 at 09:00 Acetaminophen (Tylenol Tab) 650 mg Q4 PRN PO MODERATE PAIN LEVEL 4-6; Start at 09:00 Amantadine HCl (Symmetrel) 100 mg BID PO Last administered on 08/18/16 08:26; Admin Dose 100 MG; Start 08/12/16 at 09:00 Ascorbic Acid (Vitamin C) 500 mg BID PO Last administered on 08/18/16 08:27; Admin Dose 500 MG; Start 08/12/16 at 09:00 Bisacodyl (Dulcolax Supp) 10 mg DAILY PRN [place] CONSTIPATION; Start 08/12/16 at 09 :00 Carbidopa/Levodopa (Sinemet (25/ 100)) 1 tab TID PO Last administered on 08:26; Admin Dose 1 TAB; Start 08/12/16 at 09:00 Diclofenac Sodium (Voltaren 1% Gel) 2 gm DAILY PRN TP PAIN; Start 08/12/16 at 09:00 Diltiazem HCl (Cardizem Sr) 120 mg TID PO Last administered on 08/18/16 08:26 ; Admin Dose 120 MG; Start 08/12/16 at 09:00 Docusate Sodium (Colace) 200 mg QHS PO Last administered on 08/17/16 21:18; Admin Dose 200 MG; Start 08/12/16 at 21:00 Escitalopram Oxalate (Lexapro) 10 mg DAILY PO Last administered on 08/18/16 10 :07; Admin Dose 10 MG; Start 08/12/16 at 09:00 Gabapentin (Neurontin) 100 mg BID PO Last administered on 08/18/16 08:27; Admin Dose 100 MG; Start 08/12/16 at 09:00 Acetaminophen/ Hydrocodone Bitart ([place] (5/325)) 1 tab Q6 PRN PO MODERATE PAIN LEVEL 4-6 Last administered on 08/12/16 19:10; Admin Dose 1 TAB; Start at 09:00 Acetaminophen/ Hydrocodone Bitart ([place] (5/325)) 2 tab Q6 PRN PO SEVERE PAIN LEVEL 7-10 Last administered on 08/13/16 03:43; Admin Dose 2 TAB; Start at 09:00 Hyoscyamine (Levsin (Sl)) 0.125 mg Q6 PRN SL ABDOMINAL PAIN; Start 08/12/16 at 09:00 Magnesium Hydroxide (Milk Of Mag) 30 ml QHS PRN PO CONSTIPATION Last administered on 08/16/16 09:01; Admin Dose 30 ML; Start 08/12/16 at 09:00 Metoprolol Succinate (Toprol Xl) 25 mg DAILY PO Last administered on 08/18/16 08:27; Admin Dose 25 MG; Start 08/12/16 at 09:00 Montelukast Sodium (Singulair) 10 mg QHS PO Last administered on 08/17/16 21: 19; Admin Dose 10 MG; Start 08/12/16 at 21:00 Multivitamins Therapeutic (Theragran) 1 tab DAILY PO Last administered on 08:27; Admin Dose 1 TAB; Start 08/12/16 at 09:00 Sodium Biphosphate/ Sodium Phosphate (Fleet Enema) 135 ml DAILY PRN [place] CONSTIPATION; Start 08/12/16 at 09:00 Salmeterol Xinafoate/ Fluticasone (Advair 250/50 Diskus) 1 inh BID INH Last administered on 08/18/16 08:25; Admin Dose 1 INH; Start 08/12/16 at 09:00 Tiotropium [place] (Spiriva) 1 inh DAILY INH Last administered on 08/18/16 08: 25; Admin Dose 1 INH; Start 08/12/16 at 09:00 Trazodone HCl (Desyrel) 100 mg QHS PO Last administered on 08/17/16 21:19; Admin Dose 100 MG; Start 08/12/16 at 21:00 Pantoprazole (Protonix Tab) 40 mg DAILY@06 PO Last administered on 08/18/16 05 :28; Admin Dose 40 MG; Start 08/15/16 at 06:00 Prednisone 20 mg 20 mg DAILY PO Last administered on 08/18/16 08:26; Admin Dose 20 MG; Start 08/16/16 at 09:00 Cefepime HCl (Maxipime 2gm/50 ml (Pmx)) 50 ml @ 100 mls/hr Q24H IVPB Last administered on 08/18/16 10:07; Admin Dose 100 MLS/HR; Start 08/18/16 at 09:00 MICHELLE HEALY Aug 18, 2016 12:21
[2016-08-18 14:21] LABS: ADD SCAN DIFF NO
[2016-08-18 14:25] LABS: ABNORMAL IP MESSAGE 1; HEMATOCRIT 32.8 % (42.0-52.0); HEMOGLOBIN 10.5 g/dl (14.0-18.0); LYMPHOCYTES # 0.4 10^3/ul (0.8-2.9); LYMPHOCYTES % 3.7 % (15.0-51.0); MEAN CORPUSCULAR HEMOGLOBIN 28.7 pg (29.0-33.0); MEAN CORPUSCULAR VOLUME 89.6 fl (82.0-101.0); MEAN PLATELET VOLUME 10.2 fl (7.4-10.4); MONOCYTE # 0.2 10^3/ul (0.3-0.9); MONOCYTES % 1.9 % (0.0-11.0); NEUTROPHIL # 10.5 10^3/ul (1.6-7.5); NEUTROPHILS % 93.2 % (39.0-77.0); NUCLEATED RED BLOOD CELLS% 0.2 /100WBC (0.0-0.0); PLATELET COUNT 233 10^3/UL (140-415); RED BLOOD COUNT 3.66 10^6/ul (4.70-6.10); RED CELL DISTRIBUTION WIDTH 16.9 % (11.5-14.5); WHITE BLOOD COUNT 11.2 10^3/ul (4.8-10.8)
[2016-08-18] MEDS: HYDROCODONE/APAP (5/325) TAB PO PRN ×2 (14:27→20:53)
--- NOTE | 2016-08-18 17:03 | PN ---
DATE: 08/18/2016 CARDIOLOGY FOLLOWUP PROGRESS NOTE SUBJECTIVE: Discussed with the staff. Rhythm strip was reviewed. The patient remains in sinus rhy thm, with a junctional rhythm. S1. S2, no chest pain or pressure. Still coughing. MEDICATIONS: Reviewed. PHYSICAL EXAMINATION: VITAL SIGNS: Temperature 97.4, heart rate of 98, blood pressure 122/57, respiration rate of 19, sat urating 97%. HEENT: Normocephalic, atraumatic. A cachectic-looking, thin gentleman in no acute distress. Pupi ls are equal. CARDIOVASCULAR: Regular rate and rhythm, systolic murmur. PULMONARY: With mild rhonchi, diffuse. GASTROINTESTINAL: Soft, thin, nontender. EXTREMITIES: No edema. NEUROLOGIC: Awake, responds appropriately. PSYCHIATRIC: Appears to be calm and pleasant. LABORATORY: WBC 11.2, hemoglobin 10.5, platelets of 233. Sodium 140, potassium 3.9, BUN of 15, cre atinine 0.55, glucose of 97. Magnesium is 2.1. ASSESSMENT AND PLAN: 1. Status post sepsis and pneumonia, bacteremia, antibiotic. 2. ____ respiratory failure. 3. Pneumonia. 4. Tachycardia and arrhythmia, currently appears heart rate has remained stable. 5. Chronic obstructive pulmonary disease. 6. Parkinson disease. Abdominal pain and back pain has improved. 7. History of paroxysmal atrial fibrillation. 8. Anemia. RECOMMENDATIONS: We will continue with the current cardiac care. Antibiotic is managed as per pulm onary and internal medicine. DVT prophylaxis will be continued. Cardizem will be continued as well . Dictated By: CHAVA THORNTON/DANIELA Conf#: [id number] DID#: [id number]
[2016-08-18] MEDS: DOCUSATE SODIUM 100 MG CAP PO SCH (20:53)
[2016-08-18] MEDS: traZODone 100 MG TAB PO SCH (20:54)
[2016-08-18] MEDS: MONTELUKAST 10 MG TAB PO SCH (20:55)
--- NOTE | 2016-08-18 21:35 | CONS ---
Date/Time of Note Date/Time of Note DATE: 08/18/16 TIME: 21:33 Assessment/Plan Assessment/Plan Chief Complaint/Hosp Course SUBJECTIVE: No acute changes. The patient is awake. Looks comfortable, no fevers. MICROBIOLOGY: Repeat blood cultures negative. Sputum culture growing E coli ESBL. ANTIMICROBIALS: Cefepime, s/p Vanco, s/p Vfend. PHYSICAL EXAMINATION: GENERAL: Fragile, elderly man who is alert, in no distress. HEENT: Head atraumatic, normocephalic. Sclerae anicteric. Buccal mucosa pink , dry. NECK: Supple. CHEST: Rise symmetrical. Breath sounds diminished to bases. HEART: S1, S2. ABDOMEN: Soft, bowel sounds present. EXTREMITIES: Without cyanosis. ASSESSMENT: 1. Status post sepsis with fevers, hypoxemia and tachycardia. 2. Pneumonia. 3. Corynebacterium species bacteremia consistent with contaminant. 4. Parkinson's dementia. 5. Chronic obstructive pulmonary disease. 6. Atrial fibrillation. 7. History of gastric carcinoma. PLAN: Remains stable, anticipate dc on Cefepime for 7 more days, f/u pulmonary/ card rec-s DW staff Problems: Consultation Date/Type/Reason Admit Date/Time Aug 12, 2016 at 09:16 Initial Consult Date 08/12/16 Type of Consultation: ID Exam/Review of Systems Vital Signs Vitals Vital Signs Date Time Temp Pulse Resp B/P Pulse Ox O2 Delivery O2 Flow Rate FiO2 08/18/16 20:35 99 08/18/16 20:22 98.1 21 113/59 90 08/18/16 19:00 Nasal Cannula 3.0 08/17/16 02:42 28 Intake and Output 08/17/16 08/17/16 08/18/16 15:00 23:00 07:00 Intake Total 720 ml 450 ml Output Total 800 ml Balance -80 ml 450 ml Results Result Diagram: 08/18/16 1340 08/17/16 0604 Results 24 hrs Laboratory Tests Test 08/18/16 08:48 08/18/16 13:40 Blood Gas Specimen Source Blood arterial Arterial Blood Date Drawn 08/18/2016 9:40:55 AM Arterial Blood pH (Temp corrected) 7.508 H Arterial Blood pCO2 (Temp correct) 38.0 Arterial Blood pO2 (Temp corrected) 72.7 L Arterial Blood HCO3 29.5 H Arterial Blood Base Excess 6.1 H Arterial Blood Oxygen Saturation 94.0 L [place] Test ACCEPTAB Arterial Blood Gas Puncture Site Left Radial Arterial Blood Carboxyhemoglobin 0.3 Arterial Blood Methemoglobin 0.3 Blood Gas A-a O2 Differential 118.2 H Oxyhemoglobin Percent 93.4 Total Hemoglobin 10.8 L Blood Gas Temperature 37.0 Blood Gas Modality NASAL CANNULA FiO2 33.0 Blood Gas Notified Whom JLD Blood Gas Notified Time 08/18/2016 10:08:34 AM White Blood Count 11.2 #H Red Blood Count 3.66 #L Hemoglobin 10.5 L Hematocrit 32.8 #L Mean Corpuscular Volume 89.6 Mean Corpuscular Hemoglobin 28.7 L Mean Corpuscular Hemoglobin Concent 32.0 Red Cell Distribution Width 16.9 H Platelet Count 233 Mean Platelet Volume 10.2 Neutrophils % 93.2 H Lymphocytes % 3.7 L Monocytes % 1.9 Eosinophils % 0.0 Basophils % 0.0 Nucleated Red Blood Cells % 0.2 H Neutrophils # 10.5 H Lymphocytes # 0.4 L Monocytes # 0.2 L Eosinophils # 0.0 Basophils # 0.0 Nucleated Red Blood Cells # 0.0 Medications Medications Current Medications Ondansetron HCl (Zofran Inj) 4 mg Q6H PRN IV NAUSEA AND/OR VOMITING; Start at 09:00 Enoxaparin Sodium (Lovenox) 40 mg DAILY SC Last administered on 08/18/16 08:44 ; Admin Dose 40 MG; Start 08/12/16 at 09:00 Acetaminophen (Tylenol Tab) 650 mg Q4 PRN PO MODERATE PAIN LEVEL 4-6; Start at 09:00 Amantadine HCl (Symmetrel) 100 mg BID PO Last administered on 08/18/16 20:55; Admin Dose 100 MG; Start 08/12/16 at 09:00 Ascorbic Acid (Vitamin C) 500 mg BID PO Last administered on 08/18/16 20:54; Admin Dose 500 MG; Start 08/12/16 at 09:00 Bisacodyl (Dulcolax Supp) 10 mg DAILY PRN [place] CONSTIPATION; Start 08/12/16 at 09 :00 Carbidopa/Levodopa (Sinemet (25/ 100)) 1 tab TID PO Last administered on 20:55; Admin Dose 1 TAB; Start 08/12/16 at 09:00 Diclofenac Sodium (Voltaren 1% Gel) 2 gm DAILY PRN TP PAIN; Start 08/12/16 at 09:00 Diltiazem HCl (Cardizem Sr) 120 mg TID PO Last administered on 08/18/16 20:55 ; Admin Dose 120 MG; Start 08/12/16 at 09:00 Docusate Sodium (Colace) 200 mg QHS PO Last administered on 08/18/16 20:53; Admin Dose 200 MG; Start 08/12/16 at 21:00 Escitalopram Oxalate (Lexapro) 10 mg DAILY PO Last administered on 08/18/16 10 :07; Admin Dose 10 MG; Start 08/12/16 at 09:00 Gabapentin (Neurontin) 100 mg BID PO Last administered on 08/18/16 20:54; Admin Dose 100 MG; Start 08/12/16 at 09:00 Acetaminophen/ Hydrocodone Bitart ([place] (5/325)) 1 tab Q6 PRN PO MODERATE PAIN LEVEL 4-6 Last administered on 08/18/16 20:53; Admin Dose 1 TAB; Start at 09:00 Acetaminophen/ Hydrocodone Bitart ([place] (5/325)) 2 tab Q6 PRN PO SEVERE PAIN LEVEL 7-10 Last administered on 08/18/16 14:27; Admin Dose 2 TAB; Start at 09:00 Hyoscyamine (Levsin (Sl)) 0.125 mg Q6 PRN SL ABDOMINAL PAIN; Start 08/12/16 at 09:00 Magnesium Hydroxide (Milk Of Mag) 30 ml QHS PRN PO CONSTIPATION Last administered on 08/16/16 09:01; Admin Dose 30 ML; Start 08/12/16 at 09:00 Metoprolol Succinate (Toprol Xl) 25 mg DAILY PO Last administered on 08/18/16 08:27; Admin Dose 25 MG; Start 08/12/16 at 09:00 Montelukast Sodium (Singulair) 10 mg QHS PO Last administered on 08/18/16 20: 55; Admin Dose 10 MG; Start 08/12/16 at 21:00 Multivitamins Therapeutic (Theragran) 1 tab DAILY PO Last administered on 08:27; Admin Dose 1 TAB; Start 08/12/16 at 09:00 Sodium Biphosphate/ Sodium Phosphate (Fleet Enema) 135 ml DAILY PRN [place] CONSTIPATION; Start 08/12/16 at 09:00 Salmeterol Xinafoate/ Fluticasone (Advair 250/50 Diskus) 1 inh BID INH Last administered on 08/18/16 20:53; Admin Dose 1 INH; Start 08/12/16 at 09:00 Tiotropium [place] (Spiriva) 1 inh DAILY INH Last administered on 08/18/16 08: 25; Admin Dose 1 INH; Start 08/12/16 at 09:00 Trazodone HCl (Desyrel) 100 mg QHS PO Last administered on 08/18/16 20:54; Admin Dose 100 MG; Start 08/12/16 at 21:00 Pantoprazole (Protonix Tab) 40 mg DAILY@06 PO Last administered on 08/18/16 05 :28; Admin Dose 40 MG; Start 08/15/16 at 06:00 Prednisone 20 mg 20 mg DAILY PO Last administered on 08/18/16 08:26; Admin Dose 20 MG; Start 08/16/16 at 09:00 Cefepime HCl (Maxipime 2gm/50 ml (Pmx)) 50 ml @ 100 mls/hr Q24H IVPB Last administered on 08/18/16 10:07; Admin Dose 100 MLS/HR; Start 08/18/16 at 09:00 JOSEPH PRADO NP Aug 18, 2016 21:35
[2016-08-19] VITALS (13 sets, daily range): BP systolic 97–145; BP diastolic 56–83; PULSE 98–120; RESP 16–22
[2016-08-19] MEDS: ALBUTEROL/IPRATROPIUM (NEB) 3 ML AMP NEB SCH ×6 (01:18→20:34)
[2016-08-19] MEDS: PANTOPRAZOLE (EC) 40 MG TAB PO SCH (05:34)
[2016-08-19] MEDS ORDERED: METHYLPREDNISOLONE 125 MG INJ ONE (06:11)
[2016-08-19 06:15] LABS: Allen Test ACCEPTAB; Arterial Base Excess 6.2 mmol/L (-3.0-3); Arterial COHb 0.7 % (0.0-3.0); Arterial Fraction of Oxyhgb 85.5 % (93.0-99.0); Arterial HCO3 30.4 mmol/L (22.0-26.0); Arterial MetHb 0.3 % (0.0-1.5); Arterial Total Hemglobin 11.1 g/dl (12.0-18.0); MODE MASK - SIMPLE
[2016-08-19] MEDS ORDERED: METHYLPREDNISOLONE 125 MG INJ IV ONE (06:30)
[2016-08-19 08:10] LABS: CALCIUM 7.6 mg/dl (8.4-10.2); CREATININE 0.64 mg/dl (0.61-1.24); MAGNESIUM 1.7 mg/dl (1.7-2.5); PHOSPHORUS 3.2 mg/dl (2.5-4.9)
[2016-08-19] MEDS ORDERED: FUROSEMIDE 20 MG INJ IV ONE (08:30)
--- NOTE | 2016-08-19 08:39 | PN ---
DATE: 08/19/2016 SUBJECTIVE: The patient overnight decompensated. Rapid response was called as the patient was nitin ally tachypneic. The patient was placed on 100% nonrebreather. No other acute events noted. No he moptysis, hematemesis, or hematochezia. OBJECTIVE: GENERAL: The patient looks frail, weak, and tachypneic. VITAL SIGNS: Blood pressure is 104/56, respirations 20, pulse 109, temperature 97.9. I's AND O'S: The patient had 300 in, 400 out. HEENT: Head is normocephalic. Pupils are reactive to light. NECK: Supple. HEART: Tachycardic. LUNGS: Show diminished breath sounds at base. Positive rhonchi and crackles. ABDOMEN: Soft, nontender to palpation without rebound or guarding. EXTREMITIES: Negative for clubbing, cyanosis, no edema. DERMATOLOGIC: No rashes. MUSCULOSKELETAL: No joint effusions. NEUROLOGIC: Limited exam as the patient is lethargic. LABORATORY DATA: From 08/19/2016 is currently pending. ASSESSMENT AND PLAN: 1. Acute hypoxemic respiratory failure secondary to pneumonia, underlying pulmonary fibrosis. The patient had a clinical decline the last 24 hours. Currently on 100% nonrebreather. Repeat ABG show s evidence of hypoxemia. The patient may necessitate high flow oxygen and/or intubation. Plan at t his point is to continue current treatment plan. Continue 100% nonrebreather. Continue Solu-Medrol 60 mg IV q. 8 hours. Continue nebulizer therapy. Continue antibiotics. We will give one dose of Lasix as there may be a component of pulmonary congestion. We will follow up with pulmonary for rec ommendations. 2. Sepsis secondary to pneumonia and bacteremia. Continue current antibiotic regimen. Repeat cult ures have been negative. Follow with Infectious Disease. 3. Tachycardia secondary to hypoxemia. Continue to monitor. 4. Acute encephalopathy, etiology is toxic metabolic, hypoxemic. Continue to monitor. The patient is pending a CT scan of the head, deferring right now as the patient is not clinically stable. 5. History of chronic obstructive pulmonary disease and asthma. Continue current treatment plan. 6. Parkinson disease. Continue Sinemet. 7. Abdominal pain, chronic. No significant change. Continue to monitor. 8. Paroxysmal atrial fibrillation, currently in sinus rhythm. 9. Depression. Continue Lexapro. 10. Anemia. Continue to monitor hemoglobin and hematocrit levels. 11. Gastrointestinal and deep venous thrombosis prophylaxis. Continue proton pump inhibitor and Lo venox. 12. History of gastric cancer. Please note, I discussed the case with the patient's daughter, Kimberly, informing her of the decline in her father's state and the possibility of intubation. She is aware. Dictated By: JEFF GAMEZ/DANIELA Conf#: [id number] DID#: [id number]
[2016-08-19 08:44] LABS: ADD SCAN DIFF NO
[2016-08-19 08:54] LABS: ABNORMAL IP MESSAGE 1; HEMOGLOBIN 10.6 g/dl (14.0-18.0); MEAN CORPUSCULAR HEMOGLOBIN 29.4 pg (29.0-33.0); MEAN CORPUSCULAR HGB CONC 32.1 g/dl (32.0-37.0); MEAN CORPUSCULAR VOLUME 91.7 fl (82.0-101.0); MEAN PLATELET VOLUME 10.3 fl (7.4-10.4); MONOCYTE # 0.2 10^3/ul (0.3-0.9); PLATELET COUNT 232 10^3/UL (140-415); RED CELL DISTRIBUTION WIDTH 16.8 % (11.5-14.5); WHITE BLOOD COUNT 21.8 10^3/ul (4.8-10.8)
[2016-08-19] MEDS: SALMETEROL/FLUTICASONE 250/50 INHA INH SCH ×2 (09:00→21:27)
[2016-08-19] MEDS: CEFEPIME 2GM/50 ML (PMX) 50 ML IVPB SCH (09:00)
[2016-08-19] MEDS: TIOTROPIUM 18 MCG CAPSULE INHA DEV INH SCH (09:00)
[2016-08-19] MEDS: ENOXAPARIN 40 MG/0.4 ML SYG SC SCH (09:00)
--- NOTE | 2016-08-19 09:31 | RADRPT ---
PROCEDURE: XR Chest 1 View. CLINICAL INDICATION: Shortness of breath. TECHNIQUE: AP view of the chest was obtained. COMPARISON: August 16, [address] August 16, 2016 FINDINGS: The heart size is within normal limits. Calcified atherosclerosis is noted in the aorta. Right lowe r lobe infiltrates, combined with small to moderate pleural effusion are unchanged. Alveolar infilt rates in the right upper lobe have decreased. Lingular infiltrates have developed. The lungs are h yperexpanded. Interstitial prominence in both lungs is unchanged. The osseous structures are osteop enic, but appear grossly intact. IMPRESSION: Calcified atherosclerosis in the aorta. Hyperexpanded lungs with diffuse mild interstitial prominence in both lungs. Interstitial prominenc e could be chronic. Findings could reflect COPD. Stable right lower lobe infiltrates combined with small to moderate pleural effusion. Interval decrease in alveolar infiltrates in the right upper lobe. Mild residual remains. Interval development of infiltrates in the lingula. RPTAT: AA .Rogers Dumont MD, Date Time Electronically viewed and signed by .Rogers Dumont MD, on 08/19/2016 09:30 .P/
[2016-08-19] MEDS: AMANTADINE 100 MG CAP PO SCH ×2 (10:10→21:27)
[2016-08-19] MEDS: CARBIDOPA/LEVODOPA (25/100) TAB PO SCH ×3 (10:11→21:28)
[2016-08-19] MEDS: GABAPENTIN 100 MG CAP PO SCH ×2 (10:11→21:27)
[2016-08-19] MEDS: ESCITALOPRAM 10 MG TAB PO SCH (10:15)
[2016-08-19] MEDS: MULTIVITAMINS THERAPEUTIC TAB PO SCH (10:15)
[2016-08-19] MEDS: ASCORBIC ACID 500 MG TAB PO SCH ×2 (10:15→21:28)
[2016-08-19] MEDS: METOPROLOL (XL) 25 MG TAB PO SCH (10:15)
[2016-08-19] MEDS: DILTIAZEM (SR) 60 MG CAP PO SCH ×3 (10:16→21:29)
[2016-08-19] MEDS: SUCRALFATE (100 MG/ML) 10ML CUP PO SCH ×3 (10:18→18:24)
--- NOTE | 2016-08-19 11:02 | PN ---
DATE: 08/19/2016 PULMONARY FOLLOWUP SUBJECTIVE: Chart reviewed. Events noted. Patient decompensated overnight with profound hypoxemia . Rapid response was called. The patient was placed on a nonrebreather mask. The patient was note d to be slightly more confused also. Briefly the patient was placed on a BiPAP mask, but now has be en tapered off. Currently on 5 L O2 nasal cannula, saturating 96%. PHYSICAL EXAMINATION: VITAL SIGNS: Blood pressure 104/56, pulse 109, respirations 20, temperature afebrile. HEENT: Pupils are equal and react to light. NECK: Supple. No JVD noted, no cervical adenopathy noted, no carotid bruits heard. LUNGS: Velcro rales are present bilaterally. CARDIOVASCULAR: S1, S2 normal. ABDOMEN: Soft, nontender. No organomegaly or masses noted. EXTREMITIES: No clubbing, cyanosis, or edema present. Multiple ecchymotic areas present. NEUROLOGICAL: Awake, slightly confused. LABORATORY: ABG showed a pH of 7.47, pCO2 of 43, pO2 of 53. This was earlier on the oxygen mask. Currently the patient is on 5 liter nasal cannula, saturating 96%. Sodium 133, potassium 4.0, chlor jere 96, CO2 32, BUN 21, creatinine 0.64, glucose 110. WBC 21.8, hemoglobin 10.6, hematocrit 33, jose telets 232. Chest x-ray done earlier today shows hyperinflated lung munoz with mild interstitial p rominence in both lung munoz. Also a right lower lobe infiltrate with small pleural effusion. A d ecrease in the lingular infiltrate in the right upper lobe and lingula. IMPRESSION: 1. Acute hypoxemic respiratory failure. 2. Suspect underlying pulmonary fibrosis. 3. Underlying chronic obstructive pulmonary disease with exacerbation. 4. Likely right lower lobe pneumonia. 5. History of gastric cancer. 6. Dementia. 7. Deconditioning. PLAN: 1. Continue oxygen. 2. BiPAP p.r.n. 3. Continue antibiotics. 4. Agree with a dose of Lasix. 5. Steroids. 6. Bronchodilators. 7. Follow up labs, x-ray and ABG tomorrow. Above discussed with Dr. Harris and nursing staff. Dictated By: EDMAR FERRELL MD, MA/DANIELA Conf#: [id number] DID#: [id number]
[2016-08-19 12:21] LABS: LYMPHOCYTES # 0.9 10^3/ul (0.8-2.9); NEUTROPHIL # 15.5 10^3/ul (1.6-7.5)
[2016-08-19] MEDS: METHYLPREDNISOLONE 125 MG INJ IV SCH ×2 (13:53→21:26)
[2016-08-19] MEDS: HYDROCODONE/APAP (5/325) TAB PO PRN ×2 (14:49→21:26)
--- NOTE | 2016-08-19 15:24 | CONS ---
Date/Time of Note Date/Time of Note DATE: 08/19/16 TIME: 15:20 Assessment/Plan Assessment/Plan Chief Complaint/Hosp Course ID PROGRESS NOTE ABX DAY # => Cefepime 24H INTERVAL SUMMARY * 85 yo Cachectic M - A/A/O, no fevers, VSS, mild cough swallows sputum, c/o pleuritic pain in chest * MICROBIOLOGY: Repeat blood cultures negative. Sputum culture growing E coli ESBL. PHYSICAL EXAMINATION: GENERAL: Fragile, elderly man who is alert, in no distress. HEENT: Head atraumatic, normocephalic. Sclerae anicteric. Buccal mucosa pink , dry. NECK: Supple. CHEST: Rise symmetrical. Breath sounds diminished to bases. HEART: S1, S2. ABDOMEN: Soft, bowel sounds present. EXTREMITIES: Without cyanosis. ID ASSESSMENT: 85 yo M admitted with: 1. Status post sepsis with fevers, hypoxemia and tachycardia. 2. Pneumonia. 3. Corynebacterium species bacteremia consistent with contaminant. 4. Parkinson's dementia. 5. Chronic obstructive pulmonary disease. 6. Atrial fibrillation. 7. History of gastric carcinoma. INVASIVES: *PIV CURRENT ABX: ABX DAY # Cefepime, s/p Vanco, s/p Vfend. ID RECOMMENDATIONS: 1. Continue current ABX course for 6 more days 2. May DC back to SNF to complete ABX course per primary Problems: Consultation Date/Type/Reason Admit Date/Time Aug 12, 2016 at 09:16 Initial Consult Date 08/12/16 Type of Consultation: ID Exam/Review of Systems Vital Signs Vitals Vital Signs Date Time Temp Pulse Resp B/P Pulse Ox O2 Delivery O2 Flow Rate FiO2 08/19/16 15:19 98.0 102 20 140/83 97 08/19/16 13:41 6.0 08/19/16 13:40 Nasal Cannula 08/17/16 02:42 28 Intake and Output 08/18/16 08/18/16 08/19/16 15:00 23:00 07:00 Intake Total 300 ml Output Total 400 ml Balance -100 ml Results Result Diagram: 08/19/16 0712 08/19/16 0712 Results 24 hrs Laboratory Tests Test 08/19/16 06:08 08/19/16 06:11 08/19/16 07:12 Blood Gas Specimen Source Blood arterial Arterial Blood Date Drawn 08/19/2016 6:00:52 AM Arterial Blood pH (Temp corrected) 7.472 H Arterial Blood pCO2 (Temp correct) 42.6 Arterial Blood pO2 (Temp corrected) 53.3 *L Arterial Blood HCO3 30.4 H Arterial Blood Base Excess 6.2 H Arterial Blood Oxygen Saturation 86.4 L Kenney Test ACCEPTAB Arterial Blood Gas Puncture Site Right Radial Arterial Blood Carboxyhemoglobin 0.7 Arterial Blood Methemoglobin 0.3 Blood Gas A-a O2 Differential 219.1 H Oxyhemoglobin Percent 85.5 L Total Hemoglobin 11.1 L Blood Gas Temperature 37.0 Blood Gas Modality MASK - SIMPLE FiO2 45.0 Blood Gas Critical Value Read Back Amena MOBLEY RN Blood Gas Notified Whom UP Blood Gas Notified Time 08/19/2016 6:15:00 AM Bedside Glucose 111 White Blood Count 21.8 #H Red Blood Count 3.60 L Hemoglobin 10.6 L Hematocrit 33.0 L Mean Corpuscular Volume 91.7 Mean Corpuscular Hemoglobin 29.4 Mean Corpuscular Hemoglobin Concent 32.1 Red Cell Distribution Width 16.8 H Platelet Count 232 Mean Platelet Volume 10.3 Neutrophils % 71.0 Lymphocytes % 4.0 L Monocytes % 1.0 Eosinophils % Basophils % Nucleated Red Blood Cells % 0.0 Neutrophils # 15.5 H Lymphocytes # 0.9 Monocytes # 0.2 L Eosinophils # Basophils # Nucleated Red Blood Cells # 0.0 Sodium Level 133 L Potassium Level 4.0 Chloride Level 96 L Carbon Dioxide Level 32 H Anion Gap 9 Blood Urea Nitrogen 21 H Creatinine 0.64 Glucose Level 110 Calcium Level 7.6 L Phosphorus Level 3.2 Magnesium Level 1.7 Medications Medications Current Medications Ondansetron HCl (Zofran Inj) 4 mg Q6H PRN IV NAUSEA AND/OR VOMITING; Start at 09:00 Enoxaparin Sodium (Lovenox) 40 mg DAILY SC Last administered on 08/19/16 09:00 ; Admin Dose 40 MG; Start 08/12/16 at 09:00 Acetaminophen (Tylenol Tab) 650 mg Q4 PRN PO MODERATE PAIN LEVEL 4-6; Start at 09:00 Amantadine HCl (Symmetrel) 100 mg BID PO Last administered on 08/19/16 10:10; Admin Dose 100 MG; Start 08/12/16 at 09:00 Ascorbic Acid (Vitamin C) 500 mg BID PO Last administered on 08/19/16 10:15; Admin Dose 500 MG; Start 08/12/16 at 09:00 Bisacodyl (Dulcolax Supp) 10 mg DAILY PRN [place] CONSTIPATION; Start 08/12/16 at 09 :00 Carbidopa/Levodopa (Sinemet (25/ 100)) 1 tab TID PO Last administered on 13:54; Admin Dose 1 TAB; Start 08/12/16 at 09:00 Diclofenac Sodium (Voltaren 1% Gel) 2 gm DAILY PRN TP PAIN; Start 08/12/16 at 09:00 Diltiazem HCl (Cardizem Sr) 120 mg TID PO Last administered on 08/19/16 13:54 ; Admin Dose 120 MG; Start 08/12/16 at 09:00 Docusate Sodium (Colace) 200 mg QHS PO Last administered on 08/18/16 20:53; Admin Dose 200 MG; Start 08/12/16 at 21:00 Escitalopram Oxalate (Lexapro) 10 mg DAILY PO Last administered on 08/19/16 10 :15; Admin Dose 10 MG; Start 08/12/16 at 09:00 Gabapentin (Neurontin) 100 mg BID PO Last administered on 08/19/16 10:11; Admin Dose 100 MG; Start 08/12/16 at 09:00 Acetaminophen/ Hydrocodone Bitart ([place] (5/325)) 1 tab Q6 PRN PO MODERATE PAIN LEVEL 4-6 Last administered on 08/19/16 14:49; Admin Dose 1 TAB; Start at 09:00 Acetaminophen/ Hydrocodone Bitart ([place] (5/325)) 2 tab Q6 PRN PO SEVERE PAIN LEVEL 7-10 Last administered on 08/18/16 14:27; Admin Dose 2 TAB; Start at 09:00 Hyoscyamine (Levsin (Sl)) 0.125 mg Q6 PRN SL ABDOMINAL PAIN; Start 08/12/16 at 09:00 Magnesium Hydroxide (Milk Of Mag) 30 ml QHS PRN PO CONSTIPATION Last administered on 08/16/16 09:01; Admin Dose 30 ML; Start 08/12/16 at 09:00 Metoprolol Succinate (Toprol Xl) 25 mg DAILY PO Last administered on 08/19/16 10:15; Admin Dose 25 MG; Start 08/12/16 at 09:00 Montelukast Sodium (Singulair) 10 mg QHS PO Last administered on 08/18/16 20: 55; Admin Dose 10 MG; Start 08/12/16 at 21:00 Multivitamins Therapeutic (Theragran) 1 tab DAILY PO Last administered on 10:15; Admin Dose 1 TAB; Start 08/12/16 at 09:00 Sodium Biphosphate/ Sodium Phosphate (Fleet Enema) 135 ml DAILY PRN [place] CONSTIPATION; Start 08/12/16 at 09:00 Salmeterol Xinafoate/ Fluticasone (Advair 250/50 Diskus) 1 inh BID INH Last administered on 08/19/16 09:00; Admin Dose 1 INH; Start 08/12/16 at 09:00 Tiotropium [place] (Spiriva) 1 inh DAILY INH Last administered on 08/19/16 09: 00; Admin Dose 1 INH; Start 08/12/16 at 09:00 Trazodone HCl (Desyrel) 100 mg QHS PO Last administered on 08/18/16 20:54; Admin Dose 100 MG; Start 08/12/16 at 21:00 Pantoprazole 40 mg 40 mg DAILY@06 PO Last administered on 08/19/16 05:34; Admin Dose 40 MG; Start 08/15/16 at 06:00 Cefepime HCl (Maxipime 2gm/50 ml (Pmx)) 50 ml @ 100 mls/hr Q24H IVPB Last administered on 08/19/16 09:00; Admin Dose 100 MLS/HR; Start 08/18/16 at 09:00 Methylprednisolone Sodium Succinate (Solu-Medrol) 80 mg Q8 IV Last administered on 08/19/16 13:53; Admin Dose 80 MG; Start 08/19/16 at 14:00 JAQUELIN GONZALEZ NP Aug 19, 2016 15:24
[2016-08-19] MEDS: MONTELUKAST 10 MG TAB PO SCH (21:26)
[2016-08-19] MEDS: DOCUSATE SODIUM 100 MG CAP PO SCH (21:27)
[2016-08-19] MEDS: traZODone 100 MG TAB PO SCH (21:28)
--- NOTE | 2016-08-19 21:46 | RADRPT ---
PROCEDURE: CT Head without. CLINICAL INDICATION: Confusion. TECHNIQUE: The study was performed utilizing a multi-slice, multidetector CT scanner. Direct spira l 1 mm axial sections were obtained through the head without the use of intravenous contrast materia l. 1 or more of the following dose reduction techniques were utilized: Automated exposure control, adjustment of the mA and/or kV according to patient's size, iterative reconstruction technique. Co juliette and sagittal reformations were obtained. The images were reviewed on a PACS workstation. RADIATION DOSE: CTDIvol: 43.7 mGyDLP: 720.2 mGy-cm COMPARISON: No prior studies are available for comparison. FINDINGS: There is no intracranial hemorrhage, extra-axial fluid collection, mass lesion, midline shift or hyd rocephalus. There is moderate prominence of the cerebral sulci, lateral and third ventricles. Ther e is severe patchy and confluent periventricular and subcortical white matter hypodensity. There is mild prominence of the extra-axial spaces overlying the bilateral frontal lobes with expected vesse ls traversing the subarachnoid space. No evidence of subdural hygroma or chronic subdural hemorrhag e. There is mild arteriosclerotic calcification of the parasellar internal carotid arteries. The gr ay-white matter differentiation is preserved. The basal cisterns are patent. The midline structure s are intact. There is bilateral aphakia. The orbits, calvarium and extracranial soft tissues are normal in appearance. There is moderate to the bilateral maxillary sinuses. There are postoperative changes in the medial antrectomies with near total middle turbinectomies and multiple ethmoidectomies. The mastoid air cells and middle ear cavities are normally aerated. IMPRESSION: 1. No acute intracranial abnormality. No intracranial hemorrhage, extra-axial fluid collection, ma ss lesion or hydrocephalous. 2. Moderate peripheral and central cerebral volume loss. 3. Severe patchy and confluent periventricular and subcortical white matter hypodensity, likely rel ated to chronic microangiopathic changes. 4. Benign prominence of the extra-axial spaces overlying the bilateral frontal lobes. No evidence of subdural hygroma or chronic subdural hemorrhage at this time. RPTAT: HGAS .David Sigmund, MD, MD Date Time Electronically viewed and signed by .David Manuel MD, on 08/19/2016 21:45 .S/
[2016-08-20] VITALS (12 sets, daily range): BP systolic 107–120; BP diastolic 55–69; PULSE 95–98; RESP 16–18
[2016-08-20] MEDS: ALBUTEROL/IPRATROPIUM (NEB) 3 ML AMP NEB SCH ×7 (00:51→20:59)
[2016-08-20] MEDS: PANTOPRAZOLE (EC) 40 MG TAB PO SCH (06:26)
[2016-08-20] MEDS: HYDROCODONE/APAP (5/325) TAB PO PRN (06:26)
[2016-08-20] MEDS: METHYLPREDNISOLONE 125 MG INJ IV SCH ×3 (06:26→21:55)
[2016-08-20] MEDS: SUCRALFATE (100 MG/ML) 10ML CUP PO SCH ×3 (06:26→17:47)
[2016-08-20] MEDS: GABAPENTIN 100 MG CAP PO SCH ×2 (09:57→21:54)
[2016-08-20] MEDS: DILTIAZEM (SR) 60 MG CAP PO SCH ×3 (09:57→21:56)
[2016-08-20] MEDS: CARBIDOPA/LEVODOPA (25/100) TAB PO SCH ×3 (09:57→21:55)
[2016-08-20] MEDS: MULTIVITAMINS THERAPEUTIC TAB PO SCH (09:57)
[2016-08-20] MEDS: METOPROLOL (XL) 25 MG TAB PO SCH (09:57)
[2016-08-20] MEDS: LIDOCAINE 5% PATCH TD SCH (09:58)
[2016-08-20] MEDS: ASCORBIC ACID 500 MG TAB PO SCH ×2 (09:58→21:54)
[2016-08-20] MEDS: TIOTROPIUM 18 MCG CAPSULE INHA DEV INH SCH (09:58)
[2016-08-20] MEDS: AMANTADINE 100 MG CAP PO SCH ×2 (09:58→21:54)
[2016-08-20] MEDS: ESCITALOPRAM 10 MG TAB PO SCH (09:58)
[2016-08-20] MEDS: SALMETEROL/FLUTICASONE 250/50 INHA INH SCH ×2 (09:58→21:56)
[2016-08-20] MEDS: ENOXAPARIN 40 MG/0.4 ML SYG SC SCH (10:00)
[2016-08-20] MEDS: CEFEPIME 2GM/50 ML (PMX) 50 ML IVPB SCH (10:02)
--- NOTE | 2016-08-20 10:42 | RADRPT ---
PROCEDURE: XR Chest. CLINICAL INDICATION: Shortness of breath. TECHNIQUE: Single frontal view. COMPARISON: 08/19/2016 FINDINGS: There is mild pulmonary edema, unchanged. Air space disease at the lung bases with right worse than left is slightly improved. The heart is mildly enlarged. There is calcification in the aorta consistent with atherosclerosis. There are small bilateral pleural effusions. There is no pneumothorax. IMPRESSION: 1. Slightly improved appearance of the lungs. 2. No other change from 08/19/2016. RPTAT: QQ .Yamil Kate MD, MD Date Time Electronically viewed and signed by .Yamil Kate MD, MD on 08/20/2016 10:42 .R/
--- NOTE | 2016-08-20 12:46 | PN ---
DATE: 08/20/2016 SUBJECTIVE: The patient remains critical but stable. The patient was weaned off nonrebreather, cur rently is on 6 L nasal cannula. The patient remains confused. A CT scan was performed yesterday wh ich showed no acute findings. No other events noted. OBJECTIVE: VITAL SIGNS: Blood pressure 120/77, respirations 17, pulse 76, temperature 97.6. HEENT: Head is normocephalic. NECK: Supple. HEART: Regular rate. LUNGS: Show diminished breath sounds at base. ABDOMEN: Soft, nontender to palpation without rebound or guarding. EXTREMITIES: Negative for clubbing, cyanosis, no edema. DERMATOLOGIC: No rashes. MUSCULOSKELETAL: No joint effusion. NEUROLOGIC: No change in exam. MEDICATIONS: Reviewed. IMAGING: Chest x-ray from 08/19/2016 shows hyperexpanded lungs with interstitial prominence, develo pment of infiltrates in the lingula, decrease in alveolar infiltrates, right upper lobe, and right l ower lobe infiltrates with small to moderate pleural effusion noted. The patient's CT scan of the showed no acute findings. LABORATORY DATA: Shows white count 21,000, hemoglobin 10.6, hematocrit 33.0, platelet count is 232. Sodium 133, potassium 4.0, BUN 21, creatinine 0.64. ASSESSMENT AND PLAN: 1. Acute hypoxemic respiratory failure secondary to pneumonia with underlying pulmonary fibrosis. The patient was taken off the nonrebreather and is currently on 6 L nasal cannula; however, he still remains tachycardic. The patient's repeat chest x-ray shows ongoing pulmonary infiltrate. Plan at this point is to continue current treatment plan. Continue Solu-Medrol 60 mg IV q. 8 hours, contin ue nebulizers and supplemental oxygen. Continue antibiotics. We will follow up with pulmonary for recommendations. 2. Sepsis secondary to pneumonia bacteremia. Continue current antibiotic regimen. Repeat cultures have been negative. Continue to follow up with infectious disease. 3. Tachycardia secondary to hypoxemia. Continue to monitor. 4. Acute encephalopathy. Etiology is toxic metabolic. The patient is status post CT scan of the that showed no acute findings. 5. History of chronic obstructive pulmonary disease with asthma. The patient is in acute exacerbat ion as stated above. Continue medical management. 6. Parkinson disease. Continue Sinemet. 7. Chronic abdominal pain. No significant change. Continue to monitor. We will provide lidocaine patches. 8. Paroxysmal atrial fibrillation, currently in sinus rhythm. 9. Depression. Continue Lexapro. 10. Anemia. Continue to monitor H and H levels. 11. History of gastric cancer. 12. GI and DVT prophylaxis. Continue proton pump inhibitor and Lovenox. Please note, I updated the patient's family on the patient's condition. If the patient stabilizes, we will consider transfer to [place]. Dictated By: JEFF GAMEZ/DANIELA Conf#: [id number] DID#: [id number]
--- NOTE | 2016-08-20 15:41 | PN ---
DATE: 08/20/2016 SUBJECTIVE: Chart reviewed. No significant events noted. The patient remains off of BiPAP now, cu rrently on 5 L nasal cannula, saturating 93 to 96%. OBJECTIVE: VITAL SIGNS: Blood pressure 120/69, pulse 96, respirations 17, temperature 97.8. HEENT: Pupils are equal and reactive to light. NECK: Supple, no JVD noted, no cervical adenopathy noted, no carotid bruits heard. LUNGS: Velcro rales present bilaterally. CARDIOVASCULAR: S1, S2 normal. ABDOMEN: Soft, nontender. No organomegaly or masses noted. EXTREMITIES: No clubbing, cyanosis, or edema noted. NEUROLOGICAL: Awake and responsive. LABORATORY DATA: Show slight improvement in the bilateral infiltrates. IMPRESSION: 1. Acute hypoxemic respiratory failure, stable off of BiPAP. 2. Suspect underlying pulmonary fibrosis. 3. Underlying chronic obstructive pulmonary disease with exacerbation. 4. Right lower lobe pneumonia. 5. History of gastric cancer. 6. Dementia. 7. Deconditioning. 8. Suspect some component of volume overload. RECOMMENDATIONS: 1. Continue oxygen. 2. BiPAP p.r.n. 3. Antibiotics. 4. Consider more diuresis per nephrology. 5. Steroids. 6. Bronchodilators. 7. Followup labs. Dictated By: EDMAR FERRELL MD, MA/DANIELA Conf#: [id number] DID#: [id number]
--- NOTE | 2016-08-20 18:42 | PN ---
DATE: 08/20/2016 INFECTIOUS DISEASE PROGRESS NOTE SUBJECTIVE: Patient was on BiPAP overnight, currently comfortable on nasal cannula and sleeping son at bedside. No fevers. WBC 21.8, platelets 232, no shift, no bands. BUN 21, creatinine 0.64. ANTIMICROBIALS: Cefepime. The patient is also on IV steroids. PHYSICAL EXAMINATION: GENERAL: This is a fragile, elderly man who is in no distress. HEENT: Head atraumatic, normocephalic. Sclerae anicteric. Buccal mucosa dry. NECK: Supple. CHEST: Rise symmetrical. Breath sounds with scattered crackles. HEART: S1, S2. ABDOMEN: Soft. Bowel tones present. ASSESSMENT: 1. Acute hypoxemic respiratory failure secondary to chronic obstructive pulmonary disease exacerbat ion, questionable underlying pulmonary fibrosis. 2. Right lower lobe pneumonia. 3. Dementia with severe deconditioning. 4. History of gastric cancer. 5. Atrial fibrillation. 6. Leukocytosis, patient remains on steroids. PLAN: Clinically stable. Continue present care, antibiotics. Follow pulmonary recommendations. Dictated By: JOSEPH PRADO DIE MAINTENANCE TECHNICIAN for [facility]/DANIELA Conf#: [id number] DID#: [id number]
[2016-08-20] MEDS: MONTELUKAST 10 MG TAB PO SCH (21:53)
[2016-08-20] MEDS: DOCUSATE SODIUM 100 MG CAP PO SCH (21:54)
[2016-08-20] MEDS: traZODone 100 MG TAB PO SCH (21:54)
[2016-08-21] VITALS (11 sets, daily range): BP systolic 109–126; BP diastolic 58–65; PULSE 95–100; RESP 18–20
[2016-08-21] MEDS: ALBUTEROL/IPRATROPIUM (NEB) 3 ML AMP NEB SCH ×5 (00:35→16:27)
[2016-08-21] MEDS: PANTOPRAZOLE (EC) 40 MG TAB PO SCH (05:20)
[2016-08-21] MEDS: HYDROCODONE/APAP (5/325) TAB PO PRN ×2 (05:20→16:06)
[2016-08-21] MEDS: METHYLPREDNISOLONE 125 MG INJ IV SCH ×2 (05:24→13:24)
[2016-08-21] MEDS: SUCRALFATE (100 MG/ML) 10ML CUP PO SCH ×3 (06:25→17:32)
[2016-08-21] MEDS: MULTIVITAMINS THERAPEUTIC TAB PO SCH (08:08)
[2016-08-21] MEDS: ESCITALOPRAM 10 MG TAB PO SCH (08:09)
[2016-08-21] MEDS: DILTIAZEM (SR) 60 MG CAP PO SCH ×2 (08:09→13:25)
[2016-08-21] MEDS: ASCORBIC ACID 500 MG TAB PO SCH (08:09)
[2016-08-21] MEDS: AMANTADINE 100 MG CAP PO SCH (08:09)
[2016-08-21] MEDS: GABAPENTIN 100 MG CAP PO SCH (08:10)
[2016-08-21] MEDS: LIDOCAINE 5% PATCH TD SCH (08:10)
[2016-08-21] MEDS: CARBIDOPA/LEVODOPA (25/100) TAB PO SCH ×2 (08:10→13:24)
[2016-08-21] MEDS: METOPROLOL (XL) 25 MG TAB PO SCH (08:10)
[2016-08-21] MEDS: SALMETEROL/FLUTICASONE 250/50 INHA INH SCH (08:11)
[2016-08-21] MEDS: ENOXAPARIN 40 MG/0.4 ML SYG SC SCH (08:15)
[2016-08-21] MEDS: CEFEPIME 2GM/50 ML (PMX) 50 ML IVPB SCH (08:19)
[2016-08-21] MEDS ORDERED: FUROSEMIDE 20 MG INJ IV SCH (09:00)
[2016-08-21] MEDS: TIOTROPIUM 18 MCG CAPSULE INHA DEV INH SCH (10:45)
--- NOTE | 2016-08-21 11:24 | PN ---
DATE: 08/21/2016 SUBJECTIVE: The patient remains tachypneic, short of breath, although stable. The patient is on 5 liters nasal cannula. The patient's son at bedside. I spoke with him regarding possibility of Bar[place] ow, the patient and his son agrees. No other acute events noted. No hemoptysis, hematemesis or hem atochezia. OBJECTIVE: VITAL SIGNS: Blood pressure is 111/64, respiratory rate 20, pulse 101, temperature 98.3. GENERAL: The patient is frail, weak, cachectic. Accessory muscles being used. HEENT: Normocephalic. Pupils are reactive to light. NECK: Supple. HEART: Regular rate. LUNGS: Show diminished breath sounds at the base. Positive rhonchi and crackles. ABDOMEN: Soft, nontender to palpation without rebound or guarding. EXTREMITIES: Negative for clubbing, cyanosis. No edema. DERMATOLOGIC: No rashes. MUSCULOSKELETAL: No joint effusions. NEUROLOGIC: No change in exam. MEDICATIONS: The patient's medications have been reviewed. LABORATORY DATA: Currently pending. ASSESSMENT AND PLAN: 1. Acute hypoxemic respiratory failure secondary to pneumonia, pulmonary fibrosis and congestive he art failure. The patient's repeat chest x-ray shows interstitial edema. The patient is slowly impro ving. Plan is to continue current medical management. We will continue Solu-Medrol. Continue nebu lizer, supplemental oxygen. Continue antibiotic therapy. Will continue diuretic therapy as well. Monitor closely. 2. Acute diastolic heart failure. Patient will be started on Lasix. Will continue. Follow up wit cardiology. 3. Sepsis secondary to pneumonia and bacteremia. The patient is currently on antibiotic therapy. We will continue. Follow up with infectious disease. 4. Acute encephalopathy, etiology is toxic metabolic. The patient's mental status is improving. C T scan was negative, no acute findings. 5. History of chronic obstructive pulmonary disease, asthma. The patient is currently acute, exace rbation as stated above. Continue medical management. 6. Parkinson's disease. Continue Sinemet. 7. Chronic abdominal pain. No significant change. Continue to monitor. Continue lidocaine patches . 8. Paroxysmal atrial fibrillation, in sinus rhythm. 9. Depression. Continue Lexapro. 10. Anemia. Continue to monitor H and H levels. 11. History of gastric cancer. 12. GI and deep venous thrombosis prophylaxis. Continue PPI and Lovenox. DISPOSITION: Will place a [facility] evaluation for the patient. Dictated By: JEFF GAMEZ/DANIELA Conf#: [id number] DID#: [id number]
--- NOTE | 2016-08-21 13:27 | CONS ---
Date/Time of Note Date/Time of Note DATE: 08/21/16 TIME: 13:27 Assessment/Plan Assessment/Plan Chief Complaint/Hosp Course SUBJECTIVE: No events, sleeping, comfortable on nasal cannula. No fevers. ANTIMICROBIALS: Cefepime. The patient is also on IV steroids. PHYSICAL EXAMINATION: GENERAL: This is a fragile, elderly man who is in no distress. HEENT: Head atraumatic, normocephalic. Sclerae anicteric. Buccal mucosa dry. NECK: Supple. CHEST: Rise symmetrical. Breath sounds with scattered crackles. HEART: S1, S2. ABDOMEN: Soft. Bowel tones present. ASSESSMENT: 1. Acute hypoxemic respiratory failure secondary to chronic obstructive pulmonary disease exacerbation, questionable underlying pulmonary fibrosis. 2. Right lower lobe pneumonia. 3. Dementia with severe deconditioning. 4. History of gastric cancer. 5. Atrial fibrillation. 6. Leukocytosis, patient remains on steroids. PLAN: Clinically stable. Continue present care, antibiotics, steroids taper. Follow pulmonary recommendations. DW staff Problems: Consultation Date/Type/Reason Admit Date/Time Aug 12, 2016 at 09:16 Initial Consult Date 08/12/16 Type of Consultation: ID Exam/Review of Systems Vital Signs Vitals Vital Signs Date Time Temp Pulse Resp B/P Pulse Ox O2 Delivery O2 Flow Rate FiO2 08/21/16 12:24 93 5.0 08/21/16 12:23 92 30 Nasal Cannula 08/21/16 11:27 97.3 114/58 Intake and Output 08/20/16 08/20/16 08/21/16 15:00 23:00 07:00 Intake Total 600 ml 250 ml Balance 600 ml 250 ml Results Result Diagram: 08/19/16 0712 08/19/16 0712 Medications Medications Current Medications Ondansetron HCl (Zofran Inj) 4 mg Q6H PRN IV NAUSEA AND/OR VOMITING; Start at 09:00 Enoxaparin Sodium (Lovenox) 40 mg DAILY SC Last administered on 08/21/16 08:15 ; Admin Dose 40 MG; Start 08/12/16 at 09:00 Acetaminophen (Tylenol Tab) 650 mg Q4 PRN PO MODERATE PAIN LEVEL 4-6; Start at 09:00 Amantadine HCl (Symmetrel) 100 mg BID PO Last administered on 08/21/16 08:09; Admin Dose 100 MG; Start 08/12/16 at 09:00 Ascorbic Acid (Vitamin C) 500 mg BID PO Last administered on 08/21/16 08:09; Admin Dose 500 MG; Start 08/12/16 at 09:00 Bisacodyl (Dulcolax Supp) 10 mg DAILY PRN [place] CONSTIPATION; Start 08/12/16 at 09 :00 Carbidopa/Levodopa (Sinemet (25/ 100)) 1 tab TID PO Last administered on 13:24; Admin Dose 1 TAB; Start 08/12/16 at 09:00 Diclofenac Sodium (Voltaren 1% Gel) 2 gm DAILY PRN TP PAIN; Start 08/12/16 at 09:00 Diltiazem HCl (Cardizem Sr) 120 mg TID PO Last administered on 08/21/16 13:25 ; Admin Dose 120 MG; Start 08/12/16 at 09:00 Docusate Sodium (Colace) 200 mg QHS PO Last administered on 08/20/16 21:54; Admin Dose 200 MG; Start 08/12/16 at 21:00 Escitalopram Oxalate (Lexapro) 10 mg DAILY PO Last administered on 08/21/16 08 :09; Admin Dose 10 MG; Start 08/12/16 at 09:00 Gabapentin (Neurontin) 100 mg BID PO Last administered on 08/21/16 08:10; Admin Dose 100 MG; Start 08/12/16 at 09:00 Acetaminophen/ Hydrocodone Bitart ([place] (5/325)) 1 tab Q6 PRN PO MODERATE PAIN LEVEL 4-6 Last administered on 08/21/16 05:20; Admin Dose 1 TAB; Start at 09:00 Acetaminophen/ Hydrocodone Bitart ([place] (5/325)) 2 tab Q6 PRN PO SEVERE PAIN LEVEL 7-10 Last administered on 08/18/16 14:27; Admin Dose 2 TAB; Start at 09:00 Hyoscyamine (Levsin (Sl)) 0.125 mg Q6 PRN SL ABDOMINAL PAIN; Start 08/12/16 at 09:00 Magnesium Hydroxide (Milk Of Mag) 30 ml QHS PRN PO CONSTIPATION Last administered on 08/16/16 09:01; Admin Dose 30 ML; Start 08/12/16 at 09:00 Metoprolol Succinate (Toprol Xl) 25 mg DAILY PO Last administered on 08/21/16 08:10; Admin Dose 25 MG; Start 08/12/16 at 09:00 Montelukast Sodium (Singulair) 10 mg QHS PO Last administered on 08/20/16 21: 53; Admin Dose 10 MG; Start 08/12/16 at 21:00 Multivitamins Therapeutic (Theragran) 1 tab DAILY PO Last administered on 08:08; Admin Dose 1 TAB; Start 08/12/16 at 09:00 Sodium Biphosphate/ Sodium Phosphate (Fleet Enema) 135 ml DAILY PRN [place] CONSTIPATION; Start 08/12/16 at 09:00 Salmeterol Xinafoate/ Fluticasone (Advair 250/50 Diskus) 1 inh BID INH Last administered on 08/21/16 08:11; Admin Dose 1 INH; Start 08/12/16 at 09:00 Tiotropium [place] (Spiriva) 1 inh DAILY INH Last administered on 08/21/16 10: 45; Admin Dose 1 INH; Start 08/12/16 at 09:00 Trazodone HCl (Desyrel) 100 mg QHS PO Last administered on 08/20/16 21:54; Admin Dose 100 MG; Start 08/12/16 at 21:00 Pantoprazole 40 mg 40 mg DAILY@06 PO Last administered on 08/21/16 05:20; Admin Dose 40 MG; Start 08/15/16 at 06:00 Cefepime HCl (Maxipime 2gm/50 ml (Pmx)) 50 ml @ 100 mls/hr Q24H IVPB Last administered on 08/21/16 08:19; Admin Dose 100 MLS/HR; Start 08/18/16 at 09:00 Methylprednisolone Sodium Succinate (Solu-Medrol) 80 mg Q8 IV Last administered on 08/21/16 13:24; Admin Dose 80 MG; Start 08/19/16 at 14:00 Lidocaine (Lidoderm) 1 patch DAILY TD Last administered on 08/21/16 08:10; Admin Dose 1 PATCH; Start 08/20/16 at 09:00 Furosemide (Lasix) 20 mg DAILY IV Last administered on 08/21/16 10:44; Admin Dose 20 MG; Start 08/21/16 at 09:00 JOSEPH PRADO NP Aug 21, 2016 13:27
--- NOTE | 2016-08-21 14:10 | CONS ---
Date/Time of Note Date/Time of Note DATE: 08/21/16 TIME: 14:08 Assessment/Plan Assessment/Plan Additional Assessment/Plan Assessment recommendations; 1. Patient admitted with severe COPD exacerbation with bronchopneumonia. 2. 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 3. Remote history of gastric cancer. 4. Dementia. 5. COPD. 6. Parkinson's disease. Continue current treatment. Patient responding well now. I did have a detailed discussion the patient's son at bedside and answered all his questions. Consultation Date/Type/Reason Admit Date/Time Aug 12, 2016 at 09:16 Initial Consult Date 08/12/16 Type of Consultation: Pulmonary 24 HR Interval Summary Free Text/Dictation Patient condition has improved over the last 24 hours. Currently maintained on nasal cannula. Requiring intermittent BiPAP. General exam; elderly male, awake alert currently in no distress. Answering questions appropriately. Still complains of mild shortness of breath. Exam/Review of Systems Vital Signs Vitals Vital Signs Date Time Temp Pulse Resp B/P Pulse Ox O2 Delivery O2 Flow Rate FiO2 08/21/16 12:24 93 5.0 08/21/16 12:23 92 30 Nasal Cannula 08/21/16 11:27 97.3 114/58 Intake and Output 08/20/16 08/20/16 08/21/16 15:00 23:00 07:00 Intake Total 600 ml 250 ml Balance 600 ml 250 ml Exam HEENT exam; supple neck, no JVD. No lymphadenopathy. Midline trachea. No thyromegaly. Patient is edentulous and wears dentures. Has bilateral intraocular lens implants. Chest examined; diminished breath sound bilaterally. Scattered crackles involving right lung. S1-S2 audible, no murmurs. Regular rhythm. Abdomen examination; soft, scaphoid. Nontender. Bowel sounds audible. No organomegaly. Extremity examination; no peripheral edema. [employer] examination; no focal motor deficit. Patient however has severe generalized muscular weakness. Results Result Diagram: 08/19/1612 08/19/16 07 Medications Medications Current Medications Ondansetron HCl (Zofran Inj) 4 mg Q6H PRN IV NAUSEA AND/OR VOMITING; Start at 09:00 Enoxaparin Sodium (Lovenox) 40 mg DAILY SC Last administered on 08/21/16t 08:15 ; Admin Dose 40 MG; Start 08/12/16 at 09:00 Acetaminophen (Tylenol Tab) 650 mg Q4 PRN PO MODERATE PAIN LEVEL 4-6; Start at 09:00 Amantadine HCl (Symmetrel) 100 mg BID PO Last administered on 08/21/16 08:09; Admin Dose 100 MG; Start 08/12/16 at 09:00 Ascorbic Acid (Vitamin C) 500 mg BID PO Last administered on 08/21/16 08:09; Admin Dose 500 MG; Start 08/12/16 at 09:00 Bisacodyl (Dulcolax Supp) 10 mg DAILY PRN [place] CONSTIPATION; Start 08/12/16 at 09 :00 Carbidopa/Levodopa (Sinemet (25/ )) 1 tab TID PO Last administered on 13:24; Admin Dose 1 TAB; Start 08/12/16 at 09:00 Diclofenac Sodium (Voltaren 1% Gel) 2 gm DAILY PRN TP PAIN; Start 08/12/16 at 09:00 Diltiazem HCl (Cardizem Sr) 120 mg TID PO Last administered on 08/21/16 13:25 ; Admin Dose 120 MG; Start 08/12/16 at 09:00 Docusate Sodium (Colace) 200 mg QHS PO Last administered on 08/20/16 21:54; Admin Dose 200 MG; Start 08/12/16 at 21:00 Escitalopram Oxalate (Lexapro) 10 mg DAILY PO Last administered on 08/21/16 08 :09; Admin Dose 10 MG; Start 08/12/16 at 09:00 Gabapentin (Neurontin) 100 mg BID PO Last administered on 08/21/16 08:10; Admin Dose 100 MG; Start 08/12/16 at 09:00 Acetaminophen/ Hydrocodone Bitart ([place] (5/325)) 1 tab Q6 PRN PO MODERATE PAIN LEVEL 4-6 Last administered on 08/21/16 05:20; Admin Dose 1 TAB; Start at 09:00 Acetaminophen/ Hydrocodone Bitart ([place] (5/325)) 2 tab Q6 PRN PO SEVERE PAIN LEVEL 7-10 Last administered on 08/18/16 14:27; Admin Dose 2 TAB; Start at 09:00 Hyoscyamine (Levsin (Sl)) 0.125 mg Q6 PRN SL ABDOMINAL PAIN; Start 08/12/16 at 09:00 Magnesium Hydroxide (Milk Of Mag) 30 ml QHS PRN PO CONSTIPATION Last administered on 08/16/16 09:01; Admin Dose 30 ML; Start 08/12/16 at 09:00 Metoprolol Succinate (Toprol Xl) 25 mg DAILY PO Last administered on 08/21/16 08:10; Admin Dose 25 MG; Start 08/12/16 at 09:00 Montelukast Sodium (Singulair) 10 mg QHS PO Last administered on 08/20/16 21: 53; Admin Dose 10 MG; Start 08/12/16 at 21:00 Multivitamins Therapeutic (Theragran) 1 tab DAILY PO Last administered on 08:08; Admin Dose 1 TAB; Start 08/12/16 at 09:00 Sodium Biphosphate/ Sodium Phosphate (Fleet Enema) 135 ml DAILY PRN [place] CONSTIPATION; Start 08/12/16 at 09:00 Salmeterol Xinafoate/ Fluticasone (Advair 250/50 Diskus) 1 inh BID INH Last administered on 08/21/16 08:11; Admin Dose 1 INH; Start 08/12/16 at 09:00 Tiotropium [place] (Spiriva) 1 inh DAILY INH Last administered on 08/21/16 10: 45; Admin Dose 1 INH; Start 08/12/16 at 09:00 Trazodone HCl (Desyrel) 100 mg QHS PO Last administered on 08/20/16 21:54; Admin Dose 100 MG; Start 08/12/16 at 21:00 Pantoprazole 40 mg 40 mg DAILY@06 PO Last administered on 08/21/16 05:20; Admin Dose 40 MG; Start 08/15/16 at 06:00 Cefepime HCl (Maxipime 2gm/50 ml (Pmx)) 50 ml @ 100 mls/hr Q24H IVPB Last administered on 08/21/16 08:19; Admin Dose 100 MLS/HR; Start 08/18/16 at 09:00 Methylprednisolone Sodium Succinate (Solu-Medrol) 80 mg Q8 IV Last administered on 08/21/16 13:24; Admin Dose 80 MG; Start 08/19/16 at 14:00 Lidocaine (Lidoderm) 1 patch DAILY TD Last administered on 08/21/16 08:10; Admin Dose 1 PATCH; Start 08/20/16 at 09:00 Furosemide (Lasix) 20 mg DAILY IV Last administered on 08/21/16 10:44; Admin Dose 20 MG; Start 08/21/16 at 09:00 MICHELLE HEALY Aug 21, 2016 14:10
[2016-08-21] MEDS: MAGNESIUM HYDROXIDE 30ML CUP PO PRN (16:12)
[2016-08-21] MEDS ORDERED: METHYLPREDNISOLONE 40 MG INJ IV SCH (18:00)
--- NOTE | 2016-08-21 18:47 | PN ---
DATE: 08/21/2016 CARDIOLOGY FOLLOWUP SUBJECTIVE: Discussed with the staff. Discussed with the patient's son. Rhythm strip was reviewed . The patient remained in sinus tachycardia with intermittent atrial tach. Denies any chest pain o r pressure to me. He does complain of shortness of breath and lower abdominal discomfort. No palpi tation. MEDICATIONS: Reviewed. PHYSICAL EXAMINATION: VITAL SIGNS: Temperature 97.5, heart rate of 104, blood pressure 123/65, respiration rate of 20, sa turating 95%. HEENT: Normocephalic, atraumatic, cachectic gentleman. CARDIOVASCULAR: Tachycardic. PULMONARY: With mild rhonchi, diffuse. GASTROINTESTINAL: Soft, nontender. EXTREMITIES: With trivial lower extremity edema. NEUROLOGIC: Awake and alert. Responds appropriately. PSYCHIATRIC: Appears to be calm and pleasant. LABORATORY data: Not done today. Most recent one from the shows sodium 133, potassium 4, BUN 21, creatinine 0.64, glucose 110, magnesium is 1.7. DIAGNOSTIC DATA: Chest x-ray from yesterday shows slightly improved bilateral lungs. ASSESSMENT AND PLAN: 1. Hypoxemia hypercapnic respiratory failure. 2. Pneumonia. 3. Question of congestive heart failure, fluid overload. Currently does not appear to be severely fluid overloaded. 4. History of paroxysmal atrial fibrillation and tachycardia. 5. Chronic obstructive pulmonary disease. 6. Parkinson disease. 7. Anemia. RECOMMENDATIONS: We will continue with the current cardiac care. Antibiotic management as recommen ded as per internal medicine. Continue with the low-dose Lasix and monitor electrolytes. ____ will be checked again tomorrow. Dictated By: CHAVA LOZANO MD AV/DANIELA Conf#: [id number] DID#: [id number] CC: JEFF HAUSER DO;*EndCC*
== END 2016-08-21 20:28 | disposition short-term general hospital (02) | DRG 871 ==
LOC: E/R 05:55 → TEL 09:16 → UNDOADMIN 08-13 09:16 → TEL 08-17 14:19
PROVIDERS: ADMIT Internal Medicine; ATTEND Internal Medicine
DX: A41.9 Sepsis, unspecified organism (principal); J18.0 Bronchopneumonia, unspecified organism; J96.00 Acute respiratory failure, unspecified whether with hypoxia or hypercapnia; G92 Toxic encephalopathy; E87.2 Acidosis; F03.90 Unspecified dementia, unspecified severity, without behavioral disturbance, psychotic disturbance, mood disturbance, and anxiety; J84.10 Pulmonary fibrosis, unspecified; J44.0 Chronic obstructive pulmonary disease with (acute) lower respiratory infection; N39.0 Urinary tract infection, site not specified; J44.1 Chronic obstructive pulmonary disease with (acute) exacerbation; G20 Parkinson's disease; F02.80 Dementia in other diseases classified elsewhere, unspecified severity, without behavioral disturbance, psychotic disturbance, mood disturbance, and anxiety; F32.9 Major depressive disorder, single episode, unspecified; K29.70 Gastritis, unspecified, without bleeding; Z85.028 Personal history of other malignant neoplasm of stomach; I10 Essential (primary) hypertension; K21.9 Gastro-esophageal reflux disease without esophagitis; M81.0 Age-related osteoporosis without current pathological fracture; E87.6 Hypokalemia; E83.39 Other disorders of phosphorus metabolism; R53.81 Other malaise; I48.0 Paroxysmal atrial fibrillation
CPT/HCPCS: 36415; 36600; 70450; 71010; 71250; 74176; 80048; 80053; 80202; 81001; 82803; 82962; 83605; 83735; 84100; 84145; 84484; 85025; 85610; 85730; 87040; 87070; 87086; 92526; 92610; 93005; 94640; 94660; 94664; 96372; 96374; 96375; 96376; 97110; 97116; 97162; 97530; J1940; C9113; J0692; J1650; J1956; J2920; J2930; J3370; J7030; J7512; J7999